=== PATIENT | male | born 1955 | race Caucasian/White ===

== ENCOUNTER 2021-01-09 02:33 | Emergency (ER) | payer MEDICARE, SELFPAY ==
--- NOTE | ~2021-01-09 | XR_ITS ---
EXAMINATION: XR CHEST CLINICAL INFORMATION: Dyspnea COMPARISON: Chest x-ray May 08, 2018 TECHNIQUE: Frontal portable view of the chest was obtained. 3:52 AM FINDINGS: No significant abnormality is noted involving the heart, lungs, mediastinum, bony thorax or soft tissues. XR/XR chest 1V IMPRESSION: Unremarkable examination.
--- NOTE | 2021-01-09 02:45 | ECG_ITS ---
Test Reason : SOB Blood Pressure : / mmHG Vent. Rate : 084 BPM Atrial Rate : 084 BPM P-R Int : 150 ms QRS Dur : 076 ms QT Int : 348 ms P-R-T Axes : 057 066 083 degrees QTc Int : 411 ms Normal sinus rhythm Nonspecific T wave abnormality Abnormal ECG When compared with ECG of 08-MAY-2018 06:15, No significant change was found Referred By: Generic ED Physician Electronically Signed By:ANNA ZAMUDIO
[2021-01-09 02:48] VITALS: BP 156/82; PULSE 88; RESP 24; TEMP 36.6; O2SAT 94; BMI 39.1
--- NOTE | 2021-01-09 03:11 | ED_ITS ---
HPI - SOB/Dyspnea General Chief Complaint: Dyspnea Stated Complaint: trouble breathing, can't sleep Time Seen by Provider: 01/09/21 03:03 Source: patient Mode of arrival: ambulatory Limitations: no limitations History of Present Illness HPI Narrative: Patient comes to the emergency room complaining of shortness of b reath. Patient states it started approximately 6 hours ago while he was trying to sleep. Patient states that he has history of obstructive sleep apnea, uses a CPAP. However, today he could not catch a full breath. Patient denies chest pain. Related Data Home Medications Medication Instructions Recorded Confirmed aripiprazole 2 mg tablet 2 mg PO DAILY 09/02/20 atorvastatin 10 mg tablet 10 mg PO DAILY 09/02/20 fenofibrate nanocrystallized 145 145 mg PO DAILY 09/02/20 mg tablet fluoxetine 20 mg capsule 20 mg PO DAILY 09/02/20 furosemide 20 mg tablet 20 mg PO DAILY 09/02/20 insulin glargine 100 unit/mL (3 25 unit SUBCUT QAM ml 09/02/20 mL) subcutaneous pen (Lantus Solostar U-100 Insulin) losartan 25 mg tablet 25 mg PO DAILY 09/02/20 metformin 500 mg tablet 2,000 mg PO DAILY tab 09/02/20 trazodone 50 mg tablet 50 mg PO DAILY 09/02/20 Previous Rx's Medication Instructions Recorded carbamide peroxide 6.5 % ear drops 10 drp OTIC (EAR) LEFT Q12H 4 Days 09/02/20 (Debrox) #18 ml Allergies Allergy/AdvReac Type Severity Reaction Status Date / Time No Known Allergies Allergy Unverified 01/23/20 19:03 [No Known Allergies*] Review of Systems Review of Systems: Constitutional : No Weight loss, No Fever, No Chills, No Ni ght Sweats, No Fatigue, No Malaise ENT/Mouth : No Hearing loss, No Ear Pain, No Nasal Congestion, No Sinus Pain, No Hoarseness, No sore throat, No Rhinorrhea, No Swallowing Difficulty Eyes: No Eye Pain, No Swelling, No Redness, No Foreign Body, No Discharge, No Vision Changes Cardiovascular : No Chest Pain, No SOB, No Dyspnea on Exertion, No Orthopnea, No Edema, No Palpitations Respiratory : No Cough, No Sputum, No Wheezing, No Smoke Exposure, complaining of dyspnea down with CPAP Gastrointestinal : No Nausea, No Vomiting, No Diarrhea, No Constipation, No abdominal Pain, No Hematochezia, No Melena Genitourinary : no irregular bleeding, No Dysuria, No Urinary Frequency, No Hematuria, No Urinary Incontinence, No Urgency, No Flank Pain, No Urinary Flow Changes, No Hesitancy Musculoskeletal : No joint pain, No Myalgias, No Joint Swelling Skin : No Skin Lesions, No rash Neuro : No Weakness, No Numbness, No Paresthesias, No Loss of Consciousness, No Dizziness, No Headache Psych : No Anxiety/Panic, No Depression, No SI/HI/AH/VH, No Social Issues, Heme/Lymph: No Bruising, No Bleeding,No Lymphadenopathy Endocrine : No Polyuria, No Polydipsia, No Temperature Intolerance [facility] Past Medical History Medical History (Updated 01/09/21 @ 06:18 by Jocelyne Arndt MD) Diabetes FH: cholecystectomy Obstructive sleep apnea Retinal detachment Surgical History History of tonsillectomy Social History Social History Alcohol intake: current Alcohol intake frequency: holidays/special occasions only Patient Tobacco Use Status: Current everyday Tobacco user Smoked in Last 30 Days: Yes Use of substances other than those prescribed or required for medical reasons: Yes Substance Use Type: Marijuana Substance Use Frequency: Monthly Advance Directives: No Advance Directives Information Provided: No Physical Exam Vital Signs: Vital Signs: Last Vital Signs Temp 98 F 01/09/21 02:48 Pulse 84 01/09/21 04:41 Resp 18 01/09/21 04:41 BP 136/68 01/09/21 04:41 Pulse Ox 95 01/09/21 04:41 Body Mass Index 39.1 Const: Other: Appearance: Alert. Oriented X3. No acute distress. Eyes: Right pupil oddly shaped, chronic ENT: Pharynx normal. Neck: Normal inspection. Neck supple. No lymph nodes noted. No crepitus CVS: Normal heart rate and rhythm. Pulses normal. Normal S1 and S2 Respiratory: No respiratory distress. Breath sounds normal. No Wheezing. No rales Abdomen: Soft and nontender. No rigidity. No distention. good BS x4 Skin: Skin warm and dry. Normal skin color. Normal skin turgor. Extremities: +1 pitting edema, No Lacerations. No Rash Neuro: Oriented X 3. No motor deficit. No sensory deficit. Moving all extermities. No slurred speech. Course Course Course Narrative: I discussed the EKG, troponin and D-dimer with the patient, all negative. In the emergency room patient states that he has been feeling well. I discussed with the patient that it is possible that he may need new settings for his CPAP machine, patient will contact his special education director. Wells criteria for PE score negative MDM - SOB/Dyspnea Lab Data Result diagrams: 01/09/21 03:23 01/09/21 03:23 Labs: Lab Results 01/09/21 01/09/21 01/09/21 Range/Units 03:23 03:23 03:23 WBC 9.6 (4.8-10.8) X10*3/uL RBC 4.80 (4.60-5.80) X10*6/uL Hgb 15.6 (14.0-18.0) g/dl Hct 44.8 (42-52) % MCV 93.3 (80-98) fL MCH 32.5 (27.0-33.0) pg MCHC 34.8 (31.0-36.0) g/dl RDW 12.5 (11.0-16.0) % Plt Count 215 (160-400) X10*3/uL MPV 9.8 (9.4-12.4) fL Immature Gran % (Auto) 0.5 H (0.0-0.4) % Neut % (Auto) 56.0 (45-73) % Lymph % (Auto) 30.3 (20-40) % [place] % (Auto) 6.0 (2-11) % Eos % (Auto) 6.3 H (0-4) % Baso % (Auto) 0.9 (0-2) % Lymph # (Auto) 2.9 (1.2-4.9) X10*3/uL [place] # (Auto) 0.6 (0.1-1.2) X10*3/uL Eos # (Auto) 0.6 H (0.0-0.4) X10*3/uL Baso # (Auto) 0.1 (0.0-0.2) X10*3/uL Abs Immat Gran (auto) 0.05 H (0.00-0.03) X10*3/uL Absolute Neuts (auto) 5.4 (2.0-8.3) X10*3/uL Absolute Nucleated RBC 0.000 (0.0-0.012) X10*3/uL Nucleated RBC % (auto) 0.0 (0.0-0.2) /100WBC D-Dimer NG/ML Sodium 138 (135-145) mmol/L Potassium 4.7 (3.3-5.1) mmol/L Chloride 103 (96-108) mmol/L Carbon Dioxide 24 (22-29) mmol/L Anion Gap 16 (12-20) BUN 10 (9-16) mg/dL Creatinine 1.15 (0.5-1.4) mg/dL Estim Creat Clear Calc 77.0 Estimated GFR > 60 POC Glucose (60-115) mg/dL Random Glucose 189 H (60-115) mg/dL Calcium 10.1 (8.4-10.2) mg/dL Troponin I High Sens < 3.5 (<3.5-35.0) ng/L B-Natriuretic Peptide < 10 (<100) pg/mL COVID-19 ([facility]) (Negative) COVID-19 Clin Com 01/09/21 01/09/21 01/09/21 Range/Units 03:23 03:23 04:46 WBC (4.8-10.8) X10*3/uL RBC (4.60-5.80) X10*6/uL Hgb (14.0-18.0) g/dl Hct (42-52) % MCV (80-98) fL MCH (27.0-33.0) pg MCHC (31.0-36.0) g/dl RDW (11.0-16.0) % Plt Count (160-400) X10*3/uL MPV (9.4-12.4) fL Immature Gran % (Auto) (0.0-0.4) % Neut % (Auto) (45-73) % Lymph % (Auto) (20-40) % [place] % (Auto) (2-11) % Eos % (Auto) (0-4) % Baso % (Auto) (0-2) % Lymph # (Auto) (1.2-4.9) X10*3/uL [place] # (Auto) (0.1-1.2) X10*3/uL Eos # (Auto) (0.0-0.4) X10*3/uL Baso # (Auto) (0.0-0.2) X10*3/uL Abs Immat Gran (auto) (0.00-0.03) X10*3/uL Absolute Neuts (auto) (2.0-8.3) X10*3/uL Absolute Nucleated RBC (0.0-0.012) X10*3/uL Nucleated RBC % (auto) (0.0-0.2) /100WBC D-Dimer < 200 NG/ML Sodium (135-145) mmol/L Potassium (3.3-5.1) mmol/L Chloride (96-108) mmol/L Carbon Dioxide (22-29) mmol/L Anion Gap (12-20) BUN (9-16) mg/dL Creatinine (0.5-1.4) mg/dL Estim Creat Clear Calc Estimated GFR POC Glucose 207 H (60-115) mg/dL Random Glucose (60-115) mg/dL Calcium (8.4-10.2) mg/dL Troponin I High Sens (<3.5-35.0) ng/L B-Natriuretic Peptide (<100) pg/mL COVID-19 ([facility]) Negative (Negative) COVID-19 Clin Com See Note ECG Data Attestation: I personally reviewed and interpreted this ECG as follows: (Sedative rhythm, heart rate 84, 7 depression or elevation, no T-wave inversion, QTC 411) Discharge Plan Discharge Clinical Impression: Chronic dyspnea Patient Disposition: Home, Self-Care Instructions: Dyspnea (ED) Additional Instructions: Please follow-up with your primary care physician tomorrow. If you have any worsening or new symptoms, please return to the emergency room or call 911 Prescriptions: No Action atorvastatin 10 mg tablet 10 mg PO DAILY RF: 0 aripiprazole 2 mg tablet 2 mg PO DAILY RF: 0 Lantus Solostar U-100 Insulin 100 unit/mL (3 mL) insulin pen 25 unit subcut QAM RF: 0 losartan 25 mg tablet 25 mg PO DAILY RF: 0 fenofibrate nanocrystallized 145 mg tablet 145 mg PO DAILY RF: 0 fluoxetine 20 mg capsule 20 mg PO DAILY RF: 0 furosemide 20 mg tablet 20 mg PO DAILY RF: 0 trazodone 50 mg tablet 50 mg PO DAILY RF: 0 metformin 500 mg tablet 2,000 mg PO DAILY RF: 0 carbamide peroxide [Debrox] 6.5 % drops 10 drp otic (ear) left Q12H 4 Days Qty: 18 RF: 0
[2021-01-09 03:21] VITALS: BP 129/53; PULSE 83; RESP 18; O2SAT 95
[2021-01-09 03:38] LABS: Basophils Absolute Auto 0.1 X10*3/uL (0.0-0.2); Basophils Percent Auto 0.9 % (0-2); Eosinophils Absolute Auto 0.6 X10*3/uL (0.0-0.4); Eosinophils Percent Auto 6.3 % (0-4); Hematocrit 44.8 % (42-52); Hemoglobin 15.6 g/dl (14.0-18.0); Imm Gran Abs Auto 0.05 X10*3/uL (0.00-0.03); Imm Gran Pct Auto 0.5 % (0.0-0.4); Lymphocytes Absolute Auto 2.9 X10*3/uL (1.2-4.9); Lymphocytes Percent Auto 30.3 % (20-40); MANUAL DIFF FLAG NO; Mean Corpuscular HGB Conc 34.8 g/dl (31.0-36.0); Mean Corpuscular Hemoglobin 32.5 pg (27.0-33.0); Mean Corpuscular Volume 93.3 fL (80-98); Mean Platelet Volume 9.8 fL (9.4-12.4); Monocytes Absolute Auto 0.6 X10*3/uL (0.1-1.2); Neutrophils Absolute Auto 5.4 X10*3/uL (2.0-8.3); Platelet Count 215 X10*3/uL (160-400); Red Cell Distribution Width 12.5 % (11.0-16.0); White Blood Count 9.6 X10*3/uL (4.8-10.8)
[2021-01-09 03:47] LABS: D Dimer < 200 NG/ML
[2021-01-09 03:53] LABS: Anion Gap 16 (12-20); Blood Urea Nitrogen 10 mg/dL (9-16); Calcium 10.1 mg/dL (8.4-10.2); Carbon Dioxide 24 mmol/L (22-29); Chloride 103 mmol/L (96-108); Estimated Glomerular Filt Rate > 60; Glucose Random 189 mg/dL (60-115); Potassium 4.7 mmol/L (3.3-5.1); Sodium 138 mmol/L (135-145)
[2021-01-09 03:56] LABS: COVID-19 Test Negative (Negative); IDNOW Serial# 9DD0AD1C
[2021-01-09 04:02] LABS: B Type Natriuretic Peptide < 10 pg/mL (<100); Troponin-I High Sensitivity < 3.5 ng/L (<3.5-35.0)
[2021-01-09 04:41] VITALS: BP 136/68; PULSE 84; RESP 18; O2SAT 95
--- NOTE | 2021-01-09 04:46 | PC.NURSE ---
pT STATED HE IS DIABETIC AND HASN'T EATEN ANYTHING SINCE 10 PM LAST NIGHT AND WAS FEELING A LITTLE JITTERY. DID A POC AND HIS BLOOD SUGAR WAS 207. KEYONA CASTILLO.
[2021-01-09 04:52] LABS: Glucose, Whole Blood 207 mg/dL (60-115)
== END 2021-01-09 06:55 | disposition home or self-care (01) ==
PROVIDERS: Emergency Provider Emergency Medicine
DX: R06.02 Shortness of breath (principal); Z20.822 Contact with and (suspected) exposure to COVID-19; E11.9 Type 2 diabetes mellitus without complications; F17.210 Nicotine dependence, cigarettes, uncomplicated; F12.90 Cannabis use, unspecified, uncomplicated; Z79.4 Long term (current) use of insulin; Z79.899 Other long term (current) drug therapy
CPT/HCPCS: 36415; 71045; 80048; 82947; 83880; 84484; 85025; 85379; 87635; 93005; 99284; 99285

== ENCOUNTER 2021-03-14 21:47 | Inpatient (IN) | payer MEDICARE, SELFPAY ==
--- NOTE | 2021-03-14 | ECG_ITS ---
Test Reason : CHEST PAIN Blood Pressure : / mmHG Vent. Rate : 087 BPM Atrial Rate : 087 BPM P-R Int : 150 ms QRS Dur : 078 ms QT Int : 332 ms P-R-T Axes : 048 051 073 degrees QTc Int : 399 ms Normal sinus rhythm Nonspecific T wave abnormality Nonspecific ST abnormality Lateral leads Abnormal ECG ST more depressed Lateral leads Referred By: Brian Castro Electronically Signed By:MAXX TRINIDAD MD
--- NOTE | ~2021-03-14 | XR_ITS ---
EXAMINATION: XR CHEST CLINICAL INFORMATION: Chest pain COMPARISON: 01/09/2021 TECHNIQUE: Frontal view of the chest was obtained. FINDINGS: Linear opacities in the left lung base are most consistent with dependent atelectasis. No consolidation, pneumothorax, or pleural effusion. Cardiac and mediastinal contours are within normal limits in size. Mild degenerative disc disease in the thoracic spine. No acute osseous findings. XR/XR chest 1V IMPRESSION: Mild dependent atelectasis in the left lower lobe. No acute cardiopulmonary findings.
[2021-03-14 21:55] VITALS: BP 150/73; PULSE 91; RESP 22; TEMP 37.1; O2SAT 94; BMI 38.7
--- NOTE | 2021-03-14 23:06 | ED.CHESTPAIN ---
HPI - Chest Pain General Chief Complaint: Chest Pain Stated Complaint: chest pain Time Seen by Provider: 03/14/21 22:43 Source: patient Mode of arrival: ambulatory Limitations: no limitations History of Present Illness HPI narrative: 65-year-old male who presents emergency department for evaluation of midsternal, anterior chest pain that occasionally radiates to his left arm. The patient states that he works at the [employer] department at [employer]. He states that yesterday after work at approximately 7:00 p.m., he was watching TV when he had a sudden onset of pain in his chest. States that the pain was a burning/pressure-like sensation. He points to his mid sternum and left and right chest when asked to localize the pain. States the pain will occasionally radiate down his left arm. 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 He states the pain lasted approximately 2 hours and then resolved. He woke up this morning was feeling fine. He states that around 3:00 p.m. again while he was at rest he developed similar burning and pressure-like pain. He states that the pain is been constant since then has waxed and waned from 4/10 to 7/10. He had associated nausea, dizziness and diaphoresis. He denied shortness of breath or dyspnea on exertion. The patient did take 2 times at home without relief his pain. He states that he continues to take omeprazole twice a day for his Cohn's esophagitis. Related Data Home Medications Medication Instructions Recorded Confirmed aripiprazole 2 mg tablet 2 mg PO DAILY 09/02/20 03/15/21 atorvastatin 10 mg tablet 10 mg PO DAILY 09/02/20 03/15/21 fenofibrate nanocrystallized 145 145 mg PO DAILY 09/02/20 03/15/21 mg tablet fluoxetine 20 mg capsule 20 mg PO DAILY 09/02/20 03/15/21 furosemide 20 mg tablet 20 mg PO DAILY 09/02/20 03/15/21 insulin glargine 100 unit/mL (3 25 unit SUBCUT QAM ml 09/02/20 03/15/21 mL) subcutaneous pen (Lantus Solostar U-100 Insulin) losartan 25 mg tablet 25 mg PO DAILY 09/02/20 03/15/21 metformin 500 mg tablet 2,000 mg PO DAILY tab 09/02/20 03/15/21 trazodone 50 mg tablet 50 mg PO DAILY 09/02/20 03/15/21 glipizide 10 mg tablet 1 tab PO BID 03/15/21 03/15/21 Allergies Allergy/AdvReac Type Severity Reaction Status Date / Time No Known Allergies Allergy Unverified 01/23/20 19:03 [No Known Allergies*] Review of Systems Review of Systems: Yes all other systems are reviewed and are negative [facility] Past Medical History [facility] Narrative: Past medical history: Diabetes mellitus, hypertension, high cholesterol, Cohn's esophagitis, obstructive sleep apnea, retinal detachments. Past surgical history: Tonsillectomy, cholecystectomy. Social history: The patient states that he smokes 4 small cigars 4 times a day for 4 years. He denies alcohol use. He states he occasionally smokes marijuana. Medical History Diabetes FH: cholecystectomy HTN (hypertension) Obstructive sleep apnea Retinal detachment Surgical History History of tonsillectomy Social History Social History Alcohol intake: current Alcohol intake frequency: holidays/special occasions only Patient Tobacco Use Status: Current everyday Tobacco user Substance Use Type: Marijuana Advance Directives: No Advance Directives Information Provided: No Physical Exam Vital Signs: Vital Signs: Last Vital Signs Temp 98.7 F 03/14/21 21:55 Pulse 85 03/15/21 03:57 Resp 22 H 03/15/21 03:56 BP 134/63 03/15/21 03:57 Pulse Ox 97 03/15/21 03:56 Body Mass Index 38.7 Const: Other: Very pleasant and cooperative male patient, he does not appear to be in distress, answers all questions appropriately. HENMT: Head: Yes normal to inspection, Yes normocephalic and Yes atraumatic Ears: external ears normal General nose exam: Normal external nose present Face and sinus: Yes normal facial exam Mouth: Normal oral and palatal mucosa present Throat: Yes posterior oropharynx normal Eyes: General: appearance normal, both eyes and all related structures Pupils: Equal, round and reactive pupils present Neck: Neck: Yes normal visual inspection, Yes no lymphadenopathy, Yes trachea midline and Yes supple Chest: Chest palpation & inspection: normal inspection of the chest and normal palpation of entire chest wall Resp: Effort & Inspection: normal respiratory effort and able to speak in complete sentences Auscultation: clear to auscultation bilaterally Cardio: Rate: regular rate Rhythm: regular rhythm Heart sounds: S1 normal heart sound present, S2 normal heart sound present and no murmurs GI: Inspection: Yes normal to inspection Palpation (GI): Soft to palpation, nontender and no guarding Auscultation: normal bowel sounds : General: Yes no CVA tenderness Back/Spine/Pelvis: Back: no CVA tenderness Skin: General skin exam: no rashes or lesions noted Neuro: Cranial nerves: Yes CN's II-XII intact bilaterally and Yes Equal, round and reactive pupils present Cognition (Neuro): normal cognition Motor exam (neuro): 5/5 motor strength present throughout Extrem: General: Yes normal to inspection Psych: Appearance: grossly normal Speech and movement: Normal speech and movement present Affect: normal affect Attitude: cooperative Thought process: Normal thought process present Thought content: Normal thought content present Course Course Course Narrative: 65-year-old male who presents emergency department for evaluation of intermittent midsternal and anterior chest pain which he describes as a burning and pressure-like sensation. He had an episode yesterday that came on at rest that lasted approximately 2 hours. He had a another episode chest pain that started today at 3:00 p.m. will while rest. The 2nd episode has been waxing and waning in intensity and was still present at the time of evaluation. Patient's vital signs did reveal hypertension with a blood pressure of 150/73 and tachypnea with a respiratory rate of 22. The patient's physical examination was unremarkable. Differential includes was not limited to myocardial infarction, NSTEMI, angina, esophagitis, gastritis, musculoskeletal pain. I did order a CBC, CMP, troponin, D-dimer, 12 EKG and chest x-ray. I will also check a COVID-19 test on the patient. Patient was ordered to get Maalox 30 cc orally, viscous lidocaine 10 cc orally and 10 cc orally to see if this helps his pain. 0009: The patient's laboratory evaluation revealed an elevated troponin of 115, elevated AST and ALT of 43 and 55, elevated glucose of 203. The patient states that his pain did improve after the above treatment and was 3/10. Given his elevated troponin I am concerned that he may have had an NSTEMI. Patient was ordered to get nitro paste 1 in to his chest wall and aspirin 324 mg to chew. I will repeat the patient's 3 hour troponin at 06/09/2019 I and then I will discuss the patient's presentation with the covering refinery operator helper crude unit. 0128: Patient's pain improved with the above treatment but he states that the pain is 1/10. I will repeat the patient's 12 EKG and give the patient morphine 4 mg IV. The patient does not appear to be in distress and his vital signs are stable. 0312: The patient's repeat 3 hour high sensitivity troponin I was elevated at 674.8. I did discuss the patient's presentation with our covering refinery operator helper crude unit, Dr. Glass. He recommended that the patient be admitted to [facility] [place]. He recommended IV heparin, atorvastatin and beta-blockers. Patient was ordered to get heparin bolus and started on heparin drip. I ordered atorvastatin 80 mg orally and metoprolol tartrate 25 mg orally. I will discuss the patient's presentation with the covering hospitalist. MDM - Chest Pain Lab Data Result diagrams: 03/14/21 23:20 03/14/21 23:20 Labs: Lab Results 03/14/21 03/14/21 03/14/21 Range/Units 23:15 23:20 23:20 WBC 9.2 (4.8-10.8) X10*3/uL RBC 4.90 (4.60-5.80) X10*6/uL Hgb 15.7 (14.0-18.0) g/dl Hct 45.6 (42.0-52.0) % MCV 93.1 (80.0-98.0) fL MCH 32.0 (27.0-33.0) pg MCHC 34.4 (31.0-36.0) g/dl RDW 12.6 (11.0-16.0) % Plt Count 227 (160-400) X10*3/uL MPV 9.3 L (9.4-12.4) fL Immature Gran % (Auto) 0.7 H (0.0-0.4) % Neut % (Auto) 53.6 (45-73) % Lymph % (Auto) 30.6 (20-40) % [place] % (Auto) 7.1 (2-11) % Eos % (Auto) 7.0 H (0-4) % Baso % (Auto) 1.0 (0-2) % Lymph # (Auto) 2.8 (1.2-4.9) X10*3/uL [place] # (Auto) 0.7 (0.1-1.2) X10*3/uL Eos # (Auto) 0.6 H (0.0-0.4) X10*3/uL Baso # (Auto) 0.1 (0.0-0.2) X10*3/uL Abs Immat Gran (auto) 0.06 H (0.00-0.03) X10*3/uL Absolute Neuts (auto) 4.9 (2.0-8.3) x10*3/uL Absolute Nucleated RBC 0.000 (0.0-0.012) X10*3/uL Nucleated RBC % (auto) 0.0 (0.0-0.2) /100WBC APTT (24.1-38.0) SEC D-Dimer NG/ML Sodium 137 (135-145) mmol/L Potassium 4.3 (3.3-5.1) mmol/L Chloride 101 (96-108) mmol/L Carbon Dioxide 28 (22-29) mmol/L Anion Gap 12 (12-20) BUN 8 L (9-16) mg/dL Creatinine 1.34 (0.5-1.4) mg/dL Estim Creat Clear Calc 65.6 Estimated GFR 53 Random Glucose 203 H (60-115) mg/dL Calcium 9.8 (8.4-10.2) mg/dL Total Bilirubin 0.4 (0.0-1.0) mg/dL AST 43 H (5-37) U/L ALT 55 H (0-40) U/L Alkaline Phosphatase 50 (39-117) U/L Troponin I High Sens (<3.5-35.0) ng/L Total Protein 7.1 (6.5-8.0) g/dL Albumin 4.2 (3.5-5.0) g/dL COVID-19 ([facility]) Negative (Negative) COVID-19 Clin Com See Note 03/14/21 03/15/21 03/15/21 Range/Units 23:20 02:24 02:24 WBC (4.8-10.8) X10*3/uL RBC (4.60-5.80) X10*6/uL Hgb (14.0-18.0) g/dl Hct (42.0-52.0) % MCV (80.0-98.0) fL MCH (27.0-33.0) pg MCHC (31.0-36.0) g/dl RDW (11.0-16.0) % Plt Count (160-400) X10*3/uL MPV (9.4-12.4) fL Immature Gran % (Auto) (0.0-0.4) % Neut % (Auto) (45-73) % Lymph % (Auto) (20-40) % [place] % (Auto) (2-11) % Eos % (Auto) (0-4) % Baso % (Auto) (0-2) % Lymph # (Auto) (1.2-4.9) X10*3/uL [place] # (Auto) (0.1-1.2) X10*3/uL Eos # (Auto) (0.0-0.4) X10*3/uL Baso # (Auto) (0.0-0.2) X10*3/uL Abs Immat Gran (auto) (0.00-0.03) X10*3/uL Absolute Neuts (auto) (2.0-8.3) x10*3/uL Absolute Nucleated RBC (0.0-0.012) X10*3/uL Nucleated RBC % (auto) (0.0-0.2) /100WBC APTT 36.5 (24.1-38.0) SEC D-Dimer 200 NG/ML Sodium (135-145) mmol/L Potassium (3.3-5.1) mmol/L Chloride (96-108) mmol/L Carbon Dioxide (22-29) mmol/L Anion Gap (12-20) BUN (9-16) mg/dL Creatinine (0.5-1.4) mg/dL Estim Creat Clear Calc Estimated GFR Random Glucose (60-115) mg/dL Calcium (8.4-10.2) mg/dL Total Bilirubin (0.0-1.0) mg/dL AST (5-37) U/L ALT (0-40) U/L Alkaline Phosphatase (39-117) U/L Troponin I High Sens 115.4 H* D 674.3 H* D (<3.5-35.0) ng/L Total Protein (6.5-8.0) g/dL Albumin (3.5-5.0) g/dL COVID-19 ([facility]) (Negative) COVID-19 Clin Com ECG Data ECG #1: Attestation: I personally reviewed and interpreted this ECG as follows: Interpretation: 06/27/2052: Normal sinus rhythm with a rate of 87, normal MS interval, QRS duration and QTC interval, no ST segment elevation, no ST segment depression, no PACs, no PVCs, no T-wave abnormalities. ECG #2: Interpretation: 0255: Normal sinus rhythm with a rate of 79, normal MS interval, QRS duration and QTC interval, no ST segment elevation, no ST segment depression, no PACs, no PVCs. No significant change compared to EKG 1. Critical Care Time Critical Care Time Critical Care Time: Yes Total Critical Care Time: 45 Attestation: Critical Care: The patient was critically ill with a high probability of imminent or life threatening deterioration. I spent greater than 30 minutes of discontinuous time evaluating the patient,delivering critical care at the bedside, discussing and evaluating pertinent data with consultants. Critical care time does not include time spent performing separately billable procedures or teaching. Total time spent performing critical care was 45minutes. Discharge Plan Discharge Clinical Impression: Chest pain, Acute non-ST elevation myocardial infarction (NSTEMI) Patient Disposition: Admitted As Inpatient
[2021-03-14 23:11] VITALS: BP 136/77; PULSE 77; RESP 22; O2SAT 95
[2021-03-14] MEDS: Lidocaine HCl Viscous 2 % 15 ML SOLUTION 10 ML PO (23:21)
[2021-03-14] MEDS: PHENobarb/Hyoscy/Atropine/Scop 10 ML ELIXIR PO (23:22)
[2021-03-14] MEDS: Magnesium Hydrox/Alum Hydrox 30 ML ORAL.SUSP PO (23:22)
[2021-03-14 23:27] LABS: MANUAL DIFF FLAG NO
[2021-03-14 23:28] LABS: Basophils Absolute Auto 0.1 X10*3/uL (0.0-0.2); Eosinophils Absolute Auto 0.6 X10*3/uL (0.0-0.4); Hematocrit 45.6 % (42.0-52.0); Hemoglobin 15.7 g/dl (14.0-18.0); Imm Gran Abs Auto 0.06 X10*3/uL (0.00-0.03); Imm Gran Pct Auto 0.7 % (0.0-0.4); Lymphocytes Absolute Auto 2.8 X10*3/uL (1.2-4.9); Lymphocytes Percent Auto 30.6 % (20-40); Mean Corpuscular HGB Conc 34.4 g/dl (31.0-36.0); Mean Corpuscular Volume 93.1 fL (80.0-98.0); Mean Platelet Volume 9.3 fL (9.4-12.4); Monocytes Absolute Auto 0.7 X10*3/uL (0.1-1.2); Monocytes Percent Auto 7.1 % (2-11); Neutrophils Absolute Auto 4.9 x10*3/uL (2.0-8.3); Neutrophils Percent Auto 53.6 % (45-73); Platelet Count 227 X10*3/uL (160-400); Red Cell Distribution Width 12.6 % (11.0-16.0); White Blood Count 9.2 X10*3/uL (4.8-10.8)
[2021-03-14 23:41] LABS: COVID-19 Test Negative (Negative); IDNOW Serial# 9DD0AD1C
[2021-03-14 23:48] LABS: Alanine Aminotransferase 55 U/L (0-40); Albumin Level 4.2 g/dL (3.5-5.0); Alkaline Phosphatase 50 U/L (39-117); Anion Gap 12 (12-20); Aspartate Amino Transferase 43 U/L (5-37); Bilirubin Total 0.4 mg/dL (0.0-1.0); Blood Urea Nitrogen 8 mg/dL (9-16); Calcium 9.8 mg/dL (8.4-10.2); Carbon Dioxide 28 mmol/L (22-29); Chloride 101 mmol/L (96-108); Creatinine Clr Calc Pharmacy 65.6; Estimated Glomerular Filt Rate 53; Glucose Random 203 mg/dL (60-115); Potassium 4.3 mmol/L (3.3-5.1); Sodium 137 mmol/L (135-145); Total Protein 7.1 g/dL (6.5-8.0)
[2021-03-14 23:49] LABS: Troponin-I High Sensitivity 115.4 ng/L (<3.5-35.0)
[2021-03-15] VITALS (9 sets, daily range): BP systolic 108–143; BP diastolic 50–83; PULSE 55–85; RESP 13–28; TEMP 36.8; O2SAT 94–97
[2021-03-15] MEDS: Aspirin 81 MG TAB.CHEW 324 MG PO (00:18)
[2021-03-15] MEDS: Nitroglycerin 2 % Oint 1 GM Packet 1 INCH TRANSDERMA (00:19)
--- NOTE | 2021-03-15 01:25 | ECG_ITS ---
Test Reason : CHEST PAIN Blood Pressure : / mmHG Vent. Rate : 079 BPM Atrial Rate : 079 BPM P-R Int : 154 ms QRS Dur : 076 ms QT Int : 370 ms P-R-T Axes : 056 052 106 degrees QTc Int : 424 ms Normal sinus rhythm Nonspecific T wave abnormality Nonspecific ST abnormality Abnormal ECG When compared with ECG of 09-JAN-2021 03:30, No significant change was found Referred By: Brian Castro Electronically Signed By:MAXX TRINIDAD MD
[2021-03-15] MEDS: Morphine Sulfate 4 MG/ML CARTRIDGE IVPUSH (01:46)
[2021-03-15 02:47] LABS: D Dimer 200 NG/ML
[2021-03-15 03:00] LABS: Troponin-I High Sensitivity 674.3 ng/L (<3.5-35.0)
[2021-03-15 03:41] LABS: Partial Thromboplastin Time 36.5 SEC (24.1-38.0)
[2021-03-15] MEDS: Metoprolol Tartrate 25 MG TABLET PO (03:57)
[2021-03-15] MEDS: Heparin Sodium,Porcine 5,000 UNIT/ML VIAL 4000 UNIT IVPUSH (03:57)
[2021-03-15] MEDS: Atorvastatin Calcium 80 MG TABLET PO (03:57)
[2021-03-15] MEDS: Heparin Sodium,Porcine/1/2NS 25,000 UNIT/250 ML IV.SOLN 10 UNIT IVCONT ×2 (04:11→11:00)
--- NOTE | 2021-03-15 05:26 | CA_ITS ---
Transthoracic Echocardiogram Patient (Last, First, Middle): Doe Bajwa, Gender: Male Date of : 1955 Age: 65 Procedure Date: 03/15/2021 Procedure Type: Transthoracic Echocardiogram Location: ER Height: 170.18 cm Weight: 112.04 kg BSA: 2.21 m2 Heart Rate: bpm BP: 108 / 54 mmHg Zipper Lining Folder: JIMMY Referring MD: Racheal Baptiste MD Symptoms: NSTEMI Study Quality: Technically Difficult/Contrast ECG Rhythm: Sinus Conclusions: - The left ventricular systolic function is normal. The visually estimated ejection fraction is between 55-60%. - The inferoseptal wall is hypokinetic. - The basal inferior and mid inferior segments are akinetic. - No obvious valvular pathology seen on this study. Findings Procedure Information Contrast agent, definity, is being given per protocol without apparent complications. Left Ventricle Normal left ventricular cavity size. There is normal left ventricular wall thickness. The left ventricular systolic function is normal. The visually estimated ejection fraction is between 55-60%. Diastolic function is normal for age. Wall Motion Rest Echo Findings The inferoseptal wall is hypokinetic. The basal inferior and mid inferior segments are akinetic. Right Ventricle Normal right ventricular cavity size and systolic function. Atria Both atria are normal in size. Aortic Valve There is a normal trileaflet aortic valve. There is no aortic valve stenosis. There is no aortic valve regurgitation. Mitral Valve The mitral valve appears normal. There is no mitral valve regurgitation. There is no mitral valve stenosis. Pulmonic Valve The pulmonic valve was not well visualized. Tricuspid Valve Normal tricuspid valve structure. There is trace tricuspid valve regurgitation. The pulmonary artery systolic pressure is normal. Great Vessels The asc aorta is normal in size. Venous The inferior vena cava is normal in size and collapses greater than 50% with inspiration. Pericardium/Pleural There is no evidence of pericardial effusion. Prior Study Comparison No prior study available for comparison. Recommendations, Care & Conclusions No obvious valvular pathology seen on this study. Measurements 2D Linear Measurements IVSd: 0.98 0.6-0.9/0.6-1.0 cm LVIDd: 3.96 3.9-5.3/4.2-5.9 cm LVIDd Index: 1.79 2.4-3.2/2.2-3.1 cm/m2 LVIDs: 2.81 2.0-3.6 cm LVPWd: 0.96 0.7-1.1 cm Ao Root: 3.30 2.1-3.5 cm LA Diam: 3.40 2.7-3.8/3.0-4.0 cm LAIDs Index: 1.54 1.5-2.3 cm/m2 LV Mass: 149.12 67-162/88-224 g LV Mass Index: 67.47 43-95/49-115 g/m2 LVOT Diam: 2.10 3.0+(-)1.3 cm Mitral Valve MV Pk E: 0.95 MV PK A: 0.98 MV Decel Time: 299.00 E/A: 1.00 E'Lateral: 11.30 E'Medial: 11.00 E/E' Med: 8.60 E/E' Lat: 8.40 PHT: 88.00 MVA PHT: 2.50 Decel [place]: 3.17 Aortic Valve AoV Pk [place]: 1.33 AoV Mn [place]: 0.89 AoV VTI: 0.27 AoV Pk Grad: 7.00 Aov Mn Grad: 4.00 MARIYA Cont.VTI: 2.81 LVOT LVOT Pk [place]: 1.02 LVOT Mn [place]: 0.62 LVOT VTI: 0.22 LVOT Pk Grad: 4.00 LVOT Mn Grad: 2.00 LVOT Diam: 2.10 LVOT Area: 3.46 Diastolic Function MV Pk E: 0.95 MV Pk A: 0.98 E/A: 1.00 E'Medial: 11.00 E/E' Med: 8.60 E' Laterial: 11.30 E/E' Lat: 8.40 Right Ventricle TAPSE (mm): 2.31 TVS' [place]: 10.80 Tricuspid Valve TR Pk [place]: 1.36 TR Pk Grad: 7.00 RA Press: 3.00 RVSP: 10.00 Great Vessels Aorta Ao Root-2D: 3.30 2.0-3.7 cm Ao Asc: 3.50 2.1-3.4 cm Ao Arch: 2.90 Updated in Other Vendor System with Status of Final Kameron Lyn MD electronically signed on 03/15/2021 12:24:41 PM with status of Final
[2021-03-15 06:06] LABS: Basophils Absolute Auto 0.1 X10*3/uL (0.0-0.2); Basophils Percent Auto 0.8 % (0-2); Eosinophils Absolute Auto 0.6 X10*3/uL (0.0-0.4); Eosinophils Percent Auto 6.3 % (0-4); Hematocrit 48.4 % (42.0-52.0); Hemoglobin 16.2 g/dl (14.0-18.0); Imm Gran Abs Auto 0.03 X10*3/uL (0.00-0.03); Imm Gran Pct Auto 0.3 % (0.0-0.4); Lymphocytes Absolute Auto 2.8 X10*3/uL (1.2-4.9); Lymphocytes Percent Auto 29.1 % (20-40); MANUAL DIFF FLAG NO; Mean Corpuscular HGB Conc 33.5 g/dl (31.0-36.0); Mean Corpuscular Hemoglobin 31.9 pg (27.0-33.0); Mean Corpuscular Volume 95.3 fL (80.0-98.0); Mean Platelet Volume 9.8 fL (9.4-12.4); Monocytes Absolute Auto 0.7 X10*3/uL (0.1-1.2); Monocytes Percent Auto 7.3 % (2-11); Neutrophils Absolute Auto 5.4 x10*3/uL (2.0-8.3); Neutrophils Percent Auto 56.2 % (45-73); Platelet Count 225 X10*3/uL (160-400); Red Blood Count 5.08 X10*6/uL (4.60-5.80); Red Cell Distribution Width 12.7 % (11.0-16.0); White Blood Count 9.5 X10*3/uL (4.8-10.8)
--- NOTE | 2021-03-15 06:08 | P.HPHOSP_ITS ---
History of Present Illness Date of Service: 03/15/21 Chief Complaint: Chest pain 65-year-old male with past medical history of diabetes, hypertension, hyperlipidemia, Cohn's esophagitis, obesity, sleep apnea presents the hospital with chest pain that initially started on Monday. Patient reports that he was coming home after work when he experienced midsternal chest pain that he felt like it was indigestion, the pain lasted about half an hour and resolved spontaneously. He woke up feeling well, but later on in the morning started developing the same pain that progressively worsened over the course of the day. The pain is localized in the epigastric region, felt like pressure, as well as heartburn, 8/10, constant, radiating to the left arm, no relieving factors, no exacerbating factors. He felt that he was having heartburn but the symptoms were not resolving after taking Tums and his PPI. He denies any palpitations, no shortness of breath, no abdominal pain nausea or vomiting, no diarrhea constipation, no urinary symptoms and no lower extremity edema. On arrival to the ED hemodynamically stable with no significant abnormal vitals Labs are significant for initial troponin that was 115, repeat troponin that was 674, EKG unremarkable x2 Case was discussed with Cardiology, patient started on heparin drip, Lopressor, aspirin, and statin and will be admitted for further management Review of Systems Review of Systems: Yes all other systems are reviewed and are negative [facility] Medical History Diabetes FH: cholecystectomy HTN (hypertension) Obstructive sleep apnea Retinal detachment Family History (Updated 03/15/21 @ 06:13 by Racheal Baptiste MD) Father Coronary artery disease Hx of CABG Surgical History History of tonsillectomy Social History Alcohol intake: current Alcohol intake frequency: holidays/special occasions only Patient Tobacco Use Status: Current everyday Tobacco user Substance Use Type: Marijuana Advance Directives: No Advance Directives Information Provided: No Meds Allergies Allergy/AdvReac Type Severity Reaction Status Date / Time No Known Allergies Allergy Unverified 01/23/20 19:03 [No Known Allergies*] Active Medications: Current Medications Acetaminophen (Acetaminophen 325 Mg Tablet) 650 mg PO Q6H PRN PRN Reason: Pain, Mild (Pain Scale 1-3) Aripiprazole (Aripiprazole 2 Mg Tablet) 2 mg PO DAILY [facility] Aspirin (Aspirin Enteric Coated 81 Mg Tablet.Dr) 81 mg PO DAILY [facility] Atorvastatin Calcium (Atorvastatin Calcium 40 Mg Tablet) 40 mg PO DAILY [facility] Docusate Sodium (Docusate Sodium 100 Mg Capsule) 100 mg PO DAILY PRN PRN Reason: Constipation Fenofibrate (Fenofibrate 160 Mg Tablet) 160 mg PO DAILY [facility] Fluoxetine HCl (Fluoxetine Hcl 20 Mg Capsule) 20 mg PO DAILY [facility] Furosemide (Furosemide 20 Mg Tablet) 20 mg PO DAILY [facility]; Protocol Heparin Sodium (Porcine) (Heparin Sodium,Porcine 5,000 Unit/Ml Vial) 4,500 unit 40 unit/kg (4500 unit) IVPUSH PROTOCOL BOLUS PRN; Protocol PRN Reason: 40 unit/kg - Heparin Protocol Heparin Sodium (Porcine) (Heparin Sodium,Porcine 5,000 Unit/Ml Vial) 9,000 unit 80 unit/kg (9000 unit) IVPUSH PROTOCOL BOLUS PRN; Protocol PRN Reason: 80 unit/kg - Heparin Protocol Heparin Sodium/Sodium Chloride () 25,000 unit in 250 mls @ 0 mls/hr IVCONT .Q0M [facility]; Protocol Last Admin: 03/15/21 04:11 Dose: 8.93 units/kg/hr, 10 mls/hr Documented by: Insulin Glargine (Insulin Glargine,Hum.Rec.Anlog 100 Unit/Ml 10 Ml Vial) 25 unit SUBCUT DAILY [facility] Losartan Potassium (Losartan Potassium 25 Mg Tablet) 25 mg PO DAILY [facility]; Protocol Metoprolol Tartrate (Metoprolol Tartrate 12.5 Mg Halftab) 12.5 mg PO BID [facility]; Protocol Ondansetron HCl (Ondansetron Hcl 4 Mg/2 Ml Vial) 4 mg IVPUSH Q8H PRN PRN Reason: Nausea and Vomiting Sodium Chloride (0.9 % Sodium Chloride Flush 3 Ml Syringe) 3 ml IVFLUSH QSHIFT [facility] Trazodone HCl (Trazodone Hcl 50 Mg Tablet) 50 mg PO DAILY [facility] Home Medications Medication Instructions Recorded Confirmed Last Taken Type aripiprazole 2 mg tablet 2 mg PO DAILY 09/02/20 03/15/21 03/14/21 History atorvastatin 10 mg tablet 10 mg PO DAILY 09/02/20 03/15/21 03/14/21 History fenofibrate nanocrystallized 145 145 mg PO DAILY 09/02/20 03/15/21 03/14/21 History mg tablet fluoxetine 20 mg capsule 20 mg PO DAILY 09/02/20 03/15/21 03/14/21 History furosemide 20 mg tablet 20 mg PO DAILY 09/02/20 03/15/21 03/14/21 History insulin glargine 100 unit/mL (3 25 unit SUBCUT QAM ml 09/02/20 03/15/21 03/14/21 History mL) subcutaneous pen (Lantus Solostar U-100 Insulin) losartan 25 mg tablet 25 mg PO DAILY 09/02/20 03/15/21 03/14/21 History metformin 500 mg tablet 2,000 mg PO DAILY tab 09/02/20 03/15/21 03/14/21 History trazodone 50 mg tablet 50 mg PO DAILY 09/02/20 03/15/21 03/14/21 History glipizide 10 mg tablet 1 tab PO BID 03/15/21 03/15/21 03/14/21 History Physical Exam Vital Signs and Narrative: Vital Signs: Last Vital Signs Temp 98.7 F 03/14/21 21:55 Pulse 55 03/15/21 05:48 Resp 20 03/15/21 05:48 BP 108/54 L 03/15/21 05:48 Pulse Ox 96 03/15/21 05:26 Body Mass Index 38.7 Const: General: cooperative and no acute distress Orientation/consciousness: patient oriented x3 Eyes: General: appearance normal, both eyes and all related structures Resp: Effort & Inspection: normal respiratory effort Auscultation: clear to auscultation bilaterally Cardio: Rate: regular rate Rhythm: regular rhythm GI: Palpation (GI): Soft to palpation Auscultation: normal bowel sounds Skin: General skin exam: no rashes or lesions noted Neuro: General: patient oriented x3 Cognition (Neuro): normal cognition Extrem: General: Yes normal to inspection and Yes no pedal edema Results Labs CBC and Chem 7: 03/15/21 06:01 03/14/21 23:20 Labs: Laboratory Results - last 24 hr 03/14/21 03/14/21 03/14/21 23:15 23:20 23:20 MCV 93.1 MCH 32.0 MCHC 34.4 RDW 12.6 Plt Count 227 MPV 9.3 L Immature Gran % (Auto) 0.7 H Neut % (Auto) 53.6 Lymph % (Auto) 30.6 [place] % (Auto) 7.1 Eos % (Auto) 7.0 H Baso % (Auto) 1.0 Lymph # (Auto) 2.8 [place] # (Auto) 0.7 Eos # (Auto) 0.6 H Baso # (Auto) 0.1 Abs Immat Gran (auto) 0.06 H Absolute Neuts (auto) 4.9 Absolute Nucleated RBC 0.000 Nucleated RBC % (auto) 0.0 APTT D-Dimer Anion Gap 12 Estim Creat Clear Calc 65.6 Estimated GFR 53 Random Glucose 203 H Calcium 9.8 Total Bilirubin 0.4 AST 43 H ALT 55 H Alkaline Phosphatase 50 Troponin I High Sens Total Protein 7.1 Albumin 4.2 COVID-19 (LARY) Negative COVID-19 Clin Com See Note 03/14/21 03/15/21 03/15/21 23:20 02:24 02:24 MCV MCH MCHC RDW Plt Count MPV Immature Gran % (Auto) Neut % (Auto) Lymph % (Auto) [place] % (Auto) Eos % (Auto) Baso % (Auto) Lymph # (Auto) [place] # (Auto) Eos # (Auto) Baso # (Auto) Abs Immat Gran (auto) Absolute Neuts (auto) Absolute Nucleated RBC Nucleated RBC % (auto) APTT 36.5 D-Dimer 200 Anion Gap Estim Creat Clear Calc Estimated GFR Random Glucose Calcium Total Bilirubin AST ALT Alkaline Phosphatase Troponin I High Sens 115.4 H* D 674.3 H* D Total Protein Albumin COVID-19 ([facility]ARY) COVID-19 Clin Com 03/15/21 06:01 MCV 95.3 MCH 31.9 MCHC 33.5 RDW 12.7 Plt Count 225 MPV 9.8 Immature Gran % (Auto) 0.3 Neut % (Auto) 56.2 Lymph % (Auto) 29.1 [place] % (Auto) 7.3 Eos % (Auto) 6.3 H Baso % (Auto) 0.8 Lymph # (Auto) 2.8 [place] # (Auto) 0.7 Eos # (Auto) 0.6 H Baso # (Auto) 0.1 Abs Immat Gran (auto) 0.03 Absolute Neuts (auto) 5.4 Absolute Nucleated RBC 0.000 Nucleated RBC % (auto) 0.0 APTT D-Dimer Anion Gap Estim Creat Clear Calc Estimated GFR Random Glucose Calcium Total Bilirubin AST ALT Alkaline Phosphatase Troponin I High Sens Total Protein Albumin COVID-19 (LARY) COVID-19 Clin Com ECG Interpretation: Normal sinus rhythm with nonspecific ST T wave changes Imaging Radiologist's Impressions: Impressions Chest X-Ray 03/14/21 23:07 IMPRESSION: Mild dependent atelectasis in the left lower lobe. No acute cardiopulmonary findings. Assessment and Plan (1) Acute non-ST elevation myocardial infarction (NSTEMI): Status: Acute (2) Chest pain: Status: Acute 65-year-old male with past medical history of hypertension, diabetes, as well as history of smoking cigarettes presents to the hospital with complaints of chest pain found to have an # chest pain - has both characteristics of typical and atypical chest pain - found to have elevated troponin - no significant EKG change - started on heparin GGT, a statin, low-dose Lopressor, as well as aspirin - echocardiogram - cardiology consult # NSTEMI - troponin increased from 150 to 600 - with typical chest - EKG no significant change - will obtain echo cardiac - trend troponin - consult Cardio - continue heparin, statin, Lopressor, aspirin # hypertension - low - will hold antihypertensive # diabetes - hold oral antihyperglycemic - add low-dose sliding scales - diabetic diet DVT prophylaxis: Heparin GGT Quality Stroke Does the patient have a stroke diagnosis?: No VTE Prior VTE?: No VTE Risk Level:: Medical - moderate - high VTE Device Contraindication: Treatment Not Indicated VTE Drug Contraindication: N/A - Med Ordered
[2021-03-15 06:12] LABS: Prothrombin Time 11.8 SEC (9.9-13.0)
[2021-03-15 06:14] LABS: PTT Heparin Drip 80.3 SEC (53-77.9)
[2021-03-15 06:19] LABS: Anion Gap 15 (12-20); Blood Urea Nitrogen 10 mg/dL (9-16); Calcium 9.5 mg/dL (8.4-10.2); Carbon Dioxide 22 mmol/L (22-29); Chloride 105 mmol/L (96-108); Creatinine Clr Calc Pharmacy 75.2; Estimated Glomerular Filt Rate > 60; Glucose Random 158 mg/dL (60-115); Potassium 4.7 mmol/L (3.3-5.1); Sodium 137 mmol/L (135-145)
[2021-03-15 06:57] LABS: B Type Natriuretic Peptide 33 pg/mL (<100); Troponin-I High Sensitivity 1108.4 ng/L (<3.5-35.0)
[2021-03-15 07:24] LABS: Glucose, Whole Blood 160 mg/dL (60-115)
[2021-03-15] MEDS: Insulin Lispro 100 UNIT/ML 3 ML VIAL SUBCUT (07:25)
[2021-03-15] MEDS: Atorvastatin Calcium 40 MG TABLET PO (08:20)
[2021-03-15] MEDS: FLUoxetine HCl 20 MG CAPSULE PO (08:20)
[2021-03-15] MEDS: Metoprolol Tartrate 12.5 MG HALFTAB PO (08:20)
[2021-03-15] MEDS: traZODone HCL 50 MG TABLET PO (08:20)
[2021-03-15] MEDS: Aspirin Enteric Coated 81 MG TABLET.DR PO (08:20)
[2021-03-15] MEDS: Fenofibrate 160 MG TABLET PO (08:20)
[2021-03-15] MEDS: ARIPiprazole 2 MG TABLET PO (08:20)
[2021-03-15] MEDS: Furosemide 20 MG TABLET PO (08:20)
--- NOTE | 2021-03-15 09:38 | P.DS_ITS ---
DS: Providers Provider Date of Service: 03/15/21 Date of admission: 03/15/21 05:23 Primary care physician: Vargas Cook MD Consults: 03/15/21 05:26 Consult to Cardiology Routine Consulting Provider: Arsh Glass Reason for consultation: NSTEMI Has provider been notified: Yes DS: Diagnosis Discharge Diagnosis (1) Acute non-ST elevation myocardial infarction (NSTEMI): Status: Acute (2) Chest pain: Status: Acute DS: Summary Hospital Course Hospital Course: Chief Complaint: Chest pain 65-year-old male with past medical history of diabetes, hypertension, h yperlipidemia, Cohn's esophagitis, obesity, sleep apnea presents the hospital with chest pain that initially started on Monday.? Patient reports that he was coming home after work when he experienced midsternal chest pain that he felt like it was indigestion, the pain lasted about half an hour and resolved spontaneously.? He woke up feeling well, but later on in the morning started developing the same pain that progressively worsened over the course of the day.? The pain is localized in the epigastric region, felt like pressure, as well as heartburn, 8/10, constant, radiating to the left arm, no relieving factors, no exacerbating factors.? He felt that he was having heartburn but the symptoms were not resolving after taking Tums and his PPI. He denies any palpitations, no shortness of breath, no abdominal pain nausea or vomiting, no diarrhea constipation, no urinary symptoms and no lower extremity edema. On arrival to the ED hemodynamically stable with no significant abnormal vitals Labs are significant for initial troponin that was 115, repeat troponin that was 674, EKG unremarkable x2 Case was discussed with Cardiology, patient started on heparin drip, Lopressor, aspirin, and statin and will be admitted for further management Hospital course: Patient was admitted with acute non-STEMI with initial highly sensitive troponin of 115 rising to 674 and then 1108. ECG shows non-speicifi ST-T changes. He has been treated with IV heparin, ASA, Metoprolol and high intensity statin of Lipitor 80, presently pain has disipated. Cardiology (Dr. Lyn) advises transfer to [facility] for cardiac cath. He is presently hemodynamically stable. Time Spent with Patient Time attestation: Total time spent providing and/or coordinating discharge services: Discharge coordination time: Greater than 30 minutes Quality: Stroke Does the patient have a stroke diagnosis?: No Physical Exam Vital Signs: Vital Signs: Last Vital Signs Temp 98.7 F 03/14/21 21:55 Pulse 68 03/15/21 08:20 Resp 20 03/15/21 05:48 BP 118/60 03/15/21 08:20 Pulse Ox 96 03/15/21 05:26 Body Mass Index 38.7 Const: Other: General: AO X 3, no acute distress Resp: mild wheelez, no rales, CVS: S1,S2,RRR, 1+ pitting edema GI: +BS, NT, no distention Skin: No rash Neuro: motor grossly intact Psych: appropriate affect DS: Data Data Completed and Pending Labs on day of discharge: Laboratory Results - last 24 hr 03/14/21 03/14/21 03/14/21 23:15 23:20 23:20 WBC 9.2 RBC 4.90 Hgb 15.7 Hct 45.6 MCV 93.1 MCH 32.0 MCHC 34.4 RDW 12.6 Plt Count 227 MPV 9.3 L Immature Gran % (Auto) 0.7 H Neut % (Auto) 53.6 Lymph % (Auto) 30.6 [place] % (Auto) 7.1 Eos % (Auto) 7.0 H Baso % (Auto) 1.0 Lymph # (Auto) 2.8 [place] # (Auto) 0.7 Eos # (Auto) 0.6 H Baso # (Auto) 0.1 Abs Immat Gran (auto) 0.06 H Absolute Neuts (auto) 4.9 Absolute Nucleated RBC 0.000 Nucleated RBC % (auto) 0.0 PT INR APTT PTT (Heparin Protocol) D-Dimer Sodium 137 Potassium 4.3 Chloride 101 Carbon Dioxide 28 Anion Gap 12 BUN 8 L Creatinine 1.34 Estim Creat Clear Calc 65.6 Estimated GFR 53 POC Glucose Random Glucose 203 H Calcium 9.8 Total Bilirubin 0.4 AST 43 H ALT 55 H Alkaline Phosphatase 50 Troponin I High Sens B-Natriuretic Peptide Total Protein 7.1 Albumin 4.2 COVID-19 ([facility]ARY) Negative COVID-19 Clin Com See Note 03/14/21 03/15/21 03/15/21 23:20 02:24 02:24 WBC RBC Hgb Hct MCV MCH MCHC RDW Plt Count MPV Immature Gran % (Auto) Neut % (Auto) Lymph % (Auto) [place] % (Auto) Eos % (Auto) Baso % (Auto) Lymph # (Auto) [place] # (Auto) Eos # (Auto) Baso # (Auto) Abs Immat Gran (auto) Absolute Neuts (auto) Absolute Nucleated RBC Nucleated RBC % (auto) PT INR APTT 36.5 PTT (Heparin Protocol) D-Dimer 200 Sodium Potassium Chloride Carbon Dioxide Anion Gap BUN Creatinine Estim Creat Clear Calc Estimated GFR POC Glucose Random Glucose Calcium Total Bilirubin AST ALT Alkaline Phosphatase Troponin I High Sens 115.4 H* D 674.3 H* D B-Natriuretic Peptide Total Protein Albumin COVID-19 ([facility]ARY) COVID-19 Clin Com 03/15/21 03/15/21 03/15/21 06:01 06:01 06:01 WBC 9.5 RBC 5.08 Hgb 16.2 Hct 48.4 MCV 95.3 MCH 31.9 MCHC 33.5 RDW 12.7 Plt Count 225 MPV 9.8 Immature Gran % (Auto) 0.3 Neut % (Auto) 56.2 Lymph % (Auto) 29.1 [place] % (Auto) 7.3 Eos % (Auto) 6.3 H Baso % (Auto) 0.8 Lymph # (Auto) 2.8 [place] # (Auto) 0.7 Eos # (Auto) 0.6 H Baso # (Auto) 0.1 Abs Immat Gran (auto) 0.03 Absolute Neuts (auto) 5.4 Absolute Nucleated RBC 0.000 Nucleated RBC % (auto) 0.0 PT 11.8 INR 1.0 APTT PTT (Heparin Protocol) 80.3 H D-Dimer Sodium 137 Potassium 4.7 Chloride 105 Carbon Dioxide 22 Anion Gap 15 BUN 10 Creatinine 1.17 Estim Creat Clear Calc 75.2 Estimated GFR > 60 POC Glucose Random Glucose 158 H Calcium 9.5 Total Bilirubin AST ALT Alkaline Phosphatase Troponin I High Sens B-Natriuretic Peptide Total Protein Albumin COVID-19 (LARY) COVID-19 Clin Com 03/15/21 03/15/21 06:01 07:20 WBC RBC Hgb Hct MCV MCH MCHC RDW Plt Count MPV Immature Gran % (Auto) Neut % (Auto) Lymph % (Auto) [place] % (Auto) Eos % (Auto) Baso % (Auto) Lymph # (Auto) [place] # (Auto) Eos # (Auto) Baso # (Auto) Abs Immat Gran (auto) Absolute Neuts (auto) Absolute Nucleated RBC Nucleated RBC % (auto) PT INR APTT PTT (Heparin Protocol) D-Dimer Sodium Potassium Chloride Carbon Dioxide Anion Gap BUN Creatinine Estim Creat Clear Calc Estimated GFR POC Glucose 160 H Random Glucose Calcium Total Bilirubin AST ALT Alkaline Phosphatase Troponin I High Sens 1108.4 H* D B-Natriuretic Peptide 33 Total Protein Albumin COVID-19 ([facility]ARY) COVID-19 Clin Com Discharge Plan Discharge Anticipated Discharge Date/Time: 03/15/21 09:31 Patient Disposition: Xfer Acute Care Hospital Discharge Diagnosis: NSTEMI Referrals: Vargas Cook MD [Primary Care Provider] - 1 Week Discharge Medications: New atorvastatin 40 mg Tablet 80 mg PO BEDTIME Qty: 60 RF: 0 heparin(porcine) in 0.45% NaCl 25,000 unit/250 mL Parenteral Solution 25,000 unit continuous IV infusion .Q0M Qty: 250 RF: 0 heparin (porcine) 5,000 unit/mL Solution 4,500 unit IVPUSH PROTOCOL BOLUS PRN (Reason: 40 Unit/Kg - Heparin Protocol) Qty: 1 RF: 0 heparin (porcine) 5,000 unit/mL Solution 9,000 unit IVPUSH PROTOCOL BOLUS PRN (Reason: 80 Unit/Kg - Heparin Protocol) Qty: 1 RF: 0 metoprolol tartrate 25 mg tablet 12.5 mg PO BID Qty: 60 RF: 0 aspirin 81 mg Tablet,Delayed Release (Dr/Ec) 81 mg PO DAILY Qty: 30 RF: 0 Continued glipizide 10 mg tablet 1 tab PO BID RF: 0 aripiprazole 2 mg tablet 2 mg PO DAILY RF: 0 Lantus Solostar U-100 Insulin 100 unit/mL (3 mL) insulin pen 25 unit subcut QAM RF: 0 losartan 25 mg tablet 25 mg PO DAILY RF: 0 fenofibrate nanocrystallized 145 mg tablet 145 mg PO DAILY RF: 0 fluoxetine 20 mg capsule 20 mg PO DAILY RF: 0 furosemide 20 mg tablet 20 mg PO DAILY RF: 0 trazodone 50 mg tablet 50 mg PO DAILY RF: 0 Discontinued atorvastatin 10 mg tablet 10 mg PO DAILY RF: 0 metformin 500 mg tablet 2,000 mg PO DAILY RF: 0 Discharge Orders: Discharge Order (Routine); Ordered 03/15/21 Ordered By: Ra Linn Diet: advance to usual diet and diabetic diet Activity on Discharge: As tolerated Stand Alone Forms: Patient Portal Discharge page Care Plan Goals: Full cardiac work up and management of heart attack Health Concerns: acute heart attack Plan of Treatment: Transfer to [facility] for cardiac cath Assessment: As above
[2021-03-15] MEDS: Insulin Glargine,Hum.rec.anlog 100 UNIT/ML 10 ML VIAL 25 UNIT SUBCUT (10:08)
[2021-03-15 10:17] LABS: PTT Heparin Drip 47.8 SEC (53-77.9)
--- NOTE | 2021-03-15 10:56 | PM.CNCAR ---
History of Present Illness History of Present Illness Date of Service: 03/15/21 Chief complaint: NSTEMI Narrative: This is a cardiology consultation regarding NSTEMI. Patient has a history of morbid obesity, diabetes, hypertension, dyslipidemia, obstructive sleep apnea and admitted for chest pain. He states that he returned from work on Monday and then started noticing some discomfort in the chest in the substernal area. Initially was the condition and then felt like a pressure. Then has been intermittent since that time. That led to ER visit. Currently is pain-free. Otherwise, he also noticed some intermittent shortness of breath but he has had chronic shortness of breath for long time. He feels that he is quite deconditioned and does not do much at baseline and hence the reason for shortness of breath. However, his cardiac function has not been previously evaluated. No history of any coronary disease or myocardial infarction per patient. He smokes cigars. Strong family history of cardiac disease and his sister had coronary disease and stent. Father has had bypass surgery. Review of Systems Review of Systems: Yes all other systems are reviewed and are negative Cardiovascular: Cardiovascular: Reports as per HPI, Reports no additional cardiovascular complaints, Denies acrocyanosis, Denies cool extremities, Denies painful fingertips, Reports chest pain, Reports chest pain at rest, Denies diaphoresis, Denies syncope, Denies irregular heart rhythm, Denies claudication, Denies leg edema, Denies lightheadedness, Denies palpitations and Reports dyspnea Respiratory: Respiratory: Reports dyspnea Neurologic: Denies syncope Endocrine: Endocrine: Denies palpitations PMFSH Past Medical History Medical History Diabetes FH: cholecystectomy HTN (hypertension) Obstructive sleep apnea Retinal detachment Family History Family History (Updated 03/15/21 @ 10:58 by Kameron Lyn MD) Father Coronary artery disease Hx of CABG Sister Coronary artery disease Surgical History Surgical History History of tonsillectomy Social History Social History Alcohol intake: current Alcohol intake frequency: holidays/special occasions only Patient Tobacco Use Status: Current everyday Tobacco user Substance Use Type: Marijuana Advance Directives: No Advance Directives Information Provided: No Meds Allergies Allergy/AdvReac Type Severity Reaction Status Date / Time No Known Allergies Allergy Unverified 01/23/20 19:03 [No Known Allergies*] Active Medications: Current Medications Acetaminophen (Acetaminophen 325 Mg Tablet) 650 mg PO Q6H PRN PRN Reason: Pain, Mild (Pain Scale 1-3) Aripiprazole (Aripiprazole 2 Mg Tablet) 2 mg PO DAILY [facility] Last Admin: 03/15/21 08:20 Dose: 2 mg Documented by: Aspirin (Aspirin Enteric Coated 81 Mg Tablet.) 81 mg PO DAILY [facility] Last Admin: 03/15/21 08:20 Dose: 81 mg Documented by: Atorvastatin Calcium (Atorvastatin Calcium 40 Mg Tablet) 40 mg PO DAILY [facility] Last Admin: 03/15/21 08:20 Dose: 40 mg Documented by: Dextrose (Dextrose 50 % 25 Gm/50 Ml Vial) 25 gm IVPUSH Q15M PRN; Protocol PRN Reason: per Hypoglycemia Standing Ord. Docusate Sodium (Docusate Sodium 100 Mg Capsule) 100 mg PO DAILY PRN PRN Reason: Constipation Fenofibrate (Fenofibrate 160 Mg Tablet) 160 mg PO DAILY [facility] Last Admin: 03/15/21 08:20 Dose: 160 mg Documented by: Fluoxetine HCl (Fluoxetine Hcl 20 Mg Capsule) 20 mg PO DAILY [facility] Last Admin: 03/15/21 08:20 Dose: 20 mg Documented by: Furosemide (Furosemide 20 Mg Tablet) 20 mg PO DAILY [facility]; Protocol Last Admin: 03/15/21 08:20 Dose: 20 mg Documented by: Glucose (Glucose Gel 15 Gm Gel..Gram.) 15 gm PO Q15M PRN; Protocol PRN Reason: per Hypoglycemia Standing Ord. Heparin Sodium (Porcine) (Heparin Sodium,Porcine 5,000 Unit/Ml Vial) 4,500 unit 40 unit/kg (4500 unit) IVPUSH PROTOCOL BOLUS PRN; Protocol PRN Reason: 40 unit/kg - Heparin Protocol Heparin Sodium (Porcine) (Heparin Sodium,Porcine 5,000 Unit/Ml Vial) 9,000 unit 80 unit/kg (9000 unit) IVPUSH PROTOCOL BOLUS PRN; Protocol PRN Reason: 80 unit/kg - Heparin Protocol Heparin Sodium/Sodium Chloride () 25,000 unit in 250 mls @ 0 mls/hr IVCONT .Q0M GAVINO; Protocol Last Admin: 03/15/21 04:11 Dose: 8.93 units/kg/hr, 10 mls/hr Documented by: Insulin Glargine (Insulin Glargine,Hum.Rec.Anlog 100 Unit/Ml 10 Ml Vial) 25 unit SUBCUT DAILY [facility] Last Admin: 03/15/21 10:08 Dose: 25 unit Documented by: Insulin Human Lispro (Insulin Lispro 100 Unit/Ml 3 Ml Vial) 0 unit SUBCUT QIDACHS [facility]; Protocol Last Admin: 03/15/21 07:25 Dose: 2 unit Documented by: Metoprolol Tartrate (Metoprolol Tartrate 12.5 Mg Halftab) 12.5 mg PO BID [facility]; Protocol Last Admin: 03/15/21 08:20 Dose: 12.5 mg Documented by: Ondansetron HCl (Ondansetron Hcl 4 Mg/2 Ml Vial) 4 mg IVPUSH Q8H PRN PRN Reason: Nausea and Vomiting Sodium Chloride (0.9 % Sodium Chloride Flush 3 Ml Syringe) 3 ml IVFLUSH QSHIFT [facility] Last Admin: 03/15/21 07:27 Dose: Not Given Documented by: Trazodone HCl (Trazodone Hcl 50 Mg Tablet) 50 mg PO DAILY [facility] Last Admin: 03/15/21 08:20 Dose: 50 mg Documented by: Home Medications Medication Instructions Recorded Confirmed Last Taken Type aripiprazole 2 mg tablet 2 mg PO DAILY 09/02/20 03/15/21 03/14/21 History atorvastatin 10 mg tablet 10 mg PO DAILY 09/02/20 03/15/21 03/14/21 History fenofibrate nanocrystallized 145 145 mg PO DAILY 09/02/20 03/15/21 03/14/21 History mg tablet fluoxetine 20 mg capsule 20 mg PO DAILY 09/02/20 03/15/21 03/14/21 History furosemide 20 mg tablet 20 mg PO DAILY 09/02/20 03/15/21 03/14/21 History insulin glargine 100 unit/mL (3 25 unit SUBCUT QAM ml 09/02/20 03/15/21 03/14/21 History mL) subcutaneous pen (Lantus Solostar U-100 Insulin) losartan 25 mg tablet 25 mg PO DAILY 09/02/20 03/15/21 03/14/21 History metformin 500 mg tablet 2,000 mg PO DAILY tab 09/02/20 03/15/21 03/14/21 History trazodone 50 mg tablet 50 mg PO DAILY 09/02/20 03/15/21 03/14/21 History glipizide 10 mg tablet 1 tab PO BID 03/15/21 03/15/21 03/14/21 History Physical Exam Vital Signs: Vital Signs: Last Vital Signs Temp 98.7 F 03/14/21 21:55 Pulse 68 03/15/21 08:20 Resp 20 03/15/21 05:48 BP 118/60 03/15/21 08:20 Pulse Ox 96 03/15/21 05:26 Body Mass Index 38.7 Const: General: cooperative and no acute distress HENMT: Other: Unremarkable Neck: Neck: Yes normal visual inspection Chest: Chest palpation & inspection: normal inspection of the chest Resp: Auscultation: clear to auscultation bilaterally, no crackles and no wheezes Cardio: Jugular venous distension: no JVD Palpation: normal PMI Heart sounds: S1 normal heart sound present, S2 normal heart sound present, no gallops, no murmurs and no rubs GI: Palpation (GI): Soft to palpation Back/Spine/Pelvis: Other: unremarkable Skin: General skin exam: no rashes or lesions noted Neuro: Cranial nerves: Yes Other cranial nerve findings present Extrem: General: Yes no clubbing, cyanosis or edema Psych: Mental Status: other Results Labs and Meds Result diagrams: 03/15/21 06:01 03/15/21 06:01 Lab results: Laboratory Results - last 24 hr 03/14/21 03/14/21 03/14/21 23:15 23:20 23:20 WBC 9.2 RBC 4.90 Hgb 15.7 Hct 45.6 MCV 93.1 MCH 32.0 MCHC 34.4 RDW 12.6 Plt Count 227 MPV 9.3 L Immature Gran % (Auto) 0.7 H Neut % (Auto) 53.6 Lymph % (Auto) 30.6 [place] % (Auto) 7.1 Eos % (Auto) 7.0 H Baso % (Auto) 1.0 Lymph # (Auto) 2.8 [place] # (Auto) 0.7 Eos # (Auto) 0.6 H Baso # (Auto) 0.1 Abs Immat Gran (auto) 0.06 H Absolute Neuts (auto) 4.9 Absolute Nucleated RBC 0.000 Nucleated RBC % (auto) 0.0 PT INR APTT PTT (Heparin Protocol) D-Dimer Sodium 137 Potassium 4.3 Chloride 101 Carbon Dioxide 28 Anion Gap 12 BUN 8 L Creatinine 1.34 Estim Creat Clear Calc 65.6 Estimated GFR 53 POC Glucose Random Glucose 203 H Calcium 9.8 Total Bilirubin 0.4 AST 43 H ALT 55 H Alkaline Phosphatase 50 Troponin I High Sens B-Natriuretic Peptide Total Protein 7.1 Albumin 4.2 COVID-19 (LARY) Negative COVID-19 Clin Com See Note 03/14/21 03/15/21 03/15/21 23:20 02:24 02:24 WBC RBC Hgb Hct MCV MCH MCHC RDW Plt Count MPV Immature Gran % (Auto) Neut % (Auto) Lymph % (Auto) [place] % (Auto) Eos % (Auto) Baso % (Auto) Lymph # (Auto) [place] # (Auto) Eos # (Auto) Baso # (Auto) Abs Immat Gran (auto) Absolute Neuts (auto) Absolute Nucleated RBC Nucleated RBC % (auto) PT INR APTT 36.5 PTT (Heparin Protocol) D-Dimer 200 Sodium Potassium Chloride Carbon Dioxide Anion Gap BUN Creatinine Estim Creat Clear Calc Estimated GFR POC Glucose Random Glucose Calcium Total Bilirubin AST ALT Alkaline Phosphatase Troponin I High Sens 115.4 H* D 674.3 H* D B-Natriuretic Peptide Total Protein Albumin COVID-19 (LARY) COVID-19 Clin Com 03/15/21 03/15/21 03/15/21 06:01 06:01 06:01 WBC 9.5 RBC 5.08 Hgb 16.2 Hct 48.4 MCV 95.3 MCH 31.9 MCHC 33.5 RDW 12.7 Plt Count 225 MPV 9.8 Immature Gran % (Auto) 0.3 Neut % (Auto) 56.2 Lymph % (Auto) 29.1 [place] % (Auto) 7.3 Eos % (Auto) 6.3 H Baso % (Auto) 0.8 Lymph # (Auto) 2.8 [place] # (Auto) 0.7 Eos # (Auto) 0.6 H Baso # (Auto) 0.1 Abs Immat Gran (auto) 0.03 Absolute Neuts (auto) 5.4 Absolute Nucleated RBC 0.000 Nucleated RBC % (auto) 0.0 PT 11.8 INR 1.0 APTT PTT (Heparin Protocol) 80.3 H D-Dimer Sodium 137 Potassium 4.7 Chloride 105 Carbon Dioxide 22 Anion Gap 15 BUN 10 Creatinine 1.17 Estim Creat Clear Calc 75.2 Estimated GFR > 60 POC Glucose Random Glucose 158 H Calcium 9.5 Total Bilirubin AST ALT Alkaline Phosphatase Troponin I High Sens B-Natriuretic Peptide Total Protein Albumin COVID-19 ([facility]ARY) COVID-19 Clin Com 03/15/21 03/15/21 03/15/21 06:01 07:20 10:00 WBC RBC Hgb Hct MCV MCH MCHC RDW Plt Count MPV Immature Gran % (Auto) Neut % (Auto) Lymph % (Auto) [place] % (Auto) Eos % (Auto) Baso % (Auto) Lymph # (Auto) [place] # (Auto) Eos # (Auto) Baso # (Auto) Abs Immat Gran (auto) Absolute Neuts (auto) Absolute Nucleated RBC Nucleated RBC % (auto) PT INR APTT PTT (Heparin Protocol) 47.8 L D D-Dimer Sodium Potassium Chloride Carbon Dioxide Anion Gap BUN Creatinine Estim Creat Clear Calc Estimated GFR POC Glucose 160 H Random Glucose Calcium Total Bilirubin AST ALT Alkaline Phosphatase Troponin I High Sens 1108.4 H* D B-Natriuretic Peptide 33 Total Protein Albumin COVID-19 ([facility]ARY) COVID-19 Clin Com ECG Interpretation: EKG with sinus rhythm at 79/minute nonspecific ST-T changes. Imaging Radiologist's impression: Impressions Chest X-Ray 03/14/21 23:07 IMPRESSION: Mild dependent atelectasis in the left lower lobe. No acute cardiopulmonary findings. Assessment and Plan (1) Acute non-ST elevation myocardial infarction (NSTEMI): Status: Acute 65-year-old gentleman with multiple comorbidities including obesity, sedentary lifestyle, smoking, family history, diabetes, hypertension, dyslipidemia presenting for chest pain with a background of chronic shortness of breath. EKG shows nonspecific ST-T changes. High sensitivity troponins are 115, 674 and 1108. He clearly is having a non ST elevation myocardial infarction. However at this time, he is pain free. Continue IV heparin drip. He is already on aspirin and beta-blockers. He is also on statins. Slight LFT abnormality noted. Renal function is normal with creatinine of 1.1. Will review the echocardiogram that is getting completed today. Discussed about transfer to [facility] and he is agreeable. Plan will be for cardiac catheterization tomorrow. We will make arrangements for the same. Procedures Date of Service Date of Service: 03/15/21
[2021-03-15] MEDS: Heparin Sodium,Porcine 5,000 UNIT/ML VIAL 4500 UNIT IVPUSH (11:00)
--- NOTE | 2021-03-15 12:13 | MHC.CM.PN ---
Met patient in regards to discharge planning. Patient lives alone, ambulates independently and had no services prior to coming to the hospital. Patient still works. No services anticipated to be needed because patient is not homebound. Patient received 3 Moderna vaccines. IMM explained and signed. PCP verified. HCP completed, signed and witnessed. Original given to patient. Copy placed in chart. Received notification from KEYONA Galarza that patient will be transferred [facility]. Continue to monitor for d/c needs.
--- NOTE | 2021-03-15 13:40 | PC.NURSE ---
per pt someone took his poc and it was 150
--- NOTE | 2021-03-15 14:45 | PC.NURSE ---
ELMIRA FROM [facility] REQUESTING TO HAVE THIS RN CALL BACK FOR REPORT IN 02-19
--- NOTE | 2021-03-15 15:24 | PC.NURSE ---
report given to eduardo on mm5
[2021-03-15 15:27] LABS: Glucose, Whole Blood 152 mg/dL (60-115)
== END 2021-03-15 18:46 | disposition short-term general hospital (02) | DRG 282 ==
LOC: HO.ED 03-15 03:57 → HO.EDOVER 03-15 05:35
PROVIDERS: Admitting Provider Internal Medicine; Emergency Provider Emergency Medicine Emergency Medical Services; PCP Internal Medicine; Visit Provider Internal Medicine
DX: I21.4 Non-ST elevation (NSTEMI) myocardial infarction (principal); F17.210 Nicotine dependence, cigarettes, uncomplicated; Z20.822 Contact with and (suspected) exposure to COVID-19; E11.9 Type 2 diabetes mellitus without complications; I10 Essential (primary) hypertension; E66.9 Obesity, unspecified; Z68.38 Body mass index [BMI] 38.0-38.9, adult; Z71.6 Tobacco abuse counseling; Z79.4 Long term (current) use of insulin; Z79.82 Long term (current) use of aspirin; Z79.899 Other long term (current) drug therapy
CPT/HCPCS: 36415; 71045; 80048; 80053; 82947; 83880; 84484; 85025; 85379; 85610; 85730; 87635; 93005; 93306; 99285; J2270; Q9957

== ENCOUNTER → 2021-03-30 14:17 | Outpatient (BNVA) | payer MEDICARE, SELFPAY | PROVIDERS: PCP Internal Medicine; Visit Provider Internal Medicine | DX: I25.10 Atherosclerotic heart disease of native coronary artery without angina pectoris (principal); I10 Essential (primary) hypertension; E11.8 Type 2 diabetes mellitus with unspecified complications; E66.01 Morbid (severe) obesity due to excess calories; G47.33 Obstructive sleep apnea (adult) (pediatric); Z99.89 Dependence on other enabling machines and devices | CPT/HCPCS: 99212 ==

== ENCOUNTER → 2021-05-26 13:40 | Outpatient (REF) | payer MEDICARE, SELFPAY ==
--- NOTE | 2021-05-26 13:44 | CA_ITS ---
Transthoracic Echocardiogram Patient (Last, First, Middle): Doe Bajwa, Gender: Male Date of : 1955 Age: 65 Procedure Date: 05/26/2021 Procedure Type: Transthoracic Echocardiogram Location: OP Height: 170.18 cm Weight: 111.13 kg BSA: 2.20 m2 Heart Rate: bpm BP: 142 / 75 mmHg Body Mechanic Apprentice: BARRY Referring MD: Kameron Lyn MD Tour Counselor: Arsh Glass MD Symptoms: I25.10 - Atherosclerotic heart disease of [place] coronary... Study Quality: Technically Difficult/contrast ECG Rhythm: Sinus Conclusions: - 1. Technically limited study despite use of contrast agent - 2. On some views LV systolic function appears to be normal with LVEF of 55-60% with impaired relaxation filling pattern 3. Limited visualization of cardiac valves with normal cardiac valvular Doppler Findings Procedure Information Contrast agent, definity, is being given per protocol without apparent complications. Left Ventricle Normal left ventricular cavity size. The left ventricular systolic function is normal. The visually estimated ejection fraction is between 55-60%. Regional wall motion abnormalities can not be excluded due to suboptimal endocardial definition. Spectral Doppler is indicative of an impaired relaxation filling pattern. Right Ventricle The right ventricle was not well visualized. Atria The left atrium was not well visualized. Interatrial shunt cannot be excluded. The right atrium was not well visualized. Aortic Valve The aortic valve was not well visualized. There is no aortic valve stenosis. There is no aortic valve regurgitation. Mitral Valve The mitral valve was not well visualized. There is no mitral valve regurgitation. Pulmonic Valve The pulmonic valve was not well visualized. Tricuspid Valve The tricuspid valve was not well visualized. Tricuspid regurgitation envelope is inadequate for calculation of right ventricular systolic pressure. Great Vessels The aorta was not well visualized. The pulmonary artery was not well visualized. Venous The inferior vena cava was not well visualized. Pericardium/Pleural The pericardium was not well visualized. Measurements 2D Linear Measurements IVSd: 0.99 0.6-0.9/0.6-1.0 cm LVIDd: 4.00 3.9-5.3/4.2-5.9 cm LVIDd Index: 1.82 2.4-3.2/2.2-3.1 cm/m2 LVIDs: 3.11 2.0-3.6 cm LVPWd: 0.98 0.7-1.1 cm Ao Root: 3.50 2.1-3.5 cm LA Diam: 3.60 2.7-3.8/3.0-4.0 cm LAIDs Index: 1.64 1.5-2.3 cm/m2 LV Mass: 154.39 67-162/88-224 g LV Mass Index: 70.18 43-95/49-115 g/m2 LVOT Diam: 2.10 3.0+(-)1.3 cm Mitral Valve MV Pk E: 0.59 MV PK A: 0.90 MV Decel Time: 240.00 E/A: 0.70 E'Lateral: 11.90 E'Medial: 10.90 E/E' Med: 5.40 E/E' Lat: 5.00 PHT: 70.00 MVA PHT: 3.14 Decel [place]: 2.46 Aortic Valve AoV Pk [place]: 1.57 AoV Mn [place]: 1.02 AoV VTI: 0.32 AoV Pk Grad: 10.00 Aov Mn Grad: 5.00 MARIYA Cont.VTI: 3.19 LVOT LVOT Pk [place]: 1.44 LVOT Mn [place]: 1.01 LVOT VTI: 0.29 LVOT Pk Grad: 8.00 LVOT Mn Grad: 5.00 LVOT Diam: 2.10 LVOT Area: 3.46 Diastolic Function MV Pk E: 0.59 MV Pk A: 0.90 E/A: 0.70 E'Medial: 10.90 E/E' Med: 5.40 E' Laterial: 11.90 E/E' Lat: 5.00 Right Ventricle TAPSE (mm): 15.20 TVS' [place]: 8.92 Tricuspid Valve TR Pk [place]: 1.28 TR Pk Grad: 7.00 RA Press: 3.00 RVSP: 10.00 Great Vessels Aorta Ao Root-2D: 3.50 2.0-3.7 cm Ao Asc: 3.40 2.1-3.4 cm Ao Arch: 2.50 Updated in Other Vendor System with Status of Final Arsh Glass MD electronically signed on 05/27/2021 8:36:59 AM with status of Final
== END ==
LOC: HO.CARD 13:40
PROVIDERS: Visit Provider Internal Medicine
DX: I25.10 Atherosclerotic heart disease of native coronary artery without angina pectoris (principal)
CPT/HCPCS: 93306; Q9957

== ENCOUNTER → 2021-05-31 10:08 | Outpatient (BNVA) | payer MEDICARE, SELFPAY | PROVIDERS: Visit Provider Internal Medicine | DX: I25.10 Atherosclerotic heart disease of native coronary artery without angina pectoris (principal); I10 Essential (primary) hypertension; E11.8 Type 2 diabetes mellitus with unspecified complications; G47.33 Obstructive sleep apnea (adult) (pediatric); E66.01 Morbid (severe) obesity due to excess calories; Z99.89 Dependence on other enabling machines and devices; Z68.36 Body mass index [BMI] 36.0-36.9, adult | CPT/HCPCS: 99212 ==

== ENCOUNTER → 2021-12-02 13:49 | Outpatient (BNVA) | payer MEDICARE, SELFPAY | PROVIDERS: PCP Internal Medicine; Visit Provider Internal Medicine | DX: I25.10 Atherosclerotic heart disease of native coronary artery without angina pectoris (principal); E66.01 Morbid (severe) obesity due to excess calories; Z68.38 Body mass index [BMI] 38.0-38.9, adult; E11.9 Type 2 diabetes mellitus without complications; E78.5 Hyperlipidemia, unspecified; I10 Essential (primary) hypertension; G47.33 Obstructive sleep apnea (adult) (pediatric); Z95.1 Presence of aortocoronary bypass graft; Z79.4 Long term (current) use of insulin; Z79.82 Long term (current) use of aspirin; Z79.899 Other long term (current) drug therapy; Z99.89 Dependence on other enabling machines and devices | CPT/HCPCS: 99212 ==

== ENCOUNTER 2021-12-09 14:51 | Emergency (ER) | payer MEDICARE, SELFPAY ==
--- NOTE | 2021-12-09 | ECG_ITS ---
Test Reason : CHEST PAIN Blood Pressure : / mmHG Vent. Rate : 079 BPM Atrial Rate : 079 BPM P-R Int : 154 ms QRS Dur : 078 ms QT Int : 394 ms P-R-T Axes : 041 073 160 degrees QTc Int : 451 ms Normal sinus rhythm Nonspecific T wave abnormality Abnormal ECG When compared with ECG of 15-MAR-2021 02:55, Nonspecific T wave abnormality, worse in Anterior leads Referred By: Generic ED Physician Electronically Signed By:MARVIN GREEN MD
--- NOTE | ~2021-12-09 | XR_ITS ---
EXAMINATION: XR CHEST CLINICAL INFORMATION: Shortness of breath COMPARISON: Chest radiograph from 03/17/2021 TECHNIQUE: Frontal view of the chest was obtained. FINDINGS: Very slight prominence of the pulmonary vasculature. Left basilar atelectasis. Trachea is midline. Sternotomy wires are noted. Cardiomediastinal silhouette is not enlarged. No large pleural effusion. Osseous structures are intact. Soft tissues are unremarkable. XR/XR chest 1V IMPRESSION: 1. Very slight prominence of the pulmonary vasculature. 2. Left basilar atelectasis.
--- NOTE | ~2021-12-09 | CT_ITS ---
EXAMINATION: CT ANGIOGRAM OF THE HEAD CT ANGIOGRAM OF THE NECK CLINICAL INFORMATION: Right neck/back/arm tingling from neck. COMPARISON: There are no prior studies available for comparison. TECHNIQUE: A noncontrast axial CT scan of the head was obtained. Test bolus series followed by intravenous administration 70 mL of Omnipaque 350. Helical imaging was performed in the axial plane from the mediastinum to the skull vertex. The degree of stenosis is based off NASCET criteria. The data was processed at the mri technologist workstation for generation of MIP images. Three-dimensional volume rendered reformatted images were also generated at an offline 3-D workstation. This CT examination was performed using dose optimization techniques as appropriate, variously including the following: *Automated exposure control *Adjustment of mA and/or kV according to patient size (this includes techniques or standardized protocols for targeted exams where dose is matched to indication/reason for exam; i.e. extremities or head) *Use of iterative reconstruction technique DLP: 2350 mGy-cm. FINDINGS: CT Head: There is no evidence of acute intracranial hemorrhage or territorial infarction. No abnormal mass-effect or midline shift is seen. [place] to white matter differentiation is well preserved. No extra-axial fluid collections are identified. There is no abnormal enhancement. There is mild commensurate prominence of the ventricles and sulci consistent with diffuse volume loss. Brain parenchymal attenuation is unremarkable. There are no acute osseous or soft tissue abnormalities. The frontal sinuses are hypoplastic and there is a persistent metopic suture. The mastoid air cells and other paranasal sinuses are well-aerated. There have been bilateral lens extractions and there are bilateral scleral sheri. CTA Neck: There is a classic configuration of the arch of the aorta. The great vessels of the neck are widely patent. The subclavian arteries appear normal bilaterally. The common carotid arteries have normal caliber. There are mild atheromatous calcifications at the bilateral carotid bifurcations, without significant/flow limiting stenosis. The internal carotid arteries in the neck bilaterally have uniform and normal caliber. The origins of both vertebral arteries are well seen and appear normal. Both vertebral arteries are widely patent and demonstrate good opacification throughout their cervical course. The left vertebral artery is slightly dominant. Nonvascular: There are mild spondylitic and facet arthropathic changes in the cervical spine. There are sequelae of prior median sternotomy and CABG. The thyroid gland appears normal. There is no cervical lymphadenopathy. There are degenerative changes of the left temporomandibular joint. CTA Head: In the anterior circulation, the distal internal carotid arteries within the neck appear normal. The intracranial internal carotid arteries and their bifurcations appear normal. The middle and anterior cerebral arteries bilaterally demonstrate normal caliber with no evidence of focal stenosis, aneurysm or vascular malformation. There is normal arborization of the middle cerebral artery branches. The anterior communicating artery is normal. In the posterior circulation, the left vertebral artery is dominant. The vertebral arteries intradurally have uniform caliber. The basilar artery appears normal. The posterior cerebral arteries have normal caliber. The venous sinuses opacify normally. CT/CT angio head neck IMPRESSION: CT head and neck: 1. There are no acute bleeds or infarcts. There are no masses or areas of abnormal enhancement. There is mild diffuse volume loss. 2. There is no cervical lymphadenopathy and no masses are demonstrated. 3. There are sequelae of prior median sternotomy and CABG. CTA head and neck: 1. There are no flow-limiting stenoses in the neck vasculature. There are mild atheromatous calcifications at the carotid bifurcations. 2. Intracranially there are no focal stenoses, aneurysms or vascular malformations.
[2021-12-09 15:01] VITALS: PULSE 79; RESP 30; TEMP 36.9; O2SAT 97
[2021-12-09 15:03] VITALS: BP 167/73; PULSE 85; O2SAT 97
[2021-12-09 15:11] VITALS: BMI 37.9
--- NOTE | 2021-12-09 15:17 | PC.NURSE ---
Pt states he is not in pain, rather just feeld a strong tingling sensation to his R arm, chest, back and R side of his head when he turns his head down or to the right. He describes feeling 'off' when this occurs.
--- NOTE | 2021-12-09 16:44 | ED.GENADULT ---
HPI - General Adult General Chief complaint: General Medical Stated complaint: POSSIBLE TIA/RT SHOULDER PAIN Time Seen by Provider: 12/09/21 15:24 Source: patient Mode of arrival: ambulatory History of Present Illness HPI narrative: 66-year-old male with a past medical history of CVA s/p bypass on Plavix, diabetes, HTN, DARCI, retinal detachment, presenting to the ED sent in by PCP for intermittent numbness/tingling to right neck that radiates to right-sided face and down RUE associated with neck movements x 2 weeks. Reports illicit symptoms when looks down into the right side, resolves when head is in neutral position. Reports symptoms have been worsening since onset. Also reports chronic SOB and chronic LE pitting edema. Denies vision change/loss, headache, back pain, chest pain, abdominal pain, vomiting, weakness Onset (ago): week(s) Radiation: neck and extremity Severity: mild Related Data Home Medications Medication Instructions Recorded Confirmed aripiprazole 2 mg tablet 2 mg PO DAILY 09/02/20 12/02/21 furosemide 20 mg tablet 20 mg PO DAILY 09/02/20 12/02/21 losartan 25 mg tablet 25 mg PO DAILY 09/02/20 12/02/21 glipizide 10 mg tablet 1 tab PO BID 03/15/21 12/02/21 cholecalciferol (vitamin D3) 25 25 mcg PO DAILY 03/30/21 12/02/21 mcg (1,000 unit) capsule fenofibrate nanocrystallized 145 145 mg PO DAILY 03/30/21 12/02/21 mg tablet fluoxetine 40 mg capsule 40 mg PO DAILY 03/30/21 12/02/21 hydroxyzine pamoate 25 mg capsule 25 mg PO BID PRN 03/30/21 12/02/21 insulin glargine 100 unit/mL (3 32 unit subcut .evening 03/30/21 12/02/21 mL) subcutaneous pen (Lantus Solostar U-100 Insulin) metformin 500 mg tablet,extended 1,000 mg PO BID 03/30/21 12/02/21 release 24 hr metoprolol tartrate 25 mg tablet 25 mg PO BID 03/30/21 12/02/21 omeprazole 20 mg capsule,delayed 20 mg PO BID 03/30/21 12/02/21 release trazodone 50 mg tablet 50 mg PO DAILY PRN 03/30/21 12/02/21 Previous Rx's Medication Instructions Recorded aspirin 81 mg tablet,delayed 81 mg PO DAILY #30 tabs 03/15/21 release clopidogrel 75 mg tablet (Plavix) 75 mg PO DAILY #90 tabs 05/31/21 acetaminophen 500 mg tablet 500 mg PO Q6H PRN fever or pain 12/09/21 (Tylenol Extra Strength) #14 tabs atorvastatin 80 mg tablet 80 mg PO QPM #90 tabs 12/09/21 cyclobenzaprine 5 mg tablet 5 mg PO Q8H PRN pain (scale score 12/09/21 7-10) 5 days #14 tabs lidocaine 5 % topical patch 1 patch topical DAILY PRN pain #30 12/09/21 (Lidoderm) ea Allergies Allergy/AdvReac Type Severity Reaction Status Date / Time No Known Allergies Allergy Verified 12/09/21 14:10 [No Known Allergies*] Review of Systems Review of Systems: Constitutional: No Fever, No Chills, No Fatigue, No Malaise ENT/Mouth: No Ear Pain, No Nasal Congestion, No sore throat, No Rhinorrhea, No Swallowing Difficulty Eyes: No Eye Pain, No Swelling, No Redness, No Discharge, No Vision Changes Cardiovascular: No Chest Pain, No SOB, No Dyspnea on Exertion, No Edema, No Palpitations Respiratory: No Cough, No Sputum, No Wheezing, No Smoke Exposure, No Dyspnea Gastrointestinal: No Nausea, No Vomiting, No Diarrhea, No Constipation, No Abdominal pain Genitourinary: No Dysuria, No Urinary Frequency, No Hematuria, No Urinary Incontinence/retention, No Flank Pain, No Urinary Flow Changes, No Hesitancy Musculoskeletal: No joint pain, No Myalgias, No Joint Swelling Skin: No Skin Lesions, No rash Neuro: No Weakness, + Numbness, + Paresthesias, No Loss of Consciousness, No dizziness, No Headache Yes all other systems are reviewed and are negative Constitutional: Constitutional: Reports as per HPI Neurologic: Denies Abnormal speech present [facility] Past Medical History Attestation statement: The following information was validated with the patient. Medical History Diabetes FH: cholecystectomy HTN (hypertension) Obstructive sleep apnea Obstructive sleep apnea on CPAP Retinal detachment Surgical History H/O heart bypass surgery History of tonsillectomy Family History Family History Father Coronary artery disease Hx of CABG Sister Coronary artery disease Social History Social History Alcohol intake: never Patient Tobacco Use Status: Current everyday Tobacco user Years Smoked: 6 +/- Smoked in Last 30 Days: Yes Use of substances other than those prescribed or required for medical reasons: Yes Substance Use Type: Marijuana Substance Use Frequency: Monthly Last Used Substance: Days (ago) Advance Directives: No Advance Directives Information Provided: Yes service: No Current occupational status: employed Physical Exam ED Vital Signs: Vital Signs - 24 hr 12/09/21 15:01 12/09/21 19:52 Temperature 98.4 F 98.0 F Pulse Rate 79 63 Respiratory Rate 30 H 20 Blood Pressure 147/74 H Pulse Oximetry 97 95 Oxygen Delivery Method Room Air Room Air BMI result Body Mass Index 37.9 Const General: cooperative, healthy appearing, no acute distress, alert and awake Orientation/consciousness: patient oriented x3 Limitations: no limitations HENMT Head: Yes normal to inspection and Yes atraumatic Ears: hearing grossly normal bilaterally General nose exam: Normal external nose present Face and sinus: Yes normal facial exam Throat: Yes posterior oropharynx normal, Yes tonsils normal, Yes uvula midline and No peritonsillar mass Eyes General: appearance normal, both eyes and all related structures Pupils: Equal, round and reactive pupils present EOM: EOMs intact bilaterally Neck Other: No midline cervical spinous tenderness/step-off or deformity. No appreciable swelling/crepitus or tenderness Neck: Yes normal visual inspection, Yes no meningeal signs, Yes supple and No anterior neck swelling Resp Effort & Inspection: normal respiratory effort and no respiratory distress Auscultation: clear to auscultation bilaterally, no crackles, no rales, no rhonchi and no wheezes Cardio Rate: regular rate Heart sounds: S1 normal heart sound present and S2 normal heart sound present Peripheral pulses: Peripheral pulses 2+ throughout GI Inspection: Yes normal to inspection Palpation (GI): Soft to palpation, nontender, no guarding and not rigid General: Yes no CVA tenderness Back/Spine/Pelvis Back: no CVA tenderness Skin Rashes: no rashes Wounds: no wounds Neuro General: patient oriented x3, tone normal, moves all extremities, no meningeal signs, no focal motor deficits and CN's II-XI intact bilaterally Cranial nerves: Yes CN's II-XII intact bilaterally, Yes Equal, round and reactive pupils present, Yes Bilaterally intact EOM present and Yes Nystagmus not present Cognition (Neuro): normal cognition Speech: No Abnormal speech present Motor exam (neuro): 5/5 motor strength present throughout, Pronator motor function not present and no tremor noted Coordination: [id number] test normal Romberg Test: Negative Extrem Other: + bilateral LE pitting edema greater to right (chronic per patient). No calf tenderness General: Yes normal to inspection Course Course Course Narrative: -labs unremarkable. Troponin negative XR chest 1V IMPRESSION: 1.? Very slight prominence of the pulmonary vasculature. 2.? Left basilar atelectasis. CT angio head neck IMPRESSION: CT head and neck: 1. There are no acute bleeds or infarcts. There are no masses or areas of abnormal enhancement. There is mild diffuse volume loss. 2. There is no cervical lymphadenopathy and no masses are demonstrated. 3. There are sequelae of prior median sternotomy and CABG. ? CTA head and neck: 1. There are no flow-limiting stenoses in the neck vasculature. There are mild atheromatous calcifications at the carotid bifurcations. 2. Intracranially there are no focal stenoses, aneurysms or vascular malformations. > case discussed with Dr. Sandoval, suspect cervical radiculopathy. Results discussed with patient, discussed worrisome signs and symptoms and strict return precautions and needed close follow-up with PCP. Also recommended neuro surgical follow-up as needed. He verbalized understanding and feel safe for discharge home at this time Medical Decision Making MDM Narrative Medical decision making narrative: 66-year-old male with a past medical history of CVA s/p bypass on Plavix, diabetes, HTN, DARCI, retinal detachment, presenting to the ED sent in by PCP for intermittent numbness/tingling to right neck that radiates to right-sided face and down RUE associated with neck movements x 2 weeks. On exam mildly tachypneic, no focal neuro deficits, lungs CTA. Concern for cervical dissection vs stenosis vs radiculopathy. Symptoms atypical for CVA/TIA. Symptoms atypical for ACS/PE. Rule out CHF although of lower concern Plan: EKG, labs, CXR, CTA head and neck Medical Records Medical records reviewed: Yes I reviewed the patient's medical records. Lab Data Lab results reviewed: Yes I reviewed the patient's lab results. Result diagrams: 12/09/21 16:58 12/09/21 16:58 Labs: Lab Results 12/09/21 12/09/21 12/09/21 Range/Units 16:58 16:58 16:58 WBC 7.9 (4.8-10.8) X10*3/uL RBC 4.99 (4.60-5.80) X10*6/uL Hgb 16.4 (14.0-18.0) g/dl Hct 47.2 (42.0-52.0) % MCV 94.6 (80.0-98.0) fL MCH 32.9 (27.0-33.0) pg MCHC 34.7 (31.0-36.0) g/dl RDW 12.5 (11.0-16.0) % Plt Count 227 (160-400) X10*3/uL MPV 9.7 (9.4-12.4) fL Immature Gran % (Auto) 0.8 H (0.0-0.4) % Neut % (Auto) 52.8 (45-73) % Lymph % (Auto) 31.4 (20-40) % [place] % (Auto) 7.6 (2-11) % Eos % (Auto) 6.4 H (0-4) % Baso % (Auto) 1.0 (0-2) % Lymph # (Auto) 2.5 (1.2-4.9) X10*3/uL [place] # (Auto) 0.6 (0.1-1.2) X10*3/uL Eos # (Auto) 0.5 H (0.0-0.4) X10*3/uL Baso # (Auto) 0.1 (0.0-0.2) X10*3/uL Abs Immat Gran (auto) 0.06 H (0.00-0.03) X10*3/uL Absolute Neuts (auto) 4.2 (2.0-8.3) x10*3/uL Absolute Nucleated RBC 0.000 (0.0-0.012) X10*3/uL Nucleated RBC % (auto) 0.0 (0.0-0.2) /100WBC PT (10.0-13.1) SEC INR (0.9-1.1) APTT (26.0-36.4) SEC Sodium 139 (135-145) mmol/L Potassium 4.5 (3.3-5.1) mmol/L Chloride 101 (96-108) mmol/L Carbon Dioxide 26 (22-29) mmol/L Anion Gap 17 (12-20) BUN 13 (9-16) mg/dL Creatinine 1.22 (0.5-1.4) mg/dL Estim Creat Clear Calc 70.4 Estimated GFR 59 Random Glucose 147 H (60-115) mg/dL Calcium 9.7 (8.4-10.2) mg/dL Magnesium 2.0 (1.6-2.6) mg/dL Total Bilirubin 0.4 (0.0-1.0) mg/dL Direct Bilirubin 0.2 (0.0-0.5) mg/dL AST 27 (5-37) U/L ALT 33 (0-40) U/L Alkaline Phosphatase 55 (39-117) U/L Troponin I High Sens < 3.5 (<3.5-35.0) ng/L B-Natriuretic Peptide (<100) pg/mL Total Protein 7.3 (6.5-8.0) g/dL Albumin 4.3 (3.5-5.0) g/dL 12/09/21 12/09/21 Range/Units 16:58 16:58 WBC (4.8-10.8) X10*3/uL RBC (4.60-5.80) X10*6/uL Hgb (14.0-18.0) g/dl Hct (42.0-52.0) % MCV (80.0-98.0) fL MCH (27.0-33.0) pg MCHC (31.0-36.0) g/dl RDW (11.0-16.0) % Plt Count (160-400) X10*3/uL MPV (9.4-12.4) fL Immature Gran % (Auto) (0.0-0.4) % Neut % (Auto) (45-73) % Lymph % (Auto) (20-40) % [place] % (Auto) (2-11) % Eos % (Auto) (0-4) % Baso % (Auto) (0-2) % Lymph # (Auto) (1.2-4.9) X10*3/uL [place] # (Auto) (0.1-1.2) X10*3/uL Eos # (Auto) (0.0-0.4) X10*3/uL Baso # (Auto) (0.0-0.2) X10*3/uL Abs Immat Gran (auto) (0.00-0.03) X10*3/uL Absolute Neuts (auto) (2.0-8.3) x10*3/uL Absolute Nucleated RBC (0.0-0.012) X10*3/uL Nucleated RBC % (auto) (0.0-0.2) /100WBC PT 10.2 (10.0-13.1) SEC INR 0.9 (0.9-1.1) APTT 31.4 (26.0-36.4) SEC Sodium (135-145) mmol/L Potassium (3.3-5.1) mmol/L Chloride (96-108) mmol/L Carbon Dioxide (22-29) mmol/L Anion Gap (12-20) BUN (9-16) mg/dL Creatinine (0.5-1.4) mg/dL Estim Creat Clear Calc Estimated GFR Random Glucose (60-115) mg/dL Calcium (8.4-10.2) mg/dL Magnesium (1.6-2.6) mg/dL Total Bilirubin (0.0-1.0) mg/dL Direct Bilirubin (0.0-0.5) mg/dL AST (5-37) U/L ALT (0-40) U/L Alkaline Phosphatase (39-117) U/L Troponin I High Sens (<3.5-35.0) ng/L B-Natriuretic Peptide 17 (<100) pg/mL Total Protein (6.5-8.0) g/dL Albumin (3.5-5.0) g/dL Discharge Plan Discharge Clinical Impression: Cervical radiculopathy Patient Disposition: Home, Self-Care Instructions: Cervical Radiculopathy (ED) Additional Instructions: Your blood work was reassuring today. Your CT scan does not show any vessel occlusion or bleeding in her brain. You do have some arthritic changes of your neck. It is important to follow-up with her primary care doctor, and Neurosurgery as needed for your symptoms. You likely also need physical therapy Flexeril as a muscle relaxer, take at night as it makes you drowsy, do not drive, drink alcohol, or operate machinery while taking. In addition apply heat. Take Tylenol, and use Lidoderm numbing patches If symptoms persist or worsen, he develops headache, lightheadedness/dizziness, chest pain please return to the emergency department Prescriptions: New lidocaine [Lidoderm] 5 % adhesive patch,medicated 1 patch topical DAILY MDD remove after 12 hours PRN (Reason: pain) Qty: 30 0RF Rx Instructions: leave on most painful area for up to 12 hrs acetaminophen [Tylenol Extra Strength] 500 mg tablet 500 mg PO Q6H PRN (Reason: fever or pain) Qty: 14 0RF cyclobenzaprine 5 mg tablet 5 mg PO Q8H PRN (Reason: pain (scale score 7-10)) 5 Days Qty: 14 0RF No Action atorvastatin 80 mg tablet 80 mg PO QPM Qty: 90 3RF glipizide 10 mg tablet 1 tab PO BID aspirin 81 mg Tablet,Delayed Release (Dr/Ec) 81 mg PO DAILY Qty: 30 0RF aripiprazole 2 mg tablet 2 mg PO DAILY losartan 25 mg tablet 25 mg PO DAILY furosemide 20 mg tablet 20 mg PO DAILY Lantus Solostar U-100 Insulin 100 unit/mL (3 mL) insulin pen 32 unit subcut .evening trazodone 50 mg tablet 50 mg PO DAILY PRN clopidogrel [Plavix] 75 mg tablet 75 mg PO DAILY Qty: 90 3RF metoprolol tartrate 25 mg tablet 25 mg PO BID hydroxyzine pamoate 25 mg capsule 25 mg PO BID PRN fluoxetine 40 mg capsule 40 mg PO DAILY metformin 500 mg tablet extended release 24 hr 1,000 mg PO BID omeprazole 20 mg capsule,delayed release(DR/EC) 20 mg PO BID cholecalciferol (vitamin D3) 25 mcg (1,000 unit) capsule 25 mcg PO DAILY fenofibrate nanocrystallized 145 mg tablet 145 mg PO DAILY Referrals: Elizabeth Villalobos MD [Physician] - 1 week Vargas Cook MD [Primary Care Provider] - 2 days
[2021-12-09 17:03] LABS: MANUAL DIFF FLAG NO
[2021-12-09 17:11] LABS: Basophils Absolute Auto 0.1 X10*3/uL (0.0-0.2); Eosinophils Absolute Auto 0.5 X10*3/uL (0.0-0.4); Eosinophils Percent Auto 6.4 % (0-4); Hematocrit 47.2 % (42.0-52.0); Hemoglobin 16.4 g/dl (14.0-18.0); Imm Gran Abs Auto 0.06 X10*3/uL (0.00-0.03); Imm Gran Pct Auto 0.8 % (0.0-0.4); Lymphocytes Absolute Auto 2.5 X10*3/uL (1.2-4.9); Lymphocytes Percent Auto 31.4 % (20-40); Mean Corpuscular HGB Conc 34.7 g/dl (31.0-36.0); Mean Corpuscular Hemoglobin 32.9 pg (27.0-33.0); Mean Corpuscular Volume 94.6 fL (80.0-98.0); Mean Platelet Volume 9.7 fL (9.4-12.4); Monocytes Absolute Auto 0.6 X10*3/uL (0.1-1.2); Monocytes Percent Auto 7.6 % (2-11); Neutrophils Absolute Auto 4.2 x10*3/uL (2.0-8.3); Neutrophils Percent Auto 52.8 % (45-73); Platelet Count 227 X10*3/uL (160-400); Red Blood Count 4.99 X10*6/uL (4.60-5.80); Red Cell Distribution Width 12.5 % (11.0-16.0); White Blood Count 7.9 X10*3/uL (4.8-10.8)
[2021-12-09 17:13] LABS: INTERNATIONAL NORM RATIO 0.9 (0.9-1.1); Prothrombin Time 10.2 SEC (10.0-13.1)
[2021-12-09 17:16] LABS: Partial Thromboplastin Time 31.4 SEC (26.0-36.4)
[2021-12-09 17:27] LABS: Alanine Aminotransferase 33 U/L (0-40); Albumin Level 4.3 g/dL (3.5-5.0); Alkaline Phosphatase 55 U/L (39-117); Anion Gap 17 (12-20); Aspartate Amino Transferase 27 U/L (5-37); Bilirubin Direct 0.2 mg/dL (0.0-0.5); Bilirubin Total 0.4 mg/dL (0.0-1.0); Blood Urea Nitrogen 13 mg/dL (9-16); Calcium 9.7 mg/dL (8.4-10.2); Carbon Dioxide 26 mmol/L (22-29); Chloride 101 mmol/L (96-108); Creatinine Clr Calc Pharmacy 70.4; Estimated Glomerular Filt Rate 59; Glucose Random 147 mg/dL (60-115); Potassium 4.5 mmol/L (3.3-5.1); Sodium 139 mmol/L (135-145); Total Protein 7.3 g/dL (6.5-8.0)
[2021-12-09 17:29] LABS: B Type Natriuretic Peptide 17 pg/mL (<100); Troponin-I High Sensitivity < 3.5 ng/L (<3.5-35.0)
[2021-12-09] MEDS: iohexoL 350 MG/ML 100 ML INFUS..BTL IV (18:37)
[2021-12-09 19:52] VITALS: BP 147/74; PULSE 63; RESP 20; TEMP 36.7; O2SAT 95
== END 2021-12-09 20:56 | disposition home or self-care (01) ==
PROVIDERS: Physician Assistant; Emergency Provider Emergency Medicine; PCP Internal Medicine
DX: M54.12 Radiculopathy, cervical region (principal); R06.02 Shortness of breath; E11.9 Type 2 diabetes mellitus without complications; I10 Essential (primary) hypertension; F12.90 Cannabis use, unspecified, uncomplicated; F17.200 Nicotine dependence, unspecified, uncomplicated; E66.01 Morbid (severe) obesity due to excess calories; Z68.37 Body mass index [BMI] 37.0-37.9, adult; Z79.4 Long term (current) use of insulin; Z79.899 Other long term (current) drug therapy; Z79.02 Long term (current) use of antithrombotics/antiplatelets; Z79.82 Long term (current) use of aspirin
CPT/HCPCS: 36415; 70496; 70498; 71045; 80048; 80076; 83735; 83880; 84484; 85025; 85610; 85730; 93005; 99284; Q9967

== ENCOUNTER → 2022-06-01 12:44 | Outpatient (BNVA) | payer MEDICARE, SELFPAY | PROVIDERS: PCP Internal Medicine; Referring Provider Internal Medicine; Visit Provider Internal Medicine | DX: I25.10 Atherosclerotic heart disease of native coronary artery without angina pectoris (principal); I10 Essential (primary) hypertension; E11.8 Type 2 diabetes mellitus with unspecified complications; G47.33 Obstructive sleep apnea (adult) (pediatric); E66.01 Morbid (severe) obesity due to excess calories; Z99.89 Dependence on other enabling machines and devices; Z68.37 Body mass index [BMI] 37.0-37.9, adult | CPT/HCPCS: 99212 ==

== ENCOUNTER → 2022-06-09 09:58 | Outpatient (BNVA) | payer MEDICARE, SELFPAY | PROVIDERS: PCP Internal Medicine; Visit Provider Physician Assistant Surgical | DX: E66.9 Obesity, unspecified (principal); G47.33 Obstructive sleep apnea (adult) (pediatric); I10 Essential (primary) hypertension; I25.10 Atherosclerotic heart disease of native coronary artery without angina pectoris; E11.8 Type 2 diabetes mellitus with unspecified complications; Z68.37 Body mass index [BMI] 37.0-37.9, adult | CPT/HCPCS: 99202 ==

== ENCOUNTER 2022-12-18 05:50 | Emergency (ER) | payer MEDICARE, SELFPAY ==
[2022-12-18 06:04] VITALS: BP 147/70; PULSE 81; RESP 17; TEMP 36.4; O2SAT 95; BMI 35.7
--- NOTE | 2022-12-18 07:31 | ED.DENTAL ---
HPI - Dental/Oral General Chief complaint: Dental/Oral Stated complaint: abscess in mouth Time Seen by Provider: 12/18/22 07:31 Source: patient Mode of arrival: ambulatory Limitations: no limitations History of Present Illness HPI Narrative: 67 yo male with history of obesity, HTN, DM2, CAD, DARCI who presents to the ER for evaluation of right upper dental pain that started yesterday after eating ice cream. He states he broke a right upper tooth 2 weeks ago but did not develop pain until yesterday. He woke up this morning with worsening pain and swelling of the gums. He states the pain is worse with eating. No difficulty opening his jaw. No facial swelling. No fevers. MD Complaint: tooth pain and tooth injury Location: Tooth # (5) Onset (ago): day(s) (1) Duration: worsening Severity: severe Relieving factors: nothing Exacerbating factors: chewing and cold Context: history of dental caries, trauma (mechanism) and poor dental care Associated symptoms: gum swelling Treatment prior to arrival: topical analgesic and oral analgesic Related Data Home Medications Medication Instructions Recorded Confirmed aripiprazole 2 mg tablet 2 mg PO DAILY 09/02/20 06/09/22 furosemide 20 mg tablet 20 mg PO DAILY 09/02/20 06/09/22 cholecalciferol (vitamin D3) 25 25 mcg PO DAILY 03/30/21 06/09/22 mcg (1,000 unit) capsule fluoxetine 40 mg capsule 40 mg PO DAILY 03/30/21 06/09/22 insulin glargine 100 unit/mL (3 32 unit subcut .evening 03/30/21 06/09/22 mL) subcutaneous pen (Lantus Solostar U-100 Insulin) metformin 500 mg tablet,extended 1,000 mg PO BID 03/30/21 06/09/22 release 24 hr omeprazole 20 mg capsule,delayed 20 mg PO BID 03/30/21 06/09/22 release glipizide 10 mg tablet 10 mg PO BID 06/01/22 06/09/22 alpha lipoic acid 300 mg capsule 600 mg PO DAILY 06/09/22 06/09/22 cyanocobalamin (vitamin B-12) 1,000 mcg PO DAILY 06/09/22 06/09/22 1,000 mcg tablet,extended release ferrous sulfate 325 mg (65 mg 325 mg PO DAILY 06/09/22 06/09/22 iron) tablet (FeroSul) omega-3 fatty acids-fish oil 360 1 cap PO DAILY 06/09/22 06/09/22 mg-1,200 mg capsule (Fish Oil) Previous Rx's Medication Instructions Recorded aspirin 81 mg tablet,delayed 81 mg PO DAILY #30 tabs 03/15/21 release atorvastatin 80 mg tablet 80 mg PO QPM #90 tabs 12/05/22 amoxicillin 875 mg-potassium 1 tab PO BID #20 tabs 12/18/22 clavulanate 125 mg tablet chlorhexidine gluconate 0.12 % 15 ml buccal BID #120 mL 12/18/22 mouthwash (Periogard) ibuprofen 600 mg tablet 600 mg PO Q8H PRN pain #20 tabs 12/18/22 tramadol 50 mg tablet 50 mg PO Q8H PRN severe pain 12/18/22 (scale score 7-10) #9 tabs Allergies Allergy/AdvReac Type Severity Reaction Status Date / Time No Known Allergies Allergy Verified 12/18/22 06:03 [No Known Allergies*] Review of Systems Review of Systems: Yes all other systems are reviewed and are negative [facility] Past Medical History Medical History (Updated 12/18/22 @ 07:38 by JOSÉ MIGUEL Graham) Diabetes FH: cholecystectomy HTN (hypertension) Obstructive sleep apnea Obstructive sleep apnea on CPAP Retinal detachment Surgical History (Updated 06/09/22 @ 10:34 by Sera De Los Santos CMA) H/O heart bypass surgery History of tonsillectomy Hx of bladder endoscopy Hx of colonoscopy Hx of eye surgery Hx of oral surgery Family History Family History (Updated 06/09/22 @ 10:36 by Sera De Los Santos CMA) Father Coronary artery disease Hx of CABG Sister Coronary artery disease Hypertension Mother Cerebral hemorrhage Mental health problem Social History Social History (Updated 06/09/22 @ 10:34 by Sera De Los Santos CMA) Alcohol intake: never Patient Tobacco Use Status: Current everyday Tobacco user Cigarettes Per Day: 8 Years Smoked: 6 +/- Substance Use Type: Marijuana service: No Current occupational status: employed Physical Exam Vital Signs: Vital Signs: Last Vital Signs Temp 97.6 F 12/18/22 06:04 Pulse 81 12/18/22 06:04 Resp 17 12/18/22 06:04 BP 147/70 H 12/18/22 06:04 Pulse Ox 95 08/13/23 06:04 O2 Del Method Room Air 12/18/22 06:04 BMI result Body Mass Index 35.7 Const: General: cooperative, healthy appearing, comfortable and no acute distress Nutritional Appearance: average body habitus Orientation/consciousness: patient oriented x3 Limitations: no limitations HEENT: Head: Yes normocephalic and Yes atraumatic Ears: hearing grossly normal bilaterally General nose exam: Normal external nose present Face and sinus: Yes normal facial exam and Yes face symmetric Mouth: Normal oral and palatal mucosa present, lip normal and tongue normal Teeth and gingiva: abnormal tooth and associated gingiva upper right second bicuspid tender, with associated gingival edema, enamel fractured and dentin fractured, gingiva abnormal tender and poor dentition Throat: Yes posterior oropharynx normal, Yes tonsils normal and Yes uvula midline Eyes: General: appearance normal, both eyes and all related structures Neck: Neck: Yes normal visual inspection, Yes full ROM, Yes no lymphadenopathy and Yes trachea midline Chest: Chest palpation & inspection: normal inspection of the chest Resp: Effort & Inspection: normal respiratory effort and able to speak in complete sentences GI: Inspection: Yes normal to inspection Skin: General skin exam: no rashes or lesions noted Neuro: General: patient oriented x3 Extrem: General: Yes normal to inspection Psych: Appearance: grossly normal and well kempt Mental Status: mental status grossly normal Speech and movement: Normal speech and movement present Medical Decision Making Medical Decision Making MDM Narrative: 67 yo male presenting with right upper dental pain after he cracked the tooth a few weeks ago. No obvious facial swelling. no trismus. exam c/w multiple decayed teeth and caries, tooth #5 broken and tender, no mobility. there is associated gingival tenderness but no significant swelling or fluctuance. no area amenable to drainage today. will start empiric abx and pain control. stable for d/c home w/ plan to f/u with dental monday. return precautions discussed Differential Diagnosis Differential Diagnoses: The differential diagnosis associated with the presentation includes dental abscess, dental trauma, toothache, dental caries External Record Review External record reviewed: Prior outpatient labs Prescription Management I considered prescription management with: Pain Medication and Antibiotic Chronic Conditions Patient?s care impacted by: Hypertension and Other (poor dental care) Critical Care Time Critical Care Time Critical Care Time: No Discharge Plan Discharge Clinical Impression: Dental abscess Patient Disposition: Home, Self-Care Instructions: Dental Abscess (ED) Additional Instructions: Take the prescribed antibiotics as directed, complete the entire course and do not miss any doses Take the prescribed ibuprofen for pain and swelling, take with food Take the prescribed tramadol as needed for severe pain only. Do not drive after taking this medication Use the antiseptic mouth wash as directed You can also try clove oil, orajel, black tea bag to the area to with with pain and inflammation Follow up with your dentist as scheduled If you develop new or worsening symptoms call 911 or come back to the ER for further evaluation. Prescriptions: New amoxicillin-pot clavulanate 875-125 mg tablet 1 tab PO BID Qty: 20 0RF ibuprofen 600 mg tablet 600 mg PO Q8H PRN (Reason: pain) Qty: 20 0RF tramadol 50 mg tablet 50 mg PO Q8H PRN (Reason: severe pain (scale score 7-10)) Qty: 9 0RF chlorhexidine gluconate [Periogard] 0.12 % mouthwash 15 ml buccal BID Qty: 120 0RF No Action atorvastatin 80 mg tablet 80 mg PO QPM Qty: 90 3RF aspirin 81 mg Tablet,Delayed Release (Dr/Ec) 81 mg PO DAILY Qty: 30 0RF glipizide 10 mg tablet 10 mg PO BID aripiprazole 2 mg tablet 2 mg PO DAILY furosemide 20 mg tablet 20 mg PO DAILY Lantus Solostar U-100 Insulin 100 unit/mL (3 mL) insulin pen 32 unit subcut .evening fluoxetine 40 mg capsule 40 mg PO DAILY metformin 500 mg tablet extended release 24 hr 1,000 mg PO BID omeprazole 20 mg capsule,delayed release(DR/EC) 20 mg PO BID cholecalciferol (vitamin D3) 25 mcg (1,000 unit) capsule 25 mcg PO DAILY alpha lipoic acid 300 mg capsule 600 mg PO DAILY ferrous sulfate [FeroSul] 325 mg (65 mg iron) tablet 325 mg PO DAILY cyanocobalamin (vitamin B-12) 1,000 mcg tablet extended release 1,000 mcg PO DAILY omega-3 fatty acids-fish oil [Fish Oil] 360-1,200 mg capsule 1 cap PO DAILY
[2022-12-18 07:41] VITALS: BP 172/82; PULSE 67; RESP 16; TEMP 36.2; O2SAT 98
== END 2022-12-18 07:55 | disposition home or self-care (01) ==
PROVIDERS: Emergency Provider Emergency Medicine Emergency Medical Services
DX: K04.7 Periapical abscess without sinus (principal); K03.81 Cracked tooth; I10 Essential (primary) hypertension; E11.9 Type 2 diabetes mellitus without complications; F12.90 Cannabis use, unspecified, uncomplicated; F17.210 Nicotine dependence, cigarettes, uncomplicated; Z79.4 Long term (current) use of insulin; Z71.6 Tobacco abuse counseling; Z79.899 Other long term (current) drug therapy
CPT/HCPCS: 99283; 99284

== ENCOUNTER 2023-06-01 12:09 | Outpatient (AMB) | payer MEDICARE, SELFPAY ==
[2023-06-01 12:38] VITALS: BP 130/72; PULSE 81; BMI 35.9
--- NOTE | 2023-06-01 12:38 | MHC.OFFVIS ---
Intake Vital Signs 06/01/23 12:38 Height 5 ft 6 in Weight 222 lb 10.67 oz BMI 35.9 BP 130/72 Blood Pressure Location Lt brachial Position Sitting Pulse 81 Intake Visit Reasons: 1 yr f/up Intake Note: 1 year follow up w/ EKG Inspector And Tester Required: No Accompanied by: Self / Same As Patient Allergies No Known Allergies [No Known Allergies*] Allergy (Verified 06/01/23 12:39) Medication List - Last Reconciled 06/01/23 by Kameron Lyn MD alpha lipoic acid 600 mg PO DAILY amoxicillin-pot clavulanate 875-125 mg 1 tab PO BID aripiprazole 2 mg PO DAILY aspirin 81 mg PO DAILY atorvastatin 80 mg PO QPM cholecalciferol (vitamin D3) 25 mcg PO DAILY cyanocobalamin (vitamin B-12) ER 1,000 mcg PO DAILY ferrous sulfate (FeroSul) 325 mg PO DAILY fluoxetine 40 mg PO DAILY furosemide 20 mg PO DAILY glipizide 10 mg PO BID insulin glargine (Lantus Solostar U-100 Insulin) 32 units subcut .evening metformin ER 1,000 mg PO BID omega-3 fatty acids-fish oil 360-1,200 mg (Fish Oil) 1 cap PO DAILY omeprazole 20 mg PO BID HPI HPI Comments History of Present Illness Details Doe returns for follow-up regarding coronary artery disease and coronary artery bypass surgery. Multiple cardiovascular risk factors including morbid obesity, diabetes, hypertension, dyslipidemia, smoking as well as obstructive sleep apnea. Overall, he states he is doing good. No complaints like angina or in fact anything cardiac sounding. Unfortunately, still smokes. [facility] Medical History (Updated 12/19/22 @ 00:25 by Blanca Magana) Obstructive sleep apnea on CPAP HTN (hypertension) Obstructive sleep apnea Diabetes FH: cholecystectomy Retinal detachment Surgical History Hx of eye surgery Hx of bladder endoscopy Hx of colonoscopy Hx of oral surgery H/O heart bypass surgery History of tonsillectomy Family History Father Coronary artery disease Hx of CABG Sister Coronary artery disease Hypertension Mother Cerebral hemorrhage Mental health problem Social History Alcohol intake: never Patient Tobacco Use Status: Current everyday Tobacco user Cigarettes Per Day: 8 Years Smoked: 6 +/- Substance Use Type: Marijuana service: No Current occupational status: employed Review of Systems Const Denies weakness ENT Denies dizziness Card Denies chest pain, Denies chest pain with activity, Denies syncope, Denies rapid heart rate, Denies pedal edema, Denies edema, Denies leg edema, Denies lightheadedness, Denies palpitations, Denies dyspnea, Denies dyspnea on exertion and Denies orthopnea Resp Denies cough, Denies dyspnea and Denies dyspnea on exertion GI Denies hematochezia and Denies change in stool character Musc Denies abnormal gait, Denies muscle cramps, Denies muscle weakness, Denies numbness, Denies radiating pain into limb and Denies tingling Neuro Denies abnormal gait, Denies dizziness, Denies syncope, Denies numbness, Denies tingling and Denies weakness Endo Denies palpitations Physical Exam Vital Signs: Last Vital Signs Pulse 81 06/01/23 12:38 BP 130/72 06/01/23 12:38 BMI result Body Mass Index 35.9 Const General: comfortable and no acute distress Orientation/consciousness: patient oriented x3 HEENT Other: Unremarkable Head: Yes normal to inspection Neck Neck: Yes normal visual inspection Chest Chest palpation & inspection: normal inspection of the chest Resp Auscultation: clear to auscultation bilaterally Cardio Palpation: normal PMI Heart sounds: S1 normal heart sound present, S2 normal heart sound present, no gallops, no murmurs and no rubs GI Palpation (GI): Soft to palpation Back/Spine/Pelvis Other: unremarkable Skin General skin exam: no rashes or lesions noted Neuro General: patient oriented x3 Extrem General: Yes normal to inspection Psych Mental Status: mental status grossly normal Office Procedures EKG Details: EKG with sinus rhythm 81/Min; inferior as well as anterolateral downsloping STs. Overall, similar to prior. [id number], Complete Assessment & Plan Assessment & Plan (1) Atherosclerotic cardiovascular disease: Code(s): I25.10 - Atherosclerotic heart disease of [place] coronary artery without angina pectoris Plan: Status post CABG. Stable. Continue long-term aspirin. Continue statins. LDL 47 mg/dL. Triglycerides 246 mg/dL. Preoperative carotid ultrasound without any significant stenosis. We will get the most recent labs from PCP. (2) Type 2 diabetes mellitus with unspecified complications: Code(s): E11.8 - Type 2 diabetes mellitus with unspecified complications Plan: Meds include insulin, glipizide, metformin. Will need to get the last hemoglobin A1c from PCP. (3) Essential hypertension: Code(s): I10 - Essential (primary) hypertension Plan: On losartan. Has been on metoprolol in the past but not anymore. (4) Obstructive sleep apnea on CPAP: Code(s): G47.33 - Obstructive sleep apnea (adult) (pediatric); Z99.89 - Dependence on other enabling machines and devices Plan: Continue CPAP. (5) Morbid obesity: Code(s): E66.01 - Morbid (severe) obesity due to excess calories Plan: We have discussed about his weight numerous times. This is a big source of lot of his health issues. (6) Smoking: Code(s): F17.200 - Nicotine dependence, unspecified, uncomplicated Plan: Strongly advised to stop smoking. Coding Level of Care Code Est Pt Level 4 (97862) Diagnoses Atherosclerotic cardiovascular disease I25.10 Type 2 diabetes mellitus with unspecified complications E11.8 Essential hypertension I10 Obstructive sleep apnea on CPAP G47.33; Z99.89 Morbid obesity E66.01 Smoking F17.200 CPT Codes EKG - CPT: 73799-[id number], Complete ([id number])
== END 2023-06-01 12:56 | disposition home or self-care (01) ==
PROVIDERS: Visit Provider Internal Medicine
DX: I25.10 Atherosclerotic heart disease of native coronary artery without angina pectoris (principal); E11.8 Type 2 diabetes mellitus with unspecified complications; I10 Essential (primary) hypertension; G47.33 Obstructive sleep apnea (adult) (pediatric); Z99.89 Dependence on other enabling machines and devices; E66.01 Morbid (severe) obesity due to excess calories; F17.200 Nicotine dependence, unspecified, uncomplicated
CPT/HCPCS: 93010; 99214

== ENCOUNTER → 2023-06-01 12:09 | Outpatient (BNVA) | payer MEDICARE, SELFPAY | PROVIDERS: Visit Provider Internal Medicine | DX: I25.10 Atherosclerotic heart disease of native coronary artery without angina pectoris (principal); I10 Essential (primary) hypertension; E11.8 Type 2 diabetes mellitus with unspecified complications; E66.01 Morbid (severe) obesity due to excess calories; F17.210 Nicotine dependence, cigarettes, uncomplicated; Z68.35 Body mass index [BMI] 35.0-35.9, adult | CPT/HCPCS: 93005; 99212 ==

== ENCOUNTER → 2023-07-17 08:43 | Outpatient (REF) | payer MEDICARE, SELFPAY ==
--- NOTE | 2023-07-17 08:48 | HM_ITS ---
Conclusion: 1. Patient was monitored for total period of 7 days 2. Baseline was normal sinus with average heart of 91 beats per minute 3. No significant pauses noted 4. Occasional PVCs noted 5. No patient reported events MTDD
--- NOTE | 2023-07-17 08:48 | ECG_ITS ---
Test Reason : palpitations Blood Pressure : / mmHG Vent. Rate : 093 BPM Atrial Rate : 093 BPM P-R Int : 148 ms QRS Dur : 080 ms QT Int : 362 ms P-R-T Axes : 049 091 002 degrees QTc Int : 450 ms Normal sinus rhythm Rightward axis T wave abnormality, consider inferior ischemia Abnormal ECG When compared with ECG of 09-DEC-2021 15:53, Inverted T waves have replaced nonspecific T wave abnormality in Inferior leads Referred By: Kameron Lyn Electronically Signed By:MARVIN GREEN MD
== END ==
LOC: HO.CARD 08:43
PROVIDERS: PCP Family Medicine; Visit Provider Internal Medicine
DX: R00.2 Palpitations (principal)
CPT/HCPCS: 93005; 93242

== ENCOUNTER → 2023-07-17 08:48 | Outpatient (BNV) | payer MEDICARE, SELFPAY | PROVIDERS: PCP Family Medicine; Visit Provider Internal Medicine Cardiovascular Disease | DX: R00.2 Palpitations (principal) | CPT/HCPCS: 93010; 93244 ==

== ENCOUNTER 2023-12-28 17:29 | Inpatient (IN) | payer MEDICARE, SELFPAY ==
--- NOTE | ~2023-12-28 | XR_ITS ---
EXAMINATION: XR CHEST CLINICAL INFORMATION: Chest pain COMPARISON: 03/14/2021 TECHNIQUE: 2 views of the chest were obtained. Fluoroscopy was utilized. FINDINGS: Minimal central peribronchial thickening with increased perihilar markings. Mild cardiomegaly. Evidence of previous cardiac surgery Interim. Kyphosis without stature loss dorsal spine. No definite pleural fluid. No focal infiltrate. XR/XR chest 2V IMPRESSION: Findings consistent with mild nonspecific bronchitis. No focal consolidation. Mild cardiomegaly. Electronically signed by: Alvarez Barajas MD 12/28/2023 08:59 PM EDT
--- NOTE | 2023-12-28 17:37 | ECG_ITS ---
Test Reason : CHEST PAIN Blood Pressure : / mmHG Vent. Rate : 086 BPM Atrial Rate : 086 BPM P-R Int : 144 ms QRS Dur : 082 ms QT Int : 332 ms P-R-T Axes : 045 079 -80 degrees QTc Int : 397 ms Normal sinus rhythm ST & T wave abnormality, consider inferolateral ischemia Abnormal ECG When compared with ECG of 17-JUL-2023 08:58, QT has shortened T wave inversion more evident in Lateral leads Referred By: Kirsty Santos Electronically Signed By:ANNA ZAMUDIO
[2023-12-28 17:43] VITALS: BP 149/78; PULSE 87; RESP 18; TEMP 37; O2SAT 95; BMI 35.9
--- NOTE | 2023-12-28 17:44 | ED_ITS ---
HPI - Chest Pain General Chief Complaint: Chest Pain Stated Complaint: chest pain Time Seen by Provider: 12/28/23 18:12 Source: patient, RN notes reviewed and old records reviewed Mode of arrival: ambulatory Limitations: no limitations History of Present Illness ED Provider: marie JEWELL narrative: Patient is a 68-year-old male with history of morbid obesity, T2DM, DARCI on cpap, smoking around 8 small cigars daily x 8 years, NSTEMI s/p two-vessel CABG 03/2021 referred here by [facility] cardiology office for 8 days of chest pain. When asked to specify location, patient points to his epigastric area. He states the episodes tend to occur with exertion but he also notes that he is able to go up and down the stairs to his apartment without difficulty. Denies associated dyspnea, nausea, vomiting, or diaphoresis. Denies palpitations. States that when his pain occurs, he sits down and takes deep breaths and the episodes usually resolve in about 15 minutes. Has been compliant with his CPAP. States the episodes of pain do feel similar to his prior CO. He denies any pain at this time. He has not taken any medications for his symptoms. MD complaint: chest pain Pertinent past history: prior CO, CABG and other (T2DM, DARCI, obesity) Onset (ago): day(s) Timing of current episode: episodic Onset: during exertion Pain location: epigastric Pain radiation: none Quality: similar to prior CO Relieving factors: rest and other (deep breaths) Exacerbating factors: exertion Treatment prior to arrival: none Related Data Home Medications ?Medication ?Instructions ?Recorded ?Confirmed aripiprazole 2 mg tablet 2 mg PO DAILY 09/02/20 06/01/23 cholecalciferol (vitamin D3) 25 25 mcg PO DAILY 03/30/21 06/01/23 mcg (1,000 unit) capsule insulin glargine 100 unit/mL (3 32 unit subcut BEDTIME 03/30/21 06/01/23 mL) subcutaneous pen (Lantus Solostar U-100 Insulin) metformin 500 mg tablet,extended 1,000 mg PO BID 03/30/21 06/01/23 release 24 hr omeprazole 20 mg capsule,delayed 20 mg PO BID@0630,1630 03/30/21 06/01/23 release alpha lipoic acid 300 mg capsule 600 mg PO DAILY 06/09/22 06/01/23 cyanocobalamin (vitamin B-12) 1,000 mcg PO DAILY 06/09/22 06/01/23 1,000 mcg tablet,extended release ferrous sulfate 325 mg (65 mg 325 mg PO DAILY 06/09/22 06/01/23 iron) tablet (FeroSul) omega-3 fatty acids-fish oil 360 1 cap PO DAILY 06/09/22 06/01/23 mg-1,200 mg capsule (Fish Oil) atorvastatin 80 mg tablet 80 mg PO BEDTIME 12/28/23 fenofibrate micronized 200 mg 200 mg PO DAILY 12/28/23 capsule fluoxetine 20 mg capsule 60 mg PO DAILY 12/28/23 furosemide 20 mg tablet 20 mg PO BID 12/28/23 glipizide 10 mg tablet 10 mg PO DAILY 12/28/23 Previous Rx's ?Medication ?Instructions ?Recorded aspirin 81 mg tablet,delayed 81 mg PO DAILY #30 tabs 03/15/21 release amoxicillin 875 mg-potassium 1 tab PO BID #20 tabs 12/18/22 clavulanate 125 mg tablet metoprolol succinate 25 mg 25 mg PO DAILY #30 tabs 12/28/23 tablet,extended release 24 hr Allergies Allergy/AdvReac Type Severity Reaction Status Date / Time No Known Allergies Allergy Verified 12/28/23 17:45 [No Known Allergies*] Review of Systems 2 Review of Systems: As per HPI. Yes all other systems are reviewed and are negative Constitutional: Constitutional: Reports as per HPI PMF Past Medical History Medical History Obstructive sleep apnea on CPAP HTN (hypertension) Obstructive sleep apnea Diabetes FH: cholecystectomy Retinal detachment Surgical History Hx of eye surgery Hx of bladder endoscopy Hx of colonoscopy Hx of oral surgery H/O heart bypass surgery History of tonsillectomy Family History Family History Father Coronary artery disease Hx of CABG Sister Coronary artery disease Hypertension Mother Cerebral hemorrhage Mental health problem Social History Social History Alcohol intake: never Patient Tobacco Use Status: Current everyday Tobacco user Cigarettes Per Day: 8 Years Smoked: 6 +/- Smoked in Last 30 Days: Yes Use of substances other than those prescribed or required for medical reasons: No Substance Use Type: Marijuana Advance Directives: Yes Advance Directives on File: Yes Advance Directives Date on File: 03/15/21 service: No Current occupational status: employed Physical Exam 2 Vital Signs: Vital Signs: Last Vital Signs Temp 97.9 F 12/28/23 21:41 Pulse 92 12/28/23 21:41 Resp 20 12/28/23 21:41 BP 152/85 H 12/28/23 21:41 Pulse Ox 95 12/28/23 21:41 O2 Del Method Room Air 12/28/23 21:41 BMI result Body Mass Index 35.0 Vital signs have been reviewed and appear to be correct. Blood pressure elevated. Heart rate normal. Respiratory rate normal. Temperature normal. Oxygen saturation normal. Const: General: cooperative, no acute distress, alert and awake Nutritional Appearance: obese Orientation/consciousness: oriented to person, oriented to place, oriented to time and patient oriented x3 Limitations: no limitations HEENT: Head: Yes normocephalic and Yes atraumatic Ears: external ears normal General nose exam: Normal external nose present Face and sinus: Yes face symmetric Mouth: oropharynx normal and moist mucous membranes Throat: Yes uvula midline Eyes: Pupils: Equal, round and reactive pupils present Neck: Neck: Yes normal visual inspection and Yes supple Chest: Chest palpation & inspection: normal inspection of the chest and normal palpation of entire chest wall Resp: Effort & Inspection: normal respiratory effort and able to speak in complete sentences Auscultation: clear to auscultation bilaterally Cardio: Rate: regular rate Rhythm: regular rhythm Heart sounds: S1 normal heart sound present and S2 normal heart sound present GI: Inspection: Yes obesity (protuberant abdomen) Palpation (GI): Soft to palpation, Tenderness to palpation present (GI) in the epigastrum, no guarding, not rigid and No Rebound tenderness present Auscultation: normoactive bowel sounds : General: Yes no CVA tenderness Back/Spine/Pelvis: Back: no CVA tenderness Skin: General skin exam: elasticity normal and turgor normal Neuro: General: oriented to person, oriented to place, oriented to time, patient oriented x3, moves all extremities, no focal motor deficits and CN's II- XI intact bilaterally Cranial nerves: Yes Equal, round and reactive pupils present Cognition (Neuro): normal cognition Extrem: General: Yes full ROM, Yes no pedal edema and Yes no calf tenderness Psych: Mental Status: mental status grossly normal Affect: normal affect Thought process: Normal thought process present Course Course Course Narrative: This is a Rapid Medical Examination (RME) performed by Geri Higginbotham PA-C in triage. Full HPI, ROS, assessment and treatment plan per primary provider in the Main ED. 68 yo male hx of morbid obesity, T2DM, DARCI on cpap, NSTEMI s/p two-vessel CABG 03/2021 referred here by [facility] cardiology office for STEMI r/o. Patient reports intermittent substernal chest pain on exertion which improves with rest x8-10 days. Admits pain lasts approximately 15 minutes before completely resolving. Admits this feels like his previous STEMI. He denies any chest pain at present. I received this patient as an expect by [employer] PROJECT MANAGER from [facility] Regulatory Auditor office. Dr. Lyn is patient's strategic insights lead and advised patient to come to [facility] for STEMI rule out. Dr. Apodaca is the on-call strategic insights lead and is aware of patient. There is outpatient cardiac catheterization scheduled for next week. + well-appearing, rrr. lungs clear. not diaphoretic. Plan: ekg, labs Medications Administered Generic Name Dose Route Start Last Admin Trade Name Freq PRN Reason Stop Dose Admin Heparin Sodium/Sodium Chloride 25,000 unit in 250 mls @ 0 mls/hr 12/28/23 22:30 12/28/23 22:39 Heparin Sodium,Porcine/1/2ns IVCONT 9.85 units/kg/hr .Q0M GAVINO 10 mls/hr Administration Protocol Per Protocol Discontinued Medications Generic Name Dose Route Start Last Admin Trade Name Freq PRN Reason Stop Dose Admin Aspirin 324 mg 12/28/23 20:00 12/28/23 20:42 Aspirin 81 Mg Tab.Chew PO 12/28/23 20:01 324 mg ONCE ONE Administration Heparin Sodium (Porcine) 4,000 unit 12/28/23 22:07 12/28/23 22:38 Heparin Sodium,Porcine 5,000 Unit/Ml Vial IVPUSH 12/28/23 22:08 4,000 unit ONCE ONE Administration Medical Decision Making Medical Decision Making MDM Narrative: Patient is a 68-year-old male with history of morbid obesity, T2DM, DARCI on cpap, smoking around 8 small cigars daily x 8 years, NSTEMI s/p two-vessel CABG 03/2021 referred here by [facility] cardiology office for 8 days of chest pain. On exam patient is awake, A+Ox3, BP elevated, VS otherwise WNL, afebrile, normal neurological exam without focal deficits, physical exam findings as above. Given reported symptoms and physical exam findings, initial differential includes ACS/CO, angina, GERD, PUD. Less likely pancreatitis, cholecystitis. Unlikely aortic dissection, esophageal rupture, pneumothorax, tamponade, pericarditis, PE. Initial EKG shows normal sinus rhythm, ST depression in leads V3, V4, V5, V6, similar to EKG from July of this year. Labs notable for initial troponin of 334.6, repeat of 307.5. Repeat EKG shows worsening ST depression in leads V3-V6. Patient continues to deny chest pain in the ED. X- ray chest notable for mild cardiomegaly, no evidence of pneumonia, pneumothorax. Radiologist notes findings consistent with nonspecific bronchitis, patient denies wheezing or cough. My interpretation is in agreement with the radiologist's interpretation. Case discussed with Dr. Apodaca, strategic insights lead, who recommends patient be admitted, remain NPO after midnight, and be started on a heparin drip. Patient updated on and agreeable to plan. Dr. Parry accepts admission to medicine service. Dr. Apodaca also requesting that patient receive 300mg loading dose of clopidogrel now, additional 75mg in the am, as well as isosorbide 30mg daily. Dr. Parry aware. Differential Diagnosis Differential Diagnoses: The differential diagnosis associated with the presentation includes As per [facility]. Admission/Observation Consideration of admission/observation: Escalation of care including admission/observation considered Consult Healthcare Provider Management of the patient was discussed with: Hospitalist (Dr. Parry) and Delicatessen Store Manager (Dr. Apodaca) Lab Data [facility] Lab Attestation statement: I reviewed the patient's lab results. As per [facility] 12/28/23 18:34 12/28/23 18:34 Labs: Lab Results 12/28/23 12/28/23 12/28/23 Range/Units 18:34 20:23 22:05 WBC 9.9 (4.8-10.8) X10*3/uL RBC 5.18 (4.60-5.80) X10*6/uL Hgb 17.2 (14.0-18.0) g/dl Hct 48.9 (42.0-52.0) % MCV 94.4 (80.0-98.0) fL MCH 33.2 H (27.0-33.0) pg MCHC 35.2 (31.0-36.0) g/dl RDW 12.1 (11.0-16.0) % Plt Count 241 (160-400) X10*3/uL MPV 10.3 (9.4-12.4) fL Immature Gran % (Auto) 0.4 (0.0-0.4) % Neut % (Auto) 52.0 (45-73) % Lymph % (Auto) 33.3 (20-40) % [place] % (Auto) 7.3 (2-11) % Eos % (Auto) 6.0 H (0-4) % Baso % (Auto) 1.0 (0-2) % Lymph # (Auto) 3.3 (1.2-4.9) X10*3/uL [place] # (Auto) 0.7 (0.1-1.2) X10*3/uL Eos # (Auto) 0.6 H (0.0-0.4) X10*3/uL Baso # (Auto) 0.1 (0.0-0.2) X10*3/uL Abs Immat Gran (auto) 0.04 H (0.00-0.03) X10*3/uL Absolute Neuts (auto) 5.2 (2.0-8.3) x10*3/uL Absolute Nucleated RBC 0.000 (0.0-0.012) X10*3/uL Nucleated RBC % (auto) 0.0 (0.0-0.2) /100WBC PT 11.4 (11.1-13.3) SEC INR 0.9 (0.9-1.1) APTT 31.1 (26.0-36.8) SEC aPTT Heparin Protocol 31.1 L (53-77.9) SEC Sodium 139 (135-145) mmol/L Potassium 4.1 (3.3-5.1) mmol/L Chloride 104 (96-108) mmol/L Carbon Dioxide 23 (22-29) mmol/L Anion Gap 16 (12-20) BUN 9 (9-16) mg/dL Creatinine 1.26 (0.5-1.4) mg/dL Estim Creat Clear Calc 64.4 Estimated GFR 57 Random Glucose 109 (60-115) mg/dL Calcium 10.0 (8.4-10.2) mg/dL Magnesium 1.7 (1.6-2.6) mg/dL Total Bilirubin 0.4 (0.0-1.0) mg/dL AST 34 (5-37) U/L ALT 42 H (0-40) U/L Alkaline Phosphatase 45 (39-117) U/L Troponin I High Sens 334.6 H* 307.5 H* (<3.5-35.0) ng/L Total Protein 7.5 (6.5-8.0) g/dL Albumin 4.4 (3.5-5.0) g/dL Amylase 43 (28-100) U/L Lipase 26 (8-78) U/L Independent Interpretation I performed an independent interpretation of an: EKG (Initial EKG shows normal sinus rhythm, rate 86bpm, ST depression in leads V3-V6 similar to prior; repeat EKG shows normal sinus rhythm, rate 92 bpm, worsening ST depression in leads V3- V6) and Plain X-Ray Interpretation: X-ray chest notable for mild cardiomegaly, no evidence of pneumonia, pneumothorax. Radiologist notes findings consistent with nonspecific bronchitis, patient denies wheezing or cough. Radiology Impression Discussion of test interpretation with radiology: I have reviewed the radiologist's reading. Radiologist Impression: XR/XR chest 2V IMPRESSION: Findings consistent with mild nonspecific bronchitis. No focal consolidation. Mild cardiomegaly. Electronically signed by: Alvarez Barajas MD 12/28/2023 08:59 PM EDT External Record Review External record reviewed: Inpatient record, Office record and Outpatient record Critical Care Time Critical Care Time Critical Care Time: Yes Total Critical Care Time: 40 Attestation: I have personally provided critical care time exclusive of time spent on separately billable procedures. Time includes review of lab data, radiology results, discussion with consultants, and monitoring for potential decompensation. Intervention performed as documented. Discharge Plan Discharge Clinical Impression: Non-ST elevation myocardial infarction (NSTEMI) Patient Disposition: Admitted As Inpatient
[2023-12-28 18:38] LABS: MANUAL DIFF FLAG NO
--- NOTE | 2023-12-28 18:47 | PC.NURSE ---
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 Had bypass 2 years ago. Alert and oriented, breathing even and unlabored, skin WNL. NSR on bedside quality assurance monitor.
[2023-12-28 19:11] LABS: Basophils Absolute Auto 0.1 X10*3/uL (0.0-0.2); Eosinophils Absolute Auto 0.6 X10*3/uL (0.0-0.4); Hematocrit 48.9 % (42.0-52.0); Hemoglobin 17.2 g/dl (14.0-18.0); Imm Gran Abs Auto 0.04 X10*3/uL (0.00-0.03); Imm Gran Pct Auto 0.4 % (0.0-0.4); Lymphocytes Absolute Auto 3.3 X10*3/uL (1.2-4.9); Lymphocytes Percent Auto 33.3 % (20-40); Mean Corpuscular HGB Conc 35.2 g/dl (31.0-36.0); Mean Corpuscular Hemoglobin 33.2 pg (27.0-33.0); Mean Corpuscular Volume 94.4 fL (80.0-98.0); Mean Platelet Volume 10.3 fL (9.4-12.4); Monocytes Absolute Auto 0.7 X10*3/uL (0.1-1.2); Monocytes Percent Auto 7.3 % (2-11); Neutrophils Absolute Auto 5.2 x10*3/uL (2.0-8.3); Platelet Count 241 X10*3/uL (160-400); Red Blood Count 5.18 X10*6/uL (4.60-5.80); Red Cell Distribution Width 12.1 % (11.0-16.0); White Blood Count 9.9 X10*3/uL (4.8-10.8)
[2023-12-28 19:12] VITALS: BP 139/84; PULSE 88; RESP 25; TEMP 36.8; O2SAT 93
[2023-12-28 19:15] LABS: Alanine Aminotransferase 42 U/L (0-40); Albumin Level 4.4 g/dL (3.5-5.0); Alkaline Phosphatase 45 U/L (39-117); Anion Gap 16 (12-20); Aspartate Amino Transferase 34 U/L (5-37); Bilirubin Total 0.4 mg/dL (0.0-1.0); Blood Urea Nitrogen 9 mg/dL (9-16); Carbon Dioxide 23 mmol/L (22-29); Chloride 104 mmol/L (96-108); Creatinine Clr Calc Pharmacy 64.4; Estimated Glomerular Filt Rate 57; Glucose Random 109 mg/dL (60-115); Magnesium 1.7 mg/dL (1.6-2.6); Potassium 4.1 mmol/L (3.3-5.1); Sodium 139 mmol/L (135-145); Total Protein 7.5 g/dL (6.5-8.0)
[2023-12-28 19:52] LABS: Troponin-I High Sensitivity 334.6 ng/L (<3.5-35.0)
[2023-12-28 20:26] LABS: Amylase 43 U/L (28-100); Lipase 26 U/L (8-78)
[2023-12-28] MEDS: Aspirin 81 MG TAB.CHEW 324 MG PO (20:42)
--- NOTE | 2023-12-28 20:46 | ECG_ITS ---
Test Reason : repeat Blood Pressure : / mmHG Vent. Rate : 092 BPM Atrial Rate : 092 BPM P-R Int : 146 ms QRS Dur : 084 ms QT Int : 348 ms P-R-T Axes : 042 087 266 degrees QTc Int : 430 ms Normal sinus rhythm ST & T wave abnormality, consider inferior ischemia ST & T wave abnormality, consider anterolateral ischemia Abnormal ECG When compared with ECG of 28-DEC-2023 17:32, No significant change was found Referred By: Kirsty Santos Electronically Signed By:ANNA ZAMUDIO
[2023-12-28 21:28] LABS: Troponin-I High Sensitivity 307.5 ng/L (<3.5-35.0)
[2023-12-28 21:41] VITALS: BP 152/85; PULSE 92; RESP 20; TEMP 36.6; O2SAT 95
--- NOTE | 2023-12-28 22:00 | PC.NURSE ---
This show card writer assumed care of this Pt at 1900. Pt A&Ox3, denies any pain. Reports exertion with movement such as ambulating. Pt made aware of NPO order after midnight. [place] and gingerale given. 2nd IV line placed. Pt aware of plan.
[2023-12-28 22:14] VITALS: BMI 35.0
[2023-12-28 22:15] LABS: INTERNATIONAL NORM RATIO 0.9 (0.9-1.1); Prothrombin Time 11.4 SEC (11.1-13.3)
[2023-12-28 22:18] LABS: PTT Heparin Drip 31.1 SEC (53-77.9); Partial Thromboplastin Time 31.1 SEC (26.0-36.8)
--- NOTE | 2023-12-28 22:19 | PM.IMHP ---
History of Present Illness Date of Service: 12/28/23 Chief Complaint: Chest pain This is a 68-year-old with pertinent history of CAD status post CABG in 2020, tobacco use disorder, gastroesophageal reflux disease with Cohn's esophagus, insulin-dependent diabetes mellitus, DARCI on CPAP, hypertension who presents to the emergency department for evaluation of chest discomfort. Patient states he has been having midsternal chest discomfort that has been ongoing for the last 1 week. It is nonradiating, worse with exertion and relieved with rest. Also does have symptoms of burning and gastroesophageal reflux disease and hence did not come in sooner but he feels that this feels different from gastroesophageal reflux disease. He contacted his Cardiology who asked the patient to come to the ER. Does not have nitroglycerin at home. No orthopnea or PND. Patient denies fever, chills, palpitations, shortness of breath, abdominal pain, changes in urinary or bowel habits. In the emergency department, troponin was found to be elevated, cardiology was consulted and patient was initiated on IV heparin. Review of Systems Constitutional: Constitutional: Reports no additional constitutional complaints Cardiovascular: Cardiovascular: Reports chest pain and Reports chest pain with activity Respiratory: Respiratory: Reports no additional respiratory complaints Gastrointestinal: Gastrointestinal: Reports no additional gastrointestinal complaints Genitourinary: Genitourinary: Reports no additional male genitourinary complaints REPLACED BY [facility] Medical History Obstructive sleep apnea on CPAP HTN (hypertension) Obstructive sleep apnea Diabetes FH: cholecystectomy Retinal detachment Family History Father Coronary artery disease Hx of CABG Sister Coronary artery disease Hypertension Mother Cerebral hemorrhage Mental health problem Surgical History Hx of eye surgery Hx of bladder endoscopy Hx of colonoscopy Hx of oral surgery H/O heart bypass surgery History of tonsillectomy Social History Alcohol intake: never Patient Tobacco Use Status: Current everyday Tobacco user Cigarettes Per Day: 8 Years Smoked: 6 +/- Smoked in Last 30 Days: Yes Use of substances other than those prescribed or required for medical reasons: No Substance Use Type: Marijuana Advance Directives: Yes Advance Directives on File: Yes Advance Directives Date on File: 03/15/21 service: No Current occupational status: employed Meds Allergies Allergy/AdvReac Type Severity Reaction Status Date / Time No Known Allergies Allergy Verified 12/28/23 17:45 [No Known Allergies*] Home Medications ?Medication ?Instructions ?Recorded ?Confirmed ?Last Taken ?Type aripiprazole 2 mg tablet 2 mg PO DAILY 09/02/20 06/01/23 03/14/21 History furosemide 20 mg tablet 20 mg PO DAILY 09/02/20 06/01/23 03/14/21 History cholecalciferol (vitamin D3) 25 25 mcg PO DAILY 03/30/21 06/01/23 Unknown History mcg (1,000 unit) capsule fluoxetine 40 mg capsule 40 mg PO DAILY 03/30/21 06/01/23 Unknown History insulin glargine 100 unit/mL (3 32 unit subcut .evening 03/30/21 06/01/23 Unknown History mL) subcutaneous pen (Lantus Solostar U-100 Insulin) metformin 500 mg tablet,extended 1,000 mg PO BID 03/30/21 06/01/23 Unknown History release 24 hr omeprazole 20 mg capsule,delayed 20 mg PO BID 03/30/21 06/01/23 Unknown History release glipizide 10 mg tablet 10 mg PO BID 06/01/22 06/01/23 Unknown History alpha lipoic acid 300 mg capsule 600 mg PO DAILY 06/09/22 06/01/23 Unknown History cyanocobalamin (vitamin B-12) 1,000 mcg PO DAILY 06/09/22 06/01/23 Unknown History 1,000 mcg tablet,extended release ferrous sulfate 325 mg (65 mg 325 mg PO DAILY 06/09/22 06/01/23 Unknown History iron) tablet (FeroSul) omega-3 fatty acids-fish oil 360 1 cap PO DAILY 06/09/22 06/01/23 Unknown History mg-1,200 mg capsule (Fish Oil) Physical Exam Vital Signs and Narrative: Vital Signs: Last Vital Signs Temp 97.9 F 12/28/23 21:41 Pulse 92 12/28/23 21:41 Resp 20 12/28/23 21:41 BP 152/85 H 12/28/23 21:41 Pulse Ox 95 12/28/23 21:41 O2 Del Method Room Air 12/28/23 21:41 BMI result Body Mass Index 35.0 Middle-aged male lying in bed in no distress Neck supple, no JVD Regular rate and rhythm, S1-S2 heard Regular breath sounds bilaterally, no wheezing or crackles appreciated Abdomen soft nontender, no guarding, no rigidity Patient is awake, alert and oriented to self, place, time and person ; no focal motor deficit Psych: Normal mood No pedal edema Results Labs 12/28/23 18:34 12/28/23 18:34 Labs: Laboratory Results - last 24 hr 12/28/23 12/28/23 12/28/23 18:34 20:23 22:05 MCV 94.4 MCH 33.2 H MCHC 35.2 RDW 12.1 Plt Count 241 MPV 10.3 Immature Gran % (Auto) 0.4 Neut % (Auto) 52.0 Lymph % (Auto) 33.3 [place] % (Auto) 7.3 Eos % (Auto) 6.0 H Baso % (Auto) 1.0 Lymph # (Auto) 3.3 [place] # (Auto) 0.7 Eos # (Auto) 0.6 H Baso # (Auto) 0.1 Abs Immat Gran (auto) 0.04 H Absolute Neuts (auto) 5.2 Absolute Nucleated RBC 0.000 Nucleated RBC % (auto) 0.0 PT 11.4 INR 0.9 APTT 31.1 aPTT Heparin Protocol 31.1 L Anion Gap 16 Estim Creat Clear Calc 64.4 Estimated GFR 57 Random Glucose 109 Calcium 10.0 Magnesium 1.7 Total Bilirubin 0.4 AST 34 ALT 42 H Alkaline Phosphatase 45 Troponin I High Sens 334.6 H* 307.5 H* Total Protein 7.5 Albumin 4.4 Amylase 43 Lipase 26 Imaging Radiologist's Impressions: Impressions Chest X-Ray 12/28/23 18:12 IMPRESSION: Findings consistent with mild nonspecific bronchitis. No focal consolidation. Mild cardiomegaly. Electronically signed by: Alvarez Barajas MD 12/28/2023 08:59 PM EDT Assessment and Plan (1) Non-ST elevation myocardial infarction (NSTEMI): Status: Acute Plan This is a 68-year-old with pertinent history of CAD status post CABG in 2020, tobacco use disorder, gastroesophageal reflux disease with Cohn's esophagus, insulin-dependent diabetes mellitus, DARCI on CPAP, hypertension who presents to the emergency department for evaluation of chest discomfort. #. NSTEMI: Will admit patient with cardiac monitoring. Initiated IV heparin in the ER after consulting with Cardiology. Obtaining echo. Patient received aspirin in the ER. Continue aspirin daily, high-intensity statin and beta-micaela. #. Insulin-dependent diabetes mellitus: Initiating basal plus insulin regimen #. Gastroesophageal reflux disease: On PPI #. Tobacco use disorder: Counseled regarding cessation #. DARCI: Continue CPAP at bedtime #. Hypertension: Continue home antihypertensives Med rec pending DVT prophylaxis: Heparin Full code Admit as inpatient and will require two night minimum hospital stay for IV heparin (as above), which is not possible in a lesser acute setting. Specialist consult pending Quality Stroke Does the patient have a stroke diagnosis?: No VTE Prior VTE?: No VTE Risk Level:: Medical - moderate - high VTE Device Contraindication: Treatment Not Indicated VTE Drug Contraindication: N/A - Med Ordered
[2023-12-28] MEDS: Heparin Sodium,Porcine 5,000 UNIT/ML VIAL 4000 UNIT IVPUSH (22:38)
[2023-12-28] MEDS: Heparin Sodium,Porcine/1/2NS 25,000 UNIT/250 ML IV.SOLN 10 UNIT IVCONT (22:39)
[2023-12-28 22:53] LABS: Hematocrit 47.1 % (42.0-52.0); Hemoglobin 16.9 g/dl (14.0-18.0); Mean Corpuscular HGB Conc 35.9 g/dl (31.0-36.0); Mean Corpuscular Hemoglobin 33.5 pg (27.0-33.0); Mean Corpuscular Volume 93.3 fL (80.0-98.0); Mean Platelet Volume 9.6 fL (9.4-12.4); Platelet Count 217 X10*3/uL (160-400); Red Blood Count 5.05 X10*6/uL (4.60-5.80)
[2023-12-28 22:54] LABS: Glucose, Whole Blood 206 mg/dL (60-115)
[2023-12-28] MEDS: Insulin Glargine,Hum.rec.anlog 100 UNIT/ML 10 ML VIAL 15 UNIT SUBCUT (22:58)
[2023-12-28] MEDS: Insulin Lispro 100 UNIT/ML 3 ML VIAL SUBCUT (22:58)
--- NOTE | 2023-12-29 00:41 | PC.NURSE ---
med delayed, not on unit, awaiting med delivery
[2023-12-29] MEDS: Clopidogrel Bisulfate 300 MG TABLET PO (01:02)
[2023-12-29] MEDS: 0.9 % Sodium Chloride Flush 3 ML SYRINGE IVFLUSH (01:03)
--- NOTE | 2023-12-29 03:09 | MHC.EDTECH ---
Assumed care of Pt at 0300.
[2023-12-29 03:32] VITALS: BP 150/74; PULSE 72; RESP 20; TEMP 36.8; O2SAT 95
[2023-12-29 05:18] LABS: Glucose, Whole Blood 185 mg/dL (60-115)
[2023-12-29] MEDS: Insulin Lispro 100 UNIT/ML 3 ML VIAL SUBCUT (05:18)
[2023-12-29 05:38] LABS: MANUAL DIFF FLAG NO
[2023-12-29 05:41] LABS: Basophils Absolute Auto 0.1 X10*3/uL (0.0-0.2); Basophils Percent Auto 0.9 % (0-2); Eosinophils Absolute Auto 0.5 X10*3/uL (0.0-0.4); Eosinophils Percent Auto 5.3 % (0-4); Hematocrit 49.1 % (42.0-52.0); Hemoglobin 17.3 g/dl (14.0-18.0); Imm Gran Abs Auto 0.02 X10*3/uL (0.00-0.03); Imm Gran Pct Auto 0.2 % (0.0-0.4); Lymphocytes Absolute Auto 2.4 X10*3/uL (1.2-4.9); Lymphocytes Percent Auto 26.8 % (20-40); Mean Corpuscular HGB Conc 35.2 g/dl (31.0-36.0); Mean Corpuscular Hemoglobin 33.5 pg (27.0-33.0); Mean Platelet Volume 9.7 fL (9.4-12.4); Monocytes Absolute Auto 0.7 X10*3/uL (0.1-1.2); Monocytes Percent Auto 7.3 % (2-11); Neutrophils Absolute Auto 5.4 x10*3/uL (2.0-8.3); Neutrophils Percent Auto 59.5 % (45-73); Platelet Count 202 X10*3/uL (160-400); Red Blood Count 5.17 X10*6/uL (4.60-5.80); Red Cell Distribution Width 12.2 % (11.0-16.0); White Blood Count 9.1 X10*3/uL (4.8-10.8)
[2023-12-29 05:51] LABS: Prothrombin Time 11.6 SEC (11.1-13.3)
[2023-12-29 05:54] LABS: Anion Gap 14 (12-20); Blood Urea Nitrogen 9 mg/dL (9-16); Calcium 9.8 mg/dL (8.4-10.2); Carbon Dioxide 23 mmol/L (22-29); Chloride 108 mmol/L (96-108); Creatinine Clr Calc Pharmacy 81.9; Estimated Glomerular Filt Rate > 60; Glucose Random 181 mg/dL (60-115); PTT Heparin Drip 44.1 SEC (53-77.9); Sodium 141 mmol/L (135-145)
[2023-12-29] MEDS: Heparin Sodium,Porcine 5,000 UNIT/ML VIAL 4100 UNIT IVPUSH (06:12)
[2023-12-29 06:22] VITALS: BP 149/76; PULSE 79; RESP 16; TEMP 36.5; O2SAT 94
--- NOTE | 2023-12-29 07:00 | CA_ITS ---
Transthoracic Echocardiogram Patient (Last, First, Middle): Doe Bajwa, Gender: Male Date of : 1955 Age: 68 Procedure Date: 12/29/2023 Procedure Type: Transthoracic Echocardiogram Location: ER Height: 170. cm Weight: 101.15 kg BSA: 2.12 m2 Heart Rate: 74 bpm BP: 165 / 92 mmHg Napper Runner: KENDELL Referring MD: Chantal Parry MD Symptoms: NSTEMI Study Quality: Fair w/Contrast ECG Rhythm: Sinus Conclusions: - Normal left ventricular size, thickness, systolic function, and wall motion. The visually estimated ejection fraction is between 55-60%. Diastolic function is normal for age. - Normal right ventricular cavity size. There is mildly decreased right ventricular systolic function. Findings Procedure Information Contrast agent, definity, is being given per protocol without apparent complications. Left Ventricle Normal left ventricular size, thickness, systolic function, and wall motion. The visually estimated ejection fraction is between 55-60%. Diastolic function is normal for age. Right Ventricle Normal right ventricular cavity size. There is mildly decreased right ventricular systolic function. Atria The left atrium is normal in size. The right atrium is normal in size. Aortic Valve Normal aortic valve structure and function. There is no aortic valve stenosis. There is no aortic valve regurgitation. Mitral Valve Normal mitral valve structure and function. There is no mitral valve regurgitation. There is no mitral valve stenosis. Pulmonic Valve The pulmonic valve is likely normal. Tricuspid Valve Normal tricuspid valve structure. There is no tricuspid valve regurgitation. Normal right atrial pressure. There is no evidence of pulmonary hypertension. Great Vessels All visible segments of the aorta are normal in size. The visualized portions of the pulmonary artery and branches are normal. Venous The inferior vena cava is normal in size and collapses greater than 50% with inspiration. Pericardium/Pleural There is no evidence of pericardial effusion. Prior Study Comparison Changes noted compared to prior study dated: 05/26/2021. Mild decreased RV function. Measurements 2D Linear Measurements IVSd: 1.01 0.6-0.9/0.6-1.0 cm LVIDd: 4.26 3.9-5.3/4.2-5.9 cm LVIDd Index: 2.01 2.4-3.2/2.2-3.1 cm/m2 LVIDs: 3.30 2.0-3.6 cm LVPWd: 0.95 0.7-1.1 cm LA Diam: 3.60 2.7-3.8/3.0-4.0 cm LAIDs Index: 1.70 1.5-2.3 cm/m2 LV Mass: 170.23 67-162/88-224 g LV Mass Index: 80.30 43-95/49-115 g/m2 LVOT Diam: 2.10 3.0+(-)1.3 cm 2D Systolic Function EF 4C: 55.20 >55% EF 2C: 62.30 >55% EF BiP: 57.60 >55% Mitral Valve MV Pk E: 0.83 MV PK A: 0.86 MV Decel Time: 192.00 E/A: 1.00 E'Lateral: 9.48 E'Medial: 7.92 E/E' Med: 10.50 E/E' Lat: 8.80 PHT: 56.00 MVA PHT: 3.93 Decel [place]: 4.33 Aortic Valve AoV Pk [place]: 1.22 AoV Mn [place]: 0.90 AoV VTI: 0.26 AoV Pk Grad: 6.00 Aov Mn Grad: 4.00 MARIYA Cont.VTI: 2.77 LVOT LVOT Pk [place]: 1.01 LVOT Mn [place]: 0.68 LVOT VTI: 0.21 LVOT Pk Grad: 4.00 LVOT Mn Grad: 2.00 LVOT Diam: 2.10 LVOT Area: 3.46 Diastolic Function MV Pk E: 0.83 MV Pk A: 0.86 E/A: 1.00 E'Medial: 7.92 E/E' Med: 10.50 E' Laterial: 9.48 E/E' Lat: 8.80 Right Ventricle TAPSE (mm): 16.80 TVS' Tyler: 7.70 Tricuspid Valve TR Pk Tyler: 1.64 TR Pk Grad: 11.00 RA Press: 3.00 RVSP: 14.00 Great Vessels Aorta Sinus of Valsalva: 3.30 2.0-3.5 cm Ao Asc: 3.30 2.1-3.4 cm Pulmonary Valve PV Pk Tyler: 0.77 Peak PV Grad: 2.00 Updated in Other Vendor System with Status of Final [place] MD electronically signed on 12/29/2023 9:01:21 PM with status of Final
[2023-12-29 07:45] VITALS: BP 165/92; PULSE 68; RESP 18; TEMP 36.2; O2SAT 94
--- NOTE | 2023-12-29 07:56 | P.PNIM_ITS ---
Subjective Subjective Date of Service: 12/29/23 Interval History: Seen in follow up for NSTEMI Interval history: Physical Exam 2 Vital Signs: Vital Signs: Last Vital Signs Temp 97.1 F 12/29/23 07:45 Pulse 68 12/29/23 07:45 Resp 18 12/29/23 07:45 BP 165/92 H 12/29/23 07:45 Pulse Ox 94 12/29/23 07:45 O2 Del Method Room Air 12/29/23 07:45 BMI result Body Mass Index 35.0 Objective Data Active Medications Acetaminophen (Acetaminophen 325 Mg Tablet) 650 mg PO Q6H PRN PRN Reason: Pain, Mild (Pain Scale 1-3), fever or headache Aspirin (Aspirin Enteric Coated 81 Mg Tablet.Dr) 81 mg PO DAILY [facility] Atorvastatin Calcium (Atorvastatin Calcium 80 Mg Tablet) 80 mg PO DAILY [facility] Calcium Carbonate (Calcium Carbonate 750 Mg Tab.Chew) 750 mg PO Q4H PRN PRN Reason: Heartburn Clopidogrel Bisulfate (Clopidogrel Bisulfate 75 Mg Tablet) 75 mg PO DAILY [facility] Glucose (Glucose Gel 15 Gm Gel..Gram.) 15 gm PO Q15M PRN; Protocol PRN Reason: per Hypoglycemia Standing Ord. Heparin Sodium (Porcine) (Heparin Sodium,Porcine 5,000 Unit/Ml Vial) 4,100 unit 40 unit/kg (4100 unit) IVPUSH PROTOCOL BOLUS PRN; Protocol PRN Reason: 40 unit/kg - Heparin Protocol Last Admin: 12/29/23 06:12 Dose: 4,100 unit Documented By: ELEANOR Heparin Sodium (Porcine) (Heparin Sodium,Porcine 5,000 Unit/Ml Vial) 8,100 unit 80 unit/kg (8100 unit) IVPUSH PROTOCOL BOLUS PRN; Protocol PRN Reason: 80 unit/kg - Heparin Protocol Heparin Sodium/Sodium Chloride (Heparin Sodium,Porcine/1/2ns) 25,000 unit in 250 mls @ 0 mls/hr IVCONT .Q0M [facility]; Protocol Last Titration: 12/29/23 06:12 Dose: 11.85 units/kg/hr, 12.03 mls/hr Documented By: ELEANOR Co-signed By: ANA MARÍA Dextrose ([id number]) 250 mls @ 750 mls/hr IV Q15M PRN; Protocol PRN Reason: per Hypoglycemia Standing Ord. Insulin Human Lispro (Insulin Lispro 100 Unit/Ml 3 Ml Vial) 0 unit SUBCUT Q6H [facility]; Protocol Last Admin: 12/29/23 05:18 Dose: 2 unit Documented By: ELEANOR Isosorbide Mononitrate (Isosorbide Mononitrate 30 Mg Tab.Er.24h) 30 mg PO DAILY [facility]; Protocol Magnesium Hydroxide (Milk Of Magnesia 30 Ml Oral.Susp) 30 ml PO DAILY PRN PRN Reason: Constipation Melatonin (Melatonin 3 Mg Tablet) 6 mg PO BEDTIME PRN PRN Reason: Insomnia Metoprolol Succinate (Metoprolol Succinate Er 25 Mg Tab.Er.24h) 25 mg PO DAILY [facility]; Protocol Ondansetron HCl (Ondansetron Hcl 4 Mg/2 Ml Vial) 4 mg IVPUSH Q8H PRN PRN Reason: Nausea and Vomiting Sodium Chloride (0.9 % Sodium Chloride Flush 3 Ml Syringe) 3 ml IVFLUSH QSHIFT [facility] Last Admin: 12/29/23 01:03 Dose: 3 ml Documented By: ELEANOR Labs 12/29/23 05:23 12/29/23 05:23 Labs: Laboratory Results - last 24 hr 12/28/23 12/28/23 12/28/23 18:34 20:23 22:05 MCV 94.4 MCH 33.2 H MCHC 35.2 RDW 12.1 Plt Count 241 MPV 10.3 Immature Gran % (Auto) 0.4 Neut % (Auto) 52.0 Lymph % (Auto) 33.3 [place] % (Auto) 7.3 Eos % (Auto) 6.0 H Baso % (Auto) 1.0 Lymph # (Auto) 3.3 [place] # (Auto) 0.7 Eos # (Auto) 0.6 H Baso # (Auto) 0.1 Abs Immat Gran (auto) 0.04 H Absolute Neuts (auto) 5.2 Absolute Nucleated RBC 0.000 Nucleated RBC % (auto) 0.0 PT 11.4 INR 0.9 APTT 31.1 aPTT Heparin Protocol 31.1 L Anion Gap 16 Estim Creat Clear Calc 64.4 Estimated GFR 57 POC Glucose Random Glucose 109 Calcium 10.0 Magnesium 1.7 Total Bilirubin 0.4 AST 34 ALT 42 H Alkaline Phosphatase 45 Troponin I High Sens 334.6 H* 307.5 H* Total Protein 7.5 Albumin 4.4 Amylase 43 Lipase 26 12/28/23 12/28/23 12/29/23 22:47 22:51 05:15 MCV 93.3 MCH 33.5 H MCHC 35.9 RDW 12.0 Plt Count 217 MPV 9.6 Immature Gran % (Auto) Neut % (Auto) Lymph % (Auto) [place] % (Auto) Eos % (Auto) Baso % (Auto) Lymph # (Auto) [place] # (Auto) Eos # (Auto) Baso # (Auto) Abs Immat Gran (auto) Absolute Neuts (auto) Absolute Nucleated RBC 0.000 Nucleated RBC % (auto) 0.0 PT INR APTT aPTT Heparin Protocol Anion Gap Estim Creat Clear Calc Estimated GFR POC Glucose 206 H 185 H Random Glucose Calcium Magnesium Total Bilirubin AST ALT Alkaline Phosphatase Troponin I High Sens Total Protein Albumin Amylase Lipase 12/29/23 05:23 MCV 95.0 MCH 33.5 H MCHC 35.2 RDW 12.2 Plt Count 202 MPV 9.7 Immature Gran % (Auto) 0.2 Neut % (Auto) 59.5 Lymph % (Auto) 26.8 [place] % (Auto) 7.3 Eos % (Auto) 5.3 H Baso % (Auto) 0.9 Lymph # (Auto) 2.4 [place] # (Auto) 0.7 Eos # (Auto) 0.5 H Baso # (Auto) 0.1 Abs Immat Gran (auto) 0.02 Absolute Neuts (auto) 5.4 Absolute Nucleated RBC 0.000 Nucleated RBC % (auto) 0.0 PT 11.6 INR 1.0 APTT aPTT Heparin Protocol 44.1 L D Anion Gap 14 Estim Creat Clear Calc 81.9 Estimated GFR > 60 POC Glucose Random Glucose 181 H Calcium 9.8 Magnesium Total Bilirubin AST ALT Alkaline Phosphatase Troponin I High Sens Total Protein Albumin Amylase Lipase Assessment and Plan Plan 68-year-old with pertinent history of CAD status post CABG in 2020, tobacco use disorder, gastroesophageal reflux disease with Cohn's esophagus, insulin- dependent diabetes mellitus, DARCI on CPAP, hypertension who presents to the emergency department for evaluation of chest discomfort. #. NSTEMI: Will admit patient with cardiac monitoring. Initiated IV heparin in the ER after consulting with Cardiology. Obtaining echo. Patient received aspirin in the ER. Continue aspirin daily, high-intensity statin and beta- micaela. #. Insulin-dependent diabetes mellitus: Initiating basal plus insulin regimen #. Gastroesophageal reflux disease: On PPI #. Tobacco use disorder: Counseled regarding cessation #. DARCI: Continue CPAP at bedtime #. Hypertension: Continue home antihypertensives Med rec pending DVT prophylaxis: Heparin Full code Admit as inpatient and will require two night minimum hospital stay for IV heparin (as above), which is not possible in a lesser acute setting. Specialist consult pending Quality Stroke Does the patient have a stroke diagnosis?: No VTE Prior VTE?: No VTE Risk Level:: Medical - moderate - high VTE Device Contraindication: Treatment Not Indicated VTE Drug Contraindication: N/A - Med Ordered
[2023-12-29 07:57] LABS: Glucose, Whole Blood 191 mg/dL (60-115)
--- NOTE | 2023-12-29 09:16 | P.CONCA_ITS ---
History of Present Illness History of Present Illness Date of Service: 12/29/23 Chief complaint: chest pain Narrative: 68 male with known CAD s/p CABG in the past presenting with CP ongoing off and on over the last 2 weeks. Mostly exertional symptoms. He ruled in for NSTEMI. He was started on hep gtt and loaded with Plavix. No CP at rest. [facility] Past Medical History Medical History Obstructive sleep apnea on CPAP HTN (hypertension) Obstructive sleep apnea Diabetes FH: cholecystectomy Retinal detachment Family History Family History Father Coronary artery disease Hx of CABG Sister Coronary artery disease Hypertension Mother Cerebral hemorrhage Mental health problem Surgical History Surgical History Hx of eye surgery Hx of bladder endoscopy Hx of colonoscopy Hx of oral surgery H/O heart bypass surgery History of tonsillectomy Social History Social History Alcohol intake: never Patient Tobacco Use Status: Current everyday Tobacco user Cigarettes Per Day: 8 Years Smoked: 6 +/- Substance Use Type: Marijuana Advance Directives Date on File: 03/15/21 service: No Current occupational status: employed Meds Allergies Allergy/AdvReac Type Severity Reaction Status Date / Time No Known Allergies Allergy Verified 12/28/23 17:45 [No Known Allergies*] Active Medications: Current Medications Acetaminophen (Acetaminophen 325 Mg Tablet) 650 mg PO Q6H PRN PRN Reason: Pain, Mild (Pain Scale 1-3), fever or headache Amlodipine Besylate (Amlodipine Besylate 2.5 Mg Tablet) 2.5 mg PO DAILY [facility]; Protocol Aspirin (Aspirin Enteric Coated 81 Mg Tablet.Dr) 81 mg PO DAILY [facility] Atorvastatin Calcium (Atorvastatin Calcium 80 Mg Tablet) 80 mg PO DAILY [facility] Calcium Carbonate (Calcium Carbonate 750 Mg Tab.Chew) 750 mg PO Q4H PRN PRN Reason: Heartburn Clopidogrel Bisulfate (Clopidogrel Bisulfate 75 Mg Tablet) 75 mg PO DAILY [facility] Glucose (Glucose Gel 15 Gm Gel..Gram.) 15 gm PO Q15M PRN; Protocol PRN Reason: per Hypoglycemia Standing Ord. Heparin Sodium (Porcine) (Heparin Sodium,Porcine 5,000 Unit/Ml Vial) 4,100 unit 40 unit/kg (4100 unit) IVPUSH PROTOCOL BOLUS PRN; Protocol PRN Reason: 40 unit/kg - Heparin Protocol Last Admin: 12/29/23 06:12 Dose: 4,100 unit Heparin Sodium (Porcine) (Heparin Sodium,Porcine 5,000 Unit/Ml Vial) 8,100 unit 80 unit/kg (8100 unit) IVPUSH PROTOCOL BOLUS PRN; Protocol PRN Reason: 80 unit/kg - Heparin Protocol Heparin Sodium/Sodium Chloride (Heparin Sodium,Porcine/1/2ns) 25,000 unit in 250 mls @ 0 mls/hr IVCONT .Q0M [facility]; Protocol Last Titration: 12/29/23 06:12 Dose: 11.85 units/kg/hr, 12.03 mls/hr Dextrose (D10) 250 mls @ 750 mls/hr IV Q15M PRN; Protocol PRN Reason: per Hypoglycemia Standing Ord. Insulin Human Lispro (Insulin Lispro 100 Unit/Ml 3 Ml Vial) 0 unit SUBCUT Q6H [facility]; Protocol Last Admin: 12/29/23 05:18 Dose: 2 unit Isosorbide Mononitrate (Isosorbide Mononitrate 30 Mg Tab.Er.24h) 30 mg PO DAILY [facility]; Protocol Magnesium Hydroxide (Milk Of Magnesia 30 Ml Oral.Susp) 30 ml PO DAILY PRN PRN Reason: Constipation Melatonin (Melatonin 3 Mg Tablet) 6 mg PO BEDTIME PRN PRN Reason: Insomnia Metoprolol Succinate (Metoprolol Succinate Er 25 Mg Tab.Er.24h) 25 mg PO DAILY [facility]; Protocol Ondansetron HCl (Ondansetron Hcl 4 Mg/2 Ml Vial) 4 mg IVPUSH Q8H PRN PRN Reason: Nausea and Vomiting Sodium Chloride (0.9 % Sodium Chloride Flush 3 Ml Syringe) 3 ml IVFLUSH QSHIFT [facility] Last Admin: 12/29/23 01:03 Dose: 3 ml Home Medications ?Medication ?Instructions ?Recorded ?Confirmed ?Last Taken ?Type aripiprazole 2 mg tablet 2 mg PO DAILY 09/02/20 06/01/23 03/14/21 History cholecalciferol (vitamin D3) 25 25 mcg PO DAILY 03/30/21 06/01/23 Unknown History mcg (1,000 unit) capsule insulin glargine 100 unit/mL (3 32 unit subcut BEDTIME 03/30/21 06/01/23 Unknown History mL) subcutaneous pen (Lantus Solostar U-100 Insulin) metformin 500 mg tablet,extended 1,000 mg PO BID 03/30/21 06/01/23 Unknown History release 24 hr omeprazole 20 mg capsule,delayed 20 mg PO BID@0630,1630 03/30/21 06/01/23 Unknown History release alpha lipoic acid 300 mg capsule 600 mg PO DAILY 06/09/22 06/01/23 Unknown History cyanocobalamin (vitamin B-12) 1,000 mcg PO DAILY 06/09/22 06/01/23 Unknown History 1,000 mcg tablet,extended release ferrous sulfate 325 mg (65 mg 325 mg PO DAILY 06/09/22 06/01/23 Unknown History iron) tablet (FeroSul) omega-3 fatty acids-fish oil 360 1 cap PO DAILY 06/09/22 06/01/23 Unknown History mg-1,200 mg capsule (Fish Oil) atorvastatin 80 mg tablet 80 mg PO BEDTIME 12/28/23 Unknown History fenofibrate micronized 200 mg 200 mg PO DAILY 12/28/23 Unknown History capsule fluoxetine 20 mg capsule 60 mg PO DAILY 12/28/23 Unknown History furosemide 20 mg tablet 20 mg PO BID 12/28/23 Unknown History glipizide 10 mg tablet 10 mg PO DAILY 12/28/23 Unknown History Physical Exam 2 Vital Signs: Vital Signs: Last Vital Signs Temp 97.1 F 12/29/23 07:45 Pulse 68 12/29/23 07:45 Resp 18 12/29/23 07:45 BP 165/92 H 12/29/23 07:45 Pulse Ox 94 12/29/23 07:45 O2 Del Method Room Air 12/29/23 07:45 BMI result Body Mass Index 35.0 GENERAL APPEARANCE: in no acute distress, pleasant. NECK: no carotid bruit, no jugular venous distention. SKIN: no suspicious lesions, warm and dry. HEART: no murmurs, regular rate and rhythm. LUNGS: CTABL. ABDOMEN: soft, nontender. EXTREMITIES: no edema. PERIPHERAL PULSES: equal. NEUROLOGIC: No gross deficits, AAO X 3 Objective Labs and Meds 12/29/23 05:23 12/29/23 05:23 Lab results: Laboratory Results - last 24 hr 12/28/23 12/28/23 12/28/23 18:34 20:23 22:05 WBC 9.9 RBC 5.18 Hgb 17.2 Hct 48.9 MCV 94.4 MCH 33.2 H MCHC 35.2 RDW 12.1 Plt Count 241 MPV 10.3 Immature Gran % (Auto) 0.4 Neut % (Auto) 52.0 Lymph % (Auto) 33.3 [place] % (Auto) 7.3 Eos % (Auto) 6.0 H Baso % (Auto) 1.0 Lymph # (Auto) 3.3 [place] # (Auto) 0.7 Eos # (Auto) 0.6 H Baso # (Auto) 0.1 Abs Immat Gran (auto) 0.04 H Absolute Neuts (auto) 5.2 Absolute Nucleated RBC 0.000 Nucleated RBC % (auto) 0.0 PT 11.4 INR 0.9 APTT 31.1 aPTT Heparin Protocol 31.1 L Sodium 139 Potassium 4.1 Chloride 104 Carbon Dioxide 23 Anion Gap 16 BUN 9 Creatinine 1.26 Estim Creat Clear Calc 64.4 Estimated GFR 57 POC Glucose Random Glucose 109 Calcium 10.0 Magnesium 1.7 Total Bilirubin 0.4 AST 34 ALT 42 H Alkaline Phosphatase 45 Troponin I High Sens 334.6 H* 307.5 H* Total Protein 7.5 Albumin 4.4 Amylase 43 Lipase 26 12/28/23 12/28/23 12/29/23 22:47 22:51 05:15 WBC 10.0 RBC 5.05 Hgb 16.9 Hct 47.1 MCV 93.3 MCH 33.5 H MCHC 35.9 RDW 12.0 Plt Count 217 MPV 9.6 Immature Gran % (Auto) Neut % (Auto) Lymph % (Auto) [place] % (Auto) Eos % (Auto) Baso % (Auto) Lymph # (Auto) [place] # (Auto) Eos # (Auto) Baso # (Auto) Abs Immat Gran (auto) Absolute Neuts (auto) Absolute Nucleated RBC 0.000 Nucleated RBC % (auto) 0.0 PT INR APTT aPTT Heparin Protocol Sodium Potassium Chloride Carbon Dioxide Anion Gap BUN Creatinine Estim Creat Clear Calc Estimated GFR POC Glucose 206 H 185 H Random Glucose Calcium Magnesium Total Bilirubin AST ALT Alkaline Phosphatase Troponin I High Sens Total Protein Albumin Amylase Lipase 12/29/23 12/29/23 05:23 07:53 WBC 9.1 RBC 5.17 Hgb 17.3 Hct 49.1 MCV 95.0 MCH 33.5 H MCHC 35.2 RDW 12.2 Plt Count 202 MPV 9.7 Immature Gran % (Auto) 0.2 Neut % (Auto) 59.5 Lymph % (Auto) 26.8 [place] % (Auto) 7.3 Eos % (Auto) 5.3 H Baso % (Auto) 0.9 Lymph # (Auto) 2.4 [place] # (Auto) 0.7 Eos # (Auto) 0.5 H Baso # (Auto) 0.1 Abs Immat Gran (auto) 0.02 Absolute Neuts (auto) 5.4 Absolute Nucleated RBC 0.000 Nucleated RBC % (auto) 0.0 PT 11.6 INR 1.0 APTT aPTT Heparin Protocol 44.1 L D Sodium 141 Potassium 4.0 Chloride 108 Carbon Dioxide 23 Anion Gap 14 BUN 9 Creatinine 0.98 Estim Creat Clear Calc 81.9 Estimated GFR > 60 POC Glucose 191 H Random Glucose 181 H Calcium 9.8 Magnesium Total Bilirubin AST ALT Alkaline Phosphatase Troponin I High Sens Total Protein Albumin Amylase Lipase Imaging Radiologist's impression: Impressions Chest X-Ray 12/28/23 18:12 IMPRESSION: Findings consistent with mild nonspecific bronchitis. No focal consolidation. Mild cardiomegaly. Electronically signed by: Alvarez Barajas MD 12/28/2023 08:59 PM EDT Assessment and Plan (1) Non-ST elevation myocardial infarction (NSTEMI): Status: Acute Plan 68 male with known CAD s/p CABG presenting with NSTEMI. hep gtt, ASA and Plavix. We discussed in detail- transferring to [facility] for cardiac cath. Titrate antihypertensive meds. smoking cessation. High intensity statin therapy. Procedures Date of Service Date of Service: 12/29/23
[2023-12-29 09:39] VITALS: BP 165/92
[2023-12-29] MEDS: Aspirin Enteric Coated 81 MG TABLET.DR PO (09:39)
[2023-12-29] MEDS: amLODIPine Besylate 2.5 MG TABLET PO (09:39)
--- NOTE | 2023-12-29 09:39 | PM.DS ---
DS: Providers Provider Date of Service: 12/29/23 Date of admission: 12/28/23 22:16 Date of discharge: 12/29/23 Primary care physician: Anmol Murphy DO Attending physician on admission: Chantal Parry Consults: 12/28/23 22:18 Consult to Cardiology Routine Consulting Provider: [facility] Reason for consultation: NSTEMI Attending physician on discharge: [facility] Discharging clinician: Grace Gillis DS: Transfer Hospital Acceptance Reason for Transfer: NSTEMI, need for cardiac cath Name of Facility: [facility] Accepting Provider: Dr. Richter DS: Diagnosis Discharge Diagnosis (1) Non-ST elevation myocardial infarction (NSTEMI): Status: Acute DS: Summary Hospital Course Hospital Course: HPI on admission 12/[address] Parry: This is a 68-year-old with pertinent history of CAD status post CABG in 2020, tobacco use disorder, gastroesophageal reflux disease with Cohn's esophagus, insulin-dependent diabetes mellitus, DARCI on CPAP, hypertension who presents to the emergency department for evaluation of chest discomfort. Patient states he has been having midsternal chest discomfort that has been ongoing for the last 1 week. It is nonradiating, worse with exertion and relieved with rest. Also does have symptoms of burning and gastroesophageal reflux disease and hence did not come in sooner but he feels that this feels different from gastroesophageal reflux disease. He contacted his Cardiology who asked the patient to come to the ER. Does not have nitroglycerin at home. No orthopnea or PND. Patient denies fever, chills, palpitations, shortness of breath, abdominal pain, changes in urinary or bowel habits. In the emergency department, troponin was found to be elevated, cardiology was consulted and patient was initiated on IV heparin. Hospital course: Admitted to hospitalist service for NSTEMI with exertional angina with trops 334--> 307. EKG without BIPIN or depressions. Cardiology consulted. Started on heparin drip/boluses per protocol and monitored on telemetry. Also started on amlodipine 2.5mg and isosorbide 30mg for htn. Continued on toprol 25mg and atorvastatin 80mg daily. Continued on asa and plavix added. Glucose levels reasonably controlled during admission and patient remains NPO. Per cardiology, pt will be transferred to [facility] for further management and cardiac catheterization. Echo performed but read pending. Images will be transferred to [facility] via [facility] for review. Continue cpap at bedtime for DARCI. Continue PPI for gerd. Smoking cessation advised. Currently denies any chest pain. Time spent discussing smoking cessation with patient: 3 to 10 minutes Status at Discharge Functional status at discharge: independent ambulation Overall status at discharge: patient is progressing back to baseline Time Attestation Discharge Coordination Time (in mins): 32 Quality: Safe Use of Opioids Does Pt have an Active Cancer Diagnosis on the Problem List?: No Quality: Stroke Does the patient have a stroke diagnosis?: No Physical Exam Vital Signs: Vital Signs: Last Vital Signs Temp 97.1 F 12/29/23 07:45 Pulse 68 12/29/23 07:45 Resp 18 12/29/23 07:45 BP 165/92 H 12/29/23 07:45 Pulse Ox 94 12/29/23 07:45 O2 Del Method Room Air 12/29/23 07:45 BMI result Body Mass Index 35.0 DS: Data Data Completed and Pending Labs on day of discharge: Laboratory Results - last 24 hr 12/28/23 12/28/23 12/28/23 18:34 20:23 22:05 WBC 9.9 RBC 5.18 Hgb 17.2 Hct 48.9 MCV 94.4 MCH 33.2 H MCHC 35.2 RDW 12.1 Plt Count 241 MPV 10.3 Immature Gran % (Auto) 0.4 Neut % (Auto) 52.0 Lymph % (Auto) 33.3 Pickett % (Auto) 7.3 Eos % (Auto) 6.0 H Baso % (Auto) 1.0 Lymph # (Auto) 3.3 Pickett # (Auto) 0.7 Eos # (Auto) 0.6 H Baso # (Auto) 0.1 Abs Immat Gran (auto) 0.04 H Absolute Neuts (auto) 5.2 Absolute Nucleated RBC 0.000 Nucleated RBC % (auto) 0.0 PT 11.4 INR 0.9 APTT 31.1 aPTT Heparin Protocol 31.1 L Sodium 139 Potassium 4.1 Chloride 104 Carbon Dioxide 23 Anion Gap 16 BUN 9 Creatinine 1.26 Estim Creat Clear Calc 64.4 Estimated GFR 57 POC Glucose Random Glucose 109 Calcium 10.0 Magnesium 1.7 Total Bilirubin 0.4 AST 34 ALT 42 H Alkaline Phosphatase 45 Troponin I High Sens 334.6 H* 307.5 H* Total Protein 7.5 Albumin 4.4 Amylase 43 Lipase 26 12/28/23 12/28/23 12/29/23 22:47 22:51 05:15 WBC 10.0 RBC 5.05 Hgb 16.9 Hct 47.1 MCV 93.3 MCH 33.5 H MCHC 35.9 RDW 12.0 Plt Count 217 MPV 9.6 Immature Gran % (Auto) Neut % (Auto) Lymph % (Auto) [place]ett % (Auto) Eos % (Auto) Baso % (Auto) Lymph # (Auto) [place]ett # (Auto) Eos # (Auto) Baso # (Auto) Abs Immat Gran (auto) Absolute Neuts (auto) Absolute Nucleated RBC 0.000 Nucleated RBC % (auto) 0.0 PT INR APTT aPTT Heparin Protocol Sodium Potassium Chloride Carbon Dioxide Anion Gap BUN Creatinine Estim Creat Clear Calc Estimated GFR POC Glucose 206 H 185 H Random Glucose Calcium Magnesium Total Bilirubin AST ALT Alkaline Phosphatase Troponin I High Sens Total Protein Albumin Amylase Lipase 12/29/23 12/29/23 05:23 07:53 WBC 9.1 RBC 5.17 Hgb 17.3 Hct 49.1 MCV 95.0 MCH 33.5 H MCHC 35.2 RDW 12.2 Plt Count 202 MPV 9.7 Immature Gran % (Auto) 0.2 Neut % (Auto) 59.5 Lymph % (Auto) 26.8 Pickett % (Auto) 7.3 Eos % (Auto) 5.3 H Baso % (Auto) 0.9 Lymph # (Auto) 2.4 Pickett # (Auto) 0.7 Eos # (Auto) 0.5 H Baso # (Auto) 0.1 Abs Immat Gran (auto) 0.02 Absolute Neuts (auto) 5.4 Absolute Nucleated RBC 0.000 Nucleated RBC % (auto) 0.0 PT 11.6 INR 1.0 APTT aPTT Heparin Protocol 44.1 L D Sodium 141 Potassium 4.0 Chloride 108 Carbon Dioxide 23 Anion Gap 14 BUN 9 Creatinine 0.98 Estim Creat Clear Calc 81.9 Estimated GFR > 60 POC Glucose 191 H Random Glucose 181 H Calcium 9.8 Magnesium Total Bilirubin AST ALT Alkaline Phosphatase Troponin I High Sens Total Protein Albumin Amylase Lipase Discharge Plan Discharge Anticipated Discharge Date/Time: 12/29/23 09:31 Patient Disposition: Xfer Acute Care Hospital Discharge Diagnosis: NSTEMI Referrals: Anmol Murphy DO [Primary Care Provider] - 1 Week Kameron Lyn MD [Physician] - 1 Week Discharge Medications: New atorvastatin 80 mg Tablet 80 mg PO DAILY Qty: 1 0RF isosorbide mononitrate 30 mg Tablet Extended Release 24 Hr 30 mg PO DAILY Qty: 1 0RF Protocol: Hold for SBP< HOLD for SBP < : 90 amlodipine 2.5 mg Tablet 2.5 mg PO DAILY Qty: 1 0RF Protocol: Hold for SBP< HOLD for SBP < : 90 clopidogrel 75 mg Tablet 75 mg PO DAILY Qty: 1 0RF aspirin 81 mg Tablet,Delayed Release (Dr/Ec) 81 mg PO DAILY Qty: 1 0RF metoprolol succinate 25 mg Tablet Extended Release 24 Hr 25 mg PO DAILY Qty: 1 0RF Protocol: Hold for SBP/HR < HOLD for SBP < : 90 HOLD for HR < : 60 heparin (porcine) 5,000 unit/mL Solution 4,100 unit IVPUSH PROTOCOL BOLUS PRN (Reason: 40 Unit/Kg - Heparin Protocol) Qty: 25 0RF heparin (porcine) 5,000 unit/mL Solution 8,100 unit IVPUSH PROTOCOL BOLUS PRN (Reason: 80 Unit/Kg - Heparin Protocol) Qty: 25 0RF heparin(porcine) in 0.45% NaCl 25,000 unit/250 mL Parenteral Solution 25,000 unit continuous IV infusion .Q0M Qty: 6000 0RF Continued metoprolol succinate 25 mg tablet extended release 24 hr 25 mg PO DAILY Qty: 30 3RF Rx Instructions: new aspirin 81 mg Tablet,Delayed Release (Dr/Ec) 81 mg PO DAILY Qty: 30 0RF glipizide 10 mg tablet 10 mg PO DAILY fenofibrate micronized 200 mg capsule 200 mg PO DAILY furosemide 20 mg tablet 20 mg PO BID fluoxetine 20 mg capsule 60 mg PO DAILY atorvastatin 80 mg tablet 80 mg PO BEDTIME amoxicillin-pot clavulanate 875-125 mg tablet 1 tab PO BID Qty: 20 0RF aripiprazole 2 mg tablet 2 mg PO DAILY Lantus Solostar U-100 Insulin 100 unit/mL (3 mL) insulin pen 32 unit subcut BEDTIME metformin 500 mg tablet extended release 24 hr 1,000 mg PO BID omeprazole 20 mg capsule,delayed release(DR/EC) 20 mg PO BID@0630,1630 cholecalciferol (vitamin D3) 25 mcg (1,000 unit) capsule 25 mcg PO DAILY alpha lipoic acid 300 mg capsule 600 mg PO DAILY ferrous sulfate [FeroSul] 325 mg (65 mg iron) tablet 325 mg PO DAILY cyanocobalamin (vitamin B-12) 1,000 mcg tablet extended release 1,000 mcg PO DAILY omega-3 fatty acids-fish oil [Fish Oil] 360-1,200 mg capsule 1 cap PO DAILY Discharge Orders: Discharge Order (Routine); Ordered 12/29/23 Ordered By: Grace Gillis Diet: Advance to usual diet Activity on Discharge: As tolerated Stand Alone Forms: Patient Portal Discharge page Print Language: Italian Care Plan Goals: Transfer to [facility] for cardiac cath Health Concerns: NSTEMI Plan of Treatment: \Transfer to [facility] for cardiac cath Continue heparin drip/cardiac monitoring on transfer Continue isosorbide, DAPT, amlodipine, toprol Assessment: See above. See dc summary
[2023-12-29 09:40] VITALS: BP 165/92; PULSE 74
[2023-12-29] MEDS: Clopidogrel Bisulfate 75 MG TABLET PO (09:40)
[2023-12-29] MEDS: Atorvastatin Calcium 80 MG TABLET PO (09:40)
[2023-12-29] MEDS: Isosorbide Mononitrate 30 MG TAB.ER.24H PO (09:40)
[2023-12-29] MEDS: Metoprolol Succinate ER 25 MG TAB.ER.24H PO (09:40)
[2023-12-29 09:56] VITALS: BP 162/92; PULSE 66; RESP 16; TEMP 36.6
--- NOTE | 2023-12-29 09:59 | PC.NURSE ---
Patient is a NSTEMI not a STEMI. Unsure why ems thought it was a STEMI when the paperwork is documented correctly. Anita was sent through the echo with pictures not the disc.
--- NOTE | 2023-12-29 10:46 | MHC.CM.PN ---
Patient transferred to [facility] prior to CM meeting with him. IMM addressed with Sister/Yvrose @ [phone](original will be mailed certified letter to Yvrose and a copy will be placed in the chart).
--- NOTE | 2023-12-29 10:47 | PC.NURSE ---
Approximately at 10am, report given to Ximena RAND from [facility] the cardiac floor.
== END 2023-12-29 09:30 | disposition short-term general hospital (02) | DRG 282 ==
LOC: HO.ED 22:12 → HO.EDOVER 22:25
PROVIDERS: Physician Assistant Medical; Registered Nurse Emergency; Admitting Provider Student in an Organized Health Care Education/Training Program; Emergency Provider Emergency Medicine; PCP Family Medicine; Visit Provider Physician Assistant
DX: I21.4 Non-ST elevation (NSTEMI) myocardial infarction (principal); G47.33 Obstructive sleep apnea (adult) (pediatric); I10 Essential (primary) hypertension; F17.290 Nicotine dependence, other tobacco product, uncomplicated; Z71.6 Tobacco abuse counseling; Z95.1 Presence of aortocoronary bypass graft; E66.01 Morbid (severe) obesity due to excess calories; Z68.35 Body mass index [BMI] 35.0-35.9, adult; I25.2 Old myocardial infarction; E11.9 Type 2 diabetes mellitus without complications; I25.10 Atherosclerotic heart disease of native coronary artery without angina pectoris; K21.9 Gastro-esophageal reflux disease without esophagitis; Z79.4 Long term (current) use of insulin; Z79.82 Long term (current) use of aspirin; Z79.84 Long term (current) use of oral hypoglycemic drugs; Z79.899 Other long term (current) drug therapy
CPT/HCPCS: 36415; 71046; 80048; 80053; 82150; 82947; 83690; 83735; 84484; 85025; 85027; 85610; 85730; 93005; 93306; 99285; J1644; Q9957

== ENCOUNTER 2023-12-28 22:16 | Outpatient (BNV) | payer MEDICARE, SELFPAY | END 2023-12-29 07:00 | PROVIDERS: Admitting Provider Student in an Organized Health Care Education/Training Program; Emergency Provider Emergency Medicine; PCP Family Medicine; Visit Provider Internal Medicine Cardiovascular Disease | DX: I51.89 Other ill-defined heart diseases (principal) | CPT/HCPCS: 93306 ==

== ENCOUNTER → 2023-12-28 22:16 | Outpatient (BNV) | payer MEDICARE, SELFPAY | PROVIDERS: Admitting Provider Student in an Organized Health Care Education/Training Program; Emergency Provider Emergency Medicine; PCP Family Medicine; Visit Provider Student in an Organized Health Care Education/Training Program | DX: I21.4 Non-ST elevation (NSTEMI) myocardial infarction (principal) | CPT/HCPCS: 99223; 99239 ==

== ENCOUNTER → 2023-12-28 22:16 | Outpatient (BNV) | payer MEDICARE, SELFPAY | PROVIDERS: Admitting Provider Student in an Organized Health Care Education/Training Program; Emergency Provider Emergency Medicine; PCP Family Medicine; Visit Provider Internal Medicine Cardiovascular Disease | DX: I21.4 Non-ST elevation (NSTEMI) myocardial infarction (principal) | CPT/HCPCS: 99223 ==

== ENCOUNTER → 2023-12-29 23:59 | Outpatient (BNV) | payer MEDICARE, SELFPAY | PROVIDERS: PCP Family Medicine; Visit Provider Internal Medicine Cardiovascular Disease | DX: I21.4 Non-ST elevation (NSTEMI) myocardial infarction (principal) | CPT/HCPCS: 92928; 92978; 93458; 99152 ==

== ENCOUNTER 2024-01-09 13:48 | Outpatient (AMB) | payer MEDICARE, SELFPAY ==
--- NOTE | 2024-01-09 13:52 | MHC.OFFVIS ---
Vital Signs 01/09/24 13:53 Height 5 ft 7 in Weight 249 lb 1.957 oz BMI 39.0 BP 120/62 Blood Pressure Location Lt brachial Position Sitting Pulse 100 Pulse Source Pulse Oximeter Intake Visit Reasons: Follow Up from Heart Attack. Allergies No Known Allergies [No Known Allergies*] Allergy (Verified 12/28/23 17:45) Medication List - Last Reconciled 01/09/24 by Kameron Lyn MD alpha lipoic acid 600 mg PO DAILY amlodipine 2.5 mg See Protocol PO DAILY aripiprazole 2 mg PO DAILY aspirin 81 mg PO DAILY atorvastatin 80 mg PO QPM cholecalciferol (vitamin D3) 25 mcg PO DAILY clopidogrel 75 mg PO DAILY cyanocobalamin (vitamin B-12) ER 1,000 mcg PO DAILY fenofibrate micronized 200 mg PO DAILY ferrous sulfate 325 mg PO DAILY fluoxetine 40 mg PO DAILY furosemide 20 mg PO BID glipizide 10 mg PO BID insulin glargine (Lantus Solostar U-100 Insulin) 32 units subcut BEDTIME metformin ER 1,000 mg PO BID metoprolol succinate ER 25 mg See Protocol PO DAILY omega-3 fatty acids-fish oil 360-1,200 mg (Fish Oil) 1 cap PO DAILY omeprazole 20 mg PO BID@0630,1630 HPI Comments Details: Doe returns for follow-up regarding coronary disease and bypass surgery. Few days ago, he had sent a message in the patient portal regarding chest burning. He was asked to come to the emergency room after that. He ruled in for non ST elevation myocardial infarction. Subsequently, transferred to [facility] underwent cardiac catheterization/right coronary artery stenting. After, he states all the symptoms resolved completely. He is back to his usual self. Multiple cardiovascular risk factors including morbid obesity, diabetes, hypertension, dyslipidemia, smoking, as well as obstructive sleep apnea. [facility] Medical History Obstructive sleep apnea on CPAP HTN (hypertension) Obstructive sleep apnea Diabetes FH: cholecystectomy Retinal detachment Surgical History Hx of eye surgery Hx of bladder endoscopy Hx of colonoscopy Hx of oral surgery H/O heart bypass surgery History of tonsillectomy Family History Father Coronary artery disease Hx of CABG Sister Coronary artery disease Hypertension Mother Cerebral hemorrhage Mental health problem Social History Alcohol intake: never Patient Tobacco Use Status: Current everyday Tobacco user Cigarettes Per Day: 8 Years Smoked: 6 +/- Substance Use Type: Marijuana Advance Directives Date on File: 03/15/21 service: No Current occupational status: employed Review of Systems Const Denies weakness ENT Denies dizziness Card Denies chest pain, Denies chest pain with activity, Denies syncope, Denies rapid heart rate, Denies pedal edema, Denies edema, Denies leg edema, Denies lightheadedness, Denies palpitations, Denies dyspnea, Denies dyspnea on exertion and Denies orthopnea Resp Denies cough, Denies dyspnea and Denies dyspnea on exertion GI Denies hematochezia and Denies change in stool character Musc Denies abnormal gait, Denies muscle cramps, Denies muscle weakness, Denies numbness, Denies radiating pain into limb and Denies tingling Neuro Denies abnormal gait, Denies dizziness, Denies syncope, Denies numbness, Denies tingling and Denies weakness Endo Denies palpitations Physical Exam Vital Signs: Last Vital Signs Pulse 100 01/09/24 13:53 BP 120/62 01/09/24 13:53 BMI result Body Mass Index 39.0 Const General: comfortable and no acute distress Orientation/consciousness: patient oriented x3 HEENT Other: Unremarkable Head: Yes normal to inspection Neck Neck: Yes normal visual inspection Chest Chest palpation & inspection: normal inspection of the chest Resp Auscultation: clear to auscultation bilaterally Cardio Palpation: normal PMI Heart sounds: S1 normal heart sound present, S2 normal heart sound present, no gallops, no murmurs and no rubs GI Palpation (GI): Soft to palpation Back/Spine/Pelvis Other: unremarkable Skin General skin exam: no rashes or lesions noted Neuro General: patient oriented x3 Extrem General: Yes normal to inspection Psych Mental Status: mental status grossly normal Assessment & Plan Assessment & Plan (1) Atherosclerotic cardiovascular disease: Code(s): I25.10 - Atherosclerotic heart disease of [place] coronary artery without angina pectoris Category: Medical Plan: Status post CABG. In the most recent catheterization from last month, proximal RCA occlusion with thrombus and thought to be the culprit for NSTEMI, status post PCI. Otherwise, patent HUSAIN to LAD and patent radial graft to OM. Severe [place] disease in left main and LAD. Continue aspirin indefinitely. We may choose to also continue Plavix long-term but at least for 1 year to start with. Continue high-dose statins. LDL 47 mg/dL. Triglycerides 246 mg/dL. Preoperative carotid ultrasound without any significant stenosis. (2) Type 2 diabetes mellitus with unspecified complications: Code(s): E11.8 - Type 2 diabetes mellitus with unspecified complications Category: Medical Plan: Meds include insulin, glipizide, metformin. Per endocrine note, hemoglobin A1c is 8.1%. (3) Essential hypertension: Code(s): I10 - Essential (primary) hypertension Category: Medical Plan: On amlodipine. In the past, on losartan but not in current list. (4) Obstructive sleep apnea on CPAP: Code(s): G47.33 - Obstructive sleep apnea (adult) (pediatric); Z99.89 - Dependence on other enabling machines and devices Category: Medical Plan: Continue CPAP. (5) Morbid obesity: Code(s): E66.01 - Morbid (severe) obesity due to excess calories Category: Medical Plan: We have discussed about his weight numerous times. This is a big source of lot of his health issues. (6) Smoking: Code(s): F17.200 - Nicotine dependence, unspecified, uncomplicated Category: Social Hx Plan: Needs to stop smoking and has been advised many times. Orders: Orders Cardiac Rehab Today I21.4 - Non-ST elevation (NSTEMI) myocardial infarction, Z95.5 - Presence of coronary angioplasty implant and graft Medications: Refilled metoprolol succinate ER 25 mg See Protocol PO DAILY 90 tabs 3RF Coding Level of Care Code Est Pt Level 4 (73324) Diagnoses Atherosclerotic cardiovascular disease I25.10 Type 2 diabetes mellitus with unspecified complications E11.8 Essential hypertension I10 Obstructive sleep apnea on CPAP G47.33; Z99.89 Morbid obesity E66.01 Smoking F17.200
[2024-01-09 13:53] VITALS: BP 120/62; PULSE 100; BMI 39.0
== END 2024-01-09 14:16 | disposition home or self-care (01) ==
PROVIDERS: PCP Family Medicine; Visit Provider Internal Medicine
DX: I25.10 Atherosclerotic heart disease of native coronary artery without angina pectoris (principal); E11.8 Type 2 diabetes mellitus with unspecified complications; I10 Essential (primary) hypertension; G47.33 Obstructive sleep apnea (adult) (pediatric); Z99.89 Dependence on other enabling machines and devices; E66.01 Morbid (severe) obesity due to excess calories; F17.200 Nicotine dependence, unspecified, uncomplicated
CPT/HCPCS: 99214

== ENCOUNTER → 2024-01-09 13:48 | Outpatient (BNVA) | payer MEDICARE, SELFPAY | PROVIDERS: PCP Family Medicine; Visit Provider Internal Medicine | DX: I21.4 Non-ST elevation (NSTEMI) myocardial infarction (principal); I25.10 Atherosclerotic heart disease of native coronary artery without angina pectoris; E66.01 Morbid (severe) obesity due to excess calories; I10 Essential (primary) hypertension; E78.5 Hyperlipidemia, unspecified; G47.33 Obstructive sleep apnea (adult) (pediatric); F17.210 Nicotine dependence, cigarettes, uncomplicated; E11.8 Type 2 diabetes mellitus with unspecified complications; Z79.4 Long term (current) use of insulin; Z79.84 Long term (current) use of oral hypoglycemic drugs; Z95.5 Presence of coronary angioplasty implant and graft; Z99.89 Dependence on other enabling machines and devices | CPT/HCPCS: 99212 ==

== ENCOUNTER 2024-02-04 05:32 | Emergency (ER) | payer MEDICARE, OTHER, SELFPAY ==
--- NOTE | 2024-02-04 | ECG_ITS ---
Test Reason : CP/SOB Blood Pressure : / mmHG Vent. Rate : 085 BPM Atrial Rate : 085 BPM P-R Int : 140 ms QRS Dur : 084 ms QT Int : 362 ms P-R-T Axes : 048 083 -65 degrees QTc Int : 430 ms Normal sinus rhythm ST & T wave abnormality, consider inferolateral ischemia Abnormal ECG When compared with ECG of 28-DEC-2023 21:29, T wave inversion no longer evident in Anterior leads Referred By: Generic ED Physician Electronically Signed By:ANNA ZAMUDIO
--- NOTE | ~2024-02-04 | CT_ITS ---
EXAMINATION: CT ANGIOGRAM CHEST CLINICAL INFORMATION: Pleuritic chest pain. COMPARISON: Chest x-ray performed earlier same day TECHNIQUE: Multiple axial images were obtained through the chest after the administration of 70 mL of Omnipaque 350 intravenous contrast. Extensive vascular post-processing including two-dimensional and three-dimensional reformatted images were created and reviewed on an independent workstation. This CT examination was performed using dose optimization techniques as appropriate, variously including the following: *Automated exposure control *Adjustment of mA and/or kV according to patient size (this includes techniques or standardized protocols for targeted exams where dose is matched to indication/reason for exam; i.e. extremities or head) *Use of iterative reconstruction technique DLP: 271 mGy-cm FINDINGS: Cardiovascular: Pulmonary arteries and branches: Normal. No defect/embolism. Heart size unremarkable. Postsurgical changes. Coronary artery calcification noted. Aorta unremarkable. Lungs and pleural spaces: Mosaic attenuation noted along the posterior dependent portion of the lungs No focal consolidation. No effusion. . Thoracic inlet normal Esophagus normal. Lymph nodes: Normal. CHEST WALL: Postsurgical changes with sternotomy wires. Otherwise unremarkable Osseous structures: Multilevel spondylosis of the dorsal spine. Upper abdomen: Unremarkable. CT/CT angio chest PE protocol IMPRESSION: 1. No evidence for pulmonary embolism. 2. Mosaic attenuation in the posterior dependent portion of the lungs. This has a broad differential diagnosis. This could reflect air trapping or small airways disease.. Pulmonary edema is unlikely given the distribution Electronically signed by: Doe Morrow MD 02/04/2024 09:39 AM EDT
--- NOTE | ~2024-02-04 | XR_ITS ---
EXAMINATION: XR CHEST CLINICAL INFORMATION: Chest pain. Shortness of breath. COMPARISON: December 28, 2023 TECHNIQUE: 2 views of the chest were obtained. FINDINGS: The cardiomediastinal silhouette is stable. There has been a previous median sternotomy. There is no focal lung consolidation or pleural effusion. The bony structures and the soft tissues are unremarkable. XR/XR chest 2V IMPRESSION: No evidence for acute disease. Electronically signed by: Jason Archibald MD 02/04/2024 06:40 AM EDT
[2024-02-04 05:42] VITALS: BP 147/80; PULSE 86; RESP 18; TEMP 36.3; O2SAT 96; BMI 35.7
[2024-02-04 06:04] LABS: MANUAL DIFF FLAG NO
[2024-02-04 06:22] LABS: Alanine Aminotransferase 17 U/L (0-40); Albumin Level 4.2 g/dL (3.5-5.0); Alkaline Phosphatase 51 U/L (39-117); Anion Gap 16 (12-20); Aspartate Amino Transferase 13 U/L (5-37); Bilirubin Total 0.8 mg/dL (0.0-1.0); Blood Urea Nitrogen 11 mg/dL (9-16); Calcium 10.6 mg/dL (8.4-10.2); Carbon Dioxide 26 mmol/L (22-29); Chloride 98 mmol/L (96-108); Creatinine Clr Calc Pharmacy 62.8; Estimated Glomerular Filt Rate 55; Glucose Random 321 mg/dL (60-115); Magnesium 1.6 mg/dL (1.6-2.6); Potassium 4.4 mmol/L (3.3-5.1); Sodium 136 mmol/L (135-145); Total Protein 7.9 g/dL (6.5-8.0)
[2024-02-04 06:29] LABS: IDNOW Serial# 152EDE1D; Influenza A Negative (Negative); Influenza B2 Negative (Negative)
[2024-02-04 06:32] LABS: COVID-19 Test Negative (Negative); IDNOW Serial# 08D9AD1C
[2024-02-04 06:38] LABS: Troponin-I High Sensitivity < 2.7 ng/L (<3.5-35.0)
[2024-02-04 06:40] LABS: Basophils Absolute Auto 0.1 X10*3/uL (0.0-0.2); Basophils Percent Auto 0.7 % (0-2); Eosinophils Absolute Auto 0.3 X10*3/uL (0.0-0.4); Eosinophils Percent Auto 2.2 % (0-4); Hematocrit 46.3 % (42.0-52.0); Hemoglobin 16.5 g/dl (14.0-18.0); Imm Gran Abs Auto 0.07 X10*3/uL (0.00-0.03); Imm Gran Pct Auto 0.6 % (0.0-0.4); Lymphocytes Absolute Auto 2.4 X10*3/uL (1.2-4.9); Lymphocytes Percent Auto 19.6 % (20-40); Mean Corpuscular HGB Conc 35.6 g/dl (31.0-36.0); Mean Corpuscular Hemoglobin 33.3 pg (27.0-33.0); Mean Corpuscular Volume 93.3 fL (80.0-98.0); Mean Platelet Volume 9.9 fL (9.4-12.4); Monocytes Absolute Auto 1.1 X10*3/uL (0.1-1.2); Monocytes Percent Auto 9.3 % (2-11); Neutrophils Absolute Auto 8.3 x10*3/uL (2.0-8.3); Neutrophils Percent Auto 67.6 % (45-73); Platelet Count 257 X10*3/uL (160-400); Red Blood Count 4.96 X10*6/uL (4.60-5.80); White Blood Count 12.3 X10*3/uL (4.8-10.8)
--- NOTE | 2024-02-04 06:43 | ED.SOB ---
HPI - SOB/Dyspnea General Chief Complaint: Dyspnea Stated Complaint: SOB/ chest pain Time Seen by Provider: 02/04/24 06:40 Source: patient, RN notes reviewed and old records reviewed Mode of arrival: ambulatory Limitations: no limitations History of Present Illness ED Provider: STACY WATSON PA-C HPI Narrative: 68 year old male with pmhx significant for HTN, T2DM, DARCI on CPAP, NSTEMI 4 weeks s/p cardiac stent presents to the ED today for evaluation of shortness of breath x1 week with associated right-sided chest pain beginning last night which has since completely resolved. Chest pain worse with deep breathing. Admits symptoms began with sob and dry cough 1 week ago, progressively worsening. Negative COVID test at home. No known sick contacts. Recent hx of NSTEMI. Denies fever, chills, sore throat, hemoptysis, N/V, calf pain/ swelling. Related Data Home Medications ?Medication ?Instructions ?Recorded ?Confirmed aripiprazole 2 mg tablet 2 mg PO DAILY 09/02/20 01/09/24 cholecalciferol (vitamin D3) 25 25 mcg PO DAILY 03/30/21 01/09/24 mcg (1,000 unit) capsule insulin glargine 100 unit/mL (3 32 unit subcut BEDTIME 03/30/21 01/09/24 mL) subcutaneous pen (Lantus Solostar U-100 Insulin) metformin 500 mg tablet,extended 1,000 mg PO BID 03/30/21 01/09/24 release 24 hr omeprazole 20 mg capsule,delayed 20 mg PO BID@0630,1630 03/30/21 01/09/24 release alpha lipoic acid 300 mg capsule 600 mg PO DAILY 06/09/22 01/09/24 cyanocobalamin (vitamin B-12) 1,000 mcg PO DAILY 06/09/22 01/09/24 1,000 mcg tablet,extended release omega-3 fatty acids-fish oil 360 1 cap PO DAILY 06/09/22 01/09/24 mg-1,200 mg capsule (Fish Oil) furosemide 20 mg tablet 20 mg PO BID 12/28/23 01/09/24 atorvastatin 80 mg tablet 80 mg PO QPM 01/09/24 01/09/24 fenofibrate micronized 200 mg 200 mg PO DAILY 01/09/24 01/09/24 capsule ferrous sulfate 325 mg (65 mg 325 mg PO DAILY 01/09/24 01/09/24 iron) tablet,delayed release fluoxetine 20 mg capsule 40 mg PO DAILY 01/09/24 01/09/24 glipizide 10 mg tablet 10 mg PO BID 01/09/24 01/09/24 Previous Rx's ?Medication ?Instructions ?Recorded amlodipine 2.5 mg tablet 2.5 mg PO DAILY #1 tab 12/29/23 aspirin 81 mg tablet,delayed 81 mg PO DAILY #1 tab 12/29/23 release clopidogrel 75 mg tablet 75 mg PO DAILY #1 tab 12/29/23 metoprolol succinate 25 mg 25 mg PO DAILY #90 tabs 01/09/24 tablet,extended release 24 hr albuterol sulfate 90 mcg/actuation 2 inh inhalation Q20M PRN 02/04/24 breath activated powder inhaler shortness of breath or wheezing #1 ea prednisone 20 mg tablet 20 mg PO DAILY 5 days #5 tabs 02/04/24 Allergies Allergy/AdvReac Type Severity Reaction Status Date / Time No Known Allergies Allergy Verified 02/04/24 05:45 [No Known Allergies*] Review of Systems Review of Systems: Constitutional: No fever, chills, fatigue, night sweats, weight changes ENT/Mouth: No ear pain, hearing loss, nasal congestion, sinus pain, rhinorrhea, sore throat Eyes: No eye pain, swelling, redness, vision changes, discharge Cardio: No chest pain, palpitations, DUNCAN, orthopnea, peripheral edema Pulm: No sputum, wheezing, dyspnea, hemoptysis, +SOB GI: No nausea, vomiting, hematemesis, abdominal pain, diarrhea, constipation, hematochezia, melena : No irregular bleeding, dysuria, frequency, urgency, hesitancy, hematuria, flank pain, urinary flow changes, urinary incontinence or retention MSK: No back pain, neck pain, joint pain, myalgias Skin: No lesions, rashes Neuro: No weakness, numbness, paresthesias, LOC, dizziness, headache Psych: No anxiety/panic, depression, SI/HI, AH/VH All other systems reviewed and are negative. [facility] Past Medical History Attestation statement: The following information was validated with the patient. Source: old records reviewed and nursing notes reviewed Medical History Obstructive sleep apnea on CPAP HTN (hypertension) Obstructive sleep apnea Diabetes FH: cholecystectomy Retinal detachment Surgical History Hx of eye surgery Hx of bladder endoscopy Hx of colonoscopy Hx of oral surgery H/O heart bypass surgery History of tonsillectomy Family History Family History Father Coronary artery disease Hx of CABG Sister Coronary artery disease Hypertension Mother Cerebral hemorrhage Mental health problem Social History Social History Alcohol intake: never Patient Tobacco Use Status: Current everyday Tobacco user Cigarettes Per Day: 8 Years Smoked: 6 +/- Smoked in Last 30 Days: No Use of substances other than those prescribed or required for medical reasons: No Substance Use Type: Marijuana Advance Directives: Yes Advance Directives on File: Yes Advance Directives Date on File: 03/15/21 Do you have a plan to hurt others: No Plan service: No Current occupational status: employed Physical Exam Vital Signs: Vital Signs: Last Vital Signs Temp 97.3 F 02/04/24 05:42 Pulse 84 02/04/24 08:57 Resp 15 02/04/24 08:57 BP 147/80 H 02/04/24 05:42 Pulse Ox 96 02/04/24 05:42 O2 Del Method Room Air 02/04/24 05:42 BMI result Body Mass Index 35.7 Patient hypertensive to 147/80, vitals otherwise WNL General: Well appearing, in no acute distress. Skin: Warm, dry, intact. No rashes or lesions. Head: Normocephalic, atraumatic. EENT: Hearing is intact b/l. Conjunctiva clear. PERRLA. Moist mucous membranes.? Neck: Supple without LAD Cardiac: Chest wall symmetric. RRR. Lungs: Normal respiratory effort without accessory muscle use. diffuse expiratory wheezes Abdomen: Soft, non-tender, non-distended. No rebound tenderness or guarding. Positive BS x4. Back: No midline spinous or paraspinal tenderness. No step off deformity. Ext: Upper and lower extremities atraumatic, without tenderness, deformity, swelling or erythema. Full ROM throughout. no calf tenderness b/l. Neuro: AOx3. Normal speech. Strength 5/5 intact throughout. Ambulating with steady gait. Psych: Appropriate mood and affect. Responds appropriately to questions. Course Course Course Narrative: 1030 -- CBC with slight leukocytosis to 12.3 without left shift. No anemia. H&H stable. Chemistry without acute electrolyte abnormality requiring intervention. No VALENTINE. Troponin undetectable x2. EKG showing normal sinus rhythm with a rate of 85 beats per minute, QT 362, QTC 430, there are ST/T-wave changes in 2 3 and AVF however these are similar to previous EKGs. no concern for ACS at this time. he has tested negative for covid/ flu/ rsv. respiratory panel negative. cxr without infilatrate or consolidation. CTA chest without evidence of VTE. It does show mosaic attenuation noted along posterior dependent portion of lungs question air trapping versus small airway disease. Pulmonary edema unlikely. > discussed all work up results with patient. he tells me his breathing has significantly improved after albuterol treatment via RT. lungs are now clear to auscultation bilaterally. Clinical suspicion for chronic underlying lung disease secondary to history of smoking tobacco. Will send patient home with short course of prednisone and rescue inhaler. Referral to building construction supervisor provided. Patient has remained stable throughout ED visit today. Discussed worrisome signs and symptoms and when to return to the ED. All questions answered at this time. Patient is agreeable with disposition and stable for discharge. Medications Administered Discontinued Medications Generic Name Dose Route Start Last Admin Trade Name Freq PRN Reason Stop Dose Admin Albuterol/Ipratropium 3 ml 02/04/24 08:58 02/04/24 09:03 Albuterol/Iprat 2.5/0.5mg 3 Ml Ampul.Neb INHALE 02/04/24 08:59 3 ml ONCE ONE Administration Sodium Chloride 1,000 mls @ 999 mls/hr 02/04/24 07:45 02/04/24 09:08 Ns IV 02/04/24 08:45 Infused .Q1H1M GAVINO Infusion Iohexol 100 ml 02/04/24 08:23 02/04/24 08:23 Iohexol 350 Mg/Ml 100 Ml Infus..Btl IV 02/04/24 08:24 70 ml ONCE ONE Administration Medical Decision Making Medical Decision Making [facility] Narrative: 68 year old male with pmhx significant for HTN, T2DM, DARCI on CPAP, NSTEMI 4 weeks s/p cardiac stent presents to the ED today for evaluation of shortness of breath x1 week with associated right-sided chest pain beginning last night before completely resolving. Vital signs stable. He is nontoxic appearing and in NAD. Not diaphoretic. RRR. Lungs with diffuse expiratory wheezes. No increased effort of breathing. No tripoding. No accessory muscle use. No cough. No JVD or peripheral edema. No calf tenderness bilaterally. History without high risk features (not substernal, no exertional component, not relieved with rest).? Exam without evidence of volume overload. EKG without signs of active ischemia. Given the timing of pain to ED presentation, plan to send delta troponin to evaluate for NSTEMI. PERC 2. Plan to obtain ddimer +/- CTA chest to rule out PE although less likely as patient is on Plavix. Unlikely pneumothorax, thoracic aortic dissection, cardiac effusion or tamponade. Plan: labs, troponin, EKG, CXR, viral serology/ respiratory panel, reassessment Differential Diagnosis Differential Diagnoses: The differential diagnosis associated with the presentation includes as above. Admission/Observation not indicated Lab Data MDM Lab Attestation statement: I reviewed the patient's lab results. as above. 02/04/24 05:58 02/04/24 05:58 Labs: Lab Results 02/04/24 02/04/24 02/04/24 Range/Units 05:58 07:16 09:48 WBC 12.3 H (4.8-10.8) X10*3/uL RBC 4.96 (4.60-5.80) X10*6/uL Hgb 16.5 (14.0-18.0) g/dl Hct 46.3 (42.0-52.0) % MCV 93.3 (80.0-98.0) fL MCH 33.3 H (27.0-33.0) pg MCHC 35.6 (31.0-36.0) g/dl RDW 12.0 (11.0-16.0) % Plt Count 257 D (160-400) X10*3/uL MPV 9.9 (9.4-12.4) fL Immature Gran % (Auto) 0.6 H (0.0-0.4) % Neut % (Auto) 67.6 (45-73) % Lymph % (Auto) 19.6 L (20-40) % [place] % (Auto) 9.3 (2-11) % Eos % (Auto) 2.2 (0-4) % Baso % (Auto) 0.7 (0-2) % Lymph # (Auto) 2.4 (1.2-4.9) X10*3/uL [place] # (Auto) 1.1 (0.1-1.2) X10*3/uL Eos # (Auto) 0.3 (0.0-0.4) X10*3/uL Baso # (Auto) 0.1 (0.0-0.2) X10*3/uL Abs Immat Gran (auto) 0.07 H (0.00-0.03) X10*3/uL Absolute Neuts (auto) 8.3 (2.0-8.3) x10*3/uL Absolute Nucleated RBC 0.000 (0.0-0.012) X10*3/uL Nucleated RBC % (auto) 0.0 (0.0-0.2) /100WBC D-Dimer High Sensitivty 261 NG/ML Sodium 136 (135-145) mmol/L Potassium 4.4 (3.3-5.1) mmol/L Chloride 98 (96-108) mmol/L Carbon Dioxide 26 (22-29) mmol/L Anion Gap 16 (12-20) BUN 11 (9-16) mg/dL Creatinine 1.29 (0.5-1.4) mg/dL Estim Creat Clear Calc 62.8 Estimated GFR 55 Random Glucose 321 H (60-115) mg/dL Calcium 10.6 H D (8.4-10.2) mg/dL Magnesium 1.6 (1.6-2.6) mg/dL Total Bilirubin 0.8 (0.0-1.0) mg/dL AST 13 (5-37) U/L ALT 17 (0-40) U/L Alkaline Phosphatase 51 (39-117) U/L Troponin I High Sens < 2.7 D < 2.7 (<3.5-35.0) ng/L Total Protein 7.9 (6.5-8.0) g/dL Albumin 4.2 (3.5-5.0) g/dL Respiratory Panel Jeong See Note Adenovirus (Rapid PCR) Not Detected (Not Detect.) B.pert (TEM-PCR) Not Detected (Not Detect.) B.parapertussis DNA PCR Not Detected (Not Detect.) C. pneumoniae DNA (PCR) Not Detected (Not Detect.) Coronavirus OC43 (PCR) Not Detected (Not Detect.) Coronavirus HKU1 (PCR) Not Detected (Not Detect.) Coronavirus 229E (PCR) Not Detected (Not Detect.) COVID-19 (LARY) Negative (Negative) COVID-19 Clin Com See Note Coronavirus NL63 (PCR) Not Detected (Not Detect.) Human Metapneumovir PCR Not Detected (Not Detect.) Influenza Type A (SOHAM) Negative (Negative) Influenza A (RT-PCR) Not Detected (Not Detect.) Influenza Type B (SOHAM) Negative (Negative) Influenza B (RT-PCR) Not Detected (Not Detect.) Influenza A & B Note See Note M. pneumoniae (PCR) Not Detected (Not Detect.) Parainfluenza 1 (PCR) Not Detected (Not Detect.) Parainfluenza 2 (PCR) Not Detected (Not Detect.) Parainfluenza 3 (PCR) Not Detected (Not Detect.) Parainfluenza 4 (PCR) Not Detected (Not Detect.) RSV (PCR) Not Detected (Not Detect.) Entero/Rhino (PCR) Not Detected (Not Detect.) SARS-CoV-2 RNA (RT-PCR) Not Detected (Not Detect.) Independent Interpretation I performed an independent interpretation of an: EKG, Plain X-Ray and CT Scan Interpretation: EKG showing normal sinus rhythm with a rate of 85 beats per minute, QT 362, QTC 430, no acute ischemic changes or ST elevations. Chest x-ray without infiltrate or consolidation, agree with radiologist's interpretation. CTA chest without evidence of VTE, agree with radiologist's interpretation. Radiology Impression Discussion of test interpretation with radiology: I have reviewed the radiologist's reading. Radiologist Impression: EXAMINATION: XR CHEST CLINICAL INFORMATION: Chest pain. Shortness of breath. COMPARISON: December 28, 2023 TECHNIQUE: 2 views of the chest were obtained. FINDINGS: The cardiomediastinal silhouette is stable. There has been a previous median sternotomy. There is no focal lung consolidation or pleural effusion. The bony structures and the soft tissues are unremarkable. XR/XR chest 2V IMPRESSION: No evidence for acute disease. Electronically signed by: Jason Archibald MD 02/04/2024 06:40 AM EDT EXAMINATION: CT ANGIOGRAM CHEST CLINICAL INFORMATION: Pleuritic chest pain. COMPARISON: Chest x-ray performed earlier same day TECHNIQUE: Multiple axial images were obtained through the chest after the administration of 70 mL of Omnipaque 350 intravenous contrast. Extensive vascular post-processing including two-dimensional and three-dimensional reformatted images were created and reviewed on an independent workstation. This CT examination was performed using dose optimization techniques as appropriate, variously including the following: *Automated exposure control *Adjustment of mA and/or kV according to patient size (this includes techniques or standardized protocols for targeted exams where dose is matched to indication/reason for exam; i.e. extremities or head) *Use of iterative reconstruction technique DLP: 271 mGy-cm FINDINGS: Cardiovascular: Pulmonary arteries and branches: Normal. No defect/embolism. Heart size unremarkable. Postsurgical changes. Coronary artery calcification noted. Aorta unremarkable. Lungs and pleural spaces: Mosaic attenuation noted along the posterior dependent portion of the lungs No focal consolidation. No effusion. . Thoracic inlet normal Esophagus normal. Lymph nodes: Normal. CHEST WALL: Postsurgical changes with sternotomy wires. Otherwise unremarkable Osseous structures: Multilevel spondylosis of the dorsal spine. Upper abdomen: Unremarkable. CT/CT angio chest PE protocol IMPRESSION: 1. No evidence for pulmonary embolism. 2. Mosaic attenuation in the posterior dependent portion of the lungs. This has a broad differential diagnosis. This could reflect air trapping or small airways disease.. Pulmonary edema is unlikely given the distribution Electronically signed by: Doe Morrow MD 02/04/2024 09:39 AM EDT External Record Review External record reviewed: Inpatient record, Office record, Outpatient record, Prior outpatient labs, Prior outpatient radiology, Primary care record and Outside ED record Prescription Management I considered prescription management with: Other (prednisone, albuterol) Chronic Conditions Patient?s care impacted by: Diabetes and Other (CAD, HTN) Social Determinants Patient?s care significantly limited by Social Determinants of Health including: Other Social Determinant of Health Critical Care Time Critical Care Time Critical Care Time: No Discharge Plan Discharge Clinical Impression: Atypical chest pain, Shortness of breath Patient Disposition: Home, Self-Care Instructions: Albuterol (By breathing), Prednisone (By mouth), Chest Pain (ED), Shortness of Breath (ED) Additional Instructions: Your blood work today is reassuring. Your cardiac enzymes are normal. Your EKG is stable when compared to priors. Your chest xray is normal. The CTA of your chest did not demonstrate clot in your lungs. As discussed, it does show findings which may be consistent with a chronic underlying lung disease. You were treated with albuterol in ED with improvement in your breathing. This will be sent to your pharmacy for you to use as needed for shortness of breath. If you find yourself using this more often with minimal improvement, please return to the ED as you may require further evaluation. I am also sending you home with a short course of steroids (prednisone). Take this as prescribed over the next 5 days to help with your breathing. If you have diabetes, please monitor your blood sugar at home as prednisone tends to elevate blood sugar. If you find your sugars becoming increasingly more elevated, please discontinue prednisone use. Given your history of smoking, I have provided you with a referral to a building construction supervisor for you to establish care. Call them. They will not call you. Follow up with your PCP as needed. Return with new or worsening symptoms. In the case of an emergency call 911. Prescriptions: New prednisone 20 mg tablet 20 mg PO DAILY 5 Days Qty: 5 0RF albuterol sulfate 90 mcg/actuation aerosol powdr breath activated 2 inh inhalation Q20M PRN (Reason: shortness of breath or wheezing) Qty: 1 0RF No Action furosemide 20 mg tablet 20 mg PO BID amlodipine 2.5 mg Tablet 2.5 mg PO DAILY Qty: 1 0RF Protocol: Hold for SBP< HOLD for SBP < : 90 clopidogrel 75 mg Tablet 75 mg PO DAILY Qty: 1 0RF aspirin 81 mg Tablet,Delayed Release (Dr/Ec) 81 mg PO DAILY Qty: 1 0RF fluoxetine 20 mg capsule 40 mg PO DAILY glipizide 10 mg tablet 10 mg PO BID aripiprazole 2 mg tablet 2 mg PO DAILY [place] Solostar U-100 Insulin 100 unit/mL (3 mL) insulin pen 32 unit subcut BEDTIME metformin 500 mg tablet extended release 24 hr 1,000 mg PO BID omeprazole 20 mg capsule,delayed release(DR/EC) 20 mg PO BID@0630,1630 cholecalciferol (vitamin D3) 25 mcg (1,000 unit) capsule 25 mcg PO DAILY alpha lipoic acid 300 mg capsule 600 mg PO DAILY cyanocobalamin (vitamin B-12) 1,000 mcg tablet extended release 1,000 mcg PO DAILY omega-3 fatty acids-fish oil [Fish Oil] 360-1,200 mg capsule 1 cap PO DAILY fenofibrate micronized 200 mg capsule 200 mg PO DAILY ferrous sulfate 325 mg (65 mg iron) tablet,delayed release (DR/EC) 325 mg PO DAILY metoprolol succinate 25 mg tablet extended release 24 hr 25 mg PO DAILY Qty: 90 3RF Protocol: Hold for SBP/HR < HOLD for SBP < : 90 HOLD for HR < : 60 atorvastatin 80 mg tablet 80 mg PO QPM Referrals: [facility] [place] [facility] [Provider Group] Anmol Murphy DO [Primary Care Provider] - Print Language: Armenian
[2024-02-04 07:39] LABS: D Dimer High Sensitivity 261 NG/ML
[2024-02-04] MEDS: 0.9 % Sodium Chloride 1,000 ML 999 ML IV (07:57)
--- NOTE | 2024-02-04 07:57 | PC.NURSE ---
20gIV placed in the right forearm - IVF administered per provider order. pt waiting to go to CT at this time plan of care ongoing
--- NOTE | 2024-02-04 08:13 | PC.NURSE ---
pt to CT at this time.
[2024-02-04] MEDS: iohexoL 350 MG/ML 100 ML INFUS..BTL IV (08:23)
[2024-02-04 08:30] LABS: Adenovirus PCR Not Detected (Not Detect.); Bordetella parapertussis PCR Not Detected (Not Detect.); Bordetella pertussis PCR Not Detected (Not Detect.); Chlamydia pneumoniae PCR Not Detected (Not Detect.); Coronavirus 229E PCR Not Detected (Not Detect.); Coronavirus HKU1 PCR Not Detected (Not Detect.); Coronavirus NL63 PCR Not Detected (Not Detect.); Coronavirus OC43 PCR Not Detected (Not Detect.); Human metapneumovirus PCR Not Detected (Not Detect.); Influenza A PCR Not Detected (Not Detect.); Influenza B PCR Not Detected (Not Detect.); Mycoplasma pneumoniae PCR Not Detected (Not Detect.); Parainfluenza 1 PCR Not Detected (Not Detect.); Parainfluenza 2 PCR Not Detected (Not Detect.); Parainfluenza 3 PCR Not Detected (Not Detect.); Parainfluenza 4 PCR Not Detected (Not Detect.); RSV PCR Not Detected (Not Detect.); Rhino/Enterovirus PCR Not Detected (Not Detect.)
[2024-02-04 08:57] VITALS: PULSE 84; RESP 15; O2SAT 96
[2024-02-04] MEDS: Albuterol/Iprat 2.5/0.5MG 3 ML AMPUL.NEB INHALE (09:03)
--- NOTE | 2024-02-04 09:05 | PC.NURSE ---
pt receiving breathing treatment via RT at this time.
[2024-02-04 09:22] LABS: SARS-CoV-2 PCR Not Detected (Not Detect.)
--- NOTE | 2024-02-04 09:45 | PC.NURSE ---
repeat troponin obtained/sent to lab by tech.
[2024-02-04 10:13] LABS: Troponin-I High Sensitivity < 2.7 ng/L (<3.5-35.0)
[2024-02-04 11:04] VITALS: BP 154/76; PULSE 88; RESP 20; TEMP 36.6; O2SAT 94
[2024-02-04 11:07] VITALS: BP 154/76; PULSE 88; RESP 20; TEMP 36.6; O2SAT 94
== END 2024-02-04 11:11 | disposition home or self-care (01) ==
PROVIDERS: Physician Assistant Medical; Emergency Provider Emergency Medicine Emergency Medical Services; PCP Family Medicine
DX: R07.89 Other chest pain (principal); R06.02 Shortness of breath; R94.31 Abnormal electrocardiogram [ECG] [EKG]; R07.1 Chest pain on breathing; E11.9 Type 2 diabetes mellitus without complications; R19.7 Diarrhea, unspecified; R09.89 Other specified symptoms and signs involving the circulatory and respiratory systems; I10 Essential (primary) hypertension; Z79.899 Other long term (current) drug therapy; Z11.52 Encounter for screening for COVID-19; Z51.81 Encounter for therapeutic drug level monitoring; Z79.4 Long term (current) use of insulin
CPT/HCPCS: 36415; 71046; 71275; 80053; 83735; 84484; 85025; 85379; 87502; 87633; 87635; 93005; 94640; 96360; 99284; 99285; Q9967

== ENCOUNTER 2024-02-09 09:25 | Outpatient (AMB) | payer MEDICARE, MEDICAID, SELFPAY ==
--- NOTE | 2024-02-09 09:35 | MHC.OFFVIS ---
Vital Signs 02/09/24 09:36 Height 5 ft 7 in Weight 224 lb 2 oz BMI 35.1 BP 158/70 H Blood Pressure Location Rt brachial Position Sitting Pulse 64 Pulse Source Pulse Oximeter Pulse Oximetry (%) 94 Oxygen Delivery Method Room Air Intake Visit Reasons: [place] [facility] [place] Allergies No Known Allergies [No Known Allergies*] Allergy (Verified 02/09/24 09:41) [place] [facility] [place] [facility] [place]: Details: Doe is a pleasant 68 year old male, current smoker, with approximately 15 pyh with underlying HTN, DMII, DARCI on CPAP, h/o double bypass 2021 and recent NSTEMI s/p stent 4 weeks ago, under the care of cardiology. He was [place] [facility] [place] recent evaluation for dyspnea. He was treated with albuterol with significant improvements in symptoms. CTA performed which was negative for PE however did reveal mosaic attenuation throughout suggestive of small airways disease. He was d/c with albuterol MDI however per pt pharmacy never received. He continues to report dyspnea on exertion with dry cough. Denies chest tightness or wheezing. He denies h/o asthma. He denies h/o seasonal allergies. 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 He is under the care of [facility] sleep for DARCI maintained on CPAP x 5+ years with reportedly nightly compliance and no events. He reports sister with asthma, otherwise no pertinent family history. [facility] Medical History Obstructive sleep apnea on CPAP HTN (hypertension) Obstructive sleep apnea Diabetes FH: cholecystectomy Retinal detachment Surgical History Hx of eye surgery Hx of bladder endoscopy Hx of colonoscopy Hx of oral surgery H/O heart bypass surgery History of tonsillectomy Family History Father Coronary artery disease Hx of CABG Sister Coronary artery disease Hypertension Mother Cerebral hemorrhage Mental health problem Social History Alcohol intake: never Patient Tobacco Use Status: Current everyday Tobacco user Cigarettes Per Day: 8 Years Smoked: 6 +/- Substance Use Type: Marijuana Advance Directives Date on File: 03/15/21 service: No Current occupational status: employed Review of Systems Const Denies chills, Denies excessive sweating, Denies fever(s), Denies headache(s) and Denies night sweats Eyes Denies dry eyes, Denies irritation and Denies itchy eyes ENT Reports Normal hearing present, Denies headache(s), Denies nasal congestion, Denies nasal discharge, Denies post nasal drip and Denies sore throat Card Denies chest pain, Denies chest pain at rest, Denies chest pain with activity, Denies claudication, Denies leg edema, Denies orthopnea and Denies paroxysmal nocturnal dyspnea Resp Denies chest congestion, Denies excessive phlegm production, Denies pain on inspiration, Denies pain with cough, Denies stridor and Denies wheezing Musc Denies myalgias Neuro Reports Normal hearing present and Denies headache(s) Endo Denies excessive sweating Scottie/Lymph Denies lymphadenopathy Aller/Immun Denies itchy eyes, Denies seasonal rhinorrhea and Denies wheezing Physical Exam Vital Signs: Last Vital Signs Pulse 64 02/09/24 09:36 BP 158/70 H 02/09/24 09:36 Pulse Ox 94 02/09/24 09:36 Oxygen Delivery Method Room Air 02/09/24 09:36 BMI result Body Mass Index 35.1 Const General: cooperative, healthy appearing, comfortable, no acute distress, well developed and alert Nutritional Appearance: obese Orientation/consciousness: patient oriented x3 Limitations: no limitations HEENT Head: Yes normal to inspection, Yes normocephalic and Yes atraumatic Ears: hearing grossly normal bilaterally and external ears normal Eyes General: appearance normal, both eyes and all related structures Eyelids: Yes eyelids normal Sclerae: sclerae normal EOM: EOMs intact bilaterally Neck Neck: Yes normal visual inspection and Yes no lymphadenopathy Lymphatic: no lymphadenopathy noted Chest Chest palpation & inspection: normal inspection of the chest Resp Effort & Inspection: normal respiratory effort, able to speak in complete sentences, no audible wheezes, no cough, no stridor, not tachypneic, no tripod positioning and no use of accessory muscles Auscultation: clear to auscultation bilaterally Cardio Jugular venous distension: no JVD Rate: regular rate Rhythm: regular rhythm Skin Other: warm, dry General skin exam: no rashes or lesions noted Neuro General: patient oriented x3 Cranial nerves: Yes Normal hearing present Cognition (Neuro): normal cognition Gait exam (Neuro): Normal gait present Extrem General: Yes normal to inspection, Yes capillary refill normal, Yes no clubbing, cyanosis or edema and Yes no pedal edema Psych Appearance: grossly normal and well kempt Speech and movement: Normal speech and movement present and Clear speech present Affect: normal affect Attitude: cooperative Thought process: Normal thought process present Thought content: Normal thought content present Insight: Good insight present (Psych) Judgement: Good judgement present (Psych) Results Reviewed Results Reviewed: [address] [address] [address] Scan Report Signed Patient: Doe Bajwa MR#: [id number] : 1955 Acct:[id number] Age/Sex: 68 / M ADM Date: 02/04/24 Loc: HO.ED Attending Dr: Ordering Physician: Arianna Higginbotham Date of Service: 02/04/24 Procedure(s): CT angio chest PE protocol Accession Number(s): [id number] cc: Arianna Higginbotham; Anmol Murphy DO~ EXAMINATION: CT ANGIOGRAM CHEST CLINICAL INFORMATION: Pleuritic chest pain. COMPARISON: Chest x-ray performed earlier same day TECHNIQUE: Multiple axial images were obtained through the chest after the administration of 70 mL of Omnipaque 350 intravenous contrast. Extensive vascular post-processing including two-dimensional and three-dimensional reformatted images were created and reviewed on an independent workstation. This CT examination was performed using dose optimization techniques as appropriate, variously including the following: *Automated exposure control *Adjustment of mA and/or kV according to patient size (this includes techniques or standardized protocols for targeted exams where dose is matched to indication/reason for exam; i.e. extremities or head) *Use of iterative reconstruction technique DLP: 271 mGy-cm FINDINGS: Cardiovascular: Pulmonary arteries and branches: Normal. No defect/embolism. Heart size unremarkable. Postsurgical changes. Coronary artery calcification noted. Aorta unremarkable. Lungs and pleural spaces: Mosaic attenuation noted along the posterior dependent portion of the lungs No focal consolidation. No effusion. . Thoracic inlet normal Esophagus normal. Lymph nodes: Normal. CHEST WALL: Postsurgical changes with sternotomy wires. Otherwise unremarkable Osseous structures: Multilevel spondylosis of the dorsal spine. Upper abdomen: Unremarkable. CT/CT angio chest PE protocol IMPRESSION: 1. No evidence for pulmonary embolism. 2. Mosaic attenuation in the posterior dependent portion of the lungs. This has a broad differential diagnosis. This could reflect air trapping or small airways disease.. Pulmonary edema is unlikely given the distribution Electronically signed by: Doe Morrow MD 02/04/2024 09:39 AM EDT RP Dictated By: Doe Morrow MD Signed By: <Electronically signed by Doe Morrow MD in OV> 02/04/24 0939 DD/ 2 TD/TT: 02/04/24812 Editor Publications: [place] Assessment & Plan Assessment & Plan (1) Dyspnea on exertion: Code(s): R06.09 - Other forms of dyspnea Category: Medical (2) Emphysema of lung: Code(s): J43.9 - Emphysema, unspecified Category: Medical (3) Smoking: Code(s): F17.200 - Nicotine dependence, unspecified, uncomplicated Category: Social Hx (4) Morbid obesity: Code(s): E66.01 - Morbid (severe) obesity due to excess calories Category: Medical Plan Doe's symptoms are likely multifactorial with contribution from pulmonary and cardiac etiologies. Reviewed chest CT which revealed mosiac attenuation suggestive of small airways disease as well as mild emphysema. Will send for PFT to assess for any obstructive defect. Will send in albuterol PRN for patient to trial. He is aware if using frequently, will send in ICS/LABA. Smoking cessation discussed and patient would like to attempt to quit on his own at this time. All questions were answered and patient is in agreement of plan. Will follow up to review results or sooner if needed. Orders: Orders PFT pulmonary function test Today R06.09 - Other forms of dyspnea Medications: New albuterol sulfate 90 mcg/actuation 2 puffs inhalation Q4-6H PRN 1 ea 3RF shortness of breath or wheezing Discontinued albuterol sulfate 90 mcg/actuation Discontinued Reason: Patient Completed Course 2 inhalations inhalation Q20M PRN 1 ea 0RF shortness of breath or wheezing Coding Level of Care Code New Pt Level 4 (26334) Diagnoses Dyspnea on exertion R06.09 Emphysema of lung J43.9 Smoking F17.200 Morbid obesity E66.01
[2024-02-09 09:36] VITALS: BP 158/70; PULSE 64; O2SAT 94; BMI 35.1
== END 2024-02-09 10:08 | disposition home or self-care (01) ==
PROVIDERS: PCP Family Medicine; Referring Provider Family Medicine; Visit Provider Nurse Practitioner Family
DX: R06.09 Other forms of dyspnea (principal); J43.9 Emphysema, unspecified; F17.200 Nicotine dependence, unspecified, uncomplicated; E66.01 Morbid (severe) obesity due to excess calories
CPT/HCPCS: 99204; 99214

== ENCOUNTER → 2024-02-09 09:25 | Outpatient (BNVA) | payer MEDICARE, MEDICAID, SELFPAY | PROVIDERS: PCP Family Medicine; Referring Provider Family Medicine; Visit Provider Nurse Practitioner Family | DX: J43.9 Emphysema, unspecified (principal); G47.33 Obstructive sleep apnea (adult) (pediatric); I10 Essential (primary) hypertension; F17.210 Nicotine dependence, cigarettes, uncomplicated; R06.09 Other forms of dyspnea; E66.01 Morbid (severe) obesity due to excess calories; Z68.35 Body mass index [BMI] 35.0-35.9, adult; Z99.89 Dependence on other enabling machines and devices; Z95.1 Presence of aortocoronary bypass graft | CPT/HCPCS: 99202 ==

== ENCOUNTER 2024-03-12 06:32 | Emergency (ER) | payer MEDICARE, MEDICAID, OTHER, SELFPAY ==
--- NOTE | ~2024-03-12 | XR_ITS ---
EXAMINATION: XR CHEST CLINICAL INFORMATION: Shortness of breath COMPARISON: Chest radiograph from 02/04/2024 TECHNIQUE: 2 views of the chest were obtained. FINDINGS: Slight bibasilar atelectasis, left greater than right. Stable interstitial prominence. Hyperinflation bilateral lung keller. Flattening of the bilateral hemidiaphragms. No pneumothorax. Trachea is midline. Sternotomy wires and surgical clips. Cardiac mediastinal silhouette is not enlarged. Exaggeration of the thoracic kyphosis with multilevel degenerative changes. Soft tissues are unremarkable. XR/XR chest 2V IMPRESSION: 1. Slight bibasilar atelectasis, left greater than right. 2. Stable interstitial prominence. 3. Hyperinflation bilateral lung keller. 4. Flattening of the bilateral hemidiaphragms. Electronically signed by: Joseph Marie MD 03/12/2024 09:07 AM [facility]
[2024-03-12 06:25] VITALS: BP 132/71; PULSE 81; RESP 26; TEMP 37.1; O2SAT 94; BMI 34.9
[2024-03-12 06:33] VITALS: BP 132/71; PULSE 83; RESP 30; TEMP 37.1; O2SAT 93; O2SAT 94
--- NOTE | 2024-03-12 06:41 | ED_ITS ---
HPI - General Adult General Chief complaint: Upper Respiratory Symptoms Stated complaint: upper resp, fever, diabetic Time Seen by Provider: 03/12/24 06:33 Source: patient Mode of arrival: ambulatory Limitations: no limitations History of Present Illness ED Provider: Rose Cote PA-C HPI narrative: 68-year-old male with a PMH of T2DM, HTN, DARCI on CPAP, and [place] 12 weeks ago on clopidogrel presents the ED today with a 3 day history of difficulty breathing. Patient endorses a fever of 101.1 on 03/10, sore throat, mildly productive cough, chills and SOB. He has pain when he takes deep breathes which initially started in his right shoulder areas and radiated to his mid chest/diaphragm area. The pain does not radiate anywhere else. He was recently seen by a stucco laborer who started him on an as needed albuterol inhaler and a 5 day course of prednisone which he completed. He has a follow up in 1 week to perform testing for potential diagnosis of COPD. Patient has not take any medicine to help with his breathing or fever. Denies any sick contacts or recent travels. Patient endorses experiencing similar symptoms about 3 weeks ago that had resolved spontaneously in 2 days. Denies N/V or abd pain. Onset (ago): day(s) (3) Relieving factors: none Exacerbating factors: none Associated symptoms: cough, fever/chills and shortness of breath Treatments prior to arrival: none Related Data Home Medications ?Medication ?Instructions ?Recorded ?Confirmed aripiprazole 2 mg tablet 2 mg PO DAILY 09/02/20 01/09/24 cholecalciferol (vitamin D3) 25 25 mcg PO DAILY 03/30/21 01/09/24 mcg (1,000 unit) capsule insulin glargine 100 unit/mL (3 32 unit subcut BEDTIME 03/30/21 01/09/24 mL) subcutaneous pen (Lantus Solostar U-100 Insulin) metformin 500 mg tablet,extended 1,000 mg PO BID 03/30/21 01/09/24 release 24 hr omeprazole 20 mg capsule,delayed 20 mg PO BID@0630,1630 03/30/21 01/09/24 release alpha lipoic acid 300 mg capsule 600 mg PO DAILY 06/09/22 01/09/24 cyanocobalamin (vitamin B-12) 1,000 mcg PO DAILY 06/09/22 01/09/24 1,000 mcg tablet,extended release omega-3 fatty acids-fish oil 360 1 cap PO DAILY 06/09/22 01/09/24 mg-1,200 mg capsule (Fish Oil) furosemide 20 mg tablet 20 mg PO BID 12/28/23 01/09/24 atorvastatin 80 mg tablet 80 mg PO QPM 01/09/24 01/09/24 fenofibrate micronized 200 mg 200 mg PO DAILY 01/09/24 01/09/24 capsule ferrous sulfate 325 mg (65 mg 325 mg PO DAILY 01/09/24 01/09/24 iron) tablet,delayed release fluoxetine 20 mg capsule 40 mg PO DAILY 01/09/24 01/09/24 glipizide 10 mg tablet 10 mg PO BID 01/09/24 01/09/24 Previous Rx's ?Medication ?Instructions ?Recorded amlodipine 2.5 mg tablet 2.5 mg PO DAILY #1 tab 12/29/23 aspirin 81 mg tablet,delayed 81 mg PO DAILY #1 tab 12/29/23 release clopidogrel 75 mg tablet 75 mg PO DAILY #1 tab 12/29/23 metoprolol succinate 25 mg 25 mg PO DAILY #90 tabs 01/09/24 tablet,extended release 24 hr prednisone 20 mg tablet 20 mg PO DAILY 5 days #5 tabs 02/04/24 albuterol sulfate 90 mcg/actuation 2 puff inhalation Q4-6H PRN 02/09/24 aerosol inhaler shortness of breath or wheezing #1 ea amoxicillin 875 mg-potassium 1 tab PO BID 10 days #20 tabs 03/12/24 clavulanate 125 mg tablet doxycycline hyclate 100 mg tablet 100 mg PO BID 7 days #14 tabs 03/12/24 prednisone 20 mg tablet 20 mg PO DAILY 12 days #26 tabs 03/12/24 Allergies Allergy/AdvReac Type Severity Reaction Status Date / Time No Known Allergies Allergy Verified 03/12/24 06:27 [No Known Allergies*] Review of Systems 2 Constitutional: Constitutional: Reports chills and Reports fever(s) Eyes: Eyes: Reports no additional eye complaints, Denies blurry vision, Denies change in vision, Denies diplopia, Denies eye discharge, Denies loss of vision and Denies eye pain ENT: Denies dizziness Cardiovascular: Cardiovascular: Reports no additional cardiovascular complaints, Reports chest pain (right shoulder to mid chest ), Denies lightheadedness, Denies Loss of Consciousness, Reports dyspnea and Reports dyspnea on exertion Respiratory: Respiratory: Reports no additional respiratory complaints, Reports cough (productive ), Reports dyspnea and Reports dyspnea on exertion Gastrointestinal: Gastrointestinal: Reports no additional gastrointestinal complaints, Denies abdominal pain, Denies melena, Denies hematochezia, Denies change in bowel habits and Denies change in stool character Genitourinary: Genitourinary: Reports no additional male genitourinary complaints, Denies hematuria, Denies oliguria, Denies difficulty urinating, Denies dysuria, Denies urinary frequency, Denies urinary hesitancy, Denies urinary incontinence and Denies urinary urgency Musculoskeletal: Musculoskeletal: Reports no additional musculoskeletal complaints, Denies back pain, Denies numbness and Denies tingling Neurologic: Denies dizziness, Denies loss of vision, Denies numbness and Denies tingling Psychiatric: Psychiatric: Reports no additional psychiatric complaints Endocrine: Endocrine: Reports no additional endocrine complaints Hematologic/Lymphatic: Hematologic/Lymphatic: Reports no additional hematologic/lymphatic complaints Allergic/Immunologic: Allergic/Immunologic: Reports no additional allergic/immunologic complaints PMF Past Medical History Attestation statement: The following information was validated with the patient. Source: old records reviewed and nursing notes reviewed Medical History Obstructive sleep apnea on CPAP HTN (hypertension) Obstructive sleep apnea Diabetes FH: cholecystectomy Retinal detachment Surgical History Hx of eye surgery Hx of bladder endoscopy Hx of colonoscopy Hx of oral surgery H/O heart bypass surgery History of tonsillectomy Family History Family History Father Coronary artery disease Hx of CABG Sister Coronary artery disease Hypertension Mother Cerebral hemorrhage Mental health problem Social History Social History Alcohol intake: never Patient Tobacco Use Status: Current everyday Tobacco user Cigarettes Per Day: 8 Years Smoked: 6 +/- Smoked in Last 30 Days: Yes Substance Use Type: Marijuana Advance Directives: Yes Advance Directives on File: Yes Advance Directives Date on File: 03/15/21 Do you have a plan to hurt others: No Plan service: No Current occupational status: employed Physical Exam ED Vital Signs: Vital Signs - 24 hr 03/12/24 06:25 03/12/24 06:33 03/12/24 06:33 Temperature 98.7 F 98.7 F Pulse Rate 81 83 Respiratory Rate 26 H 30 H Blood Pressure 132/71 132/71 Pulse Oximetry 94 93 94 Oxygen Delivery Method Room Air Room Air Room Air 03/12/24 07:12 03/12/24 07:44 03/12/24 09:46 Temperature 99.1 F 98.7 F Pulse Rate 77 73 73 Respiratory Rate 23 H 16 18 Blood Pressure 138/71 140/83 H Pulse Oximetry 92 95 Oxygen Delivery Method Room Air Room Air BMI result Body Mass Index 34.9 Const General: cooperative, no acute distress, alert and awake Nutritional Appearance: well nourished Orientation/consciousness: patient oriented x3 Limitations: no limitations HENMT Head: Yes normal to inspection and Yes atraumatic Ears: hearing grossly normal bilaterally and external ears normal General nose exam: Normal external nose present, no nasal discharge noted and no epistaxis Face and sinus: Yes normal facial exam, No abrasion and No laceration Mouth: Normal oral and palatal mucosa present, no drooling and no muffled voice Eyes General: appearance normal, both eyes and all related structures Periorbital: periorbital findings normal Eyelids: Yes eyelids normal Conjunctivae: conjunctivae normal Pupils: Equal, round and reactive pupils present EOM: EOMs intact bilaterally Neck Neck: Yes normal visual inspection, Yes full ROM and Yes no lymphadenopathy Chest Chest palpation & inspection: normal inspection of the chest and tenderness (mil tenderness to palpation ) sternum Resp Effort & Inspection: normal respiratory effort, able to speak in complete sentences and no audible wheezes Auscultation: no rales, no rhonchi and no wheezes Cardio Rate: regular rate Rhythm: regular rhythm Heart sounds: no gallops, no murmurs and no rubs GI Inspection: Yes normal to inspection Neuro General: patient oriented x3 and moves all extremities Cranial nerves: Yes Equal, round and reactive pupils present Cognition (Neuro): normal cognition Extrem General: Yes normal to inspection, Yes full ROM and Yes capillary refill normal Psych Appearance: grossly normal Mental Status: mental status grossly normal Affect: normal affect Attitude: cooperative Thought process: Normal thought process present Thought content: Normal thought content present Insight: Good insight present (Psych) Medications Administered Discontinued Medications Generic Name Dose Route Start Last Admin Trade Name Wesley PRN Reason Stop Dose Admin Albuterol Sulfate 2.5 mg/ 0 mg 03/12/24 07:41 03/12/24 07:43 Albuterol/Ipratropium 3 ml INHALE 03/12/24 07:42 1 dose ONCE ONE Administration Medical Decision Making Medical Decision Making [facility] Narrative: Patient is a 68 year old assigned male at with a history of COPD, NSTEMI, DM, HTN, and emphysema presenting to the emergency department today with a cough, fever, chills, SOB, and intermittent chest pain. Patient's physical exam was unremarkable. Patient's blood work was unremarkable. Patient's EKG was unremarkable. Patient's chest x-ray showed no acute process. I explained my physical exam findings as well as all test results to the patient. I answered all questions asked by the patient. Given the patient's clinical presentation and work up, will treat as COPD exacerbation and cover with ABX and PO steroids. I stressed the importance of the patient taking his medication as directed (either prescribed or as the over the counter packaging recommends). I stressed the importance of the patient following up with his primary care provider and his stucco laborer. I stressed the importance of the patient returning to the emergency department immediately if his symptoms were to worsen or if he were to develop any dizziness, shortness of breath, difficulty breathing, chest pain, blurry vision, loss of vision, nausea, vomiting, abdominal pain, fever, chills, back pain, or any other complaints. Patient verbalized agreement and understanding with this treatment plan and discharge. Differential Diagnosis Differential Diagnoses: The differential diagnosis associated with the presentation includes SOB Cough URI COPD exacerbation PNA COVID-19 Influenza RSV Admission/Observation Consideration of admission/observation: Escalation of care including admission/observation considered Patient would have been admitted to the hospital had his work up had any findings where hospital admission was appropriate and his clinical presentation warranted hospital admission. Lab Data [facility] Lab Attestation statement: I reviewed the patient's lab results. My interpretation of these results are in the [facility] Rationale portion of this note. 03/12/24 07:26 03/12/24 07:26 Labs: Lab Results 03/12/24 Range/Units 07:26 WBC 12.0 H (4.8-10.8) X10*3/uL RBC 4.69 (4.60-5.80) X10*6/uL Hgb 15.3 (14.0-18.0) g/dl Hct 43.9 (42.0-52.0) % MCV 93.6 (80.0-98.0) fL MCH 32.6 (27.0-33.0) pg MCHC 34.9 (31.0-36.0) g/dl RDW 12.7 (11.0-16.0) % Plt Count 235 (160-400) X10*3/uL MPV 9.6 (9.4-12.4) fL Immature Gran % (Auto) 0.6 H (0.0-0.4) % Neut % (Auto) 74.8 H (45-73) % Lymph % (Auto) 14.3 L (20-40) % [place] % (Auto) 8.2 (2-11) % Eos % (Auto) 1.6 (0-4) % Baso % (Auto) 0.5 (0-2) % Lymph # (Auto) 1.7 (1.2-4.9) X10*3/uL [place] # (Auto) 1.0 (0.1-1.2) X10*3/uL Eos # (Auto) 0.2 (0.0-0.4) X10*3/uL Baso # (Auto) 0.1 (0.0-0.2) X10*3/uL Abs Immat Gran (auto) 0.07 H (0.00-0.03) X10*3/uL Absolute Neuts (auto) 9.0 H (2.0-8.3) x10*3/uL Absolute Nucleated RBC 0.000 (0.0-0.012) X10*3/uL Nucleated RBC % (auto) 0.0 (0.0-0.2) /100WBC PT 12.2 (10.9-12.4) SEC INR 1.0 (0.9-1.1) APTT 31.3 (26.0-36.8) SEC Sodium 136 (135-145) mmol/L Potassium 3.7 (3.3-5.1) mmol/L Chloride 101 (96-108) mmol/L Carbon Dioxide 23 (22-29) mmol/L Anion Gap 16 (12-20) BUN 10 (9-16) mg/dL Creatinine 1.12 (0.5-1.4) mg/dL Estim Creat Clear Calc 71.5 Estimated GFR > 60 Random Glucose 262 H (60-115) mg/dL Calcium 10.1 (8.4-10.2) mg/dL Magnesium 1.6 (1.6-2.6) mg/dL Total Bilirubin 0.7 (0.0-1.0) mg/dL AST 17 (5-37) U/L ALT 17 (0-40) U/L Alkaline Phosphatase 51 (39-117) U/L Troponin I High Sens 2.7 (<3.5-35.0) ng/L Total Protein 7.3 (6.5-8.0) g/dL Albumin 3.9 (3.5-5.0) g/dL Influenza Type A (PCR) NEGATIVE (Negative) Influenza Type B (PCR) NEGATIVE (Negative) RSV RNA Qual (PCR) NEGATIVE (Negative) SARS-CoV-2 RNA (RT-PCR) NEGATIVE (Negative) S. pyogenes GrpA SOHAM Negative (Negative) Independent Interpretation I performed an independent interpretation of an: EKG and Plain X-Ray Interpretation: My interpretation is in agreement with the radiologist's impression of this imaging study. L EXAMINATION: XR CHEST CLINICAL INFORMATION: Shortness of breath COMPARISON: Chest radiograph from 02/04/2024 TECHNIQUE: 2 views of the chest were obtained. FINDINGS: Slight bibasilar atelectasis, left greater than right. Stable interstitial prominence. Hyperinflation bilateral lung keller. Flattening of the bilateral hemidiaphragms. No pneumothorax. Trachea is midline. Sternotomy wires and surgical clips. Cardiac mediastinal silhouette is not enlarged. Exaggeration of the thoracic kyphosis with multilevel degenerative changes. Soft tissues are unremarkable. XR/XR chest 2V IMPRESSION: 1. Slight bibasilar atelectasis, left greater than right. 2. Stable interstitial prominence. 3. Hyperinflation bilateral lung keller. 4. Flattening of the bilateral hemidiaphragms. Electronically signed by: Joseph Marie MD 03/12/2024 09:07 AM [facility] Dictated By: Joseph Marie MD Signed By: Electronically signed by Joseph Marie MD 03/12/24 0907 Vent. Rate: 074 BPM Atrial Rate: 074 BPM P-R Int: 150 ms QRS Dur: 086 ms QT Int: 388 ms P-R-T Axes: 031 080 -50 degrees QTc Int: 430 ms Normal sinus rhythm Nonspecific ST and T wave abnormality When compared with ECG of 04-FEB-2024 05:30, Nonspecific T wave abnormality has replaced inverted T waves in Inferior leads Inverted T waves have replaced nonspecific T wave abnormality in Anteriorleads DD/ [id number] Radiology Impression Discussion of test interpretation with radiology: I have reviewed the radiologist's reading. Prescription Management I considered prescription management with: Antibiotic (patient prescribed antibiotics for COPD exacerbation) Discharge Plan Discharge Clinical Impression: COPD exacerbation Patient Disposition: Home, Self-Care Instructions: COPD (Chronic Obstructive Pulmonary Disease) (DC) Additional Instructions: Take your antibiotic as steroid as prescribed. Use your inhaler as directed. Follow up with your primary care provider. Return to the emergency department immediately if your symptoms worsen or if you develop any dizziness, shortness of breath, difficulty breathing, chest pain, blurry vision, loss of vision, nausea, vomiting, abdominal pain, fever, chills, back pain, or any other complaints. Prescriptions: New prednisone 20 mg tablet 20 mg PO DAILY 12 Days Qty: 26 0RF Rx Instructions: Take 3 tablets for 5 days THEN; Take 2 tablets for 4 days THEN; Take 1 tablet for 3 days doxycycline hyclate 100 mg tablet 100 mg PO BID 7 Days Qty: 14 0RF amoxicillin-pot clavulanate 875-125 mg tablet 1 tab PO BID 10 Days Qty: 20 0RF No Action furosemide 20 mg tablet 20 mg PO BID amlodipine 2.5 mg Tablet 2.5 mg PO DAILY Qty: 1 0RF Protocol: Hold for SBP< HOLD for SBP < : 90 clopidogrel 75 mg Tablet 75 mg PO DAILY Qty: 1 0RF aspirin 81 mg Tablet,Delayed Release (Dr/Ec) 81 mg PO DAILY Qty: 1 0RF fluoxetine 20 mg capsule 40 mg PO DAILY glipizide 10 mg tablet 10 mg PO BID prednisone 20 mg tablet 20 mg PO DAILY 5 Days Qty: 5 0RF aripiprazole 2 mg tablet 2 mg PO DAILY Lantus Solostar U-100 Insulin 100 unit/mL (3 mL) insulin pen 32 unit subcut BEDTIME metformin 500 mg tablet extended release 24 hr 1,000 mg PO BID omeprazole 20 mg capsule,delayed release(DR/EC) 20 mg PO BID@0630,1630 cholecalciferol (vitamin D3) 25 mcg (1,000 unit) capsule 25 mcg PO DAILY alpha lipoic acid 300 mg capsule 600 mg PO DAILY cyanocobalamin (vitamin B-12) 1,000 mcg tablet extended release 1,000 mcg PO DAILY omega-3 fatty acids-fish oil [Fish Oil] 360-1,200 mg capsule 1 cap PO DAILY fenofibrate micronized 200 mg capsule 200 mg PO DAILY ferrous sulfate 325 mg (65 mg iron) tablet,delayed release (DR/EC) 325 mg PO DAILY metoprolol succinate 25 mg tablet extended release 24 hr 25 mg PO DAILY Qty: 90 3RF Protocol: Hold for SBP/HR < HOLD for SBP < : 90 HOLD for HR < : 60 atorvastatin 80 mg tablet 80 mg PO QPM albuterol sulfate 90 mcg/actuation HFA aerosol inhaler 2 puff inhalation Q4-6H PRN (Reason: shortness of breath or wheezing) Qty: 1 3RF Referrals: Anmol Murphy DO [Primary Care Provider] - Interventions: ED Discharge Assessment Last Done: 03/12/24 09:46 Discharge Date/Time: 03/12/24 09:48 Print Language: Lithuanian
--- NOTE | 2024-03-12 06:42 | ECG_ITS ---
Test Reason : SOB Blood Pressure : / mmHG Vent. Rate : 074 BPM Atrial Rate : 074 BPM P-R Int : 150 ms QRS Dur : 086 ms QT Int : 388 ms P-R-T Axes : 031 080 -50 degrees QTc Int : 430 ms Normal sinus rhythm Nonspecific ST and T wave abnormality Abnormal ECG When compared with ECG of 04-FEB-2024 05:30, Nonspecific T wave abnormality has replaced inverted T waves in Inferior leads Inverted T waves have replaced nonspecific T wave abnormality in Anterior leads Referred By: Rose Cote Electronically Signed By:MARVIN GREEN MD
[2024-03-12 07:12] VITALS: BP 138/71; PULSE 77; RESP 23; TEMP 37.3; O2SAT 92
[2024-03-12 07:32] LABS: MANUAL DIFF FLAG NO
[2024-03-12 07:37] LABS: Basophils Absolute Auto 0.1 X10*3/uL (0.0-0.2); Basophils Percent Auto 0.5 % (0-2); Eosinophils Absolute Auto 0.2 X10*3/uL (0.0-0.4); Eosinophils Percent Auto 1.6 % (0-4); Hematocrit 43.9 % (42.0-52.0); Hemoglobin 15.3 g/dl (14.0-18.0); Imm Gran Abs Auto 0.07 X10*3/uL (0.00-0.03); Imm Gran Pct Auto 0.6 % (0.0-0.4); Lymphocytes Absolute Auto 1.7 X10*3/uL (1.2-4.9); Lymphocytes Percent Auto 14.3 % (20-40); Mean Corpuscular HGB Conc 34.9 g/dl (31.0-36.0); Mean Corpuscular Hemoglobin 32.6 pg (27.0-33.0); Mean Corpuscular Volume 93.6 fL (80.0-98.0); Mean Platelet Volume 9.6 fL (9.4-12.4); Monocytes Percent Auto 8.2 % (2-11); Neutrophils Percent Auto 74.8 % (45-73); Platelet Count 235 X10*3/uL (160-400); Red Blood Count 4.69 X10*6/uL (4.60-5.80); Red Cell Distribution Width 12.7 % (11.0-16.0)
[2024-03-12 07:40] LABS: Prothrombin Time 12.2 SEC (10.9-12.4)
[2024-03-12 07:42] LABS: IDNOW Serial# 08D9AD1C; Strep A Nucleic Acid Negative (Negative)
[2024-03-12 07:43] LABS: Partial Thromboplastin Time 31.3 SEC (26.0-36.8)
[2024-03-12] MEDS: Albuterol Sulfate 2.5 MG, Albuterol/Iprat 2.5/0.5MG 3 ML 3 ML INHALE (07:43)
[2024-03-12 07:44] VITALS: PULSE 73; RESP 16; O2SAT 94
[2024-03-12 08:02] LABS: Alanine Aminotransferase 17 U/L (0-40); Albumin Level 3.9 g/dL (3.5-5.0); Anion Gap 16 (12-20); Aspartate Amino Transferase 17 U/L (5-37); Bilirubin Total 0.7 mg/dL (0.0-1.0); Blood Urea Nitrogen 10 mg/dL (9-16); Calcium 10.1 mg/dL (8.4-10.2); Carbon Dioxide 23 mmol/L (22-29); Chloride 101 mmol/L (96-108); Creatinine Clr Calc Pharmacy 71.5; Estimated Glomerular Filt Rate > 60; Glucose Random 262 mg/dL (60-115); Magnesium 1.6 mg/dL (1.6-2.6); Potassium 3.7 mmol/L (3.3-5.1); Sodium 136 mmol/L (135-145); Total Protein 7.3 g/dL (6.5-8.0)
[2024-03-12 08:03] LABS: Troponin-I High Sensitivity 2.7 ng/L (<3.5-35.0)
[2024-03-12 08:24] LABS: Alkaline Phosphatase 51 U/L (39-117)
[2024-03-12 08:54] LABS: Influenza A PCR NEGATIVE (Negative); Influenza B PCR NEGATIVE (Negative); Resp Syncy Virus RNA Qual PCR NEGATIVE (Negative); SARS COV2 PCR INHOUSE NEGATIVE (Negative)
[2024-03-12 09:46] VITALS: BP 140/83; PULSE 73; RESP 18; TEMP 37.1; O2SAT 95
== END 2024-03-12 09:48 | disposition home or self-care (01) ==
PROVIDERS: Physician Assistant Medical; Emergency Provider Emergency Medicine; PCP Family Medicine
DX: J44.1 Chronic obstructive pulmonary disease with (acute) exacerbation (principal); R06.02 Shortness of breath; I25.2 Old myocardial infarction; R94.31 Abnormal electrocardiogram [ECG] [EKG]; I10 Essential (primary) hypertension; R05.9 Cough, unspecified; E11.9 Type 2 diabetes mellitus without complications; Z03.818 Encounter for observation for suspected exposure to other biological agents ruled out; Z79.899 Other long term (current) drug therapy; Z79.4 Long term (current) use of insulin; Z11.52 Encounter for screening for COVID-19
CPT/HCPCS: 0241U; 36415; 71046; 80053; 83735; 84484; 85025; 85610; 85730; 87651; 93005; 94640; 99284; 99285

== ENCOUNTER → 2024-03-12 06:42 | Outpatient (BNV) | payer MEDICARE, MEDICAID, SELFPAY | PROVIDERS: Emergency Provider Emergency Medicine; PCP Family Medicine; Visit Provider Internal Medicine Cardiovascular Disease | DX: R94.31 Abnormal electrocardiogram [ECG] [EKG] (principal) | CPT/HCPCS: 93010 ==

== ENCOUNTER 2024-04-11 11:05 | Outpatient (AMB) | payer MEDICARE, MEDICAID, SELFPAY ==
--- NOTE | 2024-04-11 11:07 | MHC.OFFVIS ---
Vital Signs 04/11/24 11:08 Height 5 ft 7 in Weight 224 lb 6.889 oz BMI 35.1 BP 126/58 L Blood Pressure Location Lt brachial Position Sitting Pulse 82 Pulse Source Pulse Oximeter Intake Visit Reasons: 3 mth fu Vascular Tech Required: No Accompanied by: Self / Same As Patient Allergies No Known Allergies [No Known Allergies*] Allergy (Verified 03/12/24 06:27) Medication List - Last Reconciled 04/11/24 by Kameron Lyn MD albuterol sulfate 90 mcg/actuation 2 puffs inhalation Q4-6H PRN alpha lipoic acid 600 mg PO DAILY amlodipine 2.5 mg See Protocol PO DAILY aripiprazole 2 mg PO DAILY aspirin 81 mg PO DAILY atorvastatin 80 mg PO QPM cholecalciferol (vitamin D3) 25 mcg PO DAILY clopidogrel 75 mg PO DAILY cyanocobalamin (vitamin B-12) ER 1,000 mcg PO DAILY fenofibrate micronized 200 mg PO DAILY ferrous sulfate 325 mg PO DAILY fluoxetine 40 mg PO DAILY furosemide 20 mg PO BID glipizide 10 mg PO BID insulin glargine (Lantus Solostar U-100 Insulin) 32 units subcut BEDTIME metformin ER 1,000 mg PO BID metoprolol succinate ER 25 mg See Protocol PO DAILY omega-3 fatty acids-fish oil 360-1,200 mg (Fish Oil) 1 cap PO DAILY omeprazole 20 mg PO BID@0630,1630 HPI Comments Details: Doe returns for follow-up regarding coronary disease and bypass surgery. In December 2023, had NSTEMI and underwent cardiac catheterization/right coronary artery stenting. He states he feels good. No cardiac symptoms like angina. Multiple cardiovascular risk factors including morbid obesity, diabetes, hypertension, dyslipidemia, smoking, as well as obstructive sleep apnea. [facility] Medical History (Updated 03/13/24 @ 00:02 by Blanca Magana) Obstructive sleep apnea on CPAP HTN (hypertension) Obstructive sleep apnea Diabetes FH: cholecystectomy Retinal detachment Surgical History Presence of coronary angioplasty implant and graft Hx of eye surgery Hx of bladder endoscopy Hx of colonoscopy Hx of oral surgery H/O heart bypass surgery History of tonsillectomy Family History Father Coronary artery disease Hx of CABG Sister Coronary artery disease Hypertension Mother Cerebral hemorrhage Mental health problem Social History Alcohol intake: never Patient Tobacco Use Status: Current everyday Tobacco user Cigarettes Per Day: 8 Years Smoked: 6 +/- Substance Use Type: Marijuana Advance Directives Date on File: 03/15/21 service: No Current occupational status: employed Review of Systems Const Denies chills, Denies fatigue, Denies fever(s), Denies weight gain and Denies weight loss ENT Denies dizziness Card Denies chest pain, Denies leg edema, Denies lightheadedness, Denies palpitations, Denies dyspnea on exertion, Denies orthopnea and Denies other Resp Denies cough and Denies dyspnea on exertion GI Denies hematochezia and Denies change in stool character Musc Denies abnormal gait, Denies muscle weakness, Denies numbness, Denies radiating pain into limb and Denies tingling Neuro Denies abnormal gait, Denies dizziness, Denies numbness and Denies tingling Endo Denies fatigue and Denies palpitations Physical Exam Vital Signs: Last Vital Signs Pulse 82 04/11/24 11:08 BP 126/58 L 04/11/24 11:08 BMI result Body Mass Index 35.1 Const General: comfortable and no acute distress Orientation/consciousness: patient oriented x3 HEENT Other: Unremarkable Head: Yes normal to inspection Neck Neck: Yes normal visual inspection Chest Chest palpation & inspection: normal inspection of the chest Resp Auscultation: clear to auscultation bilaterally Cardio Palpation: normal PMI Heart sounds: S1 normal heart sound present, S2 normal heart sound present, no gallops, no murmurs and no rubs GI Palpation (GI): Soft to palpation Back/Spine/Pelvis Other: unremarkable Skin General skin exam: no rashes or lesions noted Neuro General: patient oriented x3 Extrem General: Yes normal to inspection Psych Mental Status: mental status grossly normal Assessment & Plan Assessment & Plan (1) Atherosclerotic cardiovascular disease: Code(s): I25.10 - Atherosclerotic heart disease of [place] coronary artery without angina pectoris Category: Medical Plan: Status post CABG. In the most recent catheterization from 12/2023, proximal RCA occlusion with thrombus and thought to be the culprit for NSTEMI, status post PCI. Otherwise, patent HUSAIN to LAD and patent radial graft to OM. Severe [place] disease in left main and LAD. Continue aspirin indefinitely. We may choose to also continue Plavix long-term but at least for 1 year to start with. Continue high-dose statins. LDL 47 mg/dL. Triglycerides 246 mg/dL. Preoperative carotid ultrasound without any significant stenosis. (2) Type 2 diabetes mellitus with unspecified complications: Code(s): E11.8 - Type 2 diabetes mellitus with unspecified complications Category: Medical Plan: Meds include insulin, glipizide, metformin. Per endocrine note, hemoglobin A1c is 8.1%. (3) Essential hypertension: Code(s): I10 - Essential (primary) hypertension Category: Medical Plan: Stable. No changes. (4) Obstructive sleep apnea on CPAP: Code(s): G47.33 - Obstructive sleep apnea (adult) (pediatric); Z99.89 - Dependence on other enabling machines and devices Category: Medical Plan: Continue CPAP. (5) Morbid obesity: Code(s): E66.01 - Morbid (severe) obesity due to excess calories Category: Medical Plan: We have discussed about his weight numerous times. This is a big source of lot of his health issues. (6) Smoking: Code(s): F17.200 - Nicotine dependence, unspecified, uncomplicated Category: Social Hx Plan: Have discussed in the past but again discussed today. He must stop smoking as there is a high risk of recurrent cardiovascular events and he states he understands the issue. Hopefully, he will try. Coding Level of Care Code Est Pt Level 4 (15153) Diagnoses Atherosclerotic cardiovascular disease I25.10 Type 2 diabetes mellitus with unspecified complications E11.8 Essential hypertension I10 Obstructive sleep apnea on CPAP G47.33; Z99.89 Morbid obesity E66.01 Smoking F17.200
[2024-04-11 11:08] VITALS: BP 126/58; PULSE 82; BMI 35.1
--- OUTSIDE RECORDS SUMMARY | 2024-04-17 01:49 | XMS_ITS | Continuity of Care Document ---
Author Organization [facility] Address [address] [place] [address]- Care Team Providers Care Information Systems Security Specialist Name Role Phone Anmol Murphy DO Primary Care Physician Encounter [facility] Date(s): 03/07/24 - 04/06/24 [facility] [address] [place] [address]- Encounter Type: Triage Allergies, Adverse Reactions, Alerts No Known Allergies Immunizations Given and Recorded Vaccine Date Status Refusal Reason RSV vaccine, preF A-preF B, recombinant 03/03/23 R ecorded pneumococcal 13-valent vaccine 1 01/25/23 Recorded SARS-CoV-2(COVID-19)mRNA-LNP vac([id number]) 01/25/23 Recorded pneumococcal 20-valent conjugate vaccine 2 01/25/23 Recorded influenza virus vaccine, inactivated 01/13/23 Jose rded influenza virus vaccine, inactivated 03/23/22 Jose rded influenza virus vaccine, inactivated 02/26/22 Jose rded influenza virus vaccine, inactivated 01/15/21 Jose rded influenza virus vaccine, inactivated 01/31/20 Jose rded influenza virus vaccine, inactivated 04/01/19 Jose rded influenza virus vaccine, inactivated 03/15/18 Jose rded [id number] 12y+ bivalent booster vax 04/15/22 Recorded [id number] bivalent booster vax 01/13/22 Recorded SARS-CoV-2 (COVID-19) mRNA-1273 vaccine 03/09/21 R ecorded SARS-CoV-2 (COVID-19) mRNA-1273 vaccine 08/26/20 R ecorded SARS-CoV-2 (COVID-19) mRNA-1273 vaccine 07/29/20 R ecorded 1Result Comment: Unit: Unknown Route: Intramuscular Drapery And Upholstery Measurer: Hostel Rocket 2Result Comment: [facility] Albuterol (Eqv-ProAir HFA) 90 mcg/inh inhalation aerosol 2 puffs, Inhalation, Every 6 hours, PRN Wheezing/Shortness of Breath, # 1 each, 0 Refills, Maintenance, 05/03/22 11:27:00 AM EST, [facility]- , Partial fill upon patient request ifthe prescription is for a schedule II opioid drug., 2 puffs Inhalation Every 6 hours,x14 days,PRN:Wheezing/Shortness of Breath, 170, cm, 04/13/22 15:30:00 EST, Height, 107, kg, 03/18/21 16:15:00 EST,Dry Weight Start Date: 05/03/22 Stop Date: 05/17/22 Status: Ordered Quantity: 1.0 Unit: each Repeat number: 1 alpha-lipoic acid 300 mg oral capsule 1 capsule = 300 mg, By Mouth, Daily, 0 Refills, Maintenance, 02/03/23 9:27:00 AM EDT, Partial fill upon patient request if the prescription is for a schedule II opioid drug. Start Date: 02/03/23 Status: Ordered Repeat number: 1 ARIPiprazole 2 mg oral tablet 2 mg, 1, tablet, By Mouth, Daily, # 30 tablet, Refills 0, Maintenance, 03/15/21 4:37:00 PM EST, Partial fill upon patient request if the prescription is for a schedule II opioid drug. Start Date: 03/15/21 Status: Ordered Quantity: 30.0 Unit: tablet Repeat number: 1 aspirin 81 mg oral delayed release tablet 81 mg, 1, tablet, By Mouth, Daily, # 30 tablet, Refills 0, Maintenance, 02/11/20 1:26:00 PM EDT Start Date: 02/11/20 Status: Ordered Quantity: 30.0 Unit: tablet Repeat number: 1 atorvastatin 80 mg oral tablet 1 tablet = 80 mg, By Mouth, Daily at bedtime, # 30 tablet, 0 Refills, Maintenance, 03/23/21 12:46:00 PM EST, Tablet, [facility] 3, Partial fill upon patient request if the prescription isfor a schedule II opioid drug., 170, cm, 03/23/21 11:43:00 EST, Height, 107, kg, 03/18/21 16:15:00 EST, Dry Weight Start Date: 03/23/21 Status: Ordered Quantity: 30.0 Unit: tablet Repeat number: 1 B-12 TR 1,000MCG TABLETS B-12 TR 1,000MCG TABLETS, 1, tablet, By Mouth, Daily, # 30 tablet, 0 Refills, 170, cm, 09/29/21 15:18:00 EDT, Height, 107, kg, 03/18/21 16:15:00 EST, Dry Weight Start Date: 11/28/21 Status: Ordered Quantity: 30.0 Unit: tablet Repeat number: 1 B-D PEN NDL MINI [id number](07/21)PRPL B-D PEN NDL MINI [id number](07/21)PRPL, See Instructions, # 100 each, 7 Refills, TO BE USED DAILY WITH LANTUS E11.9, 170, cm, 02/03/23 9:31:00 EDT, Height, 107, kg, 03/18/21 16:15:00 EST, Dry Weight Start Date: 02/24/23 Status: Ordered Quantity: 100.0 Unit: each Repeat number: 8 clopidogrel 75 mg oral tablet 75 mg, By Mouth, Daily, # 30 tablet, Refills 11, Tot. Refills 11, Maintenance, 12/30/23 10:57:00 AM EDT, Route to Pharmacy Electronically, [facility], Partial fill upon patient request if the prescription is for a schedule II opioid drug., 169, cm, 12/30/23 10:03:00 EDT, Height, 101, kg, 12/29/23 10:42:00 EDT, Dry Weight Start Date: 12/30/23 Status: Ordered Quantity: 30.0 Unit: tablet Repeat number: 12 CPAP Machine See Instructions, # 1 each, Maintenance, AutoCPAP 10-16 cm H20, use Daily when sleeping, 05/06/22 2:00:00 PM EST, Supply Start Date: 05/06/22 Status: Ordered Quantity: 1.0 Unit: each Repeat number: 1 DexCom G7 Sensor DexCom G7 Sensor, See Instructions, # 3 each, Refills 11, Tot. Refills 11, Maintenance, Use as directed for DM to check blood glucose 4-5 times per day E 11.9 change sensor every 10 days, 03/05/23 2:13:00 PM EDT, Supply, 170, cm, 02/28/23 15:26:00 EDT, Height, 107, kg, 03/18/21 16:15:00 EST, Dry Weight Start Date: 03/05/23 Status: Ordered Quantity: 3.0 Unit: each Repeat number: 12 Fish Oil 1200 mg oral capsule 1 capsule = 1,200 mg, By Mouth, 3 times a day, 0 Refills, Maintenance, 02/03/23 9:26:00 AM EDT, Partial fill upon patient request if the prescription is for a schedule II opioid drug. Start Date: 02/03/23 Status: Ordered Repeat number: 1 FLUoxetine 40 mg oral capsule 1 capsule = 40 mg, By Mouth, Daily, # 30 capsule, 0 Refills, Maintenance, 03/15/21 4:38:00 PM EST, Capsule, Partial fill upon patient request if the prescription is for a schedule II opioid drug. Start Date: 03/15/21 Status: Ordered Quantity: 30.0 Unit: capsule Repeat number: 1 glipiZIDE 10 mg oral tablet 1 tablet, By Mouth, Daily, # 90 tablet, 3 Refills, Maintenance, 03/27/24 12:42:00 PM EST, [facility], 169, cm, 03/20/24 8:22:00 EST, Height, 101, kg, 12/29/23 10:42:00 EDT, Dry Weight Start Date: 03/27/24 Status: Ordered Quantity: 90.0 Unit: tablet Repeat number: 1 Lantus Solostar Pen 100 units/mL subcutaneous solution = 32 units, Subcutaneous Injection, Daily, # 30 mL, 3 Refills, Maintenance, 11/07/22 2:05:00 PM EDT, [id number], Partial fill upon patient request if the prescription is for a scheduleII opioid drug., 170, cm, 04/13/22 15:30:00 EST, Height, 107, kg, 03/18/21 16:15:00 EST, Dry Weight Start Date: 11/07/22 Status: Ordered Quantity: 30.0 Unit: mL Repeat number: 4 Lasix 40 mg oral tablet 40 mg, 1, tablet, By Mouth, Daily, # 60 tablet, Refills 0, Tot. Refills 0, Maintenance, 04/19/21 2:32:00 PM EST, Route to Pharmacy Electronically, [facility] #[id number], Partial fill upon patient request if the prescription is for a schedule II opioid drug., 170, cm, 03/31/21 11:49:00 EST, Height, 107, kg, 03/18/21 16:15:00 EST, Dry Weight Start Date: 04/19/21 Status: Ordered Quantity: 60.0 Unit: tablet Repeat number: 1 levothyroxine 0.025 mg oral tablet 1 tablet = 25 mcg, By Mouth, Daily, # 30 tablet, 0 Refills, Maintenance, 12/30/23 8:25:00 AM EDT, Tablet, Partial fill upon patient request if the prescription is for a schedule II opioid drug. Start Date: 12/30/23 Status: Ordered Quantity: 30.0 Unit: tablet Repeat number: 1 MetFORMIN (Eqv-Glucophage XR) 500 mg oral tablet, extended release See Instructions, TAKE 2 TABLETS BY MOUTH IN THE MORNING AND 2 TABLETS IN THE EVENING, # 120 tablet, 11 Refills, 02/22/24 9:00:00 AM EDT, [facility], 169, cm, 02/15/24 10:45:00 EDT, Height, 101, kg, 12/29/23 10:42:00 EDT, Dry Weight Start Date: 02/22/24 Status: Ordered Quantity: 120.0 Unit: tablet Repeat number: 12 metoprolol 25 mg oral tablet, extended release 25 mg, By Mouth, Daily, # 30 tablet, Refills 0, Tot. Refills 0, Maintenance, 12/30/23 11:37:00 AM EDT, Route to Pharmacy Electronically, [facility], Partial fill upon patient request if the prescription is for a schedule II opioid drug., 169, cm, 12/30/23 10:03:00 EDT, Height, 101, kg,12/29/23 10:42:00 EDT, Dry Weight Start Date: 12/30/23 Stop Date: 01/29/24 Status: Ordered Quantity: 30.0 Unit: tablet Repeat number: 1 omeprazole 20 mg oral delayed release tablet 1 tablet = 20 mg, By Mouth, Daily, # 30 tablet, 0 Refills, Maintenance, 02/11/20 1:28:00 PM EDT, CR Tablet Start Date: 02/11/20 Status: Ordered Quantity: 30.0 Unit: tablet Repeat number: 1 One Touch Delica Lancets See Instructions, # 100 each, Refills 5, Tot. Refills 5, Maintenance, 1 box = 100 lancets, 05/20/22 5:33:00 PM EST, Supply, 170, cm, 04/13/22 15:30:00 EST, Height, 107, kg, 03/18/21 16:15:00 EST, Dry Weight Start Date: 05/20/22 Status: Ordered Quantity: 100.0 Unit: each Repeat number: 6 Vitamin D3 1000 intl units oral tablet 1 tablet = 25 mcg, By Mouth, Daily, 0 Refills, Maintenance, 02/03/23 9:29:00 AM EDT, Partial fill upon patient request if the prescription is for a schedule II opioid drug. Start Date: 02/03/23 Status: Ordered Repeat number: 1 Problem List Condition Confirmation Course Effective Dates Status H ealth Status Informant Bilateral lower limb edema 1 Confirmed 04/19/19 Active Coronary atherosclerosis due to calcified coronary lesion Confirmed Active Cigar smoker Confirmed Active Small airways disease Confirmed Active Dyspnea on exertion 2 Confirmed 01/12/21 Active Essential hypertension Confirmed Active GERD (gastroesophageal reflux disease) Confirmed Active History of coronary artery bypass grafting 3 Confirmed 04/14/21 Active History of non-ST elevation myocardial infarction (NSTEMI) Confirmed Active Mixed hyperlipidemia Confirmed Active Neurogenic claudication 4 Confirmed 04/14/21 Active Obstructive sleep apnea Confirmed Active Palpitation Confirmed Active Peripheral neuropathy due to metabolic disorder Confirmed Active Major depression, recurrent, chronic Confirmed Active Relative polycythemia Confirmed Active Severe obesity (BMI 35.0-39.9) with comorbidity Confirmed Active Benign skin lesion of thigh Confirmed Active 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 Then will be decided if Lasix should return back to 20 mg. 2Outside Source Comment: Last Assessment & Plan: He was feeling short of breath this weekend still little bit of remnant to that but his lung exam is clear. Whether this is reactive to a mild virus not Covid or perhaps reactive tosmoke inhalation from his cigars let us investigate with pulmonary function studies and referral [facility] pulmonology. We note that he has CPAP for sleep apnea. 3Outside Source Comment: Overview: March 2021 status post CO with coronary angiography showing occlusions requiring CABG, two-vessel bypass completed and without complication. This was done at [facility]. Last Assessment & Plan: He is using his CPAP machine he is compliant with all the medicines including Plavix aspirin and his antidiabetics aswell as a diabetic diet. He needs to work on salt content in his diet and we need to get his blood pressure under better control but other than that he is doing really well. He is in cardiac rehab and is also compliant with treatment. We encouraged him to exercise on a regular basis. This would be good for both the diabetes and also cardiovascular fitness. 4Outside Source Comment: Last Assessment & Plan: Although this could be a femoral cutaneous nerve pressure neuropathy more likely its spinal stenosis of the upper lumbar spine resulting in anterior thigh paresthesias. For now we will hold off on daily MRIs but when I see him again in a couple months we can revisit it especially regarding getting back to work since that might be a limiting factor. 5Outside Source Comment: Last Assessment & Plan: Thyroid is within normal limits on labs, he is now off of the amiodarone and we can stop assessing the thyroid going forward. 6Outside Source Comment: Last Assessment & Plan: We talked about the diabetic neuropathic pain and I advised him to add on CBD oilunder the tongue. This is nonprescription but rather available ubiquitously and can help with neuropathic pain studies show. He may then come off of the Neurontin if the CBD oil is adequate treatment. Then help he will have fewer side effects for example the sleepwalking that he is experiencing might be associated with the gabapentin. We are excited about his drop in A1c from the 8% range down to the 6% range by a consequent changes to diet. Were hoping that he will continue with his efforts and would like to see him back in about 4 months but will see him sooner if his blood pressure calls for it. Social History Social History Type Response Smoking Status Cigars or pipes tammy y within last 30 days; Interested in cessation: No; Patient wants NRT during admission No; Other: Pt quit 03-14-2021; entered on: 03/31/21 Sex Sex Representation Male (finding) Patient Care team information Care Team Personnel Name: Tereza Sahni RN Position: [facility] RN Member Role: Primary Care Nurse Name: Jeni Plasencia RN Position: [facility] RN Member Role: Primary Care Nurse Name: Ximena Garber RN Position: [facility] RN Member Role: Primary Care Nurse Name: Anmol Murphy DO Position: [facility] Physician - Primary Care Member Role: PCP Address: [address] [place] [address] Telecom: Name: Sammi Ram RN Position: [facility] AMB Nurse Member Role: Primary Care Nurse Care Team Related Persons Name: ANGELA ECHEVARRIA Insurance Providers Guarantor name: ALICIA Health Plan Information #: 1 Payer: KAYLEN RODRIGUEZ Member Number: NA Policy Number: NA Group Number: NA Health Plan Information #: 2 Payer: [place] Member Number: NA Policy Number: NA Group Number: NA
--- OUTSIDE RECORDS SUMMARY | 2024-04-17 01:49 | XMS_ITS | Continuity of Care Document ---
Author Organization [facility] Address [address] [place] [address]- Care Team Providers Care Canvas Marker Name Role Phone Anmol Murphy DO Primary Care Physician Encounter [facility] [place] Date(s): 03/14/24 - 04/13/24 [facility] [address] [place] [phone]- Encounter Type: Triage Allergies, Adverse Reactions, Alerts No Known Allergies Immunizations Given and Recorded Vaccine Date Status Refusal Reason RSV vaccine, preF A-preF B, recombinant 03/03/23 R ecorded pneumococcal 13-valent vaccine 1 01/25/23 Recorded SARS-CoV-2(COVID-19)mRNA-LNP vac([id number]) 01/25/23 Recorded pneumococcal 20-valent conjugate vaccine 2 01/25/23 Recorded influenza virus vaccine, inactivated 01/13/23 Jose rded influenza virus vaccine, inactivated 03/23/22 Jose rded influenza virus vaccine, inactivated 02/26/22 Jose rded influenza virus vaccine, inactivated 01/15/21 Jose rded influenza virus vaccine, inactivated 01/31/20 Jose rded influenza virus vaccine, inactivated 04/01/19 Jose rded influenza virus vaccine, inactivated 03/15/18 Jose rded [id number] 12y+ bivalent booster vax 04/15/22 Recorded [id number] bivalent booster vax 01/13/22 Recorded SARS-CoV-2 (COVID-19) mRNA-1273 vaccine 03/09/21 R ecorded SARS-CoV-2 (COVID-19) mRNA-1273 vaccine 08/26/20 R ecorded SARS-CoV-2 (COVID-19) mRNA-1273 vaccine 07/29/20 R ecorded 1Result Comment: Unit: Unknown Route: Intramuscular Automation Technologist: [email or web address] 2Result Comment: [facility] Albuterol (Eqv-ProAir HFA) 90 mcg/inh inhalation aerosol 2 puffs, Inhalation, Every 6 hours, PRN Wheezing/Shortness of Breath, # 1 each, 0 Refills, Maintenance, 05/03/22 11:27:00 AM EST, [facility]- , Partial fill upon patient request ifthe [...] Refills, Maintenance, 03/23/21 12:46:00 PM EST, Tablet, [facility] 3, Partial fill upon patient request [...] Repeat number: 1 B-D PEN NDL MINI [id number](07/21) B-D PEN NDL MINI [id number](07/21), See Instructions, # 100 each, Refills 10, Tot. Refills 10, Maintenance, use to inject insulin daily E11.9, 04/11/24 10:33:00 AM EST, Supply, 169, cm, 03/20/24 8:22:00 EST, Height, 101, kg, 12/29/23 10:42:00 EDT, Dry Weight Start Date: 04/11/24 Status: Ordered Quantity: 100.0 Unit: each Repeat number: 11 clopidogrel 75 mg oral tablet 75 mg, By Mouth, Daily, # 30 tablet, Refills 11, Tot. Refills 11, Maintenance, 12/30/23 10:57:00 AM EDT, Route to Pharmacy Electronically, [facility], Partial fill upon patient [...] 3 Refills, Maintenance, 03/27/24 12:42:00 PM EST, [facility], 169, cm, 03/20/24 8:22:00 EST, Height, 101, kg, 12/29/23 10:42:00 EDT, Dry Weight Start Date: 03/27/24 Status: Ordered Quantity: 90.0 Unit: tablet Repeat number: 1 Lantus Solostar Pen 100 units/mL subcutaneous solution = 32 units, Subcutaneous Injection, Daily, # 30 mL, 3 Refills, Maintenance, 11/07/22 2:05:00 PM EDT, [facility] #[id number], Partial fill upon patient request if the [...] 2:32:00 PM EST, Route to Pharmacy Electronically, [facility] #[id number], Partial fill upon patient request if the [...] tablet, 11 Refills, 02/22/24 9:00:00 AM EDT, [facility], 169, cm, 02/15/24 10:45:00 EDT, Height, 101, kg, 12/29/23 10:42:00 EDT, Dry Weight Start Date: 02/22/24 Status: Ordered Quantity: 120.0 Unit: tablet Repeat number: 12 metoprolol 25 mg oral tablet, extended release 25 mg, By Mouth, Daily, # 30 tablet, Refills 0, Tot. Refills 0, Maintenance, 12/30/23 11:37:00 AM EDT, Route to Pharmacy Electronically, [facility], Partial fill upon patient [...] we will deflect this question to the salvage clerk that is going to establish with patient in a few days in [place]. Then will be decided if Lasix should [...] investigate with pulmonary function studies and referral [facility] pul[facility]ology. We note that he has CPAP for sleep apnea. 3Outside Source Comment: Overview: March 2021 status post [place] with coronary angiography showing occlusions requiring CABG, two-vessel bypass completed and without complication. This was done at [facility]. Last Assessment & Plan: He is using [...] Team Personnel Name: Tereza Sahni RN Position: [facility] RN Member Role: Primary Care Nurse Name: Jeni Plasencia RN Position: [facility] RN Member Role: Primary Care Nurse Name: Ximena Garber RN Position: [facility] RN Member Role: Primary Care Nurse Name: Anmol Murphy DO Position: [facility] Physician - Primary Care Member Role: PCP Address: [address] [place] [id number] Telecom: Name: Sammi Ram RN Position: [facility] AMB Nurse Member Role: Primary Care Nurse Care Team Related Persons Name: ANGELA ECHEVARRIA Insurance Providers Guarantor name: ALICIA Health Plan Information #: 1 Payer: KAYLEN RODRIGUEZ Member Number: NA Policy Number: NA Group Number: NA Health Plan Information #: 2 Payer: [place] Member Number: NA Policy Number: NA Group Number: NA
--- OUTSIDE RECORDS SUMMARY | 2024-04-17 01:50 | XMS_ITS | Continuity of Care Document ---
Author Organization [facility] Address [address] [place] [address]- Care Team Providers Care Social Economist Name Role Phone Anmol Murphy DO Primary Care Physician Encounter [facility] Date(s): 02/26/24 - 03/27/24 [facility] [address] [place] [phone]- Encounter Type: Triage Allergies, Adverse Reactions, Alerts No Known Allergies Immunizations Given and Recorded Vaccine Date Status Refusal Reason RSV vaccine, preF A-preF B, recombinant 03/03/23 R ecorded pneumococcal 13-valent vaccine 1 01/25/23 Recorded SARS-CoV-2(COVID-19)mRNA-LNP vac([id number]) 01/25/23 Recorded pneumococcal 20-valent conjugate vaccine 2 01/25/23 Recorded influenza virus vaccine, inactivated 01/13/23 Jose rded influenza virus vaccine, inactivated 03/23/22 Jose rded influenza virus vaccine, inactivated 02/26/22 Jose rded influenza virus vaccine, inactivated 01/15/21 Jose rded influenza virus vaccine, inactivated 01/31/20 Jose rded influenza virus vaccine, inactivated 04/01/19 Jose rded influenza virus vaccine, inactivated 03/15/18 Jose rded [id number] 12y+ bivalent booster vax 04/15/22 Recorded [id number] bivalent booster vax 01/13/22 Recorded SARS-CoV-2 (COVID-19) mRNA-1273 vaccine 03/09/21 R ecorded SARS-CoV-2 (COVID-19) mRNA-1273 vaccine 08/26/20 R ecorded SARS-CoV-2 (COVID-19) mRNA-1273 vaccine 07/29/20 R ecorded 1Result Comment: Unit: Unknown Route: Intramuscular Last Putter Away: [employer] 2Result Comment: [facility] Albuterol (Eqv-ProAir HFA) 90 mcg/inh inhalation aerosol 2 puffs, Inhalation, Every 6 hours, PRN Wheezing/Shortness of Breath, # 1 each, 0 Refills, Maintenance, 05/03/22 11:27:00 AM EST, [facility]- , Partial fill upon patient request ifthe [...] Refills, Maintenance, 03/23/21 12:46:00 PM EST, Tablet, [facility] 3, Partial fill upon patient [...] Repeat number: 1 B-D PEN NDL MINI [id number](07/21)PRPL B-D PEN NDL MINI [id number](07/21)PRPL, See Instructions, # 100 each, 7 Refills, [...] 10:57:00 AM EDT, Route to Pharmacy Electronically, [facility] 3, Partial fill upon patient [...] 3 Refills, Maintenance, 03/27/24 12:42:00 PM EST, [facility], 169, cm, 03/20/24 8:22:00 EST, Height, 101, kg, 12/29/23 10:42:00 EDT, Dry Weight Start Date: 03/27/24 Status: Ordered Quantity: 90.0 Unit: tablet Repeat number: 1 Lantus Solostar Pen 100 units/mL subcutaneous solution = 32 units, Subcutaneous Injection, Daily, # 30 mL, 3 Refills, Maintenance, 11/07/22 2:05:00 PM EDT, [facility] #[id number], Partial fill upon patient request if the [...] 2:32:00 PM EST, Route to Pharmacy Electronically, [facility] #[id number], Partial fill upon patient request if the [...] tablet, 11 Refills, 02/22/24 9:00:00 AM EDT, [facility], 169, cm, 02/15/24 10:45:00 EDT, Height, 101, kg, 12/29/23 10:42:00 EDT, Dry Weight Start Date: 02/22/24 Status: Ordered Quantity: 120.0 Unit: tablet Repeat number: 12 metoprolol 25 mg oral tablet, extended release 25 mg, By Mouth, Daily, # 30 tablet, Refills 0, Tot. Refills 0, Maintenance, 12/30/23 11:37:00 AM EDT, Route to Pharmacy Electronically, [facility], Partial fill upon patient request if [...] we will deflect this question to the post office manager that is going to establish with patient in a few days in [place]. Then will be decided if Lasix should [...] investigate with pulmonary function studies and referral [facility] pulmonology. We note that he has CPAP for sleep apnea. 3Outside Source Comment: Overview: March 2021 status post [place] with coronary angiography showing occlusions requiring CABG, two-vessel bypass completed and without complication. This was done at [facility]. Last Assessment & Plan: He is using [...] Team Personnel Name: Tereza Sahni RN Position: [facility] RN Member Role: Primary Care Nurse Name: Jeni Plasencia RN Position: [facility] RN Member Role: Primary Care Nurse Name: Ximena Garber RN Position: [facility] RN Member Role: Primary Care Nurse Name: Anmol Murphy DO Position: [facility] Physician - Primary Care Member Role: PCP Address: [address] [place] [id number] Telecom: Name: Sammi Ram RN Position: [facility] AMB Nurse Member Role: Primary Care Nurse Care Team Related Persons Name: ANGELA ECHEVARRIA Insurance Providers Guarantor name: ALICIA Health Plan Information #: 1 Payer: KAYLEN ROJAS ADV Member Number: NA Policy Number: NA Group Number: NA Health Plan Information #: 2 Payer: [place] Member Number: NA Policy Number: NA Group Number: NA
--- OUTSIDE RECORDS SUMMARY | 2024-04-17 01:50 | XMS_ITS | Continuity of Care Document ---
Author Organization [facility] Address [address] [place] [address]- Care Team Providers Care Manager Multimedia Name Role Phone Anmol Murphy DO Primary Care Physician Encounter [facility] Date(s): 02/21/24 - 03/22/24 [facility] [address] [place] [phone]- Encounter Type: Triage Allergies, Adverse Reactions, Alerts No Known Allergies Immunizations Given and Recorded Vaccine Date Status Refusal Reason RSV vaccine, preF A-preF B, recombinant 03/03/23 R ecorded pneumococcal 13-valent vaccine 1 01/25/23 Recorded SARS-CoV-2(COVID-19)mRNA-LNP vac([id number]) 01/25/23 Recorded pneumococcal 20-valent conjugate vaccine 2 01/25/23 Recorded influenza virus vaccine, inactivated 01/13/23 Jose rded influenza virus vaccine, inactivated 03/23/22 Jose rded influenza virus vaccine, inactivated 02/26/22 Jose rded influenza virus vaccine, inactivated 01/15/21 Jose rded influenza virus vaccine, inactivated 01/31/20 Jose rded influenza virus vaccine, inactivated 04/01/19 Jose rded influenza virus vaccine, inactivated 03/15/18 Jose rded [id number] 12y+ bivalent booster vax 04/15/22 Recorded [id number] bivalent booster vax 01/13/22 Recorded SARS-CoV-2 (COVID-19) mRNA-1273 vaccine 03/09/21 R ecorded SARS-CoV-2 (COVID-19) mRNA-1273 vaccine 08/26/20 R ecorded SARS-CoV-2 (COVID-19) mRNA-1273 vaccine 07/29/20 R ecorded 1Result Comment: Unit: Unknown Route: Intramuscular Artist Woodblock: [employer] / [employer] 2Result Comment: [facility] Albuterol (Eqv-ProAir HFA) 90 mcg/inh inhalation aerosol 2 puffs, Inhalation, Every 6 hours, PRN Wheezing/Shortness of Breath, # 1 each, 0 Refills, Maintenance, 05/03/22 11:27:00 AM EST, [facility]- , Partial fill upon [...] Refills, Maintenance, 03/23/21 12:46:00 PM EST, Tablet, [facility] 3, Partial fill upon patient request [...] Repeat number: 1 B-D PEN NDL MINI [id number](07/21)PRPL B-D PEN NDL MINI [id number](07/21)PRPL, See Instructions, # 100 each, 7 Refills, [...] 10:57:00 AM EDT, Route to Pharmacy Electronically, [facility] 3, Partial fill upon patient request [...] 30.0 Unit: capsule Repeat number: 1 glipiZIDE 5 mg oral tablet 5 mg, 1, tablet, By Mouth, Daily, # 30 tablet, Refills 11, Tot. Refills 11, Maintenance, 03/22/23 5:35:00 PM EST, Route to Pharmacy Electronically, [facility] #[id number], Partial fill upon patient request if the prescription is for a schedule II opioid drug., 170, cm, 02/28/23 15:26:00 EDT, Height Start Date: 03/22/23 Stop Date: 03/16/24 Status: Ordered Quantity: 30.0 Unit: tablet Repeat number: 12 Lantus Solostar Pen 100 units/mL subcutaneous solution = 32 units, Subcutaneous Injection, Daily, # 30 mL, 3 Refills, Maintenance, 11/07/22 2:05:00 PM EDT, [facility] #[id number], Partial fill upon patient request if the [...] 2:32:00 PM EST, Route to Pharmacy Electronically, [facility] #[id number], Partial fill upon patient request if the [...] tablet, 11 Refills, 02/22/24 9:00:00 AM EDT, [facility], 169, cm, 02/15/24 10:45:00 EDT, Height, 101, kg, 12/29/23 10:42:00 EDT, Dry Weight Start Date: 02/22/24 Status: Ordered Quantity: 120.0 Unit: tablet Repeat number: 12 metoprolol 25 mg oral tablet, extended release 25 mg, By Mouth, Daily, # 30 tablet, Refills 0, Tot. Refills 0, Maintenance, 12/30/23 11:37:00 AM EDT, Route to Pharmacy Electronically, [facility], Partial fill upon patient [...] we will deflect this question to the multimedia technician that is going to establish with patient in a few days in [place]. Then will be decided if Lasix should [...] investigate with pulmonary function studies and referral [facility] pulmonology. We note that he has CPAP for sleep apnea. 3Outside Source Comment: Overview: March 2021 status post [place] with coronary angiography showing occlusions requiring CABG, two-vessel bypass completed and without complication. This was done at [facility]. Last Assessment & Plan: He is [...] Team Personnel Name: Tereza Sahni RN Position: [facility] RN Member Role: Primary Care Nurse Name: Jeni Plasencia RN Position: [facility] RN Member Role: Primary Care Nurse Name: Ximena Garber RN Position: [facility] RN Member Role: Primary Care Nurse Name: Anmol Murphy DO Position: [facility] Physician - Primary Care Member Role: PCP Address: [address] [place] [address] Telecom: Name: Sammi Ram RN Position: [facility] AMB Nurse Member Role: Primary Care Nurse Care Team Related Persons Name: ANGELA ECHEVARRIA Insurance Providers Guarantor name: ALICIA Health Plan Information #: 1 Payer: KAYLEN ROJAS ADV Member Number: NA Policy Number: NA Group Number: NA Health Plan Information #: 2 Payer: [place] Member Number: NA Policy Number: NA Group Number: NA
--- OUTSIDE RECORDS SUMMARY | 2024-04-17 01:50 | XMS_ITS | Continuity of Care Document ---
Author Organization [facility] Address [address] [place] [address]- Care Team Providers Care Director Index Name Role Phone Anmol Murphy DO Primary Care Physician Encounter [facility] [place] Date(s): 03/20/24 - 03/27/24 [facility] [address] [place] [address]- Encounter Diagnosis Benign skin lesion of thigh(Discharge Diagnosis) - 03/19/24 Essential hypertension(Discharge Diagnosis) - 03/19/24 History of non-ST elevation myocardial infarction (NSTEMI)(Discharge Diagnosis) - 03/19/24 Attending Physician: Anmol Murphy DO Encounter Type: Office Visit Allergies, Adverse Reactions, Alerts No Known Allergies Immunizations Given and Recorded Vaccine Date Status Refusal Reason RSV vaccine, preF A-preF B, recombinant 03/03/23 R ecorded pneumococcal 13-valent vaccine 1 01/25/23 Recorded SARS-CoV-2(COVID-19)mRNA-LNP vac([id number]) 01/25/23 Recorded pneumococcal 20-valent conjugate vaccine 2 01/25/23 Recorded influenza virus vaccine, inactivated 01/13/23 Jose rded influenza virus vaccine, inactivated 03/23/22 Jose rded influenza virus vaccine, inactivated 02/26/22 Jose rded influenza virus vaccine, inactivated 01/15/21 Jose rded influenza virus vaccine, inactivated 01/31/20 Jose rded influenza virus vaccine, inactivated 04/01/19 Jose rded influenza virus vaccine, inactivated 03/15/18 Jose rded [id number] 12y+ bivalent booster vax 04/15/22 Recorded [id number] bivalent booster vax 01/13/22 Recorded SARS-CoV-2 (COVID-19) mRNA-1273 vaccine 03/09/21 R ecorded SARS-CoV-2 (COVID-19) mRNA-1273 vaccine 08/26/20 R ecorded SARS-CoV-2 (COVID-19) mRNA-1273 vaccine 07/29/20 R ecorded 1Result Comment: Unit: Unknown Route: Intramuscular Stone Paver: Kenguru 2Result Comment: [facility] Albuterol (Eqv-ProAir HFA) 90 mcg/inh inhalation aerosol 2 puffs, Inhalation, Every 6 hours, PRN Wheezing/Shortness of Breath, # 1 each, 0 Refills, Maintenance, 05/03/22 11:27:00 AM EST, [facility]- , Partial fill upon patient request [...] Refills, Maintenance, 03/23/21 12:46:00 PM EST, Tablet, [facility], Partial fill upon patient request if [...] Repeat number: 1 B-D PEN NDL MINI [id number](07/21)PRPL B-D PEN NDL MINI [id number](07/21)PRPL, See Instructions, # 100 each, 7 Refills, [...] 10:57:00 AM EDT, Route to Pharmacy Electronically, [facility], Partial fill upon [...] 3 Refills, Maintenance, 03/27/24 12:42:00 PM EST, [facility], 169, cm, 03/20/24 8:22:00 EST, Height, 101, kg, 12/29/23 10:42:00 EDT, Dry Weight Start Date: 03/27/24 Status: Ordered Quantity: 90.0 Unit: tablet Repeat number: 1 Lantus Solostar Pen 100 units/mL subcutaneous solution = 32 units, Subcutaneous Injection, Daily, # 30 mL, 3 Refills, Maintenance, 11/07/22 2:05:00 PM EDT, [facility] #[id number], Partial fill upon patient request if the [...] 2:32:00 PM EST, Route to Pharmacy Electronically, [facility] #[id number], Partial fill upon patient request if the [...] tablet, 11 Refills, 02/22/24 9:00:00 AM EDT, [facility], 169, cm, 02/15/24 10:45:00 EDT, Height, 101, kg, 12/29/23 10:42:00 EDT, Dry Weight Start Date: 02/22/24 Status: Ordered Quantity: 120.0 Unit: tablet Repeat number: 12 metoprolol 25 mg oral tablet, extended release 25 mg, By Mouth, Daily, # 30 tablet, Refills 0, Tot. Refills 0, Maintenance, 12/30/23 11:37:00 AM EDT, Route to Pharmacy Electronically, [facility], Partial fill upon [...] we will deflect this question to the cinder snapper that is going to establish with patient in a few days in [place]. Then will be decided if Lasix should [...] investigate with pulmonary function studies and referral [facility] pulmonology. We note that he has CPAP for sleep apnea. 3Outside Source Comment: Overview: March 2021 status post [place] with coronary angiography showing occlusions requiring CABG, two-vessel bypass completed and without complication. This was done at [facility]. Last Assessment & Plan: He is [...] if his blood pressure calls for it. Diagnosis Diagnosis Type Effective Dates Health Status Clinical Service Informant Benign skin lesion of thigh Discharge Diagnosis 03/19/24 Essential hypertension Discharge Diagnosis 03/19/24 History of non-ST elevation myocardial infarction (NSTEMI) Discharge Diagnosis 03/19/24 Vital Signs Most recent to oldest [Reference Range]: 1 Height 169 cm (03/20/24 8:22 AM) Weight 104.7 kg (03/20/24 8:22 AM) Oxygen Saturation [94-100 %] 96 % (03/20/24 8:22 AM) Pulse Rate [55-90 bpm] 58 bpm (03/20/24 8:22 AM) Body Mass Index [18.5-24.99 kg/m2] 36.66 kg/m2 *>HHI* (03/20/24 8:22 AM) Blood Pressure [90-138/55-84 mm Hg] 123/ 66mm Hg (03/20/24 8:22 AM) Respiratory Rate [16-30 br/min] 16 br/mi n (03/20/24 8:22 AM) Temperature [96.8-100.4 DegF] 97.8 DegF (03/20/24 8:22 AM) Mode of Delivery (Oxygen) Room air (03/20/24 8:22 AM) Blood pressure sites Arm, left (03/20/24 8:22 AM) Temperature Route Oral (03/20/24 8:22 AM) Weight Obtained Via Standing scale (03/20/24 8:22 AM) Social History Social History Type Response Smoking Status Cigars or pipes tammy y within last 30 days; Interested in cessation: No; Patient wants NRT during admission No; Other: Pt quit 03-14-2021; entered on: 03/31/21 Sex Sex Representation Male (finding) Patient Care team information Care Team Personnel Name: Tereza Sahni RN Position: [facility] RN Member Role: Primary Care Nurse Name: Jeni Plasencia RN Position: [facility] RN Member Role: Primary Care Nurse Name: Ximena Garber RN Position: [facility] RN Member Role: Primary Care Nurse Name: Anmol Murphy DO Position: [facility] Physician - Primary Care Member Role: PCP Address: [address] [place] [id number] Telecom: Name: Sammi Ram RN Position: [facility] AMB Nurse Member Role: Primary Care Nurse Care Team Related Persons Name: ANGELA ECHEVARRIA Insurance Providers Guarantor name: ALICIA Health Plan Information #: 1 Payer: KAYLEN ROJAS ADV Member Number: [id number] Policy Number: NA Group Number: [id number] Health Plan Information #: 2 Payer: [employer] Member Number: [id number] Policy Number: NA Group Number: NA
--- OUTSIDE RECORDS SUMMARY | 2024-04-17 01:50 | XMS_ITS | Continuity of Care Document ---
Author Organization [facility] Address [address] [place] [id number]- Care Team Providers Care Dyer Helper Name Role Phone Anmol Murphy DO Primary Care Physician [phone] Encounter [facility] Date(s): 03/04/24 - 04/03/24 [facility] [address] [place] [id number]- Encounter Type: Triage Allergies, Adverse Reactions, Alerts No Known Allergies Immunizations Given and Recorded Vaccine Date Status Refusal Reason RSV vaccine, preF A-preF B, recombinant 03/03/23 R ecorded pneumococcal 13-valent vaccine 1 01/25/23 Recorded SARS-CoV-2(COVID-19)mRNA-LNP vac([id number]) 01/25/23 Recorded pneumococcal 20-valent conjugate vaccine 2 01/25/23 Recorded influenza virus vaccine, inactivated 01/13/23 Jose rded influenza virus vaccine, inactivated 03/23/22 Jose rded influenza virus vaccine, inactivated 02/26/22 Jose rded influenza virus vaccine, inactivated 01/15/21 Jose rded influenza virus vaccine, inactivated 01/31/20 Jose rded influenza virus vaccine, inactivated 04/01/19 Jose rded influenza virus vaccine, inactivated 03/15/18 Jose rded [id number] 12y+ bivalent booster vax 04/15/22 Recorded [id number] bivalent booster vax 01/13/22 Recorded SARS-CoV-2 (COVID-19) mRNA-1273 vaccine 03/09/21 R ecorded SARS-CoV-2 (COVID-19) mRNA-1273 vaccine 08/26/20 R ecorded SARS-CoV-2 (COVID-19) mRNA-1273 vaccine 07/29/20 R ecorded 1Result Comment: Unit: Unknown Route: Intramuscular Makeup Editor: [employer] 2Result Comment: [facility] Albuterol (Eqv-ProAir HFA) 90 mcg/inh inhalation aerosol 2 puffs, Inhalation, Every 6 hours, PRN Wheezing/Shortness of Breath, # 1 each, 0 Refills, Maintenance, 05/03/22 11:27:00 AM EST, [facility]- , Partial fill upon patient [...] Refills, Maintenance, 03/23/21 12:46:00 PM EST, Tablet, [facility] 3, Partial fill upon patient request [...] Repeat number: 1 B-D PEN NDL MINI [id number](07/21)PRPL B-D PEN NDL MINI [id number](07/21)PRPL, See Instructions, # 100 each, 7 Refills, [...] 10:57:00 AM EDT, Route to Pharmacy Electronically, [facility], Partial fill upon patient request if [...] 3 Refills, Maintenance, 11/07/22 2:05:00 PM EDT, [facility] #[id number], Partial fill upon patient request if the [...] 2:32:00 PM EST, Route to Pharmacy Electronically, [facility] #[id number], Partial fill upon patient request if the [...] tablet, 11 Refills, 02/22/24 9:00:00 AM EDT, [facility], 169, cm, 02/15/24 10:45:00 EDT, Height, 101, kg, 12/29/23 10:42:00 EDT, Dry Weight Start Date: 02/22/24 Status: Ordered Quantity: 120.0 Unit: tablet Repeat number: 12 metoprolol 25 mg oral tablet, extended release 25 mg, By Mouth, Daily, # 30 tablet, Refills 0, Tot. Refills 0, Maintenance, 12/30/23 11:37:00 AM EDT, Route to Pharmacy Electronically, [facility], Partial fill upon patient [...] we will deflect this question to the home builder that is going to establish with patient in a few days in [place]. Then will be decided if Lasix should [...] investigate with pulmonary function studies and referral [facility] pulmonology. We note that he has CPAP for sleep apnea. 3Outside Source Comment: Overview: March 2021 status post [place] with coronary angiography showing occlusions requiring CABG, two-vessel bypass completed and without complication. This was done at [facility]. Last Assessment & Plan: He is [...] - Primary Care Member Role: PCP Address: [address] [place] [address] Telecom: Name: Sammi Ram RN Position: [facility] [...]
--- OUTSIDE RECORDS SUMMARY | 2024-04-17 01:50 | XMS_ITS | Continuity of Care Document ---
Author Organization [facility] Address [address] [place] [address]- Care Team Providers Care Answerer Name Role Phone Anmol Murphy DO Primary Care Physician Encounter [facility] [place] Date(s): 02/15/24 - 03/16/24 [facility] [address] [place] [id number] Attending Physician: Nathanael Monsivais Admitting Physician: Nathanael Monsivais Referring Physician: AdmtrNathanael Allergies, Adverse Reactions, Alerts No Known Allergies Immunizations Given and Recorded Vaccine Date Status Refusal Reason RSV vaccine, preF A-preF B, recombinant 03/03/23 R ecorded pneumococcal 13-valent vaccine 1 01/25/23 Recorded SARS-CoV-2(COVID-19)mRNA-LNP vac([id number]) 01/25/23 Recorded pneumococcal 20-valent conjugate vaccine 2 01/25/23 Recorded influenza virus vaccine, inactivated 01/13/23 Jose rded influenza virus vaccine, inactivated 03/23/22 Jose rded influenza virus vaccine, inactivated 02/26/22 Jose rded influenza virus vaccine, inactivated 01/15/21 Jose rded influenza virus vaccine, inactivated 01/31/20 Jose rded influenza virus vaccine, inactivated 04/01/19 Jose rded influenza virus vaccine, inactivated 03/15/18 Jose rded [id number] 12y+ bivalent booster vax 04/15/22 Recorded [id number] bivalent booster vax 01/13/22 Recorded SARS-CoV-2 (COVID-19) mRNA-1273 vaccine 03/09/21 R ecorded SARS-CoV-2 (COVID-19) mRNA-1273 vaccine 08/26/20 R ecorded SARS-CoV-2 (COVID-19) mRNA-1273 vaccine 07/29/20 R ecorded 1Result Comment: Unit: Unknown 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 Start Date: 05/03/22 Stop Date: 05/17/22 Status: Ordered alpha-lipoic acid 300 mg oral capsule 1 capsule = 300 mg, By Mouth, Daily, 0 Refills, Maintenance, 02/03/23 9:27:00 EDT, Partial fill upon patient request if the prescription is for a schedule II opioid drug. Start Date: 02/03/23 Status: Ordered ARIPiprazole 2 mg oral tablet 2 mg, 1, tablet, By Mouth, Daily, # 30 tablet, Refills 0, Maintenance, 03/15/21 16:37:00 EST, Partial fill upon patient request if the prescription is for a schedule II opioid drug. Start Date: 03/15/21 Status: Ordered aspirin 81 mg oral delayed release tablet 81 mg, 1, tablet, By Mouth, Daily, # 30 tablet, Refills 0, Maintenance, 02/11/20 13:26:00 EDT Start Date: 02/11/20 Status: Ordered atorvastatin 80 mg oral tablet 1 tablet = 80 mg, By Mouth, Daily at bedtime, # 30 tablet, 0 Refills, Maintenance, 03/23/21 12:46:00 EST, Tablet, [facility] 3, Partial fill upon patient request if the prescription is for a schedule II opioid drug., 170, cm, 03/23/21 11:4... Start Date: 03/23/21 Status: Ordered B-12 TR 1,000MCG TABLETS B-12 TR 1,000MCG TABLETS, 1, tablet, By Mouth, Daily, # 30 tablet, 0 Refills, 170, cm, 09/29/21 15:18:00 EDT, Height, 107, kg, 03/18/21 16:15:00 EST, Dry Weight Start Date: 11/28/21 Status: Ordered B-D PEN NDL MINI [id number](07/21)PRPL B-D PEN NDL MINI [id number](07/21)PRPL, See Instructions, # 100 each, 7 Refills, TO BE USED DAILY WITH LANTUS E11.9, 170, cm, 02/03/23 9:31:00 EDT, Height, 107, kg, 03/18/21 16:15:00 EST, Dry Weight Start Date: 02/24/23 Status: Ordered clopidogrel 75 mg oral tablet 75 mg, By Mouth, Daily, # 30 tablet, Refills 11, Tot. Refills 11, Maintenance, 12/30/23 10:57:00 EDT, Route to Pharmacy Electronically, [facility], Partial fill upon patient request if the prescription is for a schedule II opioid drug.,... Start Date: 12/30/23 Status: Ordered CPAP Machine See Instructions, # 1 each, Maintenance, AutoCPAP 10-16 cm H20, use Daily when sleeping, 05/06/22 14:00:00 EST, Supply Start Date: 05/06/22 Status: Ordered DexCom G7 Sensor DexCom G7 Sensor, See Instructions, # 3 each, Refills 11, Tot. Refills 11, Maintenance, Use as directed for DM to check blood glucose 4-5 times per day E 11.9 change sensor every 10 days, 03/05/23 14:13:00 EDT, Supply, 170, cm, 02/28/23 15:26:00 EDT,... Start Date: 03/05/23 Status: Ordered Fish Oil 1200 mg oral capsule 1 capsule = 1,200 mg, By Mouth, 3 times a day, 0 Refills, Maintenance, 02/03/23 9:26:00 EDT, Partial fill upon patient request if the prescription is for a schedule II opioid drug. Start Date: 02/03/23 Status: Ordered FLUoxetine 40 mg oral capsule 1 capsule = 40 mg, By Mouth, Daily, # 30 capsule, 0 Refills, Maintenance, 03/15/21 16:38:00 EST, Capsule, Partial fill upon patient request if the prescription is for a schedule II opioid drug. Start Date: 03/15/21 Status: Ordered glipiZIDE 5 mg oral tablet 5 mg, 1, tablet, By Mouth, Daily, # 30 tablet, Refills 11, Tot. Refills 11, Maintenance, 03/22/23 17:35:00 EST, Route to Pharmacy Electronically, [facility] #[id number], Partial fill upon patient request if the prescription is for a schedule II o... Start Date: 03/22/23 Stop Date: 03/16/24 Status: Ordered Lantus Solostar Pen 100 units/mL subcutaneous solution = 32 units, Subcutaneous Injection, Daily, # 30 mL, 3 Refills, Maintenance, 11/07/22 14:05:00 EDT, [facility] #[id number], Partial fill upon patient request if the prescription is for a scheduleII opioid drug., 170, cm, 04/13/22 15:30:00 EST, He... Start Date: 11/07/22 Status: Ordered Lasix 40 mg oral tablet 40 mg, 1, tablet, By Mouth, Daily, # 60 tablet, Refills 0, Tot. Refills 0, Maintenance, 04/19/21 14:32:00 EST, Route to Pharmacy Electronically, [facility] #[id number], Partial fill upon patientrequest if the prescription is for a schedule II op... Start Date: 04/19/21 Status: Ordered levothyroxine 0.025 mg oral tablet 1 tablet = 25 mcg, By Mouth, Daily, # 30 tablet, 0 Refills, Maintenance, 12/30/23 8:25:00 EDT, Tablet, Partial fill upon patient request if the prescription is for a schedule II opioid drug. Start Date: 12/30/23 Status: Ordered MetFORMIN (Eqv-Glucophage XR) 500 mg oral tablet, extended release See Instructions, TAKE 2 TABLETS BY MOUTH IN THE MORNING AND 2 TABLETS IN THE EVENING, # 120 tablet, 11 Refills, 02/22/24 9:00:00 EDT, [facility], 169, cm, 02/15/24 10:45:00 EDT, Height, 101, kg, 12/29/23 10:42:00 EDT, Dry Weight Start Date: 02/22/24 Status: Ordered metoprolol 25 mg oral tablet, extended release 25 mg, By Mouth, Daily, # 30 tablet, Refills 0, Tot. Refills 0, Maintenance, 12/30/23 11:37:00 EDT,Route to Pharmacy Electronically, [facility], Partial fill upon patient request if the prescription is for a schedule II opioid drug., 16... Start Date: 12/30/23 Stop Date: 01/29/24 Status: Ordered omeprazole 20 mg oral delayed release tablet 1 tablet = 20 mg, By Mouth, Daily, # 30 tablet, 0 Refills, Maintenance, 02/11/20 13:28:00 EDT, CR Tablet Start Date: 02/11/20 Status: Ordered One Touch Delica Lancets See Instructions, # 100 each, Refills 5, Tot. Refills 5, Maintenance, 1 box = 100 lancets, 05/20/2316:33:00 EST, Supply, 170, cm, 04/13/22 15:30:00 EST, Height, 107, kg, 03/18/21 16:15:00 EST, Dry Weight Start Date: 05/20/22 Status: Ordered Vitamin D3 1000 intl units oral tablet 1 tablet = 25 mcg, By Mouth, Daily, 0 Refills, Maintenance, 02/03/23 9:29:00 EDT, Partial fill uponpatient request if the prescription is for a schedule II opioid drug. Start Date: 02/03/23 Status: Ordered Problem List Condition Confirmation Course Effective Dates Status H ealth Status Informant Benign essential hypertension 1 Confirmed 05/28/18 Active Bilateral lower limb edema 2 Confirmed 04/19/19 Active Coronary atherosclerosis due to calcified coronary lesion Confirmed Active Cigar smoker Confirmed Active Small airways disease Confirmed Active Dyspnea on exertion 3 Confirmed 01/12/21 Active GERD (gastroesophageal reflux disease) Confirmed Active History of coronary artery bypass grafting 4 Confirmed 04/14/21 Active Mixed hyperlipidemia Confirmed Active NSTEMI (non-ST elevated myocardial infarction) Confirmed Active Neurogenic claudication 5 Confirmed 04/14/21 Active Obstructive sleep apnea Confirmed Active Palpitation Confirmed Active Peripheral neuropathy due to metabolic disorder Confirmed Active Major depression, recurrent, chronic Confirmed Active Relative polycythemia Confirmed Active Severe obesity (BMI 35.0-39.9) with comorbidity Confirmed Active 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 We counseled him on being more mindful about hidden salt and to recheck blood pressure for the next 2 weeks daily then report back to us if consistently elevated then I will see h im in the office. 2Outside Source Comment: Last Assessment & Plan: Question of reducing the Lasix back to 20 mg, we will deflect this question to the recreational vehicle resort manager that is going to establish with patient in a few days in [place]. Then will be decided if Lasix should return back to 20 mg. 3Outside Source Comment: Last Assessment & Plan: He [...] that he has CPAP for sleep apnea. 4Outside Source Comment: Overview: March 2021 status post [place] with coronary angiography showing occlusions requiring CABG, two-vessel bypass completed and without complication. This was done at [facility]. Last Assessment & Plan: He is [...] both the diabetes and also cardiovascular fitness. 5Outside Source Comment: Last Assessment & Plan: Although [...] since that might be a limiting factor. 6Outside Source Comment: Last Assessment & Plan: Thyroid is within normal limits on labs, he is now off of the amiodarone and we can stop assessing the thyroid going forward. 7Outside Source Comment: Last Assessment & Plan: We [...] Pt quit 03-14-2021; entered on: 03/31/21 Sex Patient Care team information Care Team Personnel Name: Tereza Sahni RN Position: [facility] RN Member Role: Primary Care Nurse Name: Jeni Plasencia RN Position: [facility] RN Member Role: Primary Care Nurse Name: Ximena Garber RN Position: [facility] RN Member Role: Primary Care Nurse Name: Anmol Murphy DO Position: [facility] Physician - Primary Care Member Role: PCP Address: Address: [address] [place] [id number]- Name: Sammi Ram RN Position: [facility] AMB Nurse Member Role: Primary Care Nurse Care Team Related Persons Name: ANGELA ECHEVARRIA Address: home [address] [place] [id number]
== END 2024-04-11 11:24 | disposition home or self-care (01) ==
PROVIDERS: PCP Family Medicine; Visit Provider Internal Medicine
DX: I25.10 Atherosclerotic heart disease of native coronary artery without angina pectoris (principal); E11.8 Type 2 diabetes mellitus with unspecified complications; I10 Essential (primary) hypertension; G47.33 Obstructive sleep apnea (adult) (pediatric); Z99.89 Dependence on other enabling machines and devices; E66.01 Morbid (severe) obesity due to excess calories; F17.200 Nicotine dependence, unspecified, uncomplicated
CPT/HCPCS: 99214

== ENCOUNTER → 2024-04-11 11:05 | Outpatient (BNVA) | payer MEDICARE, MEDICAID, SELFPAY | PROVIDERS: PCP Family Medicine; Visit Provider Internal Medicine | DX: I25.10 Atherosclerotic heart disease of native coronary artery without angina pectoris (principal); I10 Essential (primary) hypertension; E78.5 Hyperlipidemia, unspecified; E66.01 Morbid (severe) obesity due to excess calories; F17.210 Nicotine dependence, cigarettes, uncomplicated; E11.8 Type 2 diabetes mellitus with unspecified complications; G47.33 Obstructive sleep apnea (adult) (pediatric); Z99.89 Dependence on other enabling machines and devices; Z68.35 Body mass index [BMI] 35.0-35.9, adult | CPT/HCPCS: 99212 ==

== ENCOUNTER 2024-04-24 14:05 | Outpatient (REF) | payer MEDICARE, MEDICAID, SELFPAY ==
[2024-04-24 10:58] VITALS: PULSE 76; O2SAT 95
--- NOTE | 2024-04-24 14:09 | PFT_ITS ---
Flows: FEV1: 67 % of predicted at 1.91 L FVC: 74 % of predicted at 2.71 L FEV1/FVC: 71 % Bronchodilator response: Present in small to medium airways only Volumes: Total lung capacity: 100 % of predicted at 6.27 L Residual volume: 159 % of predicted at 3.44 L Slow vital capacity: 69 % of predicted at 2.83 L Expiratory reserve volume: 40 % of predicted at 0.41 L Diffusion capacity: Mildly decreased, corrects to normal after adjustment for alveolar ventilation. Impression: Reversible moderate obstructive ventilatory defect with bronchodilator response present in small to medium airways only. Increased residual volume suggests air trapping. Decreased expiratory reserve volume suggests extrathoracic restriction likely secondary to abdominal obesity. Decreased diffusion capacity suggests emphysema. MTDD
--- OUTSIDE RECORDS SUMMARY | 2024-04-24 14:10 | XMS_ITS | Continuity of Care Document ---
Author Organization [facility] lt Address [address] [place] [address]- Care Team Providers Care Stud Sheep Farmer Name Role Phone Anmol Murphy DO Primary Care Physician [phone] [place] [facility] 03/20/24 - 04/19/24 [facility] [address] [place] [address]- Encounter Diagnosis Small airways disease(Discharge Diagnosis) - 02/12/24 Attending Physician: AdmNathanael bruce Admitting Physician: AdmtrNathanael Referring Physician: Admtr, Ar8 Encounter Type: Triage Allergies, Adverse Reactions, Alerts No Known Allergies Immunizations Given and Recorded Vaccine Date Status Refusal Reason RSV vaccine, preF A-preF B, recombinant 03/03/23 R ecorded pneumococcal 13-valent vaccine 1 01/25/23 Recorded SARS-CoV-2(COVID-19)mRNA-LNP vac([id number]) 01/25/23 Recorded pneumococcal 20-valent conjugate vaccine 2 01/25/23 Recorded influenza virus vaccine, inactivated 01/13/23 Jose rded influenza virus vaccine, inactivated 03/23/22 Jose rded influenza virus vaccine, inactivated 02/26/22 Jose rded influenza virus vaccine, inactivated 01/15/21 Jose rded influenza virus vaccine, inactivated 01/31/20 Jose rded influenza virus vaccine, inactivated 04/01/19 Jose rded influenza virus vaccine, inactivated 03/15/18 Jose rded [id number] 12y+ bivalent booster vax 04/15/22 Recorded [id number] bivalent booster vax 01/13/22 Recorded SARS-CoV-2 (COVID-19) mRNA-1273 vaccine 03/09/21 R ecorded SARS-CoV-2 (COVID-19) mRNA-1273 vaccine 08/26/20 R ecorded SARS-CoV-2 (COVID-19) mRNA-1273 vaccine 07/29/20 R ecorded 1Result Comment: Unit: Unknown 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.] AM EDT, Route to Pharmacy Electronically, [facility], Partial fill upon [...] 3 Refills, Maintenance, 03/27/24 12:42:00 PM EST, [facility], 169, cm, 03/20/24 8:22:00 EST, Height, 101, kg, 12/29/23 10:42:00 EDT, Dry Weight Start Date: 03/27/24 Status: Ordered Quantity: 90.0 Unit: tablet Repeat number: 1 Lantus Solostar Pen 100 units/mL subcutaneous solution = 32 units, Subcutaneous Injection, Daily, # 30 mL, 3 Refills, Maintenance, 11/07/22 2:05:00 PM EDT, [facility] #[id number], Partial fill upon patient request if the [...] 2:32:00 PM EST, Route to Pharmacy Electronically, [facility] #[id number], Partial fill upon patient request if the [...] 11 Refills, 02/22/24 9:00:00 AM EDT, [facility], 169, cm, 02/15/24 10:45:00 EDT, Height, 101, kg, 12/29/23 10:42:00 EDT, Dry Weight Start Date: 02/22/24 Status: Ordered Quantity: 120.0 Unit: tablet Repeat number: 12 metoprolol 25 mg oral tablet, extended release 25 mg, By Mouth, Daily, # 30 tablet, Refills 0, Tot. Refills 0, Maintenance, 12/30/23 11:37:00 AM EDT, Route to Pharmacy Electronically, [facility], Partial fill upon [...] Active Type 2 diabetes mellitus 6 Confirmed 1/21/19 Active 1Outside Source Comment: Last Assessment & Plan: Question of reducing the Lasix back to 20 mg, we will deflect this question to the mill turner that is going to establish with patient in a few days in [place]. Then will be decided if Lasix should [...] investigate with pulmonary function studies and referral [facility] pulmonology. We note that he has CPAP for sleep apnea. 3Outside Source Comment: Overview: March 2021 status post [place] with coronary angiography showing occlusions requiring CABG, two-vessel bypass completed and without complication. This was done at [facility]. Last Assessment & Plan: He is [...] Diagnosis Diagnosis Type Effective Dates Health Status Cl inical Service Informant Small airways disease Discharge Diagnosis 02/12/24 Social History Social History Type Response Smoking Status Cigars or pipes tammy y within last 30 days; Interested in cessation: No; Patient wants NRT during admission No; Other: Pt quit 03-14-2021; entered on: 03/31/21 Sex Sex Representation Male (finding) Cardiology * Event Display: Cardiology Office Note, Non- Authored Date: Cardiology Consult note * Event Display: Consult Note Cardiology Authored Date: Patient Care team information Care Team Personnel Name: Tereza Sahni RN Position: [facility] RN Member Role: Primary Care Nurse Name: Jeni Plasencia RN Position: [facility] RN Member Role: Primary Care Nurse Name: Ximena Garber RN Position: [facility] RN Member Role: Primary Care Nurse Name: Anmol Murphy DO Position: [facility] Physician - Primary Care Member Role: PCP Address: [address] [place] [phone]- Telecom: Name: Sammi Ram RN Position: [facility] JACKIE Nurse Member Role: Primary Care Nurse Care Team Related Persons Name: ANGELA ECHEVARRIA Insurance Providers Guarantor name: ALICIA Health Plan Information #: 1 Payer: KAYLEN ROJAS ADV Member Number: NA Policy Number: NA Group Number: NA Health Plan Information #: 2 Payer: [place] Member Number: NA Policy Number: NA Group Number: NA
== END 2024-04-24 14:06 | disposition home or self-care (01) ==
LOC: HO.RESP 14:05
PROVIDERS: PCP Family Medicine; Visit Provider Nurse Practitioner Family
DX: R06.09 Other forms of dyspnea (principal)
CPT/HCPCS: 94010; 94640; 94727; 94729

== ENCOUNTER → 2024-04-24 14:09 | Outpatient (BNV) | payer MEDICARE, MEDICAID, SELFPAY | PROVIDERS: PCP Family Medicine; Visit Provider Internal Medicine Pulmonary Disease | DX: J43.9 Emphysema, unspecified (principal) | CPT/HCPCS: 94060; 94727; 94729 ==

== ENCOUNTER 2024-05-06 07:00 | Outpatient (RCR) | payer MEDICARE, OTHER, SELFPAY ==
[2024-04-11 10:06] LABS: Glucose, Whole Blood 221 mg/dL (60-115)
[2024-04-11 11:03] LABS: Glucose, Whole Blood 228 mg/dL (60-115)
== END 2024-05-29 09:27 | disposition home or self-care (01) ==
LOC: HO.CR 07:00
PROVIDERS: PCP Family Medicine; Visit Provider Internal Medicine
DX: Z95.5 Presence of coronary angioplasty implant and graft (principal); I21.4 Non-ST elevation (NSTEMI) myocardial infarction
CPT/HCPCS: 82947; 93798

== ENCOUNTER 2024-05-14 10:38 | Outpatient (AMB) | payer MEDICARE, MEDICAID, SELFPAY ==
[2024-05-14 10:46] VITALS: BP 146/80; PULSE 80; O2SAT 95; BMI 35.9
--- NOTE | 2024-05-14 10:46 | MHC.OFFVIS ---
Vital Signs 05/14/24 10:46 Height 5 ft 7 in Weight 229 lb BMI 35.9 BP 146/80 H Blood Pressure Location Rt brachial Position Sitting Pulse 80 Pulse Source Pulse Oximeter Pulse Oximetry (%) 95 Oxygen Delivery Method Room Air Intake Visit Reasons: Dyspnea on exertion Ground Equipment Mechanic: Ground Equipment Mechanic offered & declined Accompanied by: Self / Same As Patient Allergies No Known Allergies [No Known Allergies*] Allergy (Verified 05/14/24 10:52) Medication List - Last Reconciled 05/14/24 by Noelle Doe LPN albuterol sulfate 90 mcg/actuation 2 puffs inhalation Q4-6H PRN alpha lipoic acid 600 mg PO DAILY amlodipine 2.5 mg See Protocol PO DAILY aripiprazole 2 mg PO DAILY aspirin 81 mg PO DAILY atorvastatin 80 mg PO QPM cholecalciferol (vitamin D3) 25 mcg PO DAILY clopidogrel 75 mg PO DAILY cyanocobalamin (vitamin B-12) ER 1,000 mcg PO DAILY fenofibrate micronized 200 mg PO DAILY ferrous sulfate 325 mg PO DAILY fluoxetine 40 mg PO DAILY furosemide 20 mg PO BID glipizide 10 mg PO BID insulin glargine (Lantus Solostar U-100 Insulin) 32 units subcut BEDTIME metformin ER 1,000 mg PO BID metoprolol succinate ER 25 mg See Protocol PO DAILY omega-3 fatty acids-fish oil 360-1,200 mg (Fish Oil) 1 cap PO DAILY omeprazole 20 mg PO BID@0630,1630 HPI HPI Dyspnea on exertion: Details: Doe is a pleasant 68 year old male, current smoker, with approximately 15 pyh with underlying HTN, DMII, DARCI on CPAP, h/o double bypass 2021 and recent NSTEMI s/p stent 01/2024, under the care of cardiology and currently in cardiac rehab. Prior CTA revealed mosaic attenuation throughout suggestive of small airways disease. At the last visit, he was given albuterol to trial and reports good effect, interested in daily inhaler as he continues with dyspnea on exertion and dry cough. Today he presents to review PFT results. He denies any visits to urgent care or hospitalizations related to respiratory distress since the last visit. [facility] Medical History (Updated 05/14/24 @ 13:21 by Jocelyne Dill NP) Obstructive sleep apnea on CPAP HTN (hypertension) Obstructive sleep apnea Diabetes FH: cholecystectomy Retinal detachment Surgical History Presence of coronary angioplasty implant and graft Hx of eye surgery Hx of bladder endoscopy Hx of colonoscopy Hx of oral surgery H/O heart bypass surgery History of tonsillectomy Family History Father Coronary artery disease Hx of CABG Sister Coronary artery disease Hypertension Mother Cerebral hemorrhage Mental health problem Social History (Updated 05/14/24 @ 10:53 by Noelle Doe LPN) Alcohol intake: never Patient Tobacco Use Status: Current everyday Tobacco user Tobacco use type: Cigar Cigarettes Per Day: 8 Years Smoked: 6 +/- Substance Use Type: Marijuana Advance Directives Date on File: 03/15/21 service: No Current occupational status: employed Review of Systems Const Denies chills, Denies excessive sweating, Denies fever(s), Denies headache(s) and Denies night sweats Eyes Denies dry eyes, Denies irritation and Denies itchy eyes ENT Reports Normal hearing present, Denies headache(s), Denies nasal congestion, Denies nasal discharge, Denies post nasal drip and Denies sore throat Card Denies chest pain, Denies chest pain at rest, Denies chest pain with activity, Denies claudication, Denies leg edema, Reports dyspnea on exertion, Denies orthopnea and Denies paroxysmal nocturnal dyspnea Resp Denies chest congestion, Reports cough, Denies excessive phlegm production, Denies pain on inspiration, Denies pain with cough, Reports dyspnea on exertion, Denies stridor and Reports wheezing Musc Denies myalgias Neuro Reports Normal hearing present and Denies headache(s) Endo Denies excessive sweating Scottie/Lymph Denies lymphadenopathy Aller/Immun Denies itchy eyes, Denies seasonal rhinorrhea and Reports wheezing Physical Exam Vital Signs: Last Vital Signs Pulse 80 05/14/24 10:46 BP 146/80 H 05/14/24 10:46 Pulse Ox 95 05/14/24 10:46 Oxygen Delivery Method Room Air 05/14/24 10:46 BMI result Body Mass Index 35.9 Const General: cooperative, healthy appearing, comfortable, no acute distress, well developed and alert Nutritional Appearance: obese Orientation/consciousness: patient oriented x3 Limitations: no limitations HEENT Head: Yes normal to inspection, Yes normocephalic and Yes atraumatic Ears: hearing grossly normal bilaterally and external ears normal Eyes General: appearance normal, both eyes and all related structures Eyelids: Yes eyelids normal Sclerae: sclerae normal EOM: EOMs intact bilaterally Neck Neck: Yes normal visual inspection and Yes no lymphadenopathy Lymphatic: no lymphadenopathy noted Chest Chest palpation & inspection: normal inspection of the chest Resp Effort & Inspection: normal respiratory effort, able to speak in complete sentences, no audible wheezes, no cough, no stridor, not tachypneic, no tripod positioning and no use of accessory muscles Auscultation: clear to auscultation bilaterally Cardio Jugular venous distension: no JVD Rate: regular rate Rhythm: regular rhythm Skin Other: warm, dry General skin exam: no rashes or lesions noted Neuro General: patient oriented x3 Cranial nerves: Yes Normal hearing present Cognition (Neuro): normal cognition Gait exam (Neuro): Normal gait present Extrem General: Yes normal to inspection, Yes capillary refill normal, Yes no clubbing, cyanosis or edema and Yes no pedal edema Psych Appearance: grossly normal and well kempt Speech and movement: Normal speech and movement present and Clear speech present Affect: normal affect Attitude: cooperative Thought process: Normal thought process present Thought content: Normal thought content present Insight: Good insight present (Psych) Judgement: Good judgement present (Psych) Assessment & Plan Assessment & Plan (1) Asthma: Code(s): J45.909 - Unspecified asthma, uncomplicated Category: Medical (2) Emphysema of lung: Code(s): J43.9 - Emphysema, unspecified Category: Medical (3) Smoking: Code(s): F17.200 - Nicotine dependence, unspecified, uncomplicated Category: Social Hx (4) Morbid obesity: Code(s): E66.01 - Morbid (severe) obesity due to excess calories Category: Medical Plan Reviewed PFT which revealed reversible moderate obstructive ventilatory defect with bronchodilator response present in small to medium airways only. Increased residual volume suggests air trapping. Decreased expiratory reserve volume suggests extrathoracic restriction likely secondary to abdominal obesity. Reviewed importance of weight loss. Decreased diffusion capacity suggests emphysema, which is confirmed on chest CT. Patient agreeable to trial Breo in addition to albuterol MDI PRN. Discussed importance of good oral hygiene to prevent thrush. Smoking cessation discussed and patient would like to attempt to quit on his own at this time. All questions were answered and patient is in agreement of plan. Will follow up in 6-8 weeks or sooner if needed. Medications: New fluticasone furoate-vilanterol 100-25 mcg/dose (Breo Ellipta) 1 inh inhalation DAILY 60 ea 3RF Coding Level of Care Code Est Pt Level 4 (37310) Diagnoses Asthma J45.909 Emphysema of lung J43.9 Smoking F17.200 Morbid obesity E66.01
== END 2024-05-14 11:23 | disposition home or self-care (01) ==
PROVIDERS: PCP Family Medicine; Visit Provider Nurse Practitioner Family
DX: J45.909 Unspecified asthma, uncomplicated (principal); J43.9 Emphysema, unspecified; F17.200 Nicotine dependence, unspecified, uncomplicated; E66.01 Morbid (severe) obesity due to excess calories
CPT/HCPCS: 99214

== ENCOUNTER → 2024-05-14 10:38 | Outpatient (BNVA) | payer MEDICARE, MEDICAID, SELFPAY | PROVIDERS: PCP Family Medicine; Visit Provider Nurse Practitioner Family | DX: J43.9 Emphysema, unspecified (principal); G47.33 Obstructive sleep apnea (adult) (pediatric); F17.290 Nicotine dependence, other tobacco product, uncomplicated; E66.01 Morbid (severe) obesity due to excess calories; Z68.35 Body mass index [BMI] 35.0-35.9, adult; Z99.89 Dependence on other enabling machines and devices | CPT/HCPCS: 99212 ==

== ENCOUNTER 2024-06-28 09:57 | Outpatient (AMB) | payer MEDICARE, MEDICAID, SELFPAY ==
[2024-06-28 10:04] VITALS: BP 130/68; PULSE 71; O2SAT 96; BMI 36.8
--- NOTE | 2024-06-28 10:04 | A.OFFVIS_ITS ---
Vital Signs 06/28/24 10:04 Height 5 ft 7 in Weight 235 lb BMI 36.8 BP 130/68 Blood Pressure Location Rt brachial Position Sitting Pulse 71 Pulse Source Pulse Oximeter Pulse Oximetry (%) 96 Oxygen Delivery Method Room Air Intake Visit Reasons: Dyspnea on exertion Lens Grinder Rough Required: No Remarketing Manager: Remarketing Manager offered & declined Accompanied by: Self / Same As Patient Allergies No Known Allergies [No Known Allergies*] Allergy (Verified 06/28/24 10:09) Medication List - Last Reconciled 06/28/24 by Noelle Doe LPN albuterol sulfate 90 mcg/actuation 2 puffs inhalation Q4-6H PRN alpha lipoic acid 600 mg PO DAILY amlodipine 2.5 mg See Protocol PO DAILY aripiprazole 2 mg PO DAILY aspirin 81 mg PO DAILY atorvastatin 80 mg PO QPM Breo Ellipta 100-25 mcg/dose (fluticasone furoate-vilanterol) 1 inh inhalation DAILY NS cholecalciferol (vitamin D3) 25 mcg PO DAILY clopidogrel 75 mg PO DAILY cyanocobalamin (vitamin B-12) ER 1,000 mcg PO DAILY fenofibrate micronized 200 mg PO DAILY ferrous sulfate 325 mg PO DAILY fluoxetine 40 mg PO DAILY furosemide 20 mg PO BID glipizide 10 mg PO BID insulin glargine (Lantus Solostar U-100 Insulin) 32 units subcut BEDTIME metformin ER 1,000 mg PO BID metoprolol succinate ER 25 mg See Protocol PO DAILY omega-3 fatty acids-fish oil 360-1,200 mg (Fish Oil) 1 cap PO DAILY omeprazole 20 mg PO BID@0630,1630 HPI HPI Dyspnea on exertion: Details: Doe is a pleasant 68 year old male, current smoker, with approximately 15 pyh with underlying HTN, DMII, DARCI on CPAP, h/o double bypass 2021 and recent NSTEMI s/p stent 01/2024, under the care of [facility] cardiology. Prior CTA revealed mosaic attenuation throughout suggestive of small airways disease. At the last visit, he was started on Breo with good conrol of symptoms, using albuterol MDI infrequently. He reports overall improvements in dyspnea and cough. He denies any visits to urgent care or hospitalizations related to respiratory distress since the last visit. He does report h/o DARCI and would like to transfer care of CPAP therapy to this office. He has been using CPAP therapy for 10+ years and benefitting from therapy. He believes his last sleep study was two years ago and his current machine is approximately 3 years old. [facility] Medical History (Updated 05/14/24 @ 13:21 by Jocelyne Dill NP) Obstructive sleep apnea on CPAP HTN (hypertension) Obstructive sleep apnea Diabetes FH: cholecystectomy Retinal detachment Surgical History Presence of coronary angioplasty implant and graft Hx of eye surgery Hx of bladder endoscopy Hx of colonoscopy Hx of oral surgery H/O heart bypass surgery History of tonsillectomy Family History Father Coronary artery disease Hx of CABG Sister Coronary artery disease Hypertension Mother Cerebral hemorrhage Mental health problem Social History (Updated 05/14/24 @ 10:53 by Noelle Doe LPN) Alcohol intake: never Patient Tobacco Use Status: Current everyday Tobacco user Tobacco use type: Cigar Cigarettes Per Day: 8 Years Smoked: 6 +/- Substance Use Type: Marijuana Advance Directives Date on File: 03/15/21 service: No Current occupational status: employed Review of Systems Const Denies chills, Denies excessive sweating, Denies fever(s), Denies headache(s) and Denies night sweats Eyes Denies dry eyes, Denies irritation and Denies itchy eyes ENT Reports Normal hearing present, Denies headache(s), Denies nasal congestion, Denies nasal discharge, Denies post nasal drip and Denies sore throat Card Denies chest pain, Denies chest pain at rest, Denies chest pain with activity, Denies claudication, Denies leg edema, Denies dyspnea, Denies orthopnea and Denies paroxysmal nocturnal dyspnea Resp Denies chest congestion, Denies excessive phlegm production, Denies pain on inspiration, Denies pain with cough, Denies dyspnea, Denies stridor and Denies wheezing Musc Denies myalgias Neuro Reports Normal hearing present and Denies headache(s) Endo Denies excessive sweating Scottie/Lymph Denies lymphadenopathy Aller/Immun Denies itchy eyes, Denies seasonal rhinorrhea and Denies wheezing Physical Exam Vital Signs: Last Vital Signs Pulse 71 06/28/24 10:04 BP 130/68 06/28/24 10:04 Pulse Ox 96 06/28/24 10:04 Oxygen Delivery Method Room Air 06/28/24 10:04 BMI result Body Mass Index 36.8 Const General: cooperative, healthy appearing, comfortable, no acute distress, well developed and alert Nutritional Appearance: obese Orientation/consciousness: patient oriented x3 Limitations: no limitations HEENT Head: Yes normal to inspection, Yes normocephalic and Yes atraumatic Ears: hearing grossly normal bilaterally and external ears normal Eyes General: appearance normal, both eyes and all related structures Eyelids: Yes eyelids normal Sclerae: sclerae normal EOM: EOMs intact bilaterally Neck Neck: Yes normal visual inspection and Yes no lymphadenopathy Lymphatic: no lymphadenopathy noted Chest Chest palpation & inspection: normal inspection of the chest Resp Effort & Inspection: normal respiratory effort, able to speak in complete sentences, no audible wheezes, no cough, no stridor, not tachypneic, no tripod positioning and no use of accessory muscles Auscultation: clear to auscultation bilaterally Cardio Jugular venous distension: no JVD Rate: regular rate Rhythm: regular rhythm Skin Other: warm, dry General skin exam: no rashes or lesions noted Neuro General: patient oriented x3 Cranial nerves: Yes Normal hearing present Cognition (Neuro): normal cognition Gait exam (Neuro): Normal gait present Extrem General: Yes normal to inspection, Yes capillary refill normal, Yes no clubbing, cyanosis or edema and Yes no pedal edema Psych Appearance: grossly normal and well kempt Speech and movement: Normal speech and movement present and Clear speech present Affect: normal affect Attitude: cooperative Thought process: Normal thought process present Thought content: Normal thought content present Insight: Good insight present (Psych) Judgement: Good judgement present (Psych) Assessment & Plan Assessment & Plan (1) Asthma: Code(s): J45.909 - Unspecified asthma, uncomplicated Category: Medical (2) Emphysema of lung: Code(s): J43.9 - Emphysema, unspecified Category: Medical (3) Smoking: Code(s): F17.200 - Nicotine dependence, unspecified, uncomplicated Category: Social Hx (4) Morbid obesity: Code(s): E66.01 - Morbid (severe) obesity due to excess calories Category: Medical (5) Obstructive sleep apnea on CPAP: Code(s): G47.33 - Obstructive sleep apnea (adult) (pediatric); Z99.89 - Dependence on other enabling machines and devices Category: Medical Plan At this time, Doe reports good control on Breo and albuterol MDI, advised to continue. Smoking cessation discussed and patient would like to attempt to quit on his own at this time. He has been using and benefitting from CPAP therapy, [facility], and would like to transfer care to this office. Will submit order to take over prescription.All questions were answered and patient is in agreement of plan. Will follow up in 3-6 months or sooner if needed. Coding Level of Care Code Est Pt Level 4 (75173) Diagnoses Asthma J45.909 Emphysema of lung J43.9 Smoking F17.200 Morbid obesity E66.01 Obstructive sleep apnea on CPAP G47.33; Z99.89
--- OUTSIDE RECORDS SUMMARY | 2024-06-28 10:40 | XMS_ITS | Encounter Summary ---
Author Organization [employer] Address [address] [place] [address] Care Team Providers Care Singer Songwriter Name Role Phone Unavailable Primary Care Provider Unavailabl e Reason for Visit * Reason Onset Date Comments New Patient 02/17/2023 Encounter Details Date Type Department Care Team (Late st Contact Info) Description 02/17/2023 Telephone [facility] [address], [place] [phone] Praveen Cohen MD [address] [place], [place] [phone] New Patient Social History Tobacco Use Types Packs/Day Years Used Date Smoking Tobacco: Never Assessed Sex and Gender Information Value Date Recorded Sex Assigned at Not on file Legal Sex Male 7:16 PM EDT Gender Identity Not on file Sexual Orientation Not on file documented as of this encounter Miscellaneous Notes * Telephone Encounter - Nisa Harris - 02/21/2023 3:52 PM EDT New Patients Par Nisa Zimmerman called to schedule New patient appt, pt did not answer left voicemail to give a call at [phone]. * Telephone Encounter - Nisa Harris - 02/17/2023 10:46 AM EDT Pt has been transfer over to wait list for [facility]. EFFECTIVE SINCE 02/17/2023 documented in this encounter Plan of Treatment Not on file documented as of this encounter Visit Diagnoses Not on filedocumented in this encounter
--- OUTSIDE RECORDS SUMMARY | 2024-06-28 10:40 | XMS_ITS | Continuity of Care Document ---
Author Organization [facility] [place] Address [address] [place] [address]- Care Team Providers Care Personal Coach Name Role Phone Anmol Murphy DO Primary Care Physician Encounter [facility] Date(s): 05/16/24 - 06/15/24 [facility] [address] [place] [address]- Encounter Diagnosis COPD mixed type(Discharge Diagnosis) - 05/16/24 Encounter Type: Triage Allergies, Adverse Reactions, Alerts No Known Allergies Immunizations Given and Recorded Vaccine Date Status Refusal Reason RSV vaccine, preF A-preF B, recombinant 03/03/23 R ecorded pneumococcal 13-valent vaccine 1 01/25/23 Recorded SARS-CoV-2(COVID-19)mRNA-LNP vac([id number]) 01/25/23 Recorded pneumococcal 20-valent conjugate vaccine 2 01/25/23 Recorded influenza virus vaccine, inactivated 01/13/23 Jose rded influenza virus vaccine, inactivated 03/23/22 Jose rded influenza virus vaccine, inactivated 02/26/22 Jose rded influenza virus vaccine, inactivated 01/15/21 Jose rded influenza virus vaccine, inactivated 01/31/20 Jose rded influenza virus vaccine, inactivated 04/01/19 Jose rded influenza virus vaccine, inactivated 03/15/18 Jose rded [id number] 12y+ bivalent booster vax 04/15/22 Recorded [id number] bivalent booster vax 01/13/22 Recorded SARS-CoV-2 (COVID-19) mRNA-1273 vaccine 03/09/21 R ecorded SARS-CoV-2 (COVID-19) mRNA-1273 vaccine 08/26/20 R ecorded SARS-CoV-2 (COVID-19) mRNA-1273 vaccine 07/29/20 R ecorded 1Result Comment: Unit: Unknown Route: Intramuscular Eight Section Blower: [facility]ia 2Result Comment: [facility] Albuterol (Eqv-ProAir HFA) 90 mcg/inh inhalation aerosol 2 puffs, Inhalation, Every 6 hours, PRN Wheezing/Shortness of Breath, # 1 each, 0 Refills, Maintenance, 05/03/22 11:27:00 AM EST, [facility]- , Partial fill upon patient request [...] Refills, Maintenance, 03/23/21 12:46:00 PM EST, Tablet, [facility] 3, Partial fill upon patient [...] Repeat number: 1 B-D PEN NDL MINI [id number](07/21) B-D PEN NDL MINI [id number](07/21), See Instructions, # 100 each, Refills 10, [...] 10:57:00 AM EDT, Route to Pharmacy Electronically, [facility], Partial fill upon patient request [...] 05/06/22 2:00:00 PM EST, Supply Start Date: 12/30/22 Status: Ordered Quantity: 1.0 Unit: each Repeat [...] Quantity: 3.0 Unit: each Repeat number: 12 fenofibrate 200 mg oral capsule 1 capsule = 200 mg, By Mouth, Daily, # 90 capsule, 0 Refills, Maintenance, 04/22/24 5:08:00 PM EST,Capsule, [id number], Disregard Rx for 145 mg continue the 200 mg, 169, cm, 03/20/24 8:22:00 EST, Height, 101, kg, 12/29/23 10:42:00 EDT, Dry Weight Start Date: 04/22/24 Status: Ordered Quantity: 90.0 Unit: capsule Repeat number: 1 Fish Oil 1200 mg oral capsule 1 [...] Quantity: 30.0 Unit: capsule Repeat number: 1 fluticasone-vilanterol 100 mcg-25 mcg/inh inhalation powder 1 puffs, Inhalation, Daily, # 30 each, 0 Refills, Maintenance, 05/16/24 10:35:00 AM EST, Powder, Partial fill upon patient request if the prescription is for a schedule II opioid drug. Start Date: 05/16/24 Status: Ordered Quantity: 30.0 Unit: each Repeat number: 1 glipiZIDE 10 mg oral tablet 1 tablet, By Mouth, Daily, # 90 tablet, 3 Refills, Maintenance, 03/27/24 12:42:00 PM EST, [facility], 169, cm, 03/20/24 8:22:00 EST, Height, 101, kg, 12/29/23 10:42:00 EDT, Dry Weight Start Date: 03/27/24 Status: Ordered Quantity: 90.0 Unit: tablet Repeat number: 1 Lantus Solostar Pen 100 units/mL subcutaneous solution See Instructions, 43 units at bedtime Subcutaneous Injection Daily, # 30 mL, 3 Refills, Maintenance, 05/07/24 12:12:00 PM EST, [facility], Partial fill upon patient request if the prescription is for a schedule II opioid drug., 169, cm, 03/20/24 8:22:00 EST, Height, 101, kg, 12/29/23 10:42:00 EDT, Dry Weight Start Date: 05/07/24 Status: Ordered Quantity: 30.0 Unit: mL Repeat number: 4 Lasix 40 mg oral tablet 40 mg, 1, tablet, By Mouth, Daily, # 60 tablet, Refills 0, Tot. Refills 0, Maintenance, 04/19/21 2:32:00 PM EST, Route to Pharmacy Electronically, [id number], Partial fill upon patient request if the [...] tablet, 11 Refills, 02/22/24 9:00:00 AM EDT, [facility], 169, cm, 02/15/24 10:45:00 EDT, Height, 101, kg, 12/29/23 10:42:00 EDT, Dry Weight Start Date: 02/22/24 Status: Ordered Quantity: 120.0 Unit: tablet Repeat number: 12 metoprolol 25 mg oral tablet, extended release 25 mg, By Mouth, Daily, # 30 tablet, Refills 0, Tot. Refills 0, Maintenance, 12/30/23 11:37:00 AM EDT, Route to Pharmacy Electronically, [facility], Partial fill upon [...] Refills 5, Maintenance, 1 box = 100 lancets to test blood glucose 3 times daily. E11.65, 06/07/24 9:45:00 AM EST, Supply, 169, cm, 03/20/24 8:22:00 EST, Height, 101, kg, 12/29/23 10:42:00 EDT, Dry Weight Start Date: 06/07/24 Status: Ordered Quantity: 100.0 Unit: each Repeat number: 6 One Touch Shania Test Strips One Touch Shania Test Strips, See Instructions, # 100 each, Refills 5, Tot. Refills 5, Maintenance, Use to check Blood Glucose, 3 times a day. E11.65, 06/07/24 9:48:00 AM EST, Supply, 169, cm, 03/20/24 8:22:00 EST, Height, 101, kg, 12/29/23 10:42:00 EDT, Dry Weight Start Date: 06/07/24 Status: Ordered Quantity: 100.0 Unit: each Repeat number: 6 Vitamin D3 1000 intl units oral tablet 1 tablet = 25 mcg, By Mouth, Daily, 0 Refills, Maintenance, 02/03/23 9:29:00 AM EDT, Partial fill upon patient request if the prescription is for a schedule II opioid drug. Start Date: 02/03/23 Status: Ordered Repeat number: 1 Problem List Condition Confirmation Course Effective Dates Status Health Status Informant Bilateral lower limb edema 1 Confirmed 04/19/19 Active Coronary atherosclerosis due to calcified coronary lesion Confirmed Active COPD mixed type Confirmed Active Cigar smoker Confirmed Active Small airways disease Confirmed Active Essential hypertension Confirmed Active GERD (gastroesophageal reflux disease) Confirmed Active History of coronary artery bypass grafting 2 Confirmed 04/14/21 Active History of non-ST elevation myocardial infarction (NSTEMI) Confirmed Active Hypertriglyceridemia Confirmed Active Mixed hyperlipidemia Confirmed Active Moderate persistent asthma Confirmed Active Neurogenic claudication 3 Confirmed 04/14/21 Active Obstructive sleep apnea Confirmed Active Medicare annual wellness visit, subsequent Confirmed Active Peripheral neuropathy due to metabolic disorder Confirmed Active Major depression, recurrent, chronic Confirmed Active Severe obesity (BMI 35.0-39.9) with comorbidity Confirmed Active Benign skin lesion of thigh Confirmed Active 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 Then will be decided if Lasix should return back to 20 mg. 2Outside Source Comment: Overview: March 2021 status post [place] with coronary angiography showing occlusions requiring CABG, two-vessel bypass completed and without complication. This was done at [facility]. Last Assessment & Plan: He is [...] both the diabetes and also cardiovascular fitness. 3Outside Source Comment: Last Assessment & Plan: Although [...] since that might be a limiting factor. 4Outside Source Comment: Last Assessment & Plan: Thyroid is within normal limits on labs, he is now off of the amiodarone and we can stop assessing the thyroid going forward. 5Outside Source Comment: Last Assessment & Plan: We [...] Dates Health Status Cl inical Service Informant COPD mixed type 1 Discharge Diagnosis 05/16/24 Non-Specified 03/16/2025 10:34 Anmol Monteiro DO Based on PFTs done at [facility] Social History Social History Type Response Smoking Status Cigars or pipes tammy y within last 30 days; Interested in cessation: No; Patient wants NRT during admission No; Other: Pt quit 03-14-2021; entered on: 03/31/21 Sex Sex Representation Male (finding) Patient Care team information Care Team Personnel Name: Tereza Sahni RN Position: [facility] RN Member Role: Primary Care Nurse Name: Jeni Plasencia RN Position: [facility] RN Member Role: Primary Care Nurse Name: Ximena Garber RN Position: [facility] RN Member Role: Primary Care Nurse Name: Anmol Murphy DO Position: [facility] Physician - Primary Care Member Role: PCP Address: [address] [place] [id number] Telecom: Name: Sammi Ram RN Position: [facility] AMB Nurse Member Role: Primary Care Nurse Care Team Related Persons Name: ANGELA ECHEVARRIA Insurance Providers Guarantor name: ALICIA Health Plan Information #: 1 Payer: [employer] PPO BOB ADV Member Number: NA Policy Number: NA Group Number: NA
--- OUTSIDE RECORDS SUMMARY | 2024-06-28 10:40 | XMS_ITS | Clinical Summary ---
Author Organization [employer] Address [address] [place] [address] [address] [place] [address] Care Team Providers Care Bander And Cellophaner Helper Machine Name Role Phone Unavailable Primary Care Provider Unavailabl e Social History Tobacco Use Types Packs/Day Years Used Date Smoking Tobacco: Never Assessed Sex and Gender Information Value Date Recorded Sex Assigned at Not on file Legal Sex Male 7:16 PM EDT Gender Identity Not on file Sexual Orientation Not on file Plan of Treatment Health Maintenance Due Date Last Done Comments CT Colonography 1955 Colonoscopy 1955 Colorectal Cancer Screening 1955 Depression Screening 1955 FIT DNA/Cologuard 1955 FIT 1955 FOBT 1955 Lipid Panel 1955 SDOH Screening 1955 Sigmoidoscopy 1955 Alcohol/Substance Use Screening 1967 Tobacco Screening 1967 Hepatitis C Screening 11/25/1973 DTaP/Tdap/Td Vaccines (1 - Tdap) 11/25/1974 Zoster Vaccines (1 of 2) 11/25/2005 RSV Patients and Patients Aged 60 years or older (1 - Risk 60-74 years 1-dose series) 2015 COVID-19 Vaccine ( - season) 2024 03/09/2021, 08/26/2020, 07/29/2020 Influenza Vaccine (#1) 2024 , 03/23/2022, 02/26/2022, Additional history exists Pneumococcal Vaccine: 50+ Years (2 of 2 - PPSV23) 01/26/2024 01/25/2023 HIB Vaccines Aged Out No longer eligi ble based on patient's age to complete this topic HPV Vaccines Aged Out No longer eligi ble based on patient's age to complete this topic Hepatitis A Vaccines Aged Out No long er eligible based on patient's age to complete this topic Hepatitis B Vaccines Aged Out No long er eligible based on patient's age to complete this topic IPV Vaccines Aged Out No longer eligi ble based on patient's age to complete this topic Meningococcal Vaccine Aged Out No kandace ismael eligible based on patient's age to complete this topic RSV under 20 months Aged Out No longe r eligible based on patient's age to complete this topic Rotavirus Vaccines Aged Out No longer eligible based on patient's age to complete this topic Insurance [facility] COMPLETE PLUS
--- OUTSIDE RECORDS SUMMARY | 2024-06-28 10:40 | XMS_ITS | Continuity of Care Document ---
Author Organization [facility] lt Address [address] [place] [address]- Care Team Providers Care Employer Relations Representative Name Role Phone Anmol Murphy DO Primary Care Physician [place] [facility] [place] - 06/24/24 [facility] [address] [place] [address]- Encounter Diagnosis COPD mixed type(Discharge Diagnosis) - 06/15/24 Medicare annual wellness visit, subsequent(Discharge Diagnosis) - 06/15/24 Essential hypertension(Discharge Diagnosis) - 06/15/24 Mixed hyperlipidemia(Discharge Diagnosis) - 06/15/24 History of non-ST elevation myocardial infarction (NSTEMI)(Discharge Diagnosis) - 06/15/24 Major depression, recurrent, chronic(Discharge Diagnosis) - 06/15/24 GERD (gastroesophageal reflux disease)(Discharge Diagnosis) - 06/15/24 Type 2 diabetes mellitus(Discharge Diagnosis) - 06/15/24 Severe obesity (BMI 35.0-39.9) with comorbidity(Discharge Diagnosis) - 06/15/24 Moderate persistent asthma(Discharge Diagnosis) - 06/15/24 Obstructive sleep apnea(Discharge Diagnosis) - 06/15/24 Rash(Discharge Diagnosis) - 06/17/24 Tongue lesion(Discharge Diagnosis) - 06/17/24 Hypertriglyceridemia(Discharge Diagnosis) - 06/17/24 Cigar smoker(Discharge Diagnosis) - 06/17/24 Screening for prostate cancer(Discharge Diagnosis) - 06/17/24 Attending Physician: Anmol Murphy DO Encounter Type: Office Visit Allergies, Adverse Reactions, Alerts No Known Allergies Immunizations Given and Recorded Vaccine Date Status Refusal Reason RSV vaccine, preF A-preF B, recombinant 03/03/23 R ecorded pneumococcal 13-valent vaccine 1 01/25/23 Recorded SARS-CoV-2(COVID-19)mRNA-LNP vac([id number]) 01/25/23 Recorded pneumococcal 20-valent conjugate vaccine 2 01/25/23 Recorded influenza virus vaccine, inactivated 01/13/23 Jose rded influenza virus vaccine, inactivated 03/23/22 Jose rded influenza virus vaccine, inactivated 02/26/22 Jose rded influenza virus vaccine, inactivated 01/15/21 Jose rded influenza virus vaccine, inactivated 01/31/20 Jose rded influenza virus vaccine, inactivated 04/01/19 Jose rded influenza virus vaccine, inactivated 03/15/18 Jose rded [id number] 12y+ bivalent booster vax 04/15/22 Recorded [id number] bivalent booster vax 01/13/22 Recorded SARS-CoV-2 (COVID-19) mRNA-1273 vaccine 03/09/21 R ecorded SARS-CoV-2 (COVID-19) mRNA-1273 vaccine 08/26/20 R ecorded SARS-CoV-2 (COVID-19) mRNA-1273 vaccine 07/29/20 R ecorded 1Result Comment: Unit: Unknown 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 Horizontal: Provigent 2Result Comment: Laylaclementss Medications Albuterol (Eqv-ProAir HFA) 90 mcg/inh inhalation aerosol 2 puffs, Inhalation, Every 6 hours, PRN Wheezing/Shortness of Breath, # 1 each, 0 Refills, Maintenance, 05/03/22 11:27:00 AM EST, [facility], [place], operated by [facility]- , Partial fill upon patient request ifthe [...] Maintenance, 03/23/21 12:46:00 PM EST, Tablet, [facility], Partial fill upon patient request if [...] Repeat number: 1 B-D PEN NDL MINI [id number](07/21) B-D PEN NDL MINI [id number](07/21), See Instructions, # 100 each, Refills 10, [...] 10:57:00 AM EDT, Route to Pharmacy Electronically, [facility], Partial fill upon patient [...] mg, By Mouth, Daily, # 90 capsule, 3 Refills, Maintenance, 06/17/24 3:27:00 PM EST, Capsule, [id number], Disregard Rx for 145 mg continue the 200 mg, 169, cm, 06/17/2513:58:00 EST, Height, 101, kg, 12/29/23 10:42:00 EDT, Dry Weight Start Date: 06/17/24 Status: Ordered Quantity: 90.0 Unit: capsule Repeat number: 4 Fish Oil 1200 mg oral capsule 1 [...] 3 Refills, Maintenance, 03/27/24 12:42:00 PM EST, [facility], 169, cm, 03/20/24 8:22:00 EST, Height, 101, kg, 12/29/23 10:42:00 EDT, Dry Weight Start Date: 03/27/24 Status: Ordered Quantity: 90.0 Unit: tablet Repeat number: 1 Lantus Solostar Pen 100 units/mL subcutaneous solution See Instructions, 43 units at bedtime Subcutaneous Injection Daily, # 30 mL, 3 Refills, Maintenance, 05/07/24 12:12:00 PM EST, [facility], Partial fill upon patient [...] 2:32:00 PM EST, Route to Pharmacy Electronically, [id number], Partial fill upon patient request if the [...] tablet, 11 Refills, 02/22/24 9:00:00 AM EDT, [facility], 169, cm, 02/15/24 10:45:00 EDT, Height, 101, kg, 12/29/23 10:42:00 EDT, Dry Weight Start Date: 02/22/24 Status: Ordered Quantity: 120.0 Unit: tablet Repeat number: 12 metoprolol 25 mg oral tablet, extended release 25 mg, By Mouth, Daily, # 30 tablet, Refills 0, Tot. Refills 0, Maintenance, 12/30/23 11:37:00 AM EDT, Route to Pharmacy Electronically, [facility], Partial fill upon [...] Quantity: 100.0 Unit: each Repeat number: 6 triamcinolone 0.1% topical cream See Instructions, apply to rash on thigh Topically 2 times a day, # 30 Gm, 3 Refills, Maintenance, 06/17/24 3:18:00 PM EST, [facility] #[id number], Partial fill upon patient request if the prescription is for a schedule II opioid drug., apply to rash on thigh Topically 2 times a day, 169, cm, 06/17/24 14:58:00 EST, Height, 101, kg, 12/29/23 10:42:00 EDT, Dry Weight Start Date: 06/17/24 Status: Ordered Quantity: 30.0 Unit: g Repeat number: 4 Indication: Rash and other nonspecific skin eruption Vitamin D3 1000 intl units oral tablet [...] Confirmed Active Small airways disease Confirmed Active Rash Confirmed Active Essential hypertension Confirmed Active GERD (gastroesophageal reflux disease) Confirmed Active History of coronary artery bypass grafting 2 Confirmed 04/14/21 Active History of non-ST elevation myocardial infarction (NSTEMI) Confirmed Active Hypertriglyceridemia Confirmed Active Tongue lesion Confirmed Active Mixed hyperlipidemia Confirmed Active Moderate persistent asthma Confirmed Active Neurogenic claudication 3 Confirmed 04/14/21 Active Obstructive sleep apnea Confirmed Active Medicare annual wellness visit, subsequent Confirmed Active Screening for prostate cancer Confirmed Active 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 Then will be decided if Lasix should return back to 20 mg. 2Outside Source Comment: Overview: March 2021 status post [place] with coronary angiography showing occlusions requiring CABG, two-vessel bypass completed and without complication. This was done at [facility]. Last Assessment & Plan: He [...] Effective Dates Health Status Clinical Service Informant COPD mixed type Discharge Diagnosis 06/15/24 Essential hypertension Discharge Diagnosis 06/15/24 Medicare annual wellness visit, subsequent Discharge Diagnosis 06/15/24 Mixed hyperlipidemia Discharge Diagnosis 06/15/24 History of non-ST elevation myocardial infarction (NSTEMI) Discharge Diagnosis 06/15/24 Major depression, recurrent, chronic Discharge Diagnosis 06/15/24 GERD (gastroesophageal reflux disease) Discharge Diagnosis 06/15/24 Type 2 diabetes mellitus Discharge Diagnosis 06/15/24 Severe obesity (BMI 35.0-39.9) with comorbidity Discharge Diagnosis 06/15/24 Moderate persistent asthma Discharge Diagnosis 06/15/24 Obstructive sleep apnea Discharge Diagnosis 06/15/24 Rash Discharge Diagnosis 06/17/24 Tongue lesion Discharge Diagnosis 06/17/24 Hypertriglyceridemia Discharge Diagnosis 06/17/24 Cigar smoker Discharge Diagnosis 06/17/24 Screening for prostate cancer Discharge Diagnosis 06/17/24 Vital Signs Most recent to oldest [Reference Range]: 1 Height 169 cm (06/17/24 2:58 PM) Weight 107.2 kg (06/17/24 2:58 PM) Oxygen Saturation [94-100 %] 95 % (06/17/24 2:58 PM) Pulse Rate [55-90 bpm] 76 bpm (06/17/24 2:58 PM) Body Mass Index [18.5-24.99 kg/m2] 37.53 kg/m2 *>HHI* (06/17/24 2:58 PM) Blood Pressure [90-138/55-84 mm Hg] 141/ 60mm Hg *H* (06/17/24 2:58 PM) Respiratory Rate [16-30 br/min] 16 br/mi n (06/17/24 2:58 PM) Temperature [96.8-100.4 DegF] 98.3 DegF (06/17/24 2:58 PM) Mode of Delivery (Oxygen) Room air (06/17/24 2:58 PM) Blood pressure sites Arm, right (06/17/24 2:58 PM) Temperature Route Oral (06/17/24 2:58 PM) Weight Obtained Via Standing scale (06/17/24 2:58 PM) Social History Social History Type Response Smoking Status Cigars or pipes tammy y within last 30 days; Interested in cessation: No; Patient wants NRT during admission No; Other: donw ot 4 a day planning on quitting; entered on: 06/17/24 Sex Sex Representation Male (finding) Note * Sravani Thomas: PERFORM Event Display: Patient Education/Instruction Authored Date: [id number] Ambulatory Adult Visit Summary [facility] Adult [address] [address] Name: SASHA ECHEVARRIA : 1955?? Visit: 06/17/2024 14:20?? Ambulatory Visit Instructions ?? Your Care Team Primary Care Provider Anmol Murphy DO? This Visit Provider Anmol Murphy DO Your Diagnosis COPD mixed type Essential hypertension Medicare annual wellness visit, subsequent Mixed hyperlipidemia History of non-ST elevation myocardial infarction (NSTEMI) Major depression, recurrent, chronic GERD (gastroesophageal reflux disease) Type 2 diabetes mellitus Severe obesity (BMI 35.0-39.9) with comorbidity Moderate persistent asthma Obstructive sleep apnea Rash Tongue lesion Hypertriglyceridemia Cigar smoker Screening for prostate cancer Vitals Signs Temperature: 98.3 DegF Height: 169 cm Pulse Rate: 76 bpm Weight: 107.2 kg Respiratory Rate: 16 br/min Body Mass Index:??37.53 kg/m2??Critical Systolic Blood Pressure:??141 mm Hg??High Body surface area: 2.24 Diastolic Blood Pressure: 60 mm Hg ?? Oxygen Saturation: 95 % ?? What to do next Instructions From Your Provider Health goals for this year Obtain Fasting lab in 1 month Follow-up with cardiology pulmonology endocrinology??and psychiatry as planned BP at goal continue current plan check BP at home and bring to next visit ?? you should hear from oral surgeon re??tongue within next 3 weeks? recommend quitting smoking: pick a day let others know contact [employer]?? [phone] [email or web address] ?? If not already obtained recommend Shingrix at your local pharmacy Follow-Up Appointments Follow Up with??f/u 6 months Why: Multiple Future Orders US AAA Screen, Routine, Reason for Exam: Aneurysm, cigar smoker sceening AAA, Patient Does Not NeedAssistance, Once, *Est. 06/17/24 Basic Metabolic Panel - Once, *Est. 07/11/23, Order for Today?? CBC w/ Differential - Once, *Est. 07/11/23, Order for Today?? Microalbumin Urine - Routine, Once, 06/17/24 15:29:00 EST, Order for Today, [facility], Urine?? Lipid Panel - Routine, Once, 06/17/24 15:30:00 EST, Order for Today, [facility], Blood?? PSA Screen - Routine, Once, 06/17/24 15:33:00 EST, Order for Today, [facility], Blood?? Medications The list below reflects the information in our records and provided by you today along with any changes made during this visit. Please continue your medications until treatment is completed or stopped by your provider. If this is different from the information you have or there are other questions,please contact the prescribing provider. What How Much When Why Instructions New Triamcinolone Topical (triamcinolone 0.1% topical cream) See instructions Rash Refills: 3 apply to rash on thigh Topically 2 times a day ?? Pickup at [facility] #[id number] Unchanged Albuterol (Albuterol (Eqv-ProAir HFA) 90 mcg/ inh inhalation aerosol) 2 puff(s) Inhalation Every 6 hours as needed for Wheezing/Shortness of Breath Duration: 14 Days Unchanged alpha-lipoic acid (alpha-lipoic acid 300 mg oral capsule) 1 capsule Oral Daily Unchanged Aripiprazole (ARIPiprazole 2 mg oral tablet) 1 tab(s) Oral Daily Unchanged Aspirin (aspirin 81 mg oral delayed release tablet) 1 tab(s) Oral Daily Unchanged Atorvastatin (atorvastatin 80 mg oral tablet) 1 tab(s) Oral Daily at Bedtime Unchanged Cholecalciferol (Vitamin D3 1000 intl units oral tablet) 1 tab(s) Oral Daily Unchanged Clopidogrel (clopidogrel 75 mg oral tablet) 75 Milligram Oral Daily Unchanged Durable Medical Equipment (CPAP Machine) See instructions AutoCPAP 10-16 cm H20, use Daily when sleeping ?? Unchanged Durable Medical Equipment (DexCom G7 Sensor) See instructions Use as directed for DM to check blood glucose 4-5 times per day E 11.9 change sensor every 10 days ?? Unchanged Durable Medical Equipment (One Touch Delica Lancets) See instructions 1 box = 100 lancets to test blood glucose 3 times daily. ??E11.65 ?? Unchanged Fenofibrate (fenofibrate 200 mg oral capsule) 1 capsule Oral Daily Pickup at [facility] #[id number] Unchanged Fluoxetine (FLUoxetine 40 mg oral capsule) 1 capsule Oral Daily Unchanged fluticasone-vilanterol (fluticasone-vilanterol 100 mcg-25 mcg/ inh inhalation powder) 1 puff(s) Inhalation Daily Unchanged Furosemide (Lasix 40 mg oral tablet) 1 tab(s) Oral Daily Unchanged GlipiZIDE (glipiZIDE 10 mg oral tablet) 1 tab(s) Oral Daily Unchanged Insulin Glargine (Lantus Solostar Pen 100 units/ mL subcutaneous solution) See instructions 43 units at bedtime Subcutaneous Injection Daily ?? Unchanged Levothyroxine (levothyroxine 0.025 mg oral tablet) 1 tab(s) Oral Daily Unchanged Metformin (MetFORMIN (Eqv-Glucophage XR) 500 mg oral tablet, extended release) See instructions TAKE 2 TABLETS BY MOUTH IN THE MORNING AND 2 TABLETS IN THE EVENING ?? Unchanged Metoprolol (metoprolol 25 mg oral tablet, extended release) 25 Milligram Oral Daily Duration: 30 Days Unchanged Miscellaneous Rx (B-12 TR 1,000MCG TABLETS) 1 tab(s) Oral Daily Unchanged Miscellaneous Rx (B-D PEN NDL MINI [id number]()) See instructions use to inject insulin daily E11.9 ?? Unchanged Miscellaneous Rx (One Touch Shania Test Strips) See instructions Use to check Blood Glucose, 3 times a day. ??E11.65 ?? Unchanged [place]-3 Polyunsaturated Fatty Acids (Fish Oil 1200 mg oral capsule) 1 capsule Oral 3 times a day Unchanged Omeprazole (omeprazole 20 mg oral delayed release tablet) 1 tab(s) Oral Daily Pharmacy Information [facility] #[id number]: [address] [place] [address], [place] [id number] [phone] Test Performed Below is a partial list of the tests performed during your Visit. You may have had other tests and procedures not included in this list. Please discuss all test results with your provider. Lipid Panel?-- Results Pending -- Microalbumin Urine?-- Results Pending -- PSA Screen?-- Results Pending -- Medications and Immunizations Administered Medications Given During Visit No medications given during this visit.?? Allergies (NKA means No Known Allergies) NKA Common Emergency Awareness Tips IS IT A STROKE? Act FAST and Check for these signs: FACE Does the face look uneven? ARM Does one arm drift down? SPEECH Does their speech sound strange? TIME Call at any sign of stroke ?? Heart Attack Signs Chest discomfort: Most heart attacks involve discomfort in the center of the chest and lasts more than a few minutes, or goes away and comes back. It can feel like uncomfortable pressure, squeezing, fullness or pain. Discomfort in upper body: Symptoms can include pain or discomfort in one or both arms, back, neck, jaw or stomach. Shortness of breath: With or without discomfort. Other signs: Breaking out in a cold sweat, nausea, or lightheaded. Remember, MINUTES DO MATTER. If you experience any of these heart attack warning signs, call to get immediate medical attention! ?? Smoking can increase your chances of developing chronic health problems and can cause harmful effects to other family members in your house. If you smoke, you are strongly encouraged to quit. Please call [facility] at [phone] or [phone] ([phone]) or log in to [email or web address] for referrals to smoking cessation programs. ?? The National Suicide Prevention Hotline is available 28/11 if you or someone you know needs to find a reason to keep living. By calling 0-083-988-IOCS (7469) you'll be connected to a skilled, trained counselor at a crisis center in your area. [facility] Portal You can view and manage your care through the patient portal or by using a health care jami of your choosing. [employer] is a website that allows you to securely view your medical information including your hospital discharge summary, office visit summaries, medications and follow-up visits. You can also request appointments, renew medications, and request access to your medical information using a health care jami of your choosing, or just ask a question. You can enroll at [email or web address] or register during your next office visit. [facility], in keeping with [facility] guidance, no longer requires face masks for staff, patientsor visitors in most situations. Similiar to time spent indoors at other locations, there is the chance that you were exposed to repiratory viruses during your time with us (such as flu or COVID-19). If you develop symptoms concerning for a viral respiratory infection, please seek testing (and treatment if indicated) from your medical provider or home test kit. ?? Disclaimer: The information provided is of a general nature and is intended to be used in conjunction with the recommendations and advice of your health care practitioner. Every effort has been made to ensure that the information provided is accurate and complete at the time it is provided to you however, as your needs change, or, as new information becomes available, different or additional instructions may be required. ?? If you have questions, please consult with your primary care provider or pharmacist, as appropriate. This information is not intended to serve as substitution for assessment and evaluation by a qualified health care provider. If you do not have a primary care provider, you may find a [facility] provider by calling [facility] at [phone]. Patient Care team information Care Team Personnel Name: Tereza Sahni RN Position: [facility] RN Member Role: Primary Care Nurse Name: Jeni Plasencia RN Position: [facility] RN Member Role: Primary Care Nurse Name: Ximena Garber RN Position: [facility] RN Member Role: Primary Care Nurse Name: Anmol Murphy DO Position: [facility] Physician - Primary Care Member Role: PCP Address: [address] [place] [phone]- Telecom: Name: Sammi Ram RN Position: [facility] AMB Nurse Member Role: Primary Care Nurse Care Team Related Persons Name: ANGELA ECHEVARRIA Insurance Providers Guarantor name: SASHA ECHEVARRIA Health Plan Information #: 1 Payer: [employer] PPO [employer] Member Number: [id number] Policy Number: NA Group Number: [id number] Health Plan Information #: 2 Payer: [employer] PPO [employer] Member Number: [id number] Policy Number: NA Group Number: NA
== END 2024-06-28 10:43 | disposition home or self-care (01) ==
PROVIDERS: PCP Family Medicine; Visit Provider Nurse Practitioner Family
DX: J45.909 Unspecified asthma, uncomplicated (principal); J43.9 Emphysema, unspecified; F17.200 Nicotine dependence, unspecified, uncomplicated; E66.01 Morbid (severe) obesity due to excess calories; G47.33 Obstructive sleep apnea (adult) (pediatric); Z99.89 Dependence on other enabling machines and devices
CPT/HCPCS: 99214

== ENCOUNTER → 2024-06-28 09:57 | Outpatient (BNVA) | payer MEDICARE, MEDICAID, SELFPAY | PROVIDERS: PCP Family Medicine; Visit Provider Nurse Practitioner Family | DX: G47.33 Obstructive sleep apnea (adult) (pediatric) (principal); J45.909 Unspecified asthma, uncomplicated; J43.9 Emphysema, unspecified; E66.01 Morbid (severe) obesity due to excess calories; Z72.0 Tobacco use; F12.90 Cannabis use, unspecified, uncomplicated; Z68.36 Body mass index [BMI] 36.0-36.9, adult | CPT/HCPCS: 99212 ==

== ENCOUNTER 2024-10-15 10:36 | Outpatient (AMB) | payer MEDICARE, MEDICAID, SELFPAY ==
--- NOTE | 2024-10-15 10:40 | MHC.OFFVIS ---
Vital Signs 10/15/24 10:41 Height 5 ft 7 in Weight 233 lb 11.04 oz BMI 36.6 BP 128/68 Blood Pressure Location Lt brachial Position Sitting Pulse 68 Pulse Source Pulse Oximeter Intake Visit Reasons: 6m follow up Allergies No Known Allergies [No Known Allergies*] Allergy (Verified 06/28/24 10:09) Medication List - Last Reconciled 10/15/24 by Kameron Lyn MD albuterol sulfate 90 mcg/actuation 2 puffs inhalation Q4-6H PRN alpha lipoic acid 600 mg PO DAILY aripiprazole 2 mg PO DAILY aspirin 81 mg PO DAILY atorvastatin 80 mg PO QPM Breo Ellipta 100-25 mcg/dose (fluticasone furoate-vilanterol) 1 inh inhalation DAILY NS cholecalciferol (vitamin D3) 25 mcg PO DAILY clopidogrel 75 mg PO DAILY cyanocobalamin (vitamin B-12) ER 1,000 mcg PO DAILY fenofibrate micronized 200 mg PO DAILY ferrous sulfate 325 mg PO DAILY fluoxetine 40 mg PO DAILY furosemide 20 mg PO BID glipizide 10 mg PO BID insulin glargine (Lantus Solostar U-100 Insulin) 32 units subcut BEDTIME metformin ER 1,000 mg PO BID metoprolol succinate ER 50 mg See Protocol PO DAILY omeprazole 20 mg PO BID@0630,1630 HPI Comments Details: Doe returns for follow-up regarding coronary disease and bypass surgery. In December 2023, had NSTEMI and underwent cardiac catheterization/right coronary artery stenting. Multiple cardiovascular risk factors including morbid obesity, diabetes, hypertension, dyslipidemia, smoking, as well as obstructive sleep apnea. Since last seen, he states he feels well. He does not have any clear-cut cardiac symptoms like angina or anything along those lines. Unfortunately, continues to smoke. Weight has actually gone up a bit compared to before. [facility] Medical History (Updated 05/14/24 @ 13:21 by Jocelyne Dill NP) Obstructive sleep apnea on CPAP HTN (hypertension) Obstructive sleep apnea Diabetes FH: cholecystectomy Retinal detachment Surgical History Presence of coronary angioplasty implant and graft Hx of eye surgery Hx of bladder endoscopy Hx of colonoscopy Hx of oral surgery H/O heart bypass surgery History of tonsillectomy Family History Father Coronary artery disease Hx of CABG Sister Coronary artery disease Hypertension Mother Cerebral hemorrhage Mental health problem Social History (Updated 05/14/24 @ 10:53 by Noelle Doe LPN) Alcohol intake: never Patient Tobacco Use Status: Current everyday Tobacco user Tobacco use type: Cigar Cigarettes Per Day: 8 Years Smoked: 6 +/- Substance Use Type: Marijuana Advance Directives Date on File: 03/15/21 service: No Current occupational status: employed Review of Systems Const Denies weakness ENT Denies dizziness Card Denies chest pain, Denies chest pain with activity, Denies syncope, Denies rapid heart rate, Denies pedal edema, Denies edema, Denies leg edema, Denies lightheadedness, Denies palpitations, Denies dyspnea, Denies dyspnea on exertion and Denies orthopnea Resp Denies cough, Denies dyspnea and Denies dyspnea on exertion GI Denies hematochezia and Denies change in stool character Musc Denies abnormal gait, Denies muscle cramps, Denies muscle weakness, Denies numbness, Denies radiating pain into limb and Denies tingling Neuro Denies abnormal gait, Denies dizziness, Denies syncope, Denies numbness, Denies tingling and Denies weakness Endo Denies palpitations Physical Exam Vital Signs: Last Vital Signs Pulse 68 10/15/24 10:41 BP 128/68 10/15/24 10:41 BMI result Body Mass Index 36.6 Const General: comfortable and no acute distress Orientation/consciousness: patient oriented x3 HEENT Other: Unremarkable Head: Yes normal to inspection Neck Neck: Yes normal visual inspection Chest Chest palpation & inspection: normal inspection of the chest Resp Auscultation: clear to auscultation bilaterally Cardio Palpation: normal PMI Heart sounds: S1 normal heart sound present, S2 normal heart sound present, no gallops, no murmurs and no rubs GI Palpation (GI): Soft to palpation Back/Spine/Pelvis Other: unremarkable Skin General skin exam: no rashes or lesions noted Neuro General: patient oriented x3 Extrem General: Yes normal to inspection Psych Mental Status: mental status grossly normal Assessment & Plan Assessment & Plan (1) Atherosclerotic cardiovascular disease: Code(s): I25.10 - Atherosclerotic heart disease of [place] coronary artery without angina pectoris Category: Medical Plan: Status post CABG. In the last catheterization from 12/2023, proximal RCA occlusion with thrombus and thought to be the culprit for NSTEMI, status post PCI. Otherwise, patent HUSAIN to LAD and patent radial graft to OM. Severe [place] disease in left main and LAD. Continue aspirin indefinitely. Okay to continue Plavix for longer than one year. Duration to be decided. Continue high-dose statins. LDL 47 mg/dL. Triglycerides 246 mg/dL. Preoperative carotid ultrasound without any significant stenosis. (2) Type 2 diabetes mellitus with unspecified complications: Code(s): E11.8 - Type 2 diabetes mellitus with unspecified complications Category: Medical Plan: Meds include insulin, glipizide, metformin. Per endocrine note, hemoglobin A1c is 8.1%. (3) Essential hypertension: Code(s): I10 - Essential (primary) hypertension Category: Medical Plan: Stable. No changes. (4) Obstructive sleep apnea on CPAP: Code(s): G47.33 - Obstructive sleep apnea (adult) (pediatric); Z99.89 - Dependence on other enabling machines and devices Category: Medical Plan: Continue CPAP. (5) Morbid obesity: Code(s): E66.01 - Morbid (severe) obesity due to excess calories Category: Medical Plan: Unfortunately, weight is a major issue and we have discussed this many times including today. However, not clear if it will actually change or not. Advised him to pursue regular physical activity. (6) Smoking: Code(s): F17.200 - Nicotine dependence, unspecified, uncomplicated Category: Social Hx Plan: Again discussed several times including today. High-risk of recurrent cardiovascular events because of continued smoking. He states he is well aware of it. Hopefully, he can stop. Medications: Changed From metoprolol succinate ER 25 mg See Protocol PO DAILY 90 tabs 3RF To metoprolol succinate ER 50 mg See Protocol PO DAILY Coding Level of Care Code Est Pt Level 4 (47084) Complex EM visit Add On G2211 Diagnoses Atherosclerotic cardiovascular disease I25.10 Type 2 diabetes mellitus with unspecified complications E11.8 Essential hypertension I10 Obstructive sleep apnea on CPAP G47.33; Z99.89 Morbid obesity E66.01 Smoking F17.200
[2024-10-15 10:41] VITALS: BP 128/68; PULSE 68; BMI 36.6
== END 2024-10-15 11:15 | disposition home or self-care (01) ==
LOC: HO.HCS 10:36
PROVIDERS: PCP Family Medicine; Visit Provider Internal Medicine
DX: I25.10 Atherosclerotic heart disease of native coronary artery without angina pectoris (principal); E11.8 Type 2 diabetes mellitus with unspecified complications; I10 Essential (primary) hypertension; G47.33 Obstructive sleep apnea (adult) (pediatric); Z99.89 Dependence on other enabling machines and devices; E66.01 Morbid (severe) obesity due to excess calories; F17.200 Nicotine dependence, unspecified, uncomplicated
CPT/HCPCS: 99214; G2211

== ENCOUNTER → 2024-10-15 10:36 | Outpatient (BNVA) | payer MEDICARE, MEDICAID, SELFPAY | PROVIDERS: PCP Family Medicine; Visit Provider Internal Medicine | DX: I25.10 Atherosclerotic heart disease of native coronary artery without angina pectoris (principal); I10 Essential (primary) hypertension; E11.8 Type 2 diabetes mellitus with unspecified complications; E66.01 Morbid (severe) obesity due to excess calories; G47.33 Obstructive sleep apnea (adult) (pediatric); F17.210 Nicotine dependence, cigarettes, uncomplicated; Z99.89 Dependence on other enabling machines and devices; Z68.36 Body mass index [BMI] 36.0-36.9, adult; Z79.4 Long term (current) use of insulin; Z79.84 Long term (current) use of oral hypoglycemic drugs | CPT/HCPCS: 99212 ==

== ENCOUNTER 2024-11-14 12:24 | Emergency (ER) | payer MEDICARE, MEDICAID, SELFPAY ==
--- OUTSIDE RECORDS SUMMARY | 2024-11-08 23:59 | XMS_ITS | Continuity of Care Document ---
Author Organization [facility] Address [address] [place] [id number] Care Team Providers Care Accounting/Finance Tutor Name Role Phone Oralia HARDING, Rebecca Primary Care Physician Encounter [facility] Date(s): 10/09/24 - 11/08/[address] [id number] Encounter Type: Triage Allergies, Adverse Reactions, Alerts No Known Allergies Immunizations Given and Recorded Vaccine Date Status Refusal Reason RSV vaccine, preF A-preF B, recombinant 03/03/23 R ecorded pneumococcal 13-valent vaccine 1 01/25/23 Recorded SARS-CoV-2(COVID-19)mRNA-LNP vac([id number]) 01/25/23 Recorded pneumococcal 20-valent conjugate vaccine 2 01/25/23 Recorded influenza virus vaccine, inactivated 01/13/23 Jose rded influenza virus vaccine, inactivated 03/23/22 Jose rded influenza virus vaccine, inactivated 02/26/22 Jose rded influenza virus vaccine, inactivated 01/15/21 Jose rded influenza virus vaccine, inactivated 01/31/20 Jose rded influenza virus vaccine, inactivated 04/01/19 Jose rded influenza virus vaccine, inactivated 03/15/18 Jose rded [id number] 12y+ bivalent booster vax 04/15/22 Recorded [id number] bivalent booster vax 01/13/22 Recorded SARS-CoV-2 (COVID-19) mRNA-1273 vaccine 03/09/21 R ecorded SARS-CoV-2 (COVID-19) mRNA-1273 vaccine 08/26/20 R ecorded SARS-CoV-2 (COVID-19) mRNA-1273 vaccine 07/29/20 R ecorded 1Result Comment: Unit: Unknown Route: Intramuscular Milk Runner: UTILICASE 2Result Comment: [facility] Albuterol (Eqv-ProAir HFA) 90 mcg/inh inhalation aerosol 2 puffs, Inhalation, Every 6 hours, PRN Wheezing/Shortness of Breath, # 1 each, 0 Refills, Maintenance, 05/03/22 11:27:00 AM EST, [facility]- , Partial fill upon patient [...] Refills, Maintenance, 03/23/21 12:46:00 PM EST, Tablet, [facility] 3, Partial fill upon patient request [...] Repeat number: 1 B-D PEN NDL MINI [id number](07/21) B-D PEN NDL MINI [id number](07/21), See Instructions, # 100 each, Refills 2, Tot. Refills 2, Maintenance, use to inject insulin daily E11.9, 09/13/24 9:17:00 AM EDT, Supply, 169, cm, 09/03/24 15:47:00 EDT,Height, 101, kg, 12/29/23 10:42:00 EDT, Dry Weight Start Date: 09/13/24 Status: Ordered Quantity: 100.0 Unit: each Repeat number: 3 Breo Ellipta 50 mcg-25 mcg/inh. inhalation powder 1 inhalation, Inhalation, Daily, at the same time every day, 0 Refills, Maintenance, 09/03/24 3:52:00 PM EDT, Powder, Partial fill upon patient request if the prescription is for a schedule II opioid drug. Start Date: 09/03/24 Status: Ordered Repeat number: 1 clopidogrel 75 mg oral tablet 75 mg, By Mouth, Daily, # 30 tablet, Refills 11, Tot. Refills 11, Maintenance, 12/30/23 10:57:00 AM EDT, Route to Pharmacy Electronically, [facility], Partial fill upon patient [...] Refills, Maintenance, 06/17/24 3:27:00 PM EST, Capsule, [id number], Disregard Rx for 145 mg continue the [...] mg oral tablet 1 tablet, By Mouth, 2 times a day, 1 tablet = 10 mg, By Mouth, 2 times a day. 90 day supply E11.65,# 180 tablet, 2 Refills, Maintenance, 09/13/24 9:16:00 AM EDT, [id number], 169, cm, 09/03/24 15:47:00 EDT, Height, 101, kg, 12/29/23 10:42:00 EDT, Dry Weight Start Date: 09/13/24 Status: Ordered Quantity: 180.0 Unit: tablet Repeat number: 3 Lantus Solostar Pen 100 units/mL subcutaneous solution See Instructions, 43 units at bedtime Subcutaneous Injection Daily E11.9, # 30 mL, 2 Refills, Maintenance, 09/13/24 9:16:00 AM EDT, [facility] #[id number], Partial fill upon patient request if theprescription is for a schedule II opioid drug., 169, cm, 09/03/24 15:47:00 EDT, Height, 101, kg, 12/29/23 10:42:00 EDT, Dry Weight Start Date: 09/13/24 Status: Ordered Quantity: 30.0 Unit: mL Repeat number: 3 Lasix 40 mg oral tablet 40 mg, 1, tablet, By Mouth, Daily, # 60 tablet, Refills 0, Tot. Refills 0, Maintenance, 04/19/21 2:32:00 PM EST, Route to Pharmacy Electronically, [facility][id number], Partial fill upon patient request if the [...] tablet, 11 Refills, 02/22/24 9:00:00 AM EDT, [facility], 169, cm, 02/15/24 10:45:00 EDT, Height, 101, kg, 12/29/23 10:42:00 EDT, Dry Weight Start Date: 02/22/24 Status: Ordered Quantity: 120.0 Unit: tablet Repeat number: 12 metoprolol 25 mg oral tablet 25 mg, 1, tablet, By Mouth, 2 times a day, # 60 tablet, Refills 11, Tot. Refills 11, Maintenance, 09/04/24 11:36:00 AM EDT, Route to Pharmacy Electronically, [facility] #[id number], Partial fill upon patient request if the prescription is for a schedule II opioid drug., 169, cm, 09/03/24 15:47:00 EDT, Height, 101, kg, 12/29/23 10:42:00 EDT, Dry Weight Start Date: 09/04/24 Status: Ordered Quantity: 60.0 Unit: tablet Repeat number: 12 omeprazole 20 mg oral delayed release tablet [...] 3 Refills, Maintenance, 06/17/24 3:18:00 PM EST, [facility] #[id number], Partial fill upon patient request if the prescription is for a schedule II opioid drug., apply to rash on thigh Topically 2 times a day, 169, cm, 06/17/24 14:58:00 EST, Height, 101, kg, 12/29/23 10:42:00 EDT, Dry Weight Start Date: 06/17/24 Status: Ordered Quantity: 30.0 Unit: g Repeat number: 4 Indications: Rash and other nonspecific skin eruption; Vitamin D3 1000 intl units oral tablet [...] type Confirmed Active Cigar smoker Confirmed Active Essential hypertension Confirmed Active GERD (gastroesophageal reflux disease) Confirmed Active History of coronary artery bypass grafting 2 Confirmed 04/14/21 Active History of non-ST elevation myocardial infarction (NSTEMI) Confirmed Active Hypertriglyceridemia Confirmed Active Moderate persistent asthma Confirmed Active Neurogenic claudication 3 Confirmed 04/14/21 Active Obstructive sleep apnea Confirmed Active Peripheral neuropathy due to metabolic disorder Confirmed Active Major depression, recurrent, chronic Confirmed Active Severe obesity (BMI 35.0-39.9) with comorbidity Confirmed Active Hepatic steatosis Confirmed Active 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 Then will be decided if Lasix should return back to 20 mg. 2Outside Source Comment: Overview: March 2021 status post PR with coronary angiography showing occlusions requiring CABG, two-vessel bypass completed and without complication. This was done at [facility]. Last Assessment & Plan: He [...] on: 06/17/24 Sex Sex Representation Male (finding) Patient Care team information Care Team Personnel Name: Jeni Plasencia RN Position: [facility] RN Member Role: Primary Care Nurse Name: Ximena Garber RN Position: [facility] RN Member Role: Primary Care Nurse Name: Rebecca Barton MD Position: [facility] Physician - Primary Care Member Role: PCP Address: [address] [place] [address] Adult [place] [phone] Telecom: Name: Sammi Ram RN Position: [facility] Nurse Member Role: Primary Care Nurse Care Team Related Persons Name: ANGELA ECHEVARRIA Insurance Providers Guarantor name: SASHA ECHEVARRIA Health Plan Information #: 1 Payer: KAYLEN RODRIGUEZ Payer Identifier: NA Member Number: [id number] Group Number: [id number] Subscriber Identifier: [id number] Relationship to Subscriber: self Coverage Type: NA Coverage Verification Date: NA Telecom: NA Address: NA
--- NOTE | 2024-11-14 12:45 | ED.GENADULT ---
HPI - General Adult General Chief complaint: Dental/Oral Stated complaint: dental issue Time Seen by Provider: 11/14/24 14:16 Source: patient Mode of arrival: ambulatory Limitations: no limitations History of Present Illness ED Provider: HPI narrative: Patient is presenting with right facial swelling, dental pain, has poor dentition, there has been going on for the past 3 days, he does have a dentist. No dysphagia, odynophagia, able to eat drink and control his secretions. Related Data Home Medications ?Medication ?Instructions ?Recorded ?Confirmed aripiprazole 2 mg tablet 2 mg PO DAILY 09/02/20 10/15/24 cholecalciferol (vitamin D3) 25 25 mcg PO DAILY 03/30/21 10/15/24 mcg (1,000 unit) capsule insulin glargine 100 unit/mL (3 32 unit subcut BEDTIME 03/30/21 10/15/24 mL) subcutaneous pen (Lantus Solostar U-100 Insulin) metformin 500 mg tablet,extended 1,000 mg PO BID 03/30/21 10/15/24 release 24 hr omeprazole 20 mg capsule,delayed 20 mg PO BID@0630,1630 03/30/21 10/15/24 release alpha lipoic acid 300 mg capsule 600 mg PO DAILY 06/09/22 10/15/24 cyanocobalamin (vitamin B-12) 1,000 mcg PO DAILY 06/09/22 10/15/24 1,000 mcg tablet,extended release atorvastatin 80 mg tablet 80 mg PO QPM 01/09/24 10/15/24 fenofibrate micronized 200 mg 200 mg PO DAILY 01/09/24 10/15/24 capsule ferrous sulfate 325 mg (65 mg 325 mg PO DAILY 01/09/24 10/15/24 iron) tablet,delayed release fluoxetine 20 mg capsule 40 mg PO DAILY 01/09/24 10/15/24 glipizide 10 mg tablet 10 mg PO BID 01/09/24 10/15/24 metoprolol succinate 25 mg 50 mg PO DAILY 10/15/24 10/15/24 tablet,extended release 24 hr Previous Rx's ?Medication ?Instructions ?Recorded aspirin 81 mg tablet,delayed 81 mg PO DAILY #1 tab 12/29/23 release clopidogrel 75 mg tablet 75 mg PO DAILY #1 tab 12/29/23 albuterol sulfate 90 mcg/actuation 2 puff inhalation Q4-6H PRN 02/09/24 aerosol inhaler shortness of breath or wheezing #1 ea furosemide 20 mg tablet 20 mg PO BID #180 tabs 09/06/24 Breo Ellipta 100 mcg-25 mcg/dose 1 inh inhalation DAILY #60 ea 10/09/24 powder for inhalation (fluticasone furoate-vilanterol) acetaminophen 500 mg capsule 1,000 mg (2 x 500 mg) PO Q6H PRN 11/14/24 pain 5 days #20 caps clindamycin HCl 300 mg capsule 300 mg PO Q6H 7 days #28 caps 11/14/24 (Cleocin HCl) ibuprofen 400 mg tablet 400 mg PO Q8H PRN pain #10 tabs 11/14/24 oxycodone 5 mg tablet 5 mg PO Q6H PRN pain #10 tabs 11/14/24 Allergies Allergy/AdvReac Type Severity Reaction Status Date / Time No Known Allergies (No Known Allergy Verified 11/14/24 12:47 Allergies*) Review of Systems Constitutional: Constitutional: Reports as per [facility] Past Medical History Medical History Obstructive sleep apnea on CPAP HTN (hypertension) Obstructive sleep apnea Diabetes FH: cholecystectomy Retinal detachment Surgical History Presence of coronary angioplasty implant and graft Hx of eye surgery Hx of bladder endoscopy Hx of colonoscopy Hx of oral surgery H/O heart bypass surgery History of tonsillectomy Family History Family History Father Coronary artery disease Hx of CABG Sister Coronary artery disease Hypertension Mother Cerebral hemorrhage Mental health problem Social History Social History Alcohol intake: never Patient Tobacco Use Status: Current everyday Tobacco user Tobacco use type: Cigar Cigarettes Per Day: 8 Years Smoked: 6 +/- Substance Use Type: Marijuana Advance Directives Date on File: 03/15/21 service: No Current occupational status: employed Physical Exam ED Vital Signs: Vital Signs - 24 hr 11/14/24 12:46 Temperature 97.0 F Pulse Rate 76 Respiratory Rate 16 Blood Pressure 158/77 H Pulse Oximetry 96 Oxygen Delivery Method Room Air BMI result Body Mass Index 35.3 Const Other: Patient does have right-sided facial swelling, he is able to open his mouth fully, uvula is midline, he has poor dentition with missing teeth both upper and lower jaw, floor of the mouth is soft, neck is otherwise supple, and as far as swelling there is no swelling in the periorbital areas, patient is alert and oriented x4, speaking full sentences Course Course Course Narrative: This is an RME: Additional HPI, ROS, PE not included below will be deferred to primary provider. RME assessment and note performed by: Conchita Hanna PA-C This is a 1-oaw[age]-male, with a hx of T2DM, HTN, DARCI on CPAP, and DC on clopidogrel who presents to the ER with complaints of dental pain x 3 days. Reports that he has known dental issues - but is having insurance issues. He is not on antibiotics at this time. Reporting right sided facial swelling. Reporting sinus pain and eye pain. Reporting that he is feeling very ill , reporting nausea no other symptoms. No appreciable dental abscess. Right sided facial swelling noted. He does have tenderness palpation along the maxillary sinuses. 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 Plan: Labs, further ER evaluation needed. Medical Decision Making Medical Decision Making [facility] Narrative: Patient is presenting with facial swelling without any evidence for or if pharyngeal deep space infection with considerations as below, he does have a dentist he can follow up with he needs significant dental work done most of the teeth are were down to the gumline and we will need to be extracted, we will discharge home with oral antibiotics, pain medications and dental follow up Differential Diagnosis Differential Diagnoses: The differential diagnosis associated with the presentation includes Peritonsillar abscess, tonsillitis, deep space infection of the neck, Sukh's angina, apical abscess Discharge Plan Discharge Clinical Impression: Pain, dental Patient Disposition: Home, Self-Care Instructions: Toothache (ED) Additional Instructions: Warm compress to your face this will help with the swelling, it takes about 3 days to 4 days for the swelling to start resolving with antibiotics, 1st dose given in the ER, take Tylenol 975 mg every 6 hours, with ibuprofen 400 mg every 6 hours for the next few days, oxycodone only of the other medications not helping, and you need to follow up with your dentist or oral surgeon you have significant dental erosions and carious and need to have multiple extractions Prescriptions: New acetaminophen 500 mg capsule 1,000 mg PO Q6H PRN (Reason: pain) 5 Days Qty: 20 0RF oxycodone 5 mg tablet 5 mg PO Q6H PRN (Reason: pain) Qty: 10 0RF Rx Instructions: Partial Fill upon patient request. ibuprofen 400 mg tablet 400 mg PO Q8H PRN (Reason: pain) Qty: 10 0RF clindamycin HCl [Cleocin HCl] 300 mg capsule 300 mg PO Q6H 7 Days Qty: 28 0RF No Action furosemide 20 mg tablet 20 mg PO BID Qty: 180 3RF fluticasone furoate-vilanterol [Breo Ellipta] 100-25 mcg/dose blister with device 1 inh inhalation DAILY Qty: 60 3RF clopidogrel 75 mg Tablet 75 mg PO DAILY Qty: 1 0RF aspirin 81 mg Tablet,Delayed Release (Dr/Ec) 81 mg PO DAILY Qty: 1 0RF fluoxetine 20 mg capsule 40 mg PO DAILY glipizide 10 mg tablet 10 mg PO BID aripiprazole 2 mg tablet 2 mg PO DAILY Lantus Solostar U-100 Insulin 100 unit/mL (3 mL) insulin pen 32 unit subcut BEDTIME metformin 500 mg tablet extended release 24 hr 1,000 mg PO BID omeprazole 20 mg capsule,delayed release(DR/EC) 20 mg PO BID@0630,1630 cholecalciferol (vitamin D3) 25 mcg (1,000 unit) capsule 25 mcg PO DAILY alpha lipoic acid 300 mg capsule 600 mg PO DAILY cyanocobalamin (vitamin B-12) 1,000 mcg tablet extended release 1,000 mcg PO DAILY fenofibrate micronized 200 mg capsule 200 mg PO DAILY ferrous sulfate 325 mg (65 mg iron) tablet,delayed release (DR/EC) 325 mg PO DAILY atorvastatin 80 mg tablet 80 mg PO QPM metoprolol succinate 25 mg tablet extended release 24 hr 50 mg PO DAILY Protocol: Hold for SBP/HR < HOLD for SBP < : 90 HOLD for HR < : 60 albuterol sulfate 90 mcg/actuation HFA aerosol inhaler 2 puff inhalation Q4-6H PRN (Reason: shortness of breath or wheezing) Qty: 1 3RF Print Language: Sinhala
[2024-11-14 12:46] VITALS: BP 158/77; PULSE 76; RESP 16; TEMP 36.1; O2SAT 96; BMI 35.3
--- OUTSIDE RECORDS SUMMARY | 2024-11-14 15:20 | XMS_ITS | Encounter Summary ---
Author Organization [employer] Address [address] [facility] [address] [place] [address] Care Team Providers Care Snuff Drier Name Role Phone Unavailable Primary Care Provider Unavailabl e Reason for Visit * Reason Onset Date Comments New Patient 02/17/2023 Encounter Details Date Type Department Care Team (Late st Contact Info) Description 02/17/2023 Telephone [facility] [address], [place] [phone] Praveen Cohen MD [address], [place] [phone] New Patient Social History Tobacco Use Types [...] left voicemail to give a call at [phone]. 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 EFFECTIVE SINCE 02/17/2023 documented in this encounter Plan of Treatment Not on file documented as of this encounter Visit Diagnoses Not on filedocumented in this encounter
[2024-11-14 15:46] VITALS: BP 158/77; PULSE 76; RESP 16; TEMP 36.1; O2SAT 96
== END 2024-11-14 15:47 | disposition home or self-care (01) ==
LOC: HO.ED 15:17
PROVIDERS: Emergency Provider Emergency Medicine
DX: K08.89 Other specified disorders of teeth and supporting structures (principal); R51.9 Headache, unspecified
CPT/HCPCS: 96372; 99283; 99284; J1885

== ENCOUNTER 2024-11-20 08:45 | Outpatient (AMB) | payer MEDICARE, MEDICAID, SELFPAY ==
--- OUTSIDE RECORDS SUMMARY | 2024-11-15 23:59 | XMS_ITS | Continuity of Care Document ---
Author Organization [facility] Address [address] [place] [id number]- Care Team Providers Care Painter Hand Name Role Phone Oralia HARDING, Rebecca Primary Care Physician [phone] [place] [facility] [place]): [place]16[place] - 11/15/[address] [address]- Attending Physician: Admtr, [id number] Admitting Physician: Admtr, Ar8 Referring Physician: Admtr, Ar8 Encounter Type: Triage Allergies, Adverse Reactions, Alerts No Known Allergies Immunizations Given and Recorded Vaccine Date Status Refusal Reason RSV vaccine, preF A-preF B, recombinant 03/03/23 R ecorded pneumococcal 13-valent vaccine 1 01/25/23 Recorded SARS-CoV-2(COVID-19)mRNA-LNP vac([id number]) 01/25/23 Recorded pneumococcal 20-valent conjugate vaccine 2 01/25/23 Recorded influenza virus vaccine, inactivated 01/13/23 Jose rded influenza virus vaccine, inactivated 03/23/22 Jose rded influenza virus vaccine, inactivated 02/26/22 Jose rded influenza virus vaccine, inactivated 01/15/21 Jose rded influenza virus vaccine, inactivated 01/31/20 Jose rded influenza virus vaccine, inactivated 04/01/19 Jose rded influenza virus vaccine, inactivated 03/15/18 Jose rded [id number] 12y+ bivalent booster vax 04/15/22 Recorded [id number] bivalent booster vax 01/13/22 Recorded SARS-CoV-2 (COVID-19) mRNA-1273 vaccine 03/09/21 R ecorded SARS-CoV-2 (COVID-19) mRNA-1273 vaccine 08/26/20 R ecorded SARS-CoV-2 (COVID-19) mRNA-1273 vaccine 07/29/20 R ecorded 1Result Comment: Unit: Unknown Route: Intramuscular Vegetable Tester: TUBE 2Result Comment: [facility] Albuterol (Eqv-ProAir HFA) 90 mcg/inh inhalation aerosol 2 puffs, Inhalation, Every 6 hours, PRN Wheezing/Shortness of Breath, # 1 each, 0 Refills, Maintenance, 05/03/22 11:27:00 AM EST, [facility]- , Partial fill upon [...] Refills, Maintenance, 03/23/21 12:46:00 PM EST, Tablet, [facility], Partial fill upon patient [...] Repeat number: 1 B-D PEN NDL MINI [id number](07/21) B-D PEN NDL MINI [id number](07/21), See Instructions, # 100 each, Refills 2, [...] 10:57:00 AM EDT, Route to Pharmacy Electronically, [facility], Partial fill upon [...] Refills, Maintenance, 06/17/24 3:27:00 PM EST, Capsule, [facility] #[id number], Disregard Rx for 145 mg continue the [...] 2 Refills, Maintenance, 09/13/24 9:16:00 AM EDT, [facility] #[id number], 169, cm, 09/03/24 15:47:00 EDT, Height, 101, kg, 12/29/23 10:42:00 EDT, Dry Weight Start Date: 09/13/24 Status: Ordered Quantity: 180.0 Unit: tablet Repeat number: 3 Lantus Solostar Pen 100 units/mL subcutaneous solution See Instructions, 43 units at bedtime Subcutaneous Injection Daily E11.9, # 30 mL, 2 Refills, Maintenance, 09/13/24 9:16:00 AM EDT, [facility] #[id number], Partial fill upon patient request if theprescription [...] 2:32:00 PM EST, Route to Pharmacy Electronically, [facility] #[id number], Partial fill upon patient request if the [...] tablet, 11 Refills, 02/22/24 9:00:00 AM EDT, [facility], 169, cm, 02/15/24 10:45:00 EDT, Height, 101, kg, 12/29/23 10:42:00 EDT, Dry Weight Start Date: 02/22/24 Status: Ordered Quantity: 120.0 Unit: tablet Repeat number: 12 metoprolol 25 mg oral tablet 25 mg, 1, tablet, By Mouth, 2 times a day, # 60 tablet, Refills 11, Tot. Refills 11, Maintenance, 09/04/24 11:36:00 AM EDT, Route to Pharmacy Electronically, [facility] #[id number], Partial fill upon patient request if the [...] 3 Refills, Maintenance, 06/17/24 3:18:00 PM EST, [facility] #[id number], Partial fill upon patient request if the [...] we will deflect this question to the injection mold technician that is going to establish with patient in a few days in [place]. Then will be decided if Lasix should return back to 20 mg. 2Outside Source Comment: Overview: March 2021 status post MO with coronary angiography showing occlusions requiring CABG, two-vessel bypass completed and without complication. This was done at [facility]. Last Assessment & Plan: He [...] Team Personnel Name: Jeni Plasencia RN Position: [facility] RN Member Role: Primary Care Nurse Name: Ximena Garber RN Position: [facility] RN Member Role: Primary Care Nurse Name: Rebecca Barton MD Position: [facility] Physician - Primary Care Member Role: PCP Address: [address] [place] [address]- Telecom: Name: Sammi Ram RN Position: [facility] Nurse Member Role: Primary Care Nurse Care Team Related Persons Name: ANGELA ECHEVARRIA Insurance Providers Guarantor name: SASHA ECHEVARRIA Health Plan Information #: 1 Payer: KAYLEN ROJAS ADV Payer Identifier: NA Member Number: [id number] Group Number: [id number] Subscriber Identifier: [id number] Relationship to Subscriber: self Coverage Type: NA Coverage Verification Date: NA Telecom: NA Address:
--- NOTE | 2024-11-20 08:46 | MHC.OFFVIS ---
Vital Signs 11/20/24 08:50 Height 5 ft 7 in Weight 225 lb 8 oz BMI 35.3 BP 120/66 Blood Pressure Location Rt brachial Position Sitting Pulse 71 Pulse Source Pulse Oximeter Pulse Oximetry (%) 95 Oxygen Delivery Method Room Air Intake Visit Reasons: Dyspnea on exertion Allergies No Known Allergies (No Known Allergies*) Allergy (Verified 11/20/24 08:53) HPI HPI Dyspnea on exertion: Details: Doe is a pleasant 68 year old male, current smoker, with approximately 16 pyh with underlying HTN, DMII, DARCI on CPAP, h/o double bypass 2021 and recent NSTEMI s/p stent 01/2024, under the care of [facility] cardiology. Prior CTA 01/2024 revealed mosaic attenuation throughout suggestive of small airways disease. He has been using Breo 100 mcg with good control of symptoms, using albuterol MDI infrequently. He denies any visits to urgent care or hospitalizations related to respiratory distress since the last visit. He does report h/o DARCI and requested to transfer care of CPAP therapy to this office. [facility] is [facility]. Today he presents to review CPAP compliance report. [facility] Medical History Obstructive sleep apnea on CPAP HTN (hypertension) Obstructive sleep apnea Diabetes FH: cholecystectomy Retinal detachment Surgical History Presence of coronary angioplasty implant and graft Hx of eye surgery Hx of bladder endoscopy Hx of colonoscopy Hx of oral surgery H/O heart bypass surgery History of tonsillectomy Family History Father Coronary artery disease Hx of CABG Sister Coronary artery disease Hypertension Mother Cerebral hemorrhage Mental health problem Social History Alcohol intake: never Patient Tobacco Use Status: Current everyday Tobacco user Tobacco use type: Cigar Cigarettes Per Day: 6 Years Smoked: 6 +/- Substance Use Type: Marijuana Advance Directives Date on File: 03/15/21 service: No Current occupational status: employed Review of Systems Const Denies chills, Denies excessive sweating, Denies fever(s), Denies headache(s) and Denies night sweats Eyes Denies dry eyes, Denies irritation and Denies itchy eyes ENT Reports Normal hearing present, Denies headache(s), Denies nasal congestion, Denies nasal discharge, Denies post nasal drip and Denies sore throat Card Denies chest pain, Denies chest pain at rest, Denies chest pain with activity, Denies claudication, Denies leg edema, Denies dyspnea, Denies dyspnea on exertion, Denies orthopnea and Denies paroxysmal nocturnal dyspnea Resp Denies chest congestion, Denies cough, Denies excessive phlegm production, Denies pain on inspiration, Denies pain with cough, Denies dyspnea, Denies dyspnea on exertion, Denies stridor and Denies wheezing Musc Denies myalgias Neuro Reports Normal hearing present and Denies headache(s) Endo Denies excessive sweating Scottie/Lymph Denies lymphadenopathy Aller/Immun Denies itchy eyes, Denies seasonal rhinorrhea and Denies wheezing Physical Exam Const General: cooperative, comfortable, no acute distress, well developed and alert Nutritional Appearance: obese Orientation/consciousness: patient oriented x3 Limitations: no limitations HEENT Head: Yes normal to inspection, Yes normocephalic and Yes atraumatic Ears: hearing grossly normal bilaterally and external ears normal Eyes General: appearance normal, both eyes and all related structures Eyelids: Yes eyelids normal Sclerae: sclerae normal EOM: EOMs intact bilaterally Neck Neck: Yes normal visual inspection and Yes no lymphadenopathy Lymphatic: no lymphadenopathy noted Chest Chest palpation & inspection: normal inspection of the chest Resp Effort & Inspection: normal respiratory effort, able to speak in complete sentences, no audible wheezes, no cough, no stridor, not tachypneic, no tripod positioning and no use of accessory muscles Auscultation: clear to auscultation bilaterally Cardio Jugular venous distension: no JVD Rate: regular rate Rhythm: regular rhythm Skin Other: warm, dry General skin exam: no rashes or lesions noted Neuro General: patient oriented x3 Cranial nerves: Yes Normal hearing present Cognition (Neuro): normal cognition Gait exam (Neuro): Normal gait present Extrem General: Yes normal to inspection, Yes capillary refill normal, Yes no clubbing, cyanosis or edema and Yes no pedal edema Psych Appearance: grossly normal and well kempt Speech and movement: Normal speech and movement present and Clear speech present Affect: normal affect Attitude: cooperative Thought process: Normal thought process present Thought content: Normal thought content present Insight: Good insight present (Psych) Judgement: Good judgement present (Psych) Assessment & Plan Assessment & Plan (1) Asthma: Code(s): J45.909 - Unspecified asthma, uncomplicated Category: Medical (2) Emphysema of lung: Code(s): J43.9 - Emphysema, unspecified Category: Medical (3) Smoking: Code(s): F17.200 - Nicotine dependence, unspecified, uncomplicated Category: Social Hx (4) Morbid obesity: Code(s): E66.01 - Morbid (severe) obesity due to excess calories Category: Medical (5) Obstructive sleep apnea on CPAP: Code(s): G47.33 - Obstructive sleep apnea (adult) (pediatric); Z99.89 - Dependence on other enabling machines and devices Category: Medical Plan At this time, Doe reports good control on Breo 100 mcg and albuterol MDI PRN, advised to continue. Smoking cessation discussed and patient would like to attempt to quit on his own at this time. He does note that he is moving into senior housing and is not allowed to smoke which will aid is cessation. Due to the move he has also had issues with compliance using CPAP as well as poor sleep quality overall. Reviewed compliance report which revealed usage at 90% over the last two months, however only >4 hours 43% of the time, average AHI 0.5, with moderate leaking. Discussed importance of increasing hours per night, as average less than 4 hours. Reviewed possibilities contributing to leakage including mask fit/size, encouraged patient to reach out to [facility] to trial different masks to resolve leaking. All questions were answered and patient is in agreement of plan. Will follow up in 3 months or sooner if needed. Coding Level of Care Code Est Pt Level 4 (15024) Diagnoses Asthma J45.909 Emphysema of lung J43.9 Smoking F17.200 Morbid obesity E66.01 Obstructive sleep apnea on CPAP G47.33; Z99.89
[2024-11-20 08:50] VITALS: BP 120/66; PULSE 71; O2SAT 95; BMI 35.3
--- OUTSIDE RECORDS SUMMARY | 2024-11-20 08:53 | XMS_ITS | Encounter Summary ---
Author Organization [employer] Address [address] [place] [address] Care Team Providers Care Junior Php Developer Name Role Phone Unavailable Primary Care Provider Unavailabl e Reason for Visit * Reason Onset Date Comments New Patient 02/17/2023 Encounter Details Date Type Department Care Team (Late st Contact Info) Description 02/17/2023 Telephone [facility] [address] [place], [place] [id number] Praveen Cohen MD [address] [place], [place] [phone] New Patient Social History Tobacco Use Types [...] left voicemail to give a call at [phone]. * Telephone Encounter - Nisa Harris - 02/17/2023 10:46 AM EDT Pt has been transfer over to wait list for SOFTWARE APPLICATIONS ARCHITECT. EFFECTIVE SINCE 02/17/2023 documented in this encounter Plan of Treatment Not on file documented as of this encounter Visit Diagnoses Not on filedocumented in this encounter
--- OUTSIDE RECORDS SUMMARY | 2024-11-20 08:53 | XMS_ITS | Encounter Summary ---
Author Organization [facility] Address [address] [place] [address] Care Team Providers Care Eyeglass Lens Cutter Name Role Phone Ahsan Geronimo MD Primary Care Provider Unavailab Monty Dickey MD Primary Care Provider [phone] Ahsan Geronimo MD Primary Care Provider Unavailab Power Cary MD Primary Care Provider Unavail able Ahsan Geronimo MD Primary Care Provider Unavailab Power Cary MD Primary Care Provider Unavail able Ahsan Geronimo MD Primary Care Provider Unavailab Jasper Boo MD Primary Care Provider [phone] Ahsan Geronimo MD Primary Care Provider Unavailab Vargas Winn Primary Care Provider UnavailPower Workman PA-C Unavailable [phone] Encounter Details Date Type Department Care Team Description 01/19/2018 Intelligence Clerk Report Medical Records [address] [place] [id number] Ahsan Geronimo MD Social History Tobacco Use Types Packs/Day Years Used Date Smoking Tobacco: Every Day Cigars Smokeless Tobacco: Never Comments:3 cigars daily Alcohol Use Standard Drinks/Week Comments No 0 (1 standard drink = 0.6 oz pur e alcohol) Sex Assigned at Date Recorded Not on file Job Start Date Occupation Industry Not on file Not on file Not on file documented as of this encounter Plan of Treatment Not on file documented as of this encounter Visit Diagnoses Not on filedocumented in this encounter Care Teams Eyeglass Lens Cutter Relationship Specialty Start Date End Date Ahsan Geronimo MD PCP - General Internal Medicine 07/10/17 05/06/18 Monty Ayoub MD PCP - General Internal Medicine 05/07/18 07/11/18 Ahsan Geronimo MD PCP - General Internal Medicine 07/12/18 10/14/18 Power Rudd MD PCP - General Internal Medicine 10/15/18 11/11/18 Ahsan Geronimo MD PCP - General Internal Medicine 11/12/18 11/27/18 Power Rudd MD PCP - General Internal Medicine 11/28/18 03/28/19 Ahsan Geronimo MD PCP - General Internal Medicine 03/29/19 01/19/20 Jasper Bajwa MD [address] [facility] [address] [place] [address] PCP - General Gastroenterology 01/20/20 01/23/20 Ahsan Geronimo MD PCP - General Internal Medicine 01/24/20 07/21/20 Vargas Cook [address] [facility] [address] [place] [address] PCP - General Internal Medicine 07/22/20 Power Lundberg PA-C [address] [facility] [address] [place] [address] Specialist Neurosurgery 02/03/22 documented as of this encounter
== END 2024-11-20 09:07 | disposition home or self-care (01) ==
LOC: HO.HPSW 08:46
PROVIDERS: Visit Provider Nurse Practitioner Family
DX: J45.909 Unspecified asthma, uncomplicated (principal); J43.9 Emphysema, unspecified; F17.200 Nicotine dependence, unspecified, uncomplicated; E66.01 Morbid (severe) obesity due to excess calories; G47.33 Obstructive sleep apnea (adult) (pediatric); Z99.89 Dependence on other enabling machines and devices
CPT/HCPCS: 99214

== ENCOUNTER → 2024-11-20 08:45 | Outpatient (BNVA) | payer MEDICARE, MEDICAID, SELFPAY | PROVIDERS: Visit Provider Nurse Practitioner Family | DX: R06.09 Other forms of dyspnea (principal); J45.909 Unspecified asthma, uncomplicated; J43.9 Emphysema, unspecified; F17.210 Nicotine dependence, cigarettes, uncomplicated; E66.01 Morbid (severe) obesity due to excess calories; G47.33 Obstructive sleep apnea (adult) (pediatric); Z71.6 Tobacco abuse counseling; Z99.89 Dependence on other enabling machines and devices; Z68.35 Body mass index [BMI] 35.0-35.9, adult; Z79.899 Other long term (current) drug therapy | CPT/HCPCS: 99212 ==

== ENCOUNTER → 2025-01-09 08:36 | Outpatient (BNV) | payer MEDICARE, MEDICAID, SELFPAY | PROVIDERS: Emergency Provider Emergency Medicine; PCP Internal Medicine Geriatric Medicine; Visit Provider Radiology Diagnostic Radiology | DX: M54.50 Low back pain, unspecified (principal); M47.815 Spondylosis without myelopathy or radiculopathy, thoracolumbar region | CPT/HCPCS: 72100 ==

== ENCOUNTER 2025-01-09 09:06 | Emergency (ER) | payer MEDICARE, MEDICAID, SELFPAY ==
--- OUTSIDE RECORDS SUMMARY | 2025-01-04 23:59 | XMS_ITS | Continuity of Care Document ---
Author Organization [facility] [place] Address [address] [place] [address]- Care Team Providers Care Miner Helper Name Role Phone Rebecca Barton MD Primary Care Physician [phone] [id number] Date(s): 12/05/24 - 01/04/25 [facility] [address] [place] [address]- Encounter Type: Triage Allergies, Adverse Reactions, Alerts No Known Allergies Immunizations Given and Recorded Vaccine Date Status Refusal Reason RSV vaccine, preF A-preF B, recombinant 03/03/23 R ecorded pneumococcal 13-valent vaccine 1 01/25/23 Recorded SARS-CoV-2(COVID-19)mRNA-LNP vac([id number]) 01/25/23 Recorded pneumococcal 20-valent conjugate vaccine 2 01/25/23 Recorded influenza virus vaccine, inactivated 01/13/23 Jose rded influenza virus vaccine, inactivated 03/23/22 Jose rded influenza virus vaccine, inactivated 02/26/22 Jose rded influenza virus vaccine, inactivated 01/15/21 Jose rded influenza virus vaccine, inactivated 01/31/20 Jose rded influenza virus vaccine, inactivated 04/01/19 Jose rded influenza virus vaccine, inactivated 03/15/18 Jose rded [id number] 12y+ bivalent booster vax 04/15/22 Recorded [id number] bivalent booster vax 01/13/22 Recorded SARS-CoV-2 (COVID-19) mRNA-1273 vaccine 03/09/21 R ecorded SARS-CoV-2 (COVID-19) mRNA-1273 vaccine 08/26/20 R ecorded SARS-CoV-2 (COVID-19) mRNA-1273 vaccine 07/29/20 R ecorded 1Result Comment: Unit: Unknown Route: Intramuscular Field Underwriter: [employer] 2Result Comment: [facility] Accu Chek Guide Me Lancets Accu Chek Guide Me Lancets, See Instructions, # 100 each, Refills 3, Tot. Refills 3, Maintenance, use to monitor blood sugars 2 times per day, 12/02/24 5:10:00 PM EDT, dx e11.9, Supply, 169, cm, 10/03/24 7:49:00 EDT, Height, 101, kg, 12/29/23 10:42:00 EDT, Dry Weight Start Date: 12/02/24 Status: Ordered Medication Dispense Status: Completed Quantity: 100.0 Unit: each Total Allowed Fills: 4 Fills Dispensed: 0 Accu Chek Guide Me Test strips Accu Chek Guide Me Test strips, See Instructions, # 100 each, Refills 3, Tot. Refills 3, Maintenance, use to monitor blood sugars 2 times per day, 12/02/24 5:10:00 PM EDT, dx e11.9, Supply, 169, cm, 10/03/24 7:49:00 EDT, Height, 101, kg, 12/29/23 10:42:00 EDT, Dry Weight Start Date: 12/02/24 Status: Ordered Medication Dispense Status: Completed Quantity: 100.0 Unit: each Total Allowed Fills: 4 Fills Dispensed: 0 Accu-Chek Guide Me Meter Accu-Chek Guide Me Meter, See Instructions, # 1 each, Refills 0, Tot. Refills 0, Maintenance, use to monitor blood sugars 2 times per day, 12/02/24 5:09:00 PM EDT, dx e11.9, Supply, 169, cm, 10/03/24 7:49:00 EDT, Height, 101, kg, 12/29/23 10:42:00 EDT, Dry Weight Start Date: 12/02/24 Status: Ordered Medication Dispense Status: Completed Quantity: 1.0 Unit: each Total Allowed Fills: 1 Fills Dispensed: 0 Albuterol (Eqv-ProAir HFA) 90 mcg/inh inhalation aerosol 2 puffs, Inhalation, Every 6 hours, PRN Wheezing/Shortness of Breath, # 1 each, 0 Refills, Maintenance, 05/03/22 11:27:00 AM EST, [facility]- , Partial fill upon patient request ifthe prescription is for a schedule II opioid drug., 2 puffs Inhalation Every 6 hours,x14 days,PRN:Wheezing/Shortness of Breath, 170, cm, 04/13/22 15:30:00 EST, Height, 107, kg, 03/18/21 16:15:00 EST,Dry Weight Start Date: 05/03/22 Stop Date: 05/17/22 Status: Ordered Medication Dispense Status: Completed Quantity: 1.0 Unit: each Total Allowed Fills: 1 Fills Dispensed: 0 alpha-lipoic acid 300 mg oral capsule 1 capsule = 300 mg, By Mouth, Daily, 0 Refills, Maintenance, 02/03/23 9:27:00 AM EDT, Partial fill upon patient request if the prescription is for a schedule II opioid drug. Start Date: 02/03/23 Status: Ordered Medication Dispense Status: Completed Total Allowed Fills: 1 Fills Dispensed: 0 ARIPiprazole 2 mg oral tablet 2 mg, 1, tablet, By Mouth, Daily, # 30 tablet, Refills 0, Maintenance, 03/15/21 4:37:00 PM EST, Partial fill upon patient request if the prescription is for a schedule II opioid drug. Start Date: 03/15/21 Status: Ordered Medication Dispense Status: Completed Quantity: 30.0 Unit: tablet Total Allowed Fills: 1 Fills Dispensed: 0 aspirin 81 mg oral delayed release tablet 81 mg, 1, tablet, By Mouth, Daily, # 30 tablet, Refills 0, Maintenance, 02/11/20 1:26:00 PM EDT Start Date: 02/11/20 Status: Ordered Medication Dispense Status: Completed Quantity: 30.0 Unit: tablet Total Allowed Fills: 1 Fills Dispensed: 0 atorvastatin 80 mg oral tablet 1 tablet = 80 mg, By Mouth, Daily at bedtime, # 30 tablet, 0 Refills, Maintenance, 03/23/21 12:46:00 PM EST, Tablet, [facility] 3, Partial fill upon patient request if the prescription isfor a schedule II opioid drug., 170, cm, 03/23/21 11:43:00 EST, Height, 107, kg, 03/18/21 16:15:00 EST, Dry Weight Start Date: 03/23/21 Status: Ordered Medication Dispense Status: Completed Quantity: 30.0 Unit: tablet Total Allowed Fills: 1 Fills Dispensed: 0 B-12 TR 1,000MCG TABLETS B-12 TR 1,000MCG TABLETS, 1, tablet, By Mouth, Daily, # 30 tablet, 0 Refills, 170, cm, 09/29/21 15:18:00 EDT, Height, 107, kg, 03/18/21 16:15:00 EST, Dry Weight Start Date: 11/28/21 Status: Ordered Medication Dispense Status: Completed Quantity: 30.0 Unit: tablet Total Allowed Fills: 1 Fills Dispensed: 0 B-D PEN NDL MINI [id number](07/21) B-D PEN NDL MINI [id number](07/21), See Instructions, # 100 each, Refills 2, Tot. Refills 2, Maintenance, use to inject insulin daily E11.9, 09/13/24 9:17:00 AM EDT, Supply, 169, cm, 09/03/24 15:47:00 EDT,Height, 101, kg, 12/29/23 10:42:00 EDT, Dry Weight Start Date: 09/13/24 Status: Ordered Medication Dispense Status: Completed Quantity: 100.0 Unit: each Total Allowed Fills: 3 Fills Dispensed: 0 Breo Ellipta 50 mcg-25 mcg/inh. inhalation powder 1 inhalation, Inhalation, Daily, at the same time every day, 0 Refills, Maintenance, 09/03/24 3:52:00 PM EDT, Powder, Partial fill upon patient request if the prescription is for a schedule II opioid drug. Start Date: 09/03/24 Status: Ordered Medication Dispense Status: Completed Total Allowed Fills: 1 Fills Dispensed: 0 clopidogrel 75 mg oral tablet 75 mg, By Mouth, Daily, # 30 tablet, Refills 11, Tot. Refills 11, Maintenance, 12/30/23 10:57:00 AM EDT, Route to Pharmacy Electronically, [facility], Partial fill upon patient request if the prescription is for a schedule II opioid drug., 169, cm, 12/30/23 10:03:00 EDT, Height, 101, kg, 12/29/23 10:42:00 EDT, Dry Weight Start Date: 12/30/23 Status: Ordered Medication Dispense Status: Completed Quantity: 30.0 Unit: tablet Total Allowed Fills: 12 Fills Dispensed: 0 CPAP Machine See Instructions, # 1 each, Maintenance, AutoCPAP 10-16 cm H20, use Daily when sleeping, 05/06/22 2:00:00 PM EST, Supply Start Date: 05/06/22 Status: Ordered Medication Dispense Status: Completed Quantity: 1.0 Unit: each Total Allowed Fills: 1 Fills Dispensed: 0 DexCom G7 Sensor DexCom G7 Sensor, See Instructions, # 3 each, Refills 11, Tot. Refills 11, Maintenance, Use as directed for DM to check blood glucose 4-5 times per day E 11.9 change sensor every 10 days, 03/05/23 2:13:00 PM EDT, Supply, 170, cm, 02/28/23 15:26:00 EDT, Height, 107, kg, 03/18/21 16:15:00 EST, Dry Weight Start Date: 03/05/23 Status: Ordered Medication Dispense Status: Completed Quantity: 3.0 Unit: each Total Allowed Fills: 12 Fills Dispensed: 0 fenofibrate 200 mg oral capsule 1 capsule = 200 mg, By Mouth, Daily, # 90 capsule, 3 Refills, Maintenance, 12/13/24 12:55:00 PM EDT, Capsule, [facility] #[id number], Disregard Rx for 145 mg continue the 200 mg, 169, cm, :49:00 EDT, Height, 101, kg, 12/29/23 10:42:00 EDT, Dry Weight Start Date: 12/13/24 Status: Ordered Medication Dispense Status: Completed Quantity: 90.0 Unit: capsule Total Allowed Fills: 4 Fills Dispensed: 0 Fish Oil 1200 mg oral capsule 1 capsule = 1,200 mg, By Mouth, 3 times a day, 0 Refills, Maintenance, 02/03/23 9:26:00 AM EDT, Partial fill upon patient request if the prescription is for a schedule II opioid drug. Start Date: 02/03/23 Status: Ordered Medication Dispense Status: Completed Total Allowed Fills: 1 Fills Dispensed: 0 FLUoxetine 40 mg oral capsule 1 capsule = 40 mg, By Mouth, Daily, # 30 capsule, 0 Refills, Maintenance, 03/15/21 4:38:00 PM EST, Capsule, Partial fill upon patient request if the prescription is for a schedule II opioid drug. Start Date: 03/15/21 Status: Ordered Medication Dispense Status: Completed Quantity: 30.0 Unit: capsule Total Allowed Fills: 1 Fills Dispensed: 0 fluticasone-vilanterol 100 mcg-25 mcg/inh inhalation powder 1 puffs, Inhalation, Daily, # 30 each, 0 Refills, Maintenance, 05/16/24 10:35:00 AM EST, Powder, Partial fill upon patient request if the prescription is for a schedule II opioid drug. Start Date: 05/16/24 Status: Ordered Medication Dispense Status: Completed Quantity: 30.0 Unit: each Total Allowed Fills: 1 Fills Dispensed: 0 glipiZIDE 10 mg oral tablet 1 tablet, By Mouth, 2 times a day, 1 tablet = 10 mg, By Mouth, 2 times a day. 90 day supply E11.65,# 180 tablet, 2 Refills, Maintenance, 09/13/24 9:16:00 AM EDT, [facility] #[id number], 169, cm, 09/03/24 15:47:00 EDT, Height, 101, kg, 12/29/23 10:42:00 EDT, Dry Weight Start Date: 09/13/24 Status: Ordered Medication Dispense Status: Completed Quantity: 180.0 Unit: tablet Total Allowed Fills: 3 Fills Dispensed: 0 Lantus Solostar Pen 100 units/mL subcutaneous solution See Instructions, 43 units at bedtime Subcutaneous Injection Daily E11.9, # 30 mL, 2 Refills, Maintenance, 09/13/24 9:16:00 AM EDT, [facility] #[id number], Partial fill upon patient request if theprescription is for a schedule II opioid drug., 169, cm, 09/03/24 15:47:00 EDT, Height, 101, kg, 12/29/23 10:42:00 EDT, Dry Weight Start Date: 09/13/24 Status: Ordered Medication Dispense Status: Completed Quantity: 30.0 Unit: mL Total Allowed Fills: 3 Fills Dispensed: 0 Lasix 40 mg oral tablet 40 mg, 1, tablet, By Mouth, Daily, # 60 tablet, Refills 0, Tot. Refills 0, Maintenance, 04/19/21 2:32:00 PM EST, Route to Pharmacy Electronically, [facility] #[id number], Partial fill upon patient request if the prescription is for a schedule II opioid drug., 170, cm, 03/31/21 11:49:00 EST, Height, 107, kg, 03/18/21 16:15:00 EST, Dry Weight Start Date: 04/19/21 Status: Ordered Medication Dispense Status: Completed Quantity: 60.0 Unit: tablet Total Allowed Fills: 1 Fills Dispensed: 0 levothyroxine 0.025 mg oral tablet 1 tablet = 25 mcg, By Mouth, Daily, # 30 tablet, 0 Refills, Maintenance, 12/30/23 8:25:00 AM EDT, Tablet, Partial fill upon patient request if the prescription is for a schedule II opioid drug. Start Date: 12/30/23 Status: Ordered Medication Dispense Status: Completed Quantity: 30.0 Unit: tablet Total Allowed Fills: 1 Fills Dispensed: 0 MetFORMIN (Eqv-Glucophage XR) 500 mg oral tablet, extended release See Instructions, TAKE 2 TABLETS BY MOUTH IN THE MORNING AND 2 TABLETS IN THE EVENING, # 120 tablet, 11 Refills, 02/22/24 9:00:00 AM EDT, [facility], 169, cm, 02/15/24 10:45:00 EDT, Height, 101, kg, 12/29/23 10:42:00 EDT, Dry Weight Start Date: 02/22/24 Status: Ordered Medication Dispense Status: Completed Quantity: 120.0 Unit: tablet Total Allowed Fills: 12 Fills Dispensed: 0 Metoprolol Succinate ER 50 mg oral tablet, extended release 50 mg, 1, tablet, By Mouth, Daily, # 90 tablet, Refills 3, Tot. Refills 3, Maintenance, 12/11/24 8:12:00 AM EDT, Route to Pharmacy Electronically, [facility] #[id number], Partial fill upon patientrequest if the prescription is for a schedule II opioid drug., 169, cm, 10/03/24 7:49:00 EDT, Height, 101, kg, 12/29/23 10:42:00 EDT, Dry Weight Start Date: 12/11/24 Status: Ordered Medication Dispense Status: Completed Quantity: 90.0 Unit: tablet Total Allowed Fills: 4 Fills Dispensed: 0 omeprazole 20 mg oral delayed release tablet 1 tablet = 20 mg, By Mouth, Daily, # 30 tablet, 0 Refills, Maintenance, 02/11/20 1:28:00 PM EDT, CR Tablet Start Date: 02/11/20 Status: Ordered Medication Dispense Status: Completed Quantity: 30.0 Unit: tablet Total Allowed Fills: 1 Fills Dispensed: 0 triamcinolone 0.1% topical cream See Instructions, apply to rash on thigh Topically 2 times a day, # 30 Gm, 3 Refills, Maintenance, 06/17/24 3:18:00 PM EST, [facility] #[id number], Partial fill upon patient request if the prescription is for a schedule II opioid drug., apply to rash on thigh Topically 2 times a day, 169, cm, 06/17/24 14:58:00 EST, Height, 101, kg, 12/29/23 10:42:00 EDT, Dry Weight Start Date: 06/17/24 Status: Ordered Medication Dispense Status: Completed Quantity: 30.0 Unit: g Total Allowed Fills: 4 Fills Dispensed: 0 Indications: Rash and other nonspecific skin eruption; Vitamin D3 1000 intl units oral tablet 1 tablet = 25 mcg, By Mouth, Daily, 0 Refills, Maintenance, 02/03/23 9:29:00 AM EDT, Partial fill upon patient request if the prescription is for a schedule II opioid drug. Start Date: 02/03/23 Status: Ordered Medication Dispense Status: Completed Total Allowed Fills: 1 Fills Dispensed: 0 Problem List Condition Confirmation Course Effective Dates [...] we will deflect this question to the violin restorer that is going to establish with patient in a few days in [place]. Then will be decided if Lasix should return back to 20 mg. 2Outside Source Comment: Overview: March 2021 status post [place] with coronary angiography showing occlusions requiring CABG, two-vessel bypass completed and without complication. This was done at [facility]. Last Assessment & Plan: He is [...] Team Personnel Name: Jeni Plasencia RN Position: [facility] RN Member Role: Primary Care Nurse Name: Ximena Garber RN Position: S RN Member Role: Primary Care Nurse Name: Rebecca Barton MD Position: [facility] Physician - Primary Care Member Role: PCP Address: [address] [place] [id number] Telecom: Name: Sammi Ram RN Position: [facility] Nurse Member Role: Primary Care Nurse Care Team Related Persons Name: ANGELA ECHEVARRIA Insurance Providers Guarantor name: SASHA ECHEVARRIA Health Plan Information #: 1 Payer: KAYLEN RODRIGUEZ Payer Identifier: NA Member Number: [id number] Group Number: [id number] Subscriber Identifier: NA Relationship to Subscriber: self Coverage Type: NA Coverage Verification Date: NA Telecom: NA Address: NA
--- OUTSIDE RECORDS SUMMARY | 2025-01-05 23:59 | XMS_ITS | Continuity of Care Document ---
Author Organization [facility] She[facility] Javed lt Address [address] [place] [address]- Care Team Providers Care Domestic Violence Advocate Name Role Phone Oralia HARDING, Rebecca Primary Care Physician [place] [facility] [place] - 01/05/25 [facility] [address] [place] [address]- Encounter Type: Triage Allergies, Adverse Reactions, Alerts No Known Allergies Immunizations Given and Recorded Vaccine Date Status Refusal Reason RSV vaccine, preF A-preF B, recombinant 03/03/23 R ecorded pneumococcal 13-valent vaccine 1 01/25/23 Recorded SARS-CoV-2(COVID-19)mRNA-LNP vac([id number]) 01/25/23 Recorded pneumococcal 20-valent conjugate vaccine 2 01/25/23 Recorded influenza virus vaccine, inactivated 01/13/23 Jose rded influenza virus vaccine, inactivated 03/23/22 Ojse rded influenza virus vaccine, inactivated 02/26/22 Jose rded influenza virus vaccine, inactivated 01/15/21 Jose rded influenza virus vaccine, inactivated 01/31/20 Jose rded influenza virus vaccine, inactivated 04/01/19 Jose rded influenza virus vaccine, inactivated 03/15/18 Jose rded [id number] 12y+ bivalent booster vax 04/15/22 Recorded [id number] bivalent booster vax 01/13/22 Recorded SARS-CoV-2 (COVID-19) mRNA-1273 vaccine 03/09/21 R ecorded SARS-CoV-2 (COVID-19) mRNA-1273 vaccine 08/26/20 R ecorded SARS-CoV-2 (COVID-19) mRNA-1273 vaccine 07/29/20 R ecorded 1Result Comment: Unit: Unknown 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: [employer] 2Result Comment: [facility] Accu Chek Guide [...] 0 Refills, Maintenance, 05/03/22 11:27:00 AM EST, [facility]- , Partial fill upon [...] Refills, Maintenance, 03/23/21 12:46:00 PM EST, Tablet, [facility] 3, Partial fill upon patient request [...] Fills Dispensed: 0 B-D PEN NDL MINI [id number](07/21) B-D PEN NDL MINI [id number](07/21), See Instructions, # 100 each, Refills 2, [...] 10:57:00 AM EDT, Route to Pharmacy Electronically, [facility] 3, Partial fill upon patient request [...] Refills, Maintenance, 12/13/24 12:55:00 PM EDT, Capsule, [facility] #[id number], Disregard Rx for 145 mg continue the [...] 2 times a day. 90 day supply E11.65, # 180 tablet, 2 Refills, Maintenance, 09/13/24 9:16:00 AM EDT, [facility] #[id number], 169, cm,09/03/24 15:47:00 EDT, Height, 101, kg, 12/29/23 10:42:00 EDT, Dry Weight Start Date: 09/13/24 Status: Ordered Medication Dispense Status: Completed Quantity: 180.0 Unit: tablet Total Allowed Fills: 3 Fills Dispensed: 0 Lantus Solostar Pen 100 units/mL subcutaneous solution See Instructions, 43 units at bedtime Subcutaneous Injection Daily E11.9, # 30 mL, 2 Refills, Maintenance, 09/13/24 9:16:00 AM EDT, [facility] #[id number], Partial fill upon patient request if theprescription [...] 2:32:00 PM EST, Route to Pharmacy Electronically, [facility] #[id number], Partial fill upon patient request if the [...] tablet, 11 Refills, 02/22/24 9:00:00 AM EDT, [facility], 169, cm, 02/15/24 10:45:00 EDT, Height, [...] 8:12:00 AM EDT, Route to Pharmacy Electronically, [facility] #[id number], Partial fill upon patientrequest if the prescription [...] 3 Refills, Maintenance, 06/17/24 3:18:00 PM EST, [facility] #[id number], Partial fill upon patient request if the [...] we will deflect this question to the parts room associate that is going to establish with patient in a few days in [place]. Then will be decided if Lasix should return back to 20 mg. 2Outside Source Comment: Overview: March 2021 status post [place] with coronary angiography showing occlusions requiring CABG, two-vessel bypass completed and without complication. This was done at [facility]. Last Assessment & Plan: He is [...] Team Personnel Name: Jeni Plasencia RN Position: [facility] RN Member Role: Primary Care Nurse Name: Ximena Garber RN Position: S RN Member Role: Primary Care Nurse Name: Rebecca Barton MD Position: [facility] Physician - Primary Care Member Role: PCP Address: [address] [place] [id number] Telecom: Name: Sammi Ram RN Position: [facility] Nurse Member Role: Primary Care Nurse Care Team Related Persons Name: ANGELA ECHEVARRIA Insurance Providers Guarantor name: SASHA ECHEVARRIA Health Plan Information #: 1 Payer: KAYLEN RODRIGUEZ Payer Identifier: NA Member Number: [id number] Group Number: [id number] Subscriber Identifier: NA Relationship to Subscriber: self Coverage Type: NA Coverage Verification Date: NA Telecom: NA Address: NA
--- OUTSIDE RECORDS SUMMARY | 2025-01-08 23:59 | XMS_ITS | Continuity of Care Document ---
Author Organization [facility] Shemar Javed lt Address [address] [place] [address]- Care Team Providers Care Staff Rn Name Role Phone Oralia HARDING, Rebecca Primary Care Physician Encounter [facility] [place] Date(s): 12/09/24 - 01/08/[address] [facility] [place] Adult [address] [place] [address]- Encounter Type: Triage Allergies, Adverse Reactions, Alerts No Known Allergies Immunizations Given and Recorded Vaccine Date Status Refusal Reason RSV vaccine, preF A-preF B, recombinant 03/03/23 R ecorded pneumococcal 13-valent vaccine 1 01/25/23 Recorded SARS-CoV-2(COVID-19)mRNA-LNP vac([id number]) 01/25/23 Recorded pneumococcal 20-valent conjugate vaccine 2 01/25/23 Recorded influenza virus vaccine, inactivated 01/13/23 Jose rded influenza virus vaccine, inactivated 03/23/22 Jose rded influenza virus vaccine, inactivated 02/26/22 Jose rded influenza virus vaccine, inactivated 01/15/21 Jose rded influenza virus vaccine, inactivated 01/31/20 Jose rded influenza virus vaccine, inactivated 04/01/19 Jose rded influenza virus vaccine, inactivated 03/15/18 Jose rded [id number] 12y+ bivalent booster vax 04/15/22 Recorded [id number] bivalent booster vax 01/13/22 Recorded SARS-CoV-2 (COVID-19) mRNA-1273 vaccine 03/09/21 R ecorded SARS-CoV-2 (COVID-19) mRNA-1273 vaccine 08/26/20 R ecorded SARS-CoV-2 (COVID-19) mRNA-1273 vaccine 07/29/20 R ecorded 1Result Comment: Unit: Unknown 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, Partial fill upon patient request if [...] Total Allowed Fills: 1 Fills Dispensed: 0 fenofibrate 200 mg oral capsule 1 capsule = 200 mg, By Mouth, Daily, # 90 capsule, 3 Refills, Maintenance, 12/13/24 12:55:00 PM EDT, Capsule, [facility] #[id number], Disregard Rx for 145 mg continue the 200 mg, 169, cm, 257:49:00 EDT, Height, 101, kg, 12/29/23 10:42:00 EDT, [...] 2 Refills, Maintenance, 09/13/24 9:16:00 AM EDT, [facility] #[id number], 169, cm, 09/03/24 15:47:00 EDT, Height, 101, kg, 12/29/23 10:42:00 EDT, Dry Weight Start Date: 09/13/24 Status: Ordered Medication Dispense Status: Completed Quantity: 180.0 Unit: tablet Total Allowed Fills: 3 Fills Dispensed: 0 Lantus Solostar Pen 100 units/mL subcutaneous solution See Instructions, 43 units at bedtime Subcutaneous Injection Daily E11.9, # 30 mL, 2 Refills, Maintenance, 09/13/24 9:16:00 AM EDT, [facility] #[id number], Partial fill upon patient request if theprescription [...] 2:32:00 PM EST, Route to Pharmacy Electronically, [facility] #[id number], Partial fill upon patient request if the [...] tablet, 11 Refills, 02/22/24 9:00:00 AM EDT, [facility], 169, cm, 02/15/24 [...] 8:12:00 AM EDT, Route to Pharmacy Electronically, [facility] #[id number], Partial fill upon patientrequest if the prescription [...] 3 Refills, Maintenance, 06/17/24 3:18:00 PM EST, [id number], Partial fill upon patient request if the [...] we will deflect this question to the truck guard that is going to establish with patient in a few days in [place]. Then will be decided if Lasix should return back to 20 mg. 2Outside Source Comment: Overview: March 2021 status post LA with coronary angiography showing occlusions requiring CABG, two-vessel bypass completed and without complication. This was done at [facility]. Last Assessment & Plan: He is [...] day planning on quitting; entered on: 06/17/24 Gender Identity Gender identity: ; I dentifies as male Sex Sex Representation Male (finding) Patient Care team information Care Team Personnel Name: Jeni Plasencia RN Position: [facility] RN Member Role: Primary Care Nurse Name: Ximena Garber RN Position: [facility] RN Member Role: Primary Care Nurse Name: Rebecca Barton MD Position: [facility] Physician - Primary Care Member Role: PCP Address: [address] [place] [id number] Telecom: Name: Sammi Ram RN Position: [facility] AMB Nurse Member Role: Primary Care Nurse Care Team Related Persons Name: ANGELA ECHEVARRIA Insurance Providers Guarantor name: SASHA ECHEVARRIA Health Plan Information #: 1 Payer: KAYLEN ELIASO [employer] ADV Payer Identifier: NA Member Number: [id number] Group Number: [id number] Subscriber Identifier: NA Relationship to Subscriber: self Coverage Type: NA Coverage Verification Date: NA Telecom: NA Address:
--- OUTSIDE RECORDS SUMMARY | 2025-01-08 23:59 | XMS_ITS | Continuity of Care Document ---
Author Organization [facility] Shemar Javed lt Address [address] [place] [address]- Care Team Providers Care Reconsignment Clerk Name Role Phone Oralia HARDING, Rebecca Primary Care Physician [phone] Encounter [facility] Date(s): 12/09/24 - 01/08/25 [facility] Adult [address] [place] [address]- Encounter Type: Triage Allergies, Adverse Reactions, Alerts No Known Allergies Immunizations Given and Recorded Vaccine Date Status Refusal Reason RSV vaccine, preF A-preF B, recombinant 03/03/23 R ecorded pneumococcal 13-valent vaccine 1 01/25/23 Recorded SARS-CoV-2(COVID-19)mRNA-LNP vac([id number]) 01/25/23 Recorded pneumococcal 20-valent conjugate vaccine 2 01/25/23 Recorded influenza virus vaccine, inactivated 01/13/23 Jose rded influenza virus vaccine, inactivated 03/23/22 Jose rded influenza virus vaccine, inactivated 02/26/22 Jose rded influenza virus vaccine, inactivated 01/15/21 Jose rded influenza virus vaccine, inactivated 01/31/20 Jose rded influenza virus vaccine, inactivated 04/01/19 Jose rded influenza virus vaccine, inactivated 03/15/18 Jose rded [id number] 12y+ bivalent booster vax 04/15/22 Recorded [id number] bivalent booster vax 01/13/22 Recorded SARS-CoV-2 (COVID-19) mRNA-1273 vaccine 03/09/21 R ecorded SARS-CoV-2 (COVID-19) mRNA-1273 vaccine 08/26/20 R ecorded SARS-CoV-2 (COVID-19) mRNA-1273 vaccine 07/29/20 R ecorded 1Result Comment: Unit: Unknown Route: Intramuscular Reconsignment Clerk: [employer] 2Result Comment: [facility] Accu Chek Guide [...] 0 Refills, Maintenance, 05/03/22 11:27:00 AM EST, [facility]- , Partial fill [...] Refills, Maintenance, 03/23/21 12:46:00 PM EST, Tablet, [facility] 3, Partial fill upon patient [...] Fills Dispensed: 0 B-D PEN NDL MINI [id number](07/21) B-D PEN NDL MINI [id number](07/21), See Instructions, # 100 each, Refills 2, [...] 10:57:00 AM EDT, Route to Pharmacy Electronically, [facility] 3, Partial fill upon patient request if [...] Refills, Maintenance, 12/13/24 12:55:00 PM EDT, Capsule, [email or web address] #[id number], Disregard Rx for 145 mg continue the [...] 2 Refills, Maintenance, 09/13/24 9:16:00 AM EDT, [facility] #[id number], 169, cm, 09/03/24 15:47:00 EDT, Height, 101, kg, 12/29/23 10:42:00 EDT, Dry Weight Start Date: 09/13/24 Status: Ordered Medication Dispense Status: Completed Quantity: 180.0 Unit: tablet Total Allowed Fills: 3 Fills Dispensed: 0 Lantus Solostar Pen 100 units/mL subcutaneous solution See Instructions, 43 units at bedtime Subcutaneous Injection Daily E11.9, # 30 mL, 2 Refills, Maintenance, 09/13/24 9:16:00 AM EDT, [facility] #[id number], Partial fill upon patient request if theprescription [...] 2:32:00 PM EST, Route to Pharmacy Electronically, [facility] #[id number], Partial fill upon patient request if the [...] tablet, 11 Refills, 02/22/24 9:00:00 AM EDT, [facility], 169, cm, 02/15/24 10:45:00 [...] 8:12:00 AM EDT, Route to Pharmacy Electronically, [facility] #[id number], Partial fill upon patientrequest if the prescription [...] 3 Refills, Maintenance, 06/17/24 3:18:00 PM EST, [id number], Partial fill upon patient request if the [...] we will deflect this question to the corporate risk analyst that is going to establish with patient in a few days in [place]. Then will be decided if Lasix should return back to 20 mg. 2Outside Source Comment: Overview: March 2021 status post MD with coronary angiography showing occlusions requiring CABG, two-vessel bypass completed and without complication. This was done at [facility]. Last Assessment & Plan: He is using [...] Team Personnel Name: Jeni Plasencia RN Position: [facility] RN Member Role: Primary Care Nurse Name: Ximena Garber RN Position: [facility] RN Member Role: Primary Care Nurse Name: Rebecca Barton MD Position: [facility] Physician - Primary Care Member Role: PCP Address: [address] [place] [id number] Telecom: Name: Sammi Ram RN Position: [facility] AMB Nurse Member Role: Primary Care Nurse Care Team Related Persons Name: ANGELA ECHEVARRIA Insurance Providers Guarantor name: SASHA ECHEVARRIA Health Plan Information #: 1 Payer: KAYLEN ELIASO [employer] ADV Payer Identifier: NA Member Number: [id number] Group Number: [id number] Subscriber Identifier: NA Relationship to Subscriber: self Coverage Type: NA Coverage Verification Date: NA Telecom: NA Address:
--- NOTE | ~2025-01-09 | XR_ITS ---
EXAMINATION: XR LUMBOSACRAL SPINE CLINICAL INFORMATION: pain after lifting COMPARISON: None available. TECHNIQUE: AP and lateral views. FINDINGS: Multilevel endplate sclerosis, marginal osteophyte formation. No acute cortical disruption. There is a grade 1 anterolisthesis L4-5. There is facet joint hypertrophy at L4-5 and L5-S1. Mild levoconvex curvature which could be positional. Vascular clips in the right upper quadrant abdomen and likely prior laparoscopic cholecystectomy. Spina bifida occulta, S1. Sclerosis along the articular surface of the acetabulum, left greater than the right side. XR/XR lumbar spine 2-3V IMPRESSION: Multilevel thoracolumbar spondylosis with the questionable grade 1 anterolisthesis L4-5 on a degenerative basis. Electronically signed by: Mert Garcia MD 01/09/2025 09:40 AM EDT
[2025-01-09 09:12] VITALS: BP 169/71; PULSE 66; RESP 20; TEMP 37.2; O2SAT 96; BMI 37.6
[2025-01-09 10:14] VITALS: BP 133/70; PULSE 67; RESP 18; O2SAT 94
--- NOTE | 2025-01-09 10:44 | ED.BACK ---
HPI - Back Pain/Injury General Chief Complaint: Back Pain/Injury Stated Complaint: back pain Time Seen by Provider: 01/09/25 10:00 Source: patient, RN notes reviewed and old records reviewed Mode of arrival: ambulatory Limitations: no limitations History of Present Illness ED Provider: David Bettencourt PA-C HPI Narrative: 69-year-old male with medical history of DARCI on CPAP, HTN, T2DM, presents to the ED due to 2 weeks of lumbar back pain. Patient states he was moving apartments and lifting a heavy dresser approximately 2 weeks ago. Patient states he felt fine after moving, however as the day progressed noticed some pain in his right lumbar back. Patient states pain is worse with movement and when getting in and out of a car, with mild radiation down the posterior right thigh. Patient states he has been taking Tylenol for pain management with mild effect. Patient states his back pain has been improving little by little, does endorse urinary incontinence at baseline. Denies saddle paresthesias, worsening or increased urinary incontinence, no bowel incontinence, chest pain, SOB, abd pain, nausea, vomiting, black/tarry stool, urinary symptoms Related Data Home Medications ?Medication ?Instructions ?Recorded ?Confirmed aripiprazole 2 mg tablet 2 mg PO DAILY 09/02/20 10/15/24 cholecalciferol (vitamin D3) 25 25 mcg PO DAILY 03/30/21 10/15/24 mcg (1,000 unit) capsule insulin glargine 100 unit/mL (3 32 unit subcut BEDTIME 03/30/21 10/15/24 mL) subcutaneous pen (Lantus Solostar U-100 Insulin) metformin 500 mg tablet,extended 1,000 mg PO BID 03/30/21 10/15/24 release 24 hr omeprazole 20 mg capsule,delayed 20 mg PO BID@0630,1630 03/30/21 10/15/24 release alpha lipoic acid 300 mg capsule 600 mg PO DAILY 06/09/22 10/15/24 cyanocobalamin (vitamin B-12) 1,000 mcg PO DAILY 06/09/22 10/15/24 1,000 mcg tablet,extended release fenofibrate micronized 200 mg 200 mg PO DAILY 01/09/24 10/15/24 capsule ferrous sulfate 325 mg (65 mg 325 mg PO DAILY 01/09/24 10/15/24 iron) tablet,delayed release fluoxetine 20 mg capsule 40 mg PO DAILY 01/09/24 10/15/24 glipizide 10 mg tablet 10 mg PO BID 01/09/24 10/15/24 metoprolol succinate 25 mg 50 mg PO DAILY 10/15/24 10/15/24 tablet,extended release 24 hr Previous Rx's ?Medication ?Instructions ?Recorded aspirin 81 mg tablet,delayed 81 mg PO DAILY #1 tab 12/29/23 release albuterol sulfate 90 mcg/actuation 2 puff inhalation Q4-6H PRN 02/09/24 aerosol inhaler shortness of breath or wheezing #1 ea furosemide 20 mg tablet 20 mg PO BID #180 tabs 09/06/24 Breo Ellipta 100 mcg-25 mcg/dose 1 inh inhalation DAILY #60 ea 10/09/24 powder for inhalation (fluticasone furoate-vilanterol) acetaminophen 500 mg capsule 1,000 mg (2 x 500 mg) PO Q6H PRN 11/14/24 pain 5 days #20 caps clindamycin HCl 300 mg capsule 300 mg PO Q6H 7 days #28 caps 11/14/24 (Cleocin HCl) ibuprofen 400 mg tablet 400 mg PO Q8H PRN pain #10 tabs 11/14/24 oxycodone 5 mg tablet 5 mg PO Q6H PRN pain #10 tabs 11/14/24 atorvastatin 80 mg tablet 80 mg PO QPM #90 tabs 11/15/24 clopidogrel 75 mg tablet 75 mg PO DAILY 90 days #90 tabs 12/13/24 cyclobenzaprine 5 mg tablet 5 mg PO TID PRN muscle spasm #15 01/09/25 tabs Allergies Allergy/AdvReac Type Severity Reaction Status Date / Time No Known Allergies (No Known Allergy Verified 01/09/25 09:13 Allergies*) Review of Systems Review of Systems: CONST: Negative for fever, body aches and chills. HENT: Negative for neck pain/stiffness, headache, congestion, sore throat, swelling. EYES: Negative for discharge/pain or vision changes. RESP: Negative for cough/hemoptysis and shortness of breath. CV: Negative chest pain, difficulty breathing, palpitations. ABD: Negative pain, nausea, vomiting. : Negative increase frequency, dysuria, blood in urine or stool. MUSC: Negative for muscle aches, edema. POS R side lumbar back pain SKIN: Negative rash, lesions/sores. NEURO: Negative headache, dizziness, weakness. Yes all other systems are reviewed and are negative [facility] Past Medical History Attestation statement: The following information was validated with the patient. Source: old records reviewed and nursing notes reviewed Medical History Obstructive sleep apnea on CPAP HTN (hypertension) Obstructive sleep apnea Diabetes FH: cholecystectomy Retinal detachment Surgical History Presence of coronary angioplasty implant and graft Hx of eye surgery Hx of bladder endoscopy Hx of colonoscopy Hx of oral surgery H/O heart bypass surgery History of tonsillectomy Family History Family History Father Coronary artery disease Hx of CABG Sister Coronary artery disease Hypertension Mother Cerebral hemorrhage Mental health problem Social History Social History Alcohol intake: never Patient Tobacco Use Status: Current everyday Tobacco user Tobacco use type: Cigar Cigarettes Per Day: 6 Years Smoked: 6 +/- Substance Use Type: Marijuana Advance Directives: Yes Advance Directives on File: Yes Advance Directives Date on File: 03/15/21 service: No Current occupational status: employed Physical Exam Vital Signs: Vital Signs: Last Vital Signs Temp 98.9 F 01/09/25 09:12 Pulse 67 01/09/25 10:14 Resp 18 01/09/25 10:14 BP 133/70 01/09/25 10:14 Pulse Ox 94 01/09/25 10:14 O2 Del Method Room Air 01/09/25 10:14 BMI result Body Mass Index 37.6 GENERAL APPEARANCE: ?AxOx4, generally well-appearing, no acute distress. HEENT: ?NC, AT. MMM. EOMI, clear conjunctiva, oropharynx clear. NECK: ?Supple without lymphadenopathy.? No stiffness or restricted ROM. HEART:? Normal rate and regular rhythm, normal S1/S1, no m/r/g LUNGS:? CTAB, moving air well. No crackles or wheezes are heard. ABDOMEN: ?Soft, nontender, nondistended with good bowel sounds heard. BACK: No CVAT, no obvious deformity. TTP of R sided lumbar paraspinal muscles/SI joint, no midline spinal tenderness, no bony step-offs palpated, no overlying skin changes. Full ROM intact with extension, flexion, lateral bending, patient able to ambulate without ataxic/antalgic gait EXTREMITIES: ?Without cyanosis, clubbing or edema. NEUROLOGICAL: ?Grossly nonfocal. Alert and oriented, moving all 4 extremities. Observed to ambulate with normal gait. Skin: ?Warm and dry without any rash. Medical Decision Making Medical Decision Making MDM Narrative: 69-year-old male with medical history of DARCI on CPAP, HTN, T2DM, s/p CABG with stent placement on AC therapy, presents to the ED due to 2 weeks of lumbar back pain. Patient states he was moving apartments and lifting a heavy dresser approximately 2 weeks ago. Patient states he felt fine after moving, however as the day progressed noticed some pain in his right lumbar back. Patient states pain is worse with movement and when getting in and out of a car, with mild radiation down the posterior right thigh. VS on initial observation-normotensive with BP 133/70, pulse rate of 67, respiratory rate of 18, afebrile with oral temp of 98.9?, O2 saturation 96% on room air. On physical exam patient with tenderness of the right lumbar paraspinal muscles/SI joint, no midline tenderness, no bony step-offs or anatomical abnormalities palpated. Patient with full ROM including extension, flexion, lateral bending, able to ambulate without ataxic/antalgic gait. Patient states pain has been improving over the last 2 weeks and Tylenol effective for pain management. Patient without history of IVDU, no saddle paresthesias, increased or worsening urinary incontinence, no bowel incontinence- less likely SEA/cauda equina XR lumbar spine negative for fracture or dislocation, however does observe degenerative changes with multilevel thoracolumbar spondylosis and grade 1 anterolisthesis of L4/5. Patient being medicated in the department with 975 mg of Tylenol as he has not taken anything since last night, and 5 mg Flexeril for pain management. Patient well enough to go home for self-care, I encouraged patient to follow up with his primary care provider to ensure his improvement of back pain, patient is in agreement with the plan. Differential Diagnosis Differential Diagnoses: The differential diagnosis associated with the presentation includes Spinal epidural abscess Cauda equina Lumbar fracture Lumbar back strain Admission/Observation Consideration of admission/observation: Escalation of care including admission/observation considered Independent Interpretation I performed an independent interpretation of an: Plain X-Ray Interpretation: I personally interpreted the XR lumbar spine which was negative for acute fracture, dislocation however shows degenerative changes of the lumbar spine, I agree with the radiologist's interpretation Radiology Impression Discussion of test interpretation with radiology: I have reviewed the radiologist's reading. Radiologist Impression: XR lumbar spine FINDINGS: Multilevel endplate sclerosis, marginal osteophyte formation. No acute cortical disruption. There is a grade 1 anterolisthesis L4-5. There is facet joint hypertrophy at L4-5 and L5-S1. Mild levoconvex curvature which could be positional. Vascular clips in the right upper quadrant abdomen and likely prior laparoscopic cholecystectomy. Spina bifida occulta, S1. Sclerosis along the articular surface of the acetabulum, left greater than the right side. XR/XR lumbar spine 2-3V IMPRESSION: Multilevel thoracolumbar spondylosis with the questionable grade 1 anterolisthesis L4-5 on a degenerative basis. Electronically signed by: Mert Garcia MD 01/09/2025 09:40 AM EDT RP Dictated By: Mert Oliveira MD Signed By: <Electronically signed by Mert Baltazar MD in OV> 01/09/25 0940 External Record Review External record reviewed: Inpatient record, Office record and Outpatient record Prescription Management I considered prescription management with: Other (Prednisone, NSAID) I contemplated prednisone for radicular symptoms, however patient with uncontrolled diabetes I contemplated NSAID for lumbar back pain, however patient on anticoagulation therapy Chronic Conditions Patient?s care impacted by: Diabetes, Hypertension and Other (DARCI on CPAP) Social Determinants Patient?s care significantly limited by Social Determinants of Health including: Other Social Determinant of Health Discharge Plan Discharge Clinical Impression: Lumbar strain Patient Disposition: Home, Self-Care Instructions: Low Back Strain (ED), Lower Back Exercises (ED) Additional Instructions: You were evaluated in the ED today due to lumbar back pain. Your physical exam was reassuring as you had full range of motion of your spine, without numbness or tingling of your inner thighs or genital region. The XR of your lumbar spine was negative for acute fracture or dislocation however did show degenerative changes of your mid and lower spine that may be making her pain worse. You were medicated with 975 mg of Tylenol in the department. You will be prescribed a 5 day course of Flexeril which is a muscle relaxer for muscle spasms. To manage pain at home please take 500 mg of Tylenol every 6 hours. I encourage you to follow up with your primary care doctor to ensure improvement of your lumbar back pain, you may need physical therapy which your primary care doctor can refer you for. Please return to the emergency department if you experience fevers over 100.4?, worsening back pain, difficulty walking, heaviness of the legs, numbness and tingling of your inner thighs, worsening or increased urinary incontinence, bowel incontinence, or any new/worsening/concerning symptoms. Prescriptions: New cyclobenzaprine 5 mg tablet 5 mg PO TID PRN (Reason: muscle spasm) Qty: 15 0RF No Action furosemide 20 mg tablet 20 mg PO BID Qty: 180 3RF fluticasone furoate-vilanterol [Breo Ellipta] 100-25 mcg/dose blister with device 1 inh inhalation DAILY Qty: 60 3RF atorvastatin 80 mg tablet 80 mg PO QPM Qty: 90 3RF clopidogrel 75 mg tablet 75 mg PO DAILY 90 Days Qty: 90 1RF aspirin 81 mg Tablet,Delayed Release (Dr/Ec) 81 mg PO DAILY Qty: 1 0RF fluoxetine 20 mg capsule 40 mg PO DAILY glipizide 10 mg tablet 10 mg PO BID acetaminophen 500 mg capsule 1,000 mg PO Q6H PRN (Reason: pain) 5 Days Qty: 20 0RF oxycodone 5 mg tablet 5 mg PO Q6H PRN (Reason: pain) Qty: 10 0RF Rx Instructions: Partial Fill upon patient request. ibuprofen 400 mg tablet 400 mg PO Q8H PRN (Reason: pain) Qty: 10 0RF clindamycin HCl [Cleocin HCl] 300 mg capsule 300 mg PO Q6H 7 Days Qty: 28 0RF aripiprazole 2 mg tablet 2 mg PO DAILY Lantus Solostar U-100 Insulin 100 unit/mL (3 mL) insulin pen 32 unit subcut BEDTIME metformin 500 mg tablet extended release 24 hr 1,000 mg PO BID omeprazole 20 mg capsule,delayed release(DR/EC) 20 mg PO BID@0630,1630 cholecalciferol (vitamin D3) 25 mcg (1,000 unit) capsule 25 mcg PO DAILY alpha lipoic acid 300 mg capsule 600 mg PO DAILY cyanocobalamin (vitamin B-12) 1,000 mcg tablet extended release 1,000 mcg PO DAILY fenofibrate micronized 200 mg capsule 200 mg PO DAILY ferrous sulfate 325 mg (65 mg iron) tablet,delayed release (DR/EC) 325 mg PO DAILY metoprolol succinate 25 mg tablet extended release 24 hr 50 mg PO DAILY Protocol: Hold for SBP/HR < HOLD for SBP < : 90 HOLD for HR < : 60 albuterol sulfate 90 mcg/actuation HFA aerosol inhaler 2 puff inhalation Q4-6H PRN (Reason: shortness of breath or wheezing) Qty: 1 3RF Print Language: Romansh
--- OUTSIDE RECORDS SUMMARY | 2025-01-09 10:47 | XMS_ITS | Clinical Summary ---
Author Organization [facility] ity Address [address] [place] [address] Care Team Providers Care Mate Chief Name Role Phone Vargas Cook MD Primary Care Provider [phone] Medications omeprazole (PriLOSEC) [address] capsule TAKE 1 CAPSULE BY MOUTH TWICE DAILY BEFORE MEALS 180 capsule 10/30/2024 Active Encounters Date Type Department Care Team Description 11/28/2024 Telephone [facility] Cardiology [facility] [address] [place] [address] Vargas Cook MD from Last 3 Months Surgical History Surgery Date Site/Laterality Comments TONSILLECTOMY 1966 PROCEDURE: HISTORICAL TONSILLECTOMY CHOLECYSTECTOMY 2002 PROCEDURE: HISTORICAL CHOLECYSTECTOMY EYE SURGERY 2016 Right PROCEDURE: HISTORICAL EYE SURGERY; COMMENT: retinal detchment r eye, rohit 11/05/2016 Medical History Medical History Date Comments HTN (hypertension) DX:HTN (hyper tension) Hyperlipidemia DX:Hyperlipidemi a Depression DX:Depression 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 DX:Retinal defect of both ey es with detachment Diabetes (CMS/HCC V24, CMS/HCC V28) DX:Diabetes (HCC) Family History Medical History Relation Name Comments Diabetes Father age 89 Stroke Mother age 42 , cerebral hemorrhage Relation Name Status Comments Father Mother Social History Tobacco Use Types Packs/Day Years Used Date Smoking Tobacco: Every Day Smokeless Tobacco: Never Alcohol Use Standard Drinks/Week Comments No 0 (1 standard drink = 0.6 oz pur e alcohol) Sex and Gender Information Value Date Recorded Sex Assigned at Not on file Legal Sex Male 6:04 AM EST Gender Identity Not on file Sexual Orientation Not on file Obstetrics History Last Filed Vital Signs Vital Sign Reading Time Taken Comments Blood Pressure 142/80 01/23/2024 9:22 AM EDT Sit ting Pulse 92 01/23/2024 9:22 AM EDT Temperature - - Respiratory Rate - - Oxygen Saturation - - Inhaled Oxygen Concentration - - Weight 103 kg (227 lb 3.2 oz) 01/23/2024 9:22 AM EDT Height 170.2 cm (5' 7 ) 01/23/2024 9:22 AM EDT Body Mass Index 35.58 01/23/2024 9:22 AM EDT Plan of Treatment Health Maintenance Due Date Last Done Comments DTaP,Tdap,and Td Vaccines (1 - Tdap) 11/25/1974 Pneumococcal Vaccine: 50+ Years (1 of 2 - PCV) 11/25/1974 Zoster Vaccines (1 of 2) 11/25/2005 Abdominal Aortic Aneurysm (AAA) Screen 04/16/2022 Cholesterol Screening (Lipid Panel) 04/16/2022 Colorectal Cancer Screening: Colonoscopy 04/16/2022 Falls Risk Assessment 04/16/2022 Hepatitis C Screening 04/16/2022 Social Influencers of Health Screening 04/16/2022 Hypertension/CHF/CAD Annual BMP Blood Test 04/17/2022 Depression Screening 05/08/2024 COVID-19 Vaccine ( - 2023-2 5 season) 2025 Influenza Vaccine (#1) 2025 9, 03/15/2018, 01/20/2017 RSV Immunization Adult Patients (1 - 1-dose 75+ series) 11/25/2030 HIB Vaccines Aged Out No longer eligi [...] on patient's age to complete this topic MMR Vaccines Aged Out No longer eligi ble based on patient's age to complete this topic Meningococcal ACWY Vaccine Aged Out N o longer eligible based on patient's age to complete this topic Meningococcal B Vaccine Aged Out No l onger eligible based on patient's age to complete this topic RSV Immunization Patients Under 20 months Aged Out No longer eligible b ased on patient's age to complete this topic Varicella Vaccines Aged Out No longer eligible based on patient's age to complete this topic Care Teams Mate Chief Relationship Specialty Start Date End Date Vargas Cook MD [address] [place], [place] PCP - General Internal Medicine 07/22/20
--- OUTSIDE RECORDS SUMMARY | 2025-01-09 10:47 | XMS_ITS ---
Author Name [facility] Organization Unknown Care Team Organization Name Specialty Phone Email Start Date End Da te [facility] Jasepr Bajwa MD Primary Care 03/15/202212/24
[2025-01-09 11:17] VITALS: BP 128/78; PULSE 65; RESP 18; TEMP 36.5; O2SAT 95
== END 2025-01-09 11:18 | disposition home or self-care (01) ==
PROVIDERS: Emergency Provider Emergency Medicine; PCP Internal Medicine Geriatric Medicine
DX: S39.012A Strain of muscle, fascia and tendon of lower back, initial encounter (principal); I10 Essential (primary) hypertension; E11.9 Type 2 diabetes mellitus without complications; X50.0XXA Overexertion from strenuous movement or load, initial encounter; Y93.89 Activity, other specified; Y92.89 Other specified places as the place of occurrence of the external cause; Y99.8 Other external cause status; Z79.899 Other long term (current) drug therapy
CPT/HCPCS: 72100; 99283; 99284

== ENCOUNTER 2025-02-19 10:47 | Outpatient (AMB) | payer MEDICARE, MEDICAID, SELFPAY ==
[2025-02-19 10:50] VITALS: BP 130/70; PULSE 60; O2SAT 97; BMI 38.3
--- NOTE | 2025-02-19 10:50 | A.OFFVIS_ITS ---
Vital Signs 02/19/25 10:50 Height 5 ft 5 in Weight 230 lb BMI 38.3 BP 130/70 Blood Pressure Location Lt brachial Position Sitting Pulse 60 Pulse Source Pulse Oximeter Pulse Oximetry (%) 97 Oxygen Delivery Method Room Air Intake Visit Reasons: Dyspnea on exertion Evp Operations Required: No Client Support Analyst: Client Support Analyst offered & declined Accompanied by: Self / Same As Patient Allergies No Known Allergies (No Known Allergies*) Allergy (Verified 02/19/25 10:54) Medication List - Last Reconciled 02/19/25 by Noelle Doe LPN acetaminophen 1,000 mg (2 x 500 mg) PO Q6H PRN 5 days albuterol sulfate 90 mcg/actuation 2 puffs inhalation Q4-6H PRN alpha lipoic acid 600 mg PO DAILY aripiprazole 2 mg PO DAILY aspirin 81 mg PO DAILY atorvastatin 80 mg PO QPM Breo Ellipta 100-25 mcg/dose (fluticasone furoate-vilanterol) 1 inh inhalation DAILY NS cholecalciferol (vitamin D3) 25 mcg PO DAILY clindamycin HCl (Cleocin HCl) 300 mg PO Q6H 7 days clopidogrel 75 mg PO DAILY 90 days cyanocobalamin (vitamin B-12) ER 1,000 mcg PO DAILY cyclobenzaprine 5 mg PO TID PRN fenofibrate micronized 200 mg PO DAILY ferrous sulfate 325 mg PO DAILY fluoxetine 40 mg PO DAILY furosemide 20 mg PO BID glipizide 10 mg PO BID ibuprofen 400 mg PO Q8H PRN insulin glargine (Lantus Solostar U-100 Insulin) 32 units subcut BEDTIME metformin ER 1,000 mg PO BID metoprolol succinate ER 50 mg See Protocol PO DAILY omeprazole 20 mg PO BID@0630,1630 oxycodone 5 mg PO Q6H PRN HPI HPI Dyspnea on exertion: Details: Doe is a pleasant 68 year old male, current 15+ pack year smoker with underlying asthma COPD overlap syndrome, HTN, DMII, DARCI on CPAP, h/o double bypass 2021 and recent NSTEMI s/p stent 01/2024, under the care of [facility] cardiology. Prior CTA 01/2024 revealed mosaic attenuation throughout suggestive of small airways disease. He reports using Breo inhaler regularly, which has been somewhat effective, but he still experiences wheezing at night, particularly before bedtime. The patient attributes this wheezing to his smoking habit, which he is attempting to quit. He also notes ongoing productive cough for the last two months with grayish brown sputum with associated chest congestion. Denies fevers or chills. The patient has a history of sleep apnea and has been unable to use his CPAP machine due to recent dental work, including tooth extractions, resulting in significant discomfort due to the pressure of the mask. He plans to resume using the CPAP machine once his dental issues are resolved, as he notes improved sleep quality and reduced daytime tiredness with use. [facility] Medical History Obstructive sleep apnea on CPAP HTN (hypertension) Obstructive sleep apnea Diabetes FH: cholecystectomy Retinal detachment Surgical History Presence of coronary angioplasty implant and graft Hx of eye surgery Hx of bladder endoscopy Hx of colonoscopy Hx of oral surgery H/O heart bypass surgery History of tonsillectomy Family History Father Coronary artery disease Hx of CABG Sister Coronary artery disease Hypertension Mother Cerebral hemorrhage Mental health problem Social History Alcohol intake: never Patient Tobacco Use Status: Current everyday Tobacco user Tobacco use type: Cigar Cigarettes Per Day: 6 Years Smoked: 6 +/- Substance Use Type: Marijuana Advance Directives Date on File: 03/15/21 service: No Current occupational status: employed [employer] ENT Reports Normal hearing present Neuro Reports Normal hearing present Physical Exam Vital Signs: Last Vital Signs Pulse 60 02/19/25 10:50 BP 130/70 02/19/25 10:50 Pulse Ox 97 02/19/25 10:50 Oxygen Delivery Method Room Air 02/19/25 10:50 BMI result Body Mass Index 38.3 Const General: cooperative, comfortable, no acute distress, well developed and alert Nutritional Appearance: obese Orientation/consciousness: patient oriented x3 Limitations: no limitations HEENT Head: Yes normal to inspection, Yes normocephalic and Yes atraumatic Ears: hearing grossly normal bilaterally and external ears normal Eyes General: appearance normal, both eyes and all related structures Eyelids: Yes eyelids normal Sclerae: sclerae normal EOM: EOMs intact bilaterally Neck Neck: Yes normal visual inspection and Yes no lymphadenopathy Lymphatic: no lymphadenopathy noted Chest Chest palpation & inspection: normal inspection of the chest Resp Other: faint inspiratory crackles of LLL, scattered rhonchi Effort & Inspection: normal respiratory effort, able to speak in complete sentences, no audible wheezes, no cough, no stridor, not tachypneic, no tripod positioning and no use of accessory muscles Auscultation: no wheezes Cardio Jugular venous distension: no JVD Rate: regular rate Rhythm: regular rhythm Skin Other: warm, dry General skin exam: no rashes or lesions noted Neuro General: patient oriented x3 Cranial nerves: Yes Normal hearing present Cognition (Neuro): normal cognition Gait exam (Neuro): Normal gait present Extrem General: Yes normal to inspection, Yes capillary refill normal, Yes no clubbing, cyanosis or edema and Yes no pedal edema Psych Appearance: grossly normal and well kempt Speech and movement: Normal speech and movement present and Clear speech present Affect: normal affect Attitude: cooperative Thought process: Normal thought process present Thought content: Normal thought content present Insight: Good insight present (Psych) Judgement: Good judgement present (Psych) Assessment & Plan Assessment & Plan (1) Asthma-COPD overlap syndrome: Code(s): J44.89 - Other specified chronic obstructive pulmonary disease Category: Medical (2) Emphysema of lung: Code(s): J43.9 - Emphysema, unspecified Category: Medical (3) Smoking: Code(s): F17.200 - Nicotine dependence, unspecified, uncomplicated Category: Social Hx (4) Morbid obesity: Code(s): E66.01 - Morbid (severe) obesity due to excess calories Category: Medical (5) Obstructive sleep apnea on CPAP: Code(s): G47.33 - Obstructive sleep apnea (adult) (pediatric); Z99.89 - Dependence on other enabling machines and devices Category: Medical Plan Will treat bronchitic symptoms with doxycycline. He is aware to call if symptoms do not improve. Discussed with the patient the management of his asthma/COPD, including the continuation of Breo and the addition of Spiriva. We reviewed the importance of using albuterol for wheezing and the potential impact of Spiriva on urinary symptoms. The patient is attempting to quit smoking and has reduced consumption to six per day. Continued efforts to quit smoking are encouraged. The patient is unable to use his CPAP machine due to dental work but plans to resume its use once dental issues are resolved. All questions were answered and patient is in agreement of plan. Will follow up in 3 months or sooner if needed. Medications: New tiotropium bromide 1.25 mcg/actuation (Spiriva Respimat) 2 puffs inhalation DAILY 4 grams 3RF doxycycline hyclate 100 mg PO BID 14 caps 0RF Coding Level of Care Code Est Pt Level 4 (46353) Diagnoses Asthma-COPD overlap syndrome J44.89 Emphysema of lung J43.9 Smoking F17.200 Morbid obesity E66.01 Obstructive sleep apnea on CPAP G47.33; Z99.89
--- OUTSIDE RECORDS SUMMARY | 2025-02-19 13:03 | XMS_ITS | Clinical Summary ---
Author Organization [facility] it Address [address] [place] [address] Care Team Providers Care Watch Crystal Edge Grinder Name Role Phone Vargas Cook MD Primary Care Provider [phone] Medications omeprazole (PriLOSEC) [address] capsule Take 1 capsule (20 mg total) by mouth 2 (two) times a day before meals. 180 capsule 3 5 Active omeprazole (PriLOSEC) [address] capsule TAKE 1 CAPSULE BY MOUTH TWICE DAILY BEFORE MEALS 180 capsule 5 01/28/20 25 Discontinu ed(Reorder ) Encounters Date Type Department Care Team Description 11/28/[address] [facility] Cardiology [facility] [address] [place] [address] Vargas Cook MD from Last 3 Months Surgical History Surgery Date Site/Laterality Comments TONSILLECTOMY 1966 PROCEDURE: HISTORICAL TONSILLECTOMY CHOLECYSTECTOMY 2002 PROCEDURE: HISTORICAL CHOLECYSTECTOMY EYE SURGERY 2016 Right PROCEDURE: HISTORICAL EYE SURGERY; COMMENT: retinal detchment r eye, leye 11/05/2016 Medical History Medical History Date Comments [...] Health Maintenance Due Date Last Done Comments Colorectal Cancer Screening: Colonoscopy 1955 DTaP,Tdap,and Td Vaccines (1 - Tdap) 11/25/1974 Pneumococcal Vaccine: 50+ Years (1 of 2 - PCV) 11/25/1974 Zoster Vaccines (1 of 2) 11/25/2005 Abdominal Aortic Aneurysm (AAA) Screen 04/16/2022 Cholesterol Screening (Lipid Panel) 04/16/2022 Falls Risk Assessment 04/16/2022 Hepatitis C Screening 04/16/2022 Social Influencers of Health Screening 04/16/2022 Hypertension/CHF/CAD Annual BMP Blood Test 04/17/2022 Depression Screening 05/08/2024 COVID-19 Vaccine (1 - 2023-2 5 season) 2025 Influenza Vaccine [...] age to complete this topic Care Teams Watch Crystal Edge Grinder Relationship Specialty Start Date End Date Vargas Cook MD [address] [place] [address] PCP - General Internal Medicine 07/22/20
== END 2025-02-19 11:27 | disposition home or self-care (01) ==
LOC: HO.HPSW 10:48
PROVIDERS: Visit Provider Nurse Practitioner Family
DX: J44.89 Other specified chronic obstructive pulmonary disease (principal); J43.9 Emphysema, unspecified; F17.200 Nicotine dependence, unspecified, uncomplicated; E66.01 Morbid (severe) obesity due to excess calories; G47.33 Obstructive sleep apnea (adult) (pediatric); Z99.89 Dependence on other enabling machines and devices
CPT/HCPCS: 99214

== ENCOUNTER → 2025-02-19 10:47 | Outpatient (BNVA) | payer MEDICARE, MEDICAID, SELFPAY | PROVIDERS: Visit Provider Nurse Practitioner Family | DX: G47.33 Obstructive sleep apnea (adult) (pediatric) (principal); Z99.89 Dependence on other enabling machines and devices; J43.9 Emphysema, unspecified; F17.200 Nicotine dependence, unspecified, uncomplicated; E66.01 Morbid (severe) obesity due to excess calories; J44.89 Other specified chronic obstructive pulmonary disease | CPT/HCPCS: 99212 ==

== ENCOUNTER 2025-04-02 09:40 | Outpatient (AMB) | payer MEDICARE, MEDICAID, SELFPAY ==
--- NOTE | 2025-04-02 09:42 | MHC.OFFVIS ---
Vital Signs 04/02/25 09:43 Height 5 ft 5 in Weight 230 lb 2 oz BMI 38.3 BP 122/64 Blood Pressure Location Lt brachial Position Sitting Pulse 64 Pulse Source Pulse Oximeter Pulse Oximetry (%) 96 Oxygen Delivery Method Room Air Intake Visit Reasons: Dyspnea on exertion Allergies No Known Allergies (No Known Allergies*) Allergy (Verified 04/02/25 09:46) HPI HPI Dyspnea on exertion: Details: Doe is a pleasant 69 year old male, current 15+ pack year smoker with underlying asthma COPD overlap syndrome, HTN, DMII, DARCI on CPAP, h/o double bypass 2021 and NSTEMI s/p stent 01/2024, under the care of [facility] cardiology. Prior CTA 01/2024 revealed mosaic attenuation throughout suggestive of small airways disease, no concerning nodules. At the last visit he reported bronchitic symptoms treated with doxycycline and has had resolution of cough. Denies dyspnea however notes wheezing frequently, with resolution using albuterol MDI. He denies any visits to urgent care hospitalizations related to respiratory distress since last visit. The patient has a history of sleep apnea and has been unable to use his CPAP machine due to ongoing dental work, including tooth extractions, resulting in significant discomfort due to the pressure of the mask. He plans to resume using the CPAP machine once his dental issues are resolved, as he notes improved sleep quality and reduced daytime tiredness with use. [facility] is [facility]. Of note, patient reports approximately 30 lb weight loss since prior sleep study which was performed greater than 5 years ago he believes at [facility]. [facility] Medical History Obstructive sleep apnea on CPAP HTN (hypertension) Obstructive sleep apnea Diabetes FH: cholecystectomy Retinal detachment Surgical History Presence of coronary angioplasty implant and graft Hx of eye surgery Hx of bladder endoscopy Hx of colonoscopy Hx of oral surgery H/O heart bypass surgery History of tonsillectomy Family History Father Coronary artery disease Hx of CABG Sister Coronary artery disease Hypertension Mother Cerebral hemorrhage Mental health problem Social History Alcohol intake: never Patient Tobacco Use Status: Current everyday Tobacco user Tobacco use type: Cigar Cigarettes Per Day: 6 Years Smoked: 6 +/- Substance Use Type: Marijuana Advance Directives Date on File: 03/15/21 service: No Current occupational status: employed [employer] Const Denies chills, Denies excessive sweating, Denies fever(s), Denies headache(s) and Denies night sweats Eyes Denies dry eyes, Denies irritation and Denies itchy eyes ENT Reports Normal hearing present, Denies headache(s), Denies nasal congestion, Denies nasal discharge, Denies post nasal drip and Denies sore throat Card Denies chest pain, Denies chest pain at rest, Denies chest pain with activity, Denies claudication, Denies leg edema, Denies dyspnea, Denies dyspnea on exertion, Denies orthopnea and Denies paroxysmal nocturnal dyspnea Resp Denies chest congestion, Denies cough, Denies excessive phlegm production, Denies pain on inspiration, Denies pain with cough, Denies dyspnea, Denies dyspnea on exertion and Denies stridor Musc Denies myalgias Neuro Reports Normal hearing present and Denies headache(s) Endo Denies excessive sweating Scottie/Lymph Denies lymphadenopathy Aller/Immun Denies itchy eyes and Denies seasonal rhinorrhea Physical Exam Vital Signs: Last Vital Signs Pulse 64 04/02/25 09:43 BP 122/64 04/02/25 09:43 Pulse Ox 96 04/02/25 09:43 Oxygen Delivery Method Room Air 04/02/25 09:43 BMI result Body Mass Index 38.3 Const General: cooperative, comfortable, no acute distress, well developed and alert Nutritional Appearance: obese Orientation/consciousness: patient oriented x3 Limitations: no limitations HEENT Head: Yes normal to inspection, Yes normocephalic and Yes atraumatic Ears: hearing grossly normal bilaterally and external ears normal Eyes General: appearance normal, both eyes and all related structures Eyelids: Yes eyelids normal Sclerae: sclerae normal EOM: EOMs intact bilaterally Neck Neck: Yes normal visual inspection and Yes no lymphadenopathy Lymphatic: no lymphadenopathy noted Chest Chest palpation & inspection: normal inspection of the chest Resp Effort & Inspection: normal respiratory effort, able to speak in complete sentences, no audible wheezes, no cough, no stridor, not tachypneic, no tripod positioning and no use of accessory muscles Auscultation: clear to auscultation bilaterally and no wheezes Cardio Jugular venous distension: no JVD Rate: regular rate Rhythm: regular rhythm Skin Other: warm, dry General skin exam: no rashes or lesions noted Neuro General: patient oriented x3 Cranial nerves: Yes Normal hearing present Cognition (Neuro): normal cognition Gait exam (Neuro): Normal gait present Extrem General: Yes normal to inspection, Yes capillary refill normal, Yes no clubbing, cyanosis or edema and Yes no pedal edema Psych Appearance: grossly normal and well kempt Speech and movement: Normal speech and movement present and Clear speech present Affect: normal affect Attitude: cooperative Thought process: Normal thought process present Thought content: Normal thought content present Insight: Good insight present (Psych) Judgement: Good judgement present (Psych) Assessment & Plan Assessment & Plan (1) Asthma-COPD overlap syndrome: Code(s): J44.89 - Other specified chronic obstructive pulmonary disease Category: Medical (2) Emphysema of lung: Code(s): J43.9 - Emphysema, unspecified Category: Medical (3) Smoking: Code(s): F17.200 - Nicotine dependence, unspecified, uncomplicated Category: Social Hx (4) Morbid obesity: Code(s): E66.01 - Morbid (severe) obesity due to excess calories Category: Medical (5) Obstructive sleep apnea on CPAP: Code(s): G47.33 - Obstructive sleep apnea (adult) (pediatric); Z99.89 - Dependence on other enabling machines and devices Category: Medical (6) Daytime somnolence: Code(s): R40.0 - Somnolence Category: Medical Plan At this time Doe reports suboptimal control on current regimen, will increase dose of Breo 200 mcg and continue Spiriva as well as albuterol MDI prn. He is aware to call if symptoms do not improve. Discussed importance of smoking cessation which he is motivated to do. Patient reports ongoing issues with CPAP compliance secondary to dental work and plans to restart once dental procedures are completed. He reports 30 lb weight loss since prior sleep study which was greater than 5 years ago and continues with daytime fatigue, will send for updated HST to reestablish diagnosis and consider in lab titration study to ensure optimal pressures. All questions were answered and patient is in agreement of plan. Will follow up in 3 months or sooner if needed. Orders: Orders RT home sleep study Today R40.0 - Somnolence Medications: New fluticasone furoate-vilanterol 200-25 mcg/dose (Breo Ellipta) 1 inh inhalation DAILY 60 ea 3RF Discontinued Breo Ellipta 100-25 mcg/dose (fluticasone furoate-vilanterol) Discontinued Reason: No Longer Medically Relevant 1 inh inhalation DAILY 60 ea 3RF NS Coding Level of Care Code Est Pt Level 4 (99500) Diagnoses Asthma-COPD overlap syndrome J44.89 Emphysema of lung J43.9 Smoking F17.200 Morbid obesity E66.01 Obstructive sleep apnea on CPAP G47.33; Z99.89 Daytime somnolence R40.0
[2025-04-02 09:43] VITALS: BP 122/64; PULSE 64; O2SAT 96; BMI 38.3
--- OUTSIDE RECORDS SUMMARY | 2025-04-02 11:00 | XMS_ITS | Clinical Summary ---
Author Organization [facility] ity Address [address] [place] [address] Care Team Providers Care Heel Pricker Name Role Phone Vargas Cook MD Primary Care Provider [phone] Medications omeprazole (PriLOSEC) [address] capsule Take 1 capsule (20 mg total) by mouth 2 (two) times a day before meals. 180 capsule 3 01/27/2025 Active Surgical History Surgery Date Site/Laterality Comments TONSILLECTOMY [...] Depression Screening 05/08/2024 COVID-19 Vaccine (1 - 2024-2 6 season) 2025 Influenza Vaccine (#1) 2025 9, [...] age to complete this topic Care Teams Heel Pricker Relationship Specialty Start Date End Date Vargas Cook MD [address] [place] [address] PCP - General Internal Medicine 07/22/20
== END 2025-04-02 10:09 | disposition home or self-care (01) ==
LOC: HO.HPSW 09:41
PROVIDERS: PCP Registered Nurse; Visit Provider Nurse Practitioner Family
DX: J44.89 Other specified chronic obstructive pulmonary disease (principal); J43.9 Emphysema, unspecified; F17.200 Nicotine dependence, unspecified, uncomplicated; E66.01 Morbid (severe) obesity due to excess calories; G47.33 Obstructive sleep apnea (adult) (pediatric); Z99.89 Dependence on other enabling machines and devices; R40.0 Somnolence
CPT/HCPCS: 99214

== ENCOUNTER → 2025-04-02 09:40 | Outpatient (BNVA) | payer MEDICARE, MEDICAID, SELFPAY | PROVIDERS: PCP Registered Nurse; Visit Provider Nurse Practitioner Family | DX: J44.89 Other specified chronic obstructive pulmonary disease (principal); F17.200 Nicotine dependence, unspecified, uncomplicated; J43.9 Emphysema, unspecified; E66.01 Morbid (severe) obesity due to excess calories; Z68.38 Body mass index [BMI] 38.0-38.9, adult; G47.33 Obstructive sleep apnea (adult) (pediatric); Z99.89 Dependence on other enabling machines and devices | CPT/HCPCS: 99212 ==